=== PATIENT | female | born 1935 ===

== ENCOUNTER 2017-02-18 19:07 | Observation (INO) | payer MEDICAID ==
[2017-02-18 19:20] VITALS: BMI 25.0
--- NOTE | 2017-02-18 19:48 | ED PDOC ---
Arrival/HPI - General Chief Complaint: High Blood Pressure Time Seen by Provider: 02/18/17 19:17 Historian: Patient - History of Present Illness Narrative History of Present Illness (Text): 02/18/17 19:44 A 81 year old female with hypertension, diabetes, peptic ulcer disease, iron deficiency anemia and GI bleed, was sent into the emergency department by PMD for persistent elevated blood pressure. Patient notes associated headache discomfort, as well as, feeling weak and near-syncopal at times. Patient states she has been complaint with her medication. Patient denies any fever, nausea, vomiting, diarrhea, abdominal pain, urinary symptoms, chest pain, shortness of breath or any other complaints. PMD: Dr. Woods Time/Duration: Prior to Arrival Symptom Course: Unchanged Quality: Other Context: Other Past Medical History - Provider Review Nursing Documentation Reviewed: Yes - Infectious Disease Hx of Infectious Diseases: None - Cardiac Hx Cardiac Disorders: Yes Hx Hypertension: Yes - Pulmonary Hx Respiratory Disorders: No - Neurological Hx Neurological Disorder: No - HEENT Hx HEENT Disorder: No - Renal Hx Renal Disorder: No - Endocrine/Metabolic Hx Diabetes Mellitus Type 2: Yes (pre diabetic) - Hematological/Oncological Hx Blood Transfusions: Yes Hx Blood Transfusion Reaction: No - Integumentary Hx Dermatological Disorder: No - Musculoskeletal/Rheumatological Hx Musculoskeletal Disorders: No Hx Falls: Yes - Gastrointestinal Hx Gastrointestinal Disorders: Yes (HERNIA REAPIR,GASTRITIS,THYROIDECTOMY) Hx Gall Bladder Disease: Yes (CHOLECYSTECTOMY) Hx Gastroesophageal Reflux: Yes - Genitourinary/Gynecological Hx Genitourinary Disorders: Yes (2 ABORTIONS) - Psychiatric Hx Psychophysiologic Disorder: No Hx Substance Use: No - Surgical History Hx Cholecystectomy: Yes - Anesthesia Hx Anesthesia Reactions: No Hx Malignant Hyperthermia: No Family/Social History - Physician Review Nursing Documentation Reviewed: Yes Family/Social History: No Known Family HX Smoking Status: Never Smoked Hx Alcohol Use: No Hx Substance Use: No Allergies/Home Meds Allergies/Adverse Reactions: Allergies No Known Allergies Allergy (Verified 02/18/17 19:20) Home Medications: Home Meds Medication Instructions Recorded Confirmed Bp Medication 08/13/16 Review of Systems - Physician Review All systems were reviewed & negative as marked: Yes - Review of Systems Constitutional: Other (Elevated bp, Generalized weakness). absent: Fevers, Night Sweats Respiratory: absent: SOB Cardiovascular: Other (Near-syncope). absent: Chest Pain Gastrointestinal: absent: Abdominal Pain, Diarrhea, Nausea, Vomiting Genitourinary Female: absent: Dysuria, Frequency, Hematuria, Urine Output Changes Neurological: Headache Physical Exam Vital Signs Reviewed: Yes Vital Signs Temp Pulse Pulse Resp BP Pulse Ox 02/18/17 20:28 81 18 195/108 H 100 02/18/17 19:30 68 02/18/17 19:20 16 98 02/18/17 19:08 98.2 F 80 16 207/110 H 100 Temperature: Afebrile Blood Pressure: Hypertensive Pulse: Regular Respiratory Rate: Normal Appearance: Positive for: Well-Appearing, Non-Toxic, Comfortable Pain Distress: None Mental Status: Positive for: Alert and Oriented X 3 - Systems Exam Head: Present: Atraumatic, Normocephalic Pupils: Present: PERRL Extroacular Muscles: Present: EOMI Conjunctiva: Present: Normal Mouth: Present: Moist Mucous Membranes Pharnyx: Present: Normal. No: ERYTHEMA, EXUDATE Neck: Present: Normal Range of Motion. No: Meningeal Signs, MIDLINE TENDERNESS Respiratory/Chest: Present: Clear to Auscultation, Good Air Exchange. No: Respiratory Distress, Accessory Muscle Use Cardiovascular: Present: Regular Rate and Rhythm, Normal S1, S2. No: Murmurs Abdomen: Present: Normal Bowel Sounds. No: Tenderness, Distention, Peritoneal Signs Back: Present: Normal Inspection Upper Extremity: Present: Normal Inspection, NORMAL PULSES. No: Cyanosis, Edema Lower Extremity: Present: Normal Inspection, NORMAL PULSES. No: Edema, CALF TENDERNESS Neurological: Present: GCS=15, CN II-XII Intact, Speech Normal, Motor Func Grossly Intact, Normal Sensory Function, Normal Cerebellar Funct Skin: Present: Warm, Dry, Normal Color. No: Rashes Psychiatric: Present: Alert, Oriented x 3, Normal Insight, Normal Concentration Medical Decision Making ED Course and Treatment: 02/18/17 19:44 Impression: A 81 year old female sent in for elevated blood pressure. Patient notes headache , generalized weakness and feeling near-syncopal at times. Physical exam unremarkable. Plan: -- CT Head w/o contrast -- Chest xray -- EKG -- Labs -- Clonidine -- Reassess and disposition Prior Visits: Notes and results from previous visits were reviewed. Patient last seen in the ED on 12/28/16 and hospitalized for gastrointestinal hemorrhage and anemia. Progress Notes: EKG shows NSR at 77 BPM with normal intervals, normal EKG. Interpreted by me. 02/18/17 22:05 Reviewed radiology, Chest X-ray shows no acute process. CT Head shows: Atrophy and small vessel disease, no acute intracranial abnormality. 02/18/17 22:24 Case discussed with vp medical addiction social worker, who is aware and agrees with plan. Case discussed with Dr. Cook, who is aware and agrees with plan. Accepts pt in to hospitalist service. Pt will go to Telemetry obsevation for near-syncope and uncontrolled hypertension. - Lab Interpretations Lab Results: 02/18/17 20:17 02/18/17 20:17 Lab Results 02/18/17 20:17: PT 10.7, INR 0.99, APTT 26.4 02/18/17 20:17: WBC 7.5, RBC 4.35, Hgb 11.5 L, Hct 33.9 L, MCV 77.9 L, MCH 26.4 , MCHC 33.9, RDW 21.3 H, Plt Count 243, MPV 9.4 02/18/17 20:17: Sodium 127 L, Potassium 4.6, Chloride 91 L D, Carbon Dioxide 24 , Anion Gap 17, BUN 12, Creatinine 0.8, Est GFR ( Amer) > 60, Est GFR ( Non-Af Amer) > 60, Random Glucose 107, Calcium 9.3, Total Bilirubin 0.6, AST 30 , ALT 37, Alkaline Phosphatase 65, Lactate Dehydrogenase 403, Total Creatine Kinase 86, Troponin I < 0.01, Total Protein 8.3, Albumin 4.3, Globulin 4.0, Albumin/Globulin Ratio 1.1 I have reviewed the lab results: Yes - RAD Interpretation Narrative RAD Interpretations (Text): CT Head shows: Brain: There is dilatation of sulci gyri and ventricles. There is no midline shift. There is decreased attenuation in periventricular white matter. There are no focal masses.There are basal ganglia calcifications bilaterally. There are no focal hemorrhages. Phipps-white differentiation is visualized. Ventricles: See above. Bones: Cranial vault is intact. Soft tissues: unremarkable Sinuses: There is no acute sinusitis. Ears and mastoids: Middle ears and mastoids are unremarkable.There is streak artifact from an earring Orbits: Orbital contents are unremarkable. IMPRESSION: Atrophy and small vessel disease, no acute intracranial abnormality Radiology Orders: 02/18/17 19:36 CHEST PORTABLE [RAD] Stat 02/18/17 20:17 HEAD W/O CONTRAST [CT] Stat Rail Car Unloader: Radiologist - EKG Interpretation Interpreted by ED Physician: Yes Type: 12 lead EKG - Medication Orders Current Medication Orders: Discontinued Medications Clonidine HCl (Catapres) 0.2 mg PO STAT STA Stop: 02/18/17 19:34 Last Admin: 02/18/17 19:40 Dose: 0.2 mg Clonidine HCl (Catapres) 0.2 mg PO STAT STA Stop: 02/18/17 20:18 Last Admin: 02/18/17 20:28 Dose: 0.2 mg - Scribe Statement The provider has reviewed the documentation as recorded by the Juliannaiblarisa Bass Provider Scribe Attestation: All medical record entries made by the Scribe were at my direction and personally dictated by me. I have reviewed the chart and agree that the record accurately reflects my personal performance of the history, physical exam, medical decision making, and the department course for this patient. I have also personally directed, reviewed, and agree with the discharge instructions and disposition. Disposition/Present on Arrival - Present on Arrival Any Indicators Present on Arrival: No History of DVT/PE: No History of Uncontrolled Diabetes: No Urinary Catheter: No History of Decub. Ulcer: No History Surgical Site Infection Following: None - Disposition Have Diagnosis and Disposition been Completed?: Yes Diagnosis: Near syncope, Uncontrolled hypertension Disposition: HOSPITALIZED Disposition Time: 22:34 Patient Problems: Current Active Problems Problem Status Onset Near syncope Acute Uncontrolled hypertension Acute Condition: STABLE Referrals: Maritza Woods DO [Primary Care Provider] - Follow up with primary
[2017-02-18 20:23] LABS: HEMATOCRIT 33.9 % (36.0-48.0); MEAN CELL VOLUME 77.9 fL (80.0-105.0); MEAN CORPUSCULAR HEMOGLOBIN 26.4 pg (25.0-35.0); MEAN CORPUSCULAR HGB CONC 33.9 g/dl (31.0-37.0); MEAN PLATELET VOLUME 9.4 fl (7.0-11.0); RED CELL DISTRIBUTION WIDTH 21.3 % (11.5-14.5); WHITE BLOOD COUNT 7.5 10^3/ul (4.5-11.0)
[2017-02-18 20:34] LABS: ALB/GLOB RATIO 1.1 (1.1-1.8); ALKALINE PHOSPHATASE 65 U/L (38-133); ALT/SGPT 37 U/L (7-56); AST/SGOT 30 U/L (15-39); BILIRUBIN,TOTAL 0.6 mg/dL (0.2-1.3); BLOOD UREA NITROGEN 12 mg/dL (7-21); CALCIUM 9.3 mg/dL (8.4-10.5); CARBON DIOXIDE 24 mmol/L (21-33); CHLORIDE 91 mmol/L (98-107); GFR AFRICAN-AMERICAN > 60; GLUCOSE,RANDOM 107 mg/dL (70-110); POTASSIUM 4.6 mmol/L (3.6-5.0); SODIUM 127 mmol/L (132-148); TOTAL PROTEIN 8.3 g/dL (5.8-8.3)
[2017-02-18 20:35] LABS: INR 0.99 (0.93-1.08); PARTIAL THROMBOPLASTIN TIME 26.4 Seconds (23.7-30.8)
[2017-02-18 20:46] LABS: TROPONIN I < 0.01 ng/mL
--- NOTE | 2017-02-18 22:10 | CT ---
EXAM: CT Head Without Intravenous Contrast CLINICAL HISTORY: 81 years old, female; Pain; Headache; Headache not specified TECHNIQUE: Axial computed tomography images of the head/brain without intravenous contrast. This CT exam was performed using one or more of the following dose reduction techniques: automated exposure control, adjustment of the mA and/or kV according to patient size, and/or use of iterative reconstruction technique. COMPARISON: No relevant prior studies available. FINDINGS: Brain: No acute intracranial hemorrhage. Age-appropriate periventricular white matter disease. No edema. Ventricles: Age-appropriate ventriculomegaly. Bones: No acute displaced fracture. Sinuses: Unremarkable as visualized. No acute sinusitis. Mastoid air cells: Unremarkable as visualized. No mastoid effusion. IMPRESSION: No acute intracranial hemorrhage, or suspicious mass effect.
--- NOTE | 2017-02-18 23:47 | CP.PCM.HP ---
<CheikhTerry - Last Filed: 02/19/17 02:11> History of Present Illness - History of Present Illness History of Present Illness: Terry Salamanca D.O. PGY-1, Internal Medicine Resident, Night Float Admission Note CC: high blood pressure at the doctors office today 81 year old [place] female with a PMH of DM, HTN, diabetic neuropathy, insomnia, presbycusis, and GERD who presented to [facility] on 02/18/17 with complaints of a blood pressure of 230/110 at her doctors office earlier today. Patient states that right there and then they called the ambulance and sent her straight here. Patient admits that she has been having a bad headache for a few and that it was specially bad today. Patient describes the headache as band like , all around the top of her head, 7/10 at it's worst, non-radiating, not associated with other symptoms, and that is now improved at 3/10 since having been treated for her hypertension. Patient also admits to some decreased appetite and some numbness of her toes for many years. Otherwise patient has been doing well. Further questioning reveals that the patient did not take her metoprolol this morning because she forgot. Patient denies any lightheadedness, focal weakness, slurred speech, or other symptoms. PMD: Dr. Chuck Qiu PMH: as above PSH: vaginal surgery, thyroidectomy, hernia repair SH: denies smoking, alcohol, or drug use FH: denies Meds: reviewed Allergies: NKA Present on Admission - Present on Admission Any Indicators Present on Admission: No Review of Systems - Constitutional Constitutional: Anorexia (in the mornings). absent: Chills, Fever - EENT Eyes: absent: Itchy Eyes, Loss of Peripheral Vision, Pain Ears: absent: Decreased Hearing, Tinnitus, Dizziness Nose/Mouth/Throat: absent: Epistaxis, Nasal Discharge, Nose Pain - Cardiovascular Cardiovascular: absent: Chest Pain, Leg Edema, Palpitations - Respiratory Respiratory: absent: Cough, Dyspnea, Hemoptysis - Gastrointestinal Gastrointestinal: absent: Abdominal Pain, Constipation, Diarrhea, Nausea, Vomiting - Genitourinary Genitourinary: absent: Dysuria, Hematuria, Nocturia - Musculoskeletal Musculoskeletal: absent: Abnormal Gait, Arthralgias, Numbness - Integumentary Integumentary: absent: Acne, Pruritus, Rash - Neurological Neurological: Numbness, Paresthesias. absent: Abnormal Gait, Convulsions, Dizziness, Frequent Falls Past Patient History - Infectious Disease Hx of Infectious Diseases: None - Past Social History Smoking Status: Never Smoked - CARDIAC Hx Cardiac Disorders: Yes Hx Hypertension: Yes - PULMONARY Hx Respiratory Disorders: No - NEUROLOGICAL Hx Neurological Disorder: No - HEENT Hx HEENT Problems: No - RENAL Hx Chronic Kidney Disease: No - ENDOCRINE/METABOLIC Hx Diabetes Mellitus Type 2: Yes (pre diabetic) - HEMATOLOGICAL/ONCOLOGICAL Hx Blood Transfusions: Yes Hx Blood Transfusion Reaction: No - INTEGUMENTARY Hx Dermatological Problems: No - MUSCULOSKELETAL/RHEUMATOLOGICAL Hx Musculoskeletal Disorders: No Hx Falls: Yes - GASTROINTESTINAL Hx Gastrointestinal Disorders: Yes (HERNIA REAPIR,GASTRITIS,THYROIDECTOMY) Hx Gall Bladder Disease: Yes (CHOLECYSTECTOMY) Hx Gastroesophageal Reflux: Yes - GENITOURINARY/GYNECOLOGICAL Hx Genitourinary Disorders: Yes (2 ABORTIONS) - PSYCHIATRIC Hx Psychophysiologic Disorder: No Hx Substance Use: No - SURGICAL HISTORY Hx Cholecystectomy: Yes - ANESTHESIA Hx Anesthesia Reactions: No Hx Malignant Hyperthermia: No Meds Allergies/Adverse Reactions: Allergies Allergy/AdvReac Type Severity Reaction Status Date / Time No Known Allergies Allergy Verified 02/18/17 19:20 Physical Exam - Constitutional Additional comments: well developed, well nourished elderly [place] female resting in bed comfortably in NAD - Head Exam Head Exam: ATRAUMATIC, NORMOCEPHALIC - Eye Exam Eye Exam: EOMI, PERRL. absent: Conjunctival injection, Scleral icterus - ENT Exam ENT Exam: Mucous Membranes Moist, Normal Oropharynx - Neck Exam Additional comments: soft, supple - Respiratory Exam Respiratory Exam: Clear to Auscultation Bilateral, Rales (mild bibasilar and up to mid posterior lung coronado). absent: Rhonchi, Wheezes - Cardiovascular Exam Cardiovascular Exam: RRR, +S1, +S2. absent: Diastolic murmur, Gallop, Rubs, Systolic Murmur - GI/Abdominal Exam GI & Abdominal Exam: Normal Bowel Sounds, Soft. absent: Distended, Tenderness - Extremities Exam Extremities exam: Positive for: normal capillary refill, pedal pulses present. Negative for: calf tenderness, joint swelling, pedal edema, tenderness - Back Exam Back exam: absent: muscle spasm, paraspinal tenderness, tenderness - Neurological Exam Neurological exam: Alert, CN II-XII Intact, Oriented x3 - Skin Skin Exam: Dry, Intact, Warm Results - Vital Signs Recent Vital Signs: Last Vital Signs Temp 97.6 F 02/18/17 23:04 Pulse 68 02/18/17 23:04 Resp 20 02/18/17 23:04 BP 178/90 H 02/18/17 23:04 Pulse Ox 99 02/18/17 23:04 - Labs Result Diagrams: 02/18/17 20:17 02/18/17 20:17 Assessment & Plan - Assessment and Plan (Free Text) Assessment: 81 year old [place] female with a PMH of DM, HTN, diabetic neuropathy, insomnia, presbycusis, and GERD who presented with complaints of a blood pressure of 230/110 at her doctors office earlier today Plan: 1. Uncontrolled hypertension Placed for obs in telemetry Medications reviewed from home Re-enforced compliance with patient Increased losartan, kept metoprolol the same for due to some bradycardia, also kept amlodipine the same Given lasix 20mg IVP x1, will monitor BPs q4h Headache improving after given two doses of clonidine 0.2mg in the ER Head CT scan reviewed by myself and official read reviewed, no acute fractures or bleeds Labs reviewed by me 2. DM Continue home regimen with accuchecks achs Monitoring 3. Insomnia Continue home regimen Given ativan x1 to help with sleep today since did not receive her regular meds , when re-evaluated was asleep 4. Anemia - microcytic, chronic Takes ferrous sulfate at home, continued No Active bleeding noted Hemodynamically stable 5. Hyponatremia Etiology unknown but appeared to be towards hypervolemia with crackles on lung exam CXR reviewed shows some congestion Given lasix 20mg IVP x1, will re-evaluate Follow up CMP tomorrow AM 6. GERD Continue home protonix DVT ppx: SCDs Patient was seen and examined at bedside and case was discussed at length with attending physician. - Date & Time Date: 02/18/17 Time: 11:48 <Mariela Cook - Last Filed: 02/20/17 06:36> Results - Vital Signs Recent Vital Signs: Last Vital Signs Temp 97.8 F 02/19/17 12:00 Pulse 53 L 02/19/17 14:00 Resp 18 02/19/17 12:00 BP 134/70 02/19/17 12:48 Pulse Ox 98 02/19/17 06:00 - Labs Result Diagrams: 02/19/17 05:00 02/18/17 20:17 Labs: Laboratory Results - last 24 hr 02/19/17 02/19/17 02/19/17 05:00 07:21 11:31 WBC 4.9 D RBC 4.26 Hgb 11.1 L Hct 33.1 L MCV 77.7 L MCH 26.1 MCHC 33.5 RDW 21.5 H Plt Count 223 MPV 9.0 Gran % 56.2 Lymph % (Auto) 32.1 Gem % (Auto) 8.8 H Eos % (Auto) 2.1 Baso % (Auto) 0.8 Gran # 2.73 Lymph # 1.6 Gem # 0.4 Eos # 0.1 Baso # 0.04 POC Glucose (mg/dL) 138 H 139 H 02/19/17 15:55 WBC RBC Hgb Hct MCV MCH MCHC RDW Plt Count MPV Gran % Lymph % (Auto) Gem % (Auto) Eos % (Auto) Baso % (Auto) Gran # Lymph # Gem # Eos # Baso # POC Glucose (mg/dL) 105 Attending/Attestation - Attestation I have personally seen and examined this patient.: Yes I have fully participated in the care of the patient.: Yes I have reviewed all pertinent clinical information: Yes Notes (Text): 02/20/17 06:35 Agree with history, physical examination, assessment and plan.
[2017-02-18 23:55] VITALS: O2SAT 98
[2017-02-19 06:19] LABS: ADD MANUAL DIFF? NO
[2017-02-19 06:26] LABS: BASO # 0.04 K/mm3 (0.0-2.0); BASO % 0.8 % (0.0-3.0); EOS # 0.1 (0.0-0.7); EOS % 2.1 % (1.5-5.0); GRAN # 2.73 (1.4-6.5); GRAN % 56.2 % (50.0-68.0); HEMATOCRIT 33.1 % (36.0-48.0); LYMPH # 1.6 (1.2-3.4); LYMPH % 32.1 % (22.0-35.0); MEAN CELL VOLUME 77.7 fL (80.0-105.0); MEAN CORPUSCULAR HEMOGLOBIN 26.1 pg (25.0-35.0); MEAN CORPUSCULAR HGB CONC 33.5 g/dl (31.0-37.0); MONO # 0.4 (0.1-0.6); MONO % 8.8 % (1.0-6.0); PLATELET COUNT 223 10^3/uL (120.0-450.0); RED CELL DISTRIBUTION WIDTH 21.5 % (11.5-14.5)
[2017-02-19 06:38] LABS: WHITE BLOOD COUNT 4.9 10^3/ul (4.5-11.0)
--- NOTE | 2017-02-19 08:03 | RAD ---
HISTORY: weak COMPARISON: No prior. FINDINGS: LUNGS: No active pulmonary disease. PLEURA: No significant pleural effusion identified, no pneumothorax apparent. CARDIOVASCULAR: Mild cardiomegaly OSSEOUS STRUCTURES: No significant abnormalities. VISUALIZED UPPER ABDOMEN: Normal. OTHER FINDINGS: Hiatal hernia IMPRESSION: Hiatal hernia. Mild cardiomegaly No acute pulmonary pathology appreciated
[2017-02-19] MEDS ORDERED: Non Formulary Medication (Ferrous Sulfate [Feosol] 325 MG) PO SCH (10:00)
[2017-02-19] MEDS ORDERED: ALOGLIPTIN BENZOATE 12.5 MG PO SCH (10:00)
[2017-02-19] MEDS ORDERED: Metoprolol Succinate 25 mg XL Tab PO SCH (10:00)
[2017-02-19] MEDS ORDERED: Pantoprazole 40 mg EC Tab PO SCH (10:00)
[2017-02-19] MEDS ORDERED: FERROUS SULFATE 250 MG PO SCH (10:00)
--- NOTE | 2017-02-19 11:59 | CP.PCM.DIS ---
<YesiPriya trevino - Last Filed: 02/19/17 11:46> Provider - Provider Date of Admission: 02/18/17 22:32 Attending physician: Akua Xavier MD Primary care physician: Maritza Woods DO Time Spent in preparation of Discharge (in minutes): 35 Hospital Course - Lab Results Lab Results: Most Recent Lab Values WBC 4.9 10^3/ul (4.5-11.0) D 02/19/17 05:00 RBC 4.26 10^6/uL (3.5-6.1) 02/19/17 05:00 Hgb 11.1 gm/dL (12.0-16.0) L 02/19/17 05:00 Hct 33.1 % (36.0-48.0) L 02/19/17 05:00 MCV 77.7 fL (80.0-105.0) L 02/19/17 05:00 MCH 26.1 pg (25.0-35.0) 02/19/17 05:00 MCHC 33.5 g/dl (31.0-37.0) 02/19/17 05:00 RDW 21.5 % (11.5-14.5) H 02/19/17 05:00 Plt Count 223 10^3/uL (120.0-450.0) 02/19/17 05:00 MPV 9.0 fl (7.0-11.0) 02/19/17 05:00 Gran % 56.2 % (50.0-68.0) 02/19/17 05:00 Lymph % (Auto) 32.1 % (22.0-35.0) 02/19/17 05:00 Howell % (Auto) 8.8 % (1.0-6.0) H 02/19/17 05:00 Eos % (Auto) 2.1 % (1.5-5.0) 02/19/17 05:00 Baso % (Auto) 0.8 % (0.0-3.0) 02/19/17 05:00 Gran # 2.73 (1.4-6.5) 02/19/17 05:00 Lymph # 1.6 (1.2-3.4) 02/19/17 05:00 Howell # 0.4 (0.1-0.6) 02/19/17 05:00 Eos # 0.1 (0.0-0.7) 02/19/17 05:00 Baso # 0.04 K/mm3 (0.0-2.0) 02/19/17 05:00 PT 10.7 Seconds (9.9-11.8) 02/18/17 20:17 INR 0.99 (0.93-1.08) 02/18/17 20:17 APTT 26.4 Seconds (23.7-30.8) 02/18/17 20:17 Sodium 127 mmol/L (132-148) L 02/18/17 20:17 Potassium 4.6 mmol/L (3.6-5.0) 02/18/17 20:17 Chloride 91 mmol/L (98-107) L D 02/18/17 20:17 Carbon Dioxide 24 mmol/L (21-33) 02/18/17 20:17 Anion Gap 17 (10-20) 02/18/17 20:17 BUN 12 mg/dL (7-21) 02/18/17 20:17 Creatinine 0.8 mg/dL (0.5-1.4) 02/18/17 20:17 Est GFR ( Amer) > 60 02/18/17 20:17 Est GFR (Non-Af Amer) > 60 02/18/17 20:17 POC Glucose (mg/dL) 139 mg/dL (65-110) H 02/19/17 11:31 Random Glucose 107 mg/dL (70-110) 02/18/17 20:17 Calcium 9.3 mg/dL (8.4-10.5) 02/18/17 20:17 Total Bilirubin 0.6 mg/dL (0.2-1.3) 02/18/17 20:17 AST 30 U/L (15-39) 02/18/17 20:17 ALT 37 U/L (7-56) 02/18/17 20:17 Alkaline Phosphatase 65 U/L (38-133) 02/18/17 20:17 Lactate Dehydrogenase 403 U/L (333-699) 02/18/17 20:17 Total Creatine Kinase 86 U/L (35-230) 02/18/17 20:17 Troponin I < 0.01 ng/mL 02/18/17 20:17 Total Protein 8.3 g/dL (5.8-8.3) 02/18/17 20:17 Albumin 4.3 g/dL (3.0-4.8) 02/18/17 20:17 Globulin 4.0 gm/dL 02/18/17 20:17 Albumin/Globulin Ratio 1.1 (1.1-1.8) 02/18/17 20:17 - Hospital Course Hospital Course: This is an 81Y F with PMH of DM, HTN, GERD, gastric ulcer who was admitted for hypertensive urgency. She was at PMD Dr. Woods office yesterday with SBP in 230s. Since admission, patient's BP is controlled. Head CT was negative. She has mild headache relieved by Tylenol. When speaking to the patient, she reports that she forgets her medications sometimes. She lives with her son and his , but they work and she is home alone all day. She was complaining of leg pain and a duplex U/S was negative for DVT. Physical therapy saw the patient and said she is safe for d/c. I also spoke with Dr. Woods who is aware of the situation. The patient will follow up with him in 1 week. I also reconciled her medications through her primary pharmacy [facility]. I refilled the medications that require refills: Nesina 12.5mg qd, Metformin 500mg BID, Protonix 40mg qd and Ferrous Sulfate 325mg qd. Her current home medications are as follows: * Toprol XL 25mg qd * Norvasc 10mg qd * Ativan 1mg qd * Protonix 40mg qd * Metformin 500mg BID * Nesina 12.5mg qd * Ferrous Sulfate 325mg BID - Date & Time of H&P Date of H&P: 02/18/17 Time of H&P: 21:00 Discharge Exam - Head Exam Head Exam: ATRAUMATIC, NORMOCEPHALIC - Eye Exam Eye Exam: Normal appearance Pupil Exam: NORMAL ACCOMODATION - ENT Exam ENT Exam: Mucous Membranes Moist - Respiratory Exam Respiratory Exam: Clear to PA & Lateral, NORMAL BREATHING PATTERN, UNREMARKABLE. absent: Rales, Rhonchi, Wheezes - Cardiovascular Exam Cardiovascular Exam: REGULAR RHYTHM, +S1, +S2. absent: Gallop, Rubs, Systolic Murmur - GI/Abdominal Exam GI & Abdominal Exam: Normal Bowel Sounds, Soft, Unremarkable. absent: Mass, Rebound, Rigid, Tenderness - Extremities Exam Extremities exam: normal inspection, tenderness (mild tenderness to palpation bilaterally ) - Neurological Exam Neurological exam: Alert, CN II-XII Intact - Psychiatric Exam Psychiatric exam: Normal Affect, Normal Mood - Skin Skin Exam: Dry, Intact, Normal Color, Warm Discharge Plan - Discharge Medications Prescriptions: Ferrous Sulfate [Feosol] 325 mg PO DAILY #30 Acetaminophen/Butalbital/Caf [Fioricet] 1 tab PO Q6H #10 tab metFORMIN [glucOPHAGE] 500 mg PO BID #60 Alogliptin Benzoate [Nesina] 12.5 mg PO DAILY #30 Pantoprazole [Protonix EC Tab] 40 mg PO QAM #30 - Follow Up Plan Condition: STABLE Disposition: HOME/ ROUTINE Instructions: Chronic Hypertension (DC), Near Syncope (ED) Additional Instructions: 1. Please set up medications for patient so the patient will not miss medication dosage 2. Please follow up with Dr. Woods (PMD) in 1 week. 3. Please grain picker refills of prescriptions at [facility] [place]. Nursing If she begins to experience chest pain, shortness of breath, weakness, dizziness , shortness of breath, symptoms return or any changes return to the nearest emergency or call 911 Referrals: Maritza Woods DO [Primary Care Provider] - <Akua Xavier - Last Filed: 02/20/17 15:22> Provider - Provider Date of Admission: 02/18/17 22:32 Attending physician: Akua Xavier MD Primary care physician: Maritza Woods DO Hospital Course - Lab Results Lab Results: Most Recent Lab Values WBC 4.9 10^3/ul (4.5-11.0) D 02/19/17 05:00 RBC 4.26 10^6/uL (3.5-6.1) 02/19/17 05:00 Hgb 11.1 gm/dL (12.0-16.0) L 02/19/17 05:00 Hct 33.1 % (36.0-48.0) L 02/19/17 05:00 MCV 77.7 fL (80.0-105.0) L 02/19/17 05:00 MCH 26.1 pg (25.0-35.0) 05/03/17 05:00 MCHC 33.5 g/dl (31.0-37.0) 02/19/17 05:00 RDW 21.5 % (11.5-14.5) H 02/19/17 05:00 Plt Count 223 10^3/uL (120.0-450.0) 02/19/17 05:00 MPV 9.0 fl (7.0-11.0) 02/19/17 05:00 Gran % 56.2 % (50.0-68.0) 02/19/17 05:00 Lymph % (Auto) 32.1 % (22.0-35.0) 02/19/17 05:00 Howell % (Auto) 8.8 % (1.0-6.0) H 02/19/17 05:00 Eos % (Auto) 2.1 % (1.5-5.0) 02/19/17 05:00 Baso % (Auto) 0.8 % (0.0-3.0) 02/19/17 05:00 Gran # 2.73 (1.4-6.5) 02/19/17 05:00 Lymph # 1.6 (1.2-3.4) 02/19/17 05:00 Howell # 0.4 (0.1-0.6) 02/19/17 05:00 Eos # 0.1 (0.0-0.7) 02/19/17 05:00 Baso # 0.04 K/mm3 (0.0-2.0) 02/19/17 05:00 PT 10.7 Seconds (9.9-11.8) 02/18/17 20:17 INR 0.99 (0.93-1.08) 02/18/17 20:17 APTT 26.4 Seconds (23.7-30.8) 02/18/17 20:17 Sodium 127 mmol/L (132-148) L 02/18/17 20:17 Potassium 4.6 mmol/L (3.6-5.0) 02/18/17 20:17 Chloride 91 mmol/L (98-107) L D 02/18/17 20:17 Carbon Dioxide 24 mmol/L (21-33) 02/18/17 20:17 Anion Gap 17 (10-20) 02/18/17 20:17 BUN 12 mg/dL (7-21) 02/18/17 20:17 Creatinine 0.8 mg/dL (0.5-1.4) 02/18/17 20:17 Est GFR ( Amer) > 60 02/18/17 20:17 Est GFR (Non-Af Amer) > 60 02/18/17 20:17 POC Glucose (mg/dL) 105 mg/dL (65-110) 02/19/17 15:55 Random Glucose 107 mg/dL (70-110) 02/18/17 20:17 Calcium 9.3 mg/dL (8.4-10.5) 02/18/17 20:17 Total Bilirubin 0.6 mg/dL (0.2-1.3) 02/18/17 20:17 AST 30 U/L (15-39) 02/18/17 20:17 ALT 37 U/L (7-56) 02/18/17 20:17 Alkaline Phosphatase 65 U/L (38-133) 02/18/17 20:17 Lactate Dehydrogenase 403 U/L (333-699) 02/18/17 20:17 Total Creatine Kinase 86 U/L (35-230) 02/18/17 20:17 Troponin I < 0.01 ng/mL 02/18/17 20:17 Total Protein 8.3 g/dL (5.8-8.3) 02/18/17 20:17 Albumin 4.3 g/dL (3.0-4.8) 02/18/17 20:17 Globulin 4.0 gm/dL 02/18/17 20:17 Albumin/Globulin Ratio 1.1 (1.1-1.8) 02/18/17 20:17 Attending/Attestation - Attestation I have personally seen and examined this patient.: Yes I have fully participated in the care of the patient.: Yes I have reviewed all pertinent clinical information, including history, physical exam and plan: Yes Notes (Text): 02/20/17 15:16 attending note; Patient seen and examined with resident. Patient is a 81-year-old female admitted with uncontrolled hypertension and headache.patient is noncompliant in taking blood pressure medications. Blood pressure improved. head ache resolved. CT head is negative. physical therapy evaluation appreciated. Medication adjusted. PMD Dr. Woods informed. patient will be discharged home today. Family informed. Diagnosis; Uncontrolled hypertension Noncompliance with Medications diabetes 02/20/17 15:22
[2017-02-19 12:17] VITALS: BP 134/70; RESP 18; TEMP 97.8
[2017-02-19] MEDS: Ammonium Lactate 12% Cream (140 g) TOP SCH ×2 (12:51→17:30)
--- NOTE | 2017-02-19 13:36 | US ---
HISTORY: Leg pain and swelling. Evaluate for DVT PHYSICIAN(S): Loc Hopkins MD. TECHNIQUE: Duplex sonography and color-flow Doppler with graded compression were used to evaluate the deep venous systems of both lower extremities. FINDINGS: The visualized deep venous systems of both lower extremities are sonographically normal and compressible. Normal wave forms and augmentation are seen. There is no sonographic evidence for deep venous thrombosis in the visualized segments of both lower extremities. IMPRESSION: No sonographic evidence for deep venous thrombosis in the visualized segments of both lower extremities.
[2017-02-19 18:17] VITALS: PULSE 53
--- NOTE | 2017-02-19 21:51 | CARD ---
APPROVED REPORT EKG Measurement Heart [id number] <Conclusion> Normal sinus rhythm Normal ECG
== END 2017-02-19 18:29 | disposition home or self-care (01) ==
LOC: ED 19:07 → ERH 22:32 → 2RNO 02-19 00:37
PROVIDERS: ADMIT Internal Medicine; ATTEND Internal Medicine
DX: I16.0 Hypertensive urgency (principal); I10 Essential (primary) hypertension; R55 Syncope and collapse; Z91.14 Patient's other noncompliance with medication regimen; D50.9 Iron deficiency anemia, unspecified; K21.9 Gastro-esophageal reflux disease without esophagitis; E11.40 Type 2 diabetes mellitus with diabetic neuropathy, unspecified; G47.00 Insomnia, unspecified; H91.10 Presbycusis, unspecified ear; E87.1 Hypo-osmolality and hyponatremia; D64.9 Anemia, unspecified; R51 Headache; M79.606 Pain in leg, unspecified; Z87.11 Personal history of peptic ulcer disease; Z90.49 Acquired absence of other specified parts of digestive tract
CPT/HCPCS: 36415; 70450; 71010; 80053; 82550; 82948; 83615; 84484; 85025; 85027; 85610; 85730; 93005; 93970; 96374; 97116; 97162; 99285; G0378; G8978; G8979; G8980; J1940

== ENCOUNTER 2017-03-05 21:31 | Emergency (ER) | payer MEDICAID, MEDICARE ==
[2017-03-05 21:50] VITALS: BP 158/71; PULSE 78; RESP 20; TEMP 98.8; O2SAT 99
[2017-03-05 21:51] VITALS: BMI 26.8
--- NOTE | 2017-03-05 22:08 | ED PDOC ---
Arrival/HPI - General Time Seen by Provider: 03/05/17 22:01 Historian: Patient, Family (Son) - History of Present Illness Narrative History of Present Illness (Text): 03/05/17 22:08 Lauren Yang is an 81 year old female, whose past medical history includes hypertension, gastritis, and diabetes, who presents to the ED accompanied by son complaining of elevated blood pressure throughout today. Patient reports associated headache. Patient states she has been compliant with her hypertension medications.Patient also complaining of right buttock discomfort radiating down her leg. Patient denies any fever, chills, chest pain, shortness of breath, nausea, vomiting, diarrhea, urinary symptoms, back pain, neck pain, dizziness, or any other complaints. Time/Duration: Other (today) Symptom Onset: Gradual Symptom Course: Unchanged Activities at Onset: Rest, Light Context: Home Past Medical History - Provider Review Nursing Documentation Reviewed: Yes - Infectious Disease Hx of Infectious Diseases: None - Cardiac Hx Cardiac Disorders: Yes Hx Hypertension: Yes - Pulmonary Hx Respiratory Disorders: No - Neurological Hx Neurological Disorder: No - HEENT Hx HEENT Disorder: No - Renal Hx Renal Disorder: No - Endocrine/Metabolic Hx Diabetes Mellitus Type 2: Yes (pre diabetic) - Hematological/Oncological Hx Blood Transfusions: Yes Hx Blood Transfusion Reaction: No - Integumentary Hx Dermatological Disorder: No - Musculoskeletal/Rheumatological Hx Musculoskeletal Disorders: No Hx Falls: Yes - Gastrointestinal Hx Gastrointestinal Disorders: Yes (HERNIA REAPIR,GASTRITIS,THYROIDECTOMY) Hx Gall Bladder Disease: Yes (CHOLECYSTECTOMY) Hx Gastroesophageal Reflux: Yes - Genitourinary/Gynecological Hx Genitourinary Disorders: Yes (2 ABORTIONS) - Psychiatric Hx Psychophysiologic Disorder: No Hx Substance Use: No - Surgical History Hx Cholecystectomy: Yes - Anesthesia Hx Anesthesia Reactions: No Hx Malignant Hyperthermia: No Family/Social History - Physician Review Nursing Documentation Reviewed: Yes Family/Social History: No Known Family HX Smoking Status: Never Smoked Hx Alcohol Use: No Hx Substance Use: No Allergies/Home Meds Allergies/Adverse Reactions: Allergies No Known Allergies Allergy (Verified 03/05/17 22:00) Home Medications: Home Meds Medication Instructions Recorded Confirmed Atorvastatin [Lipitor] 20 mg PO DAILY 02/19/17 03/05/17 Lorazepam [Ativan] 1 mg PO DAILY 02/19/17 03/05/17 Metoprolol Succinate [Toprol XL] 25 mg PO DAILY 02/19/17 03/05/17 Review of Systems - Physician Review All systems were reviewed & negative as marked: Yes - Review of Systems Constitutional: Normal. absent: Fevers Eyes: Normal ENT: Normal Respiratory: Normal. absent: SOB, Cough Cardiovascular: Other (+high blood pressure). absent: Chest Pain Gastrointestinal: Normal. absent: Abdominal Pain, Diarrhea, Nausea, Vomiting Genitourinary Female: Normal. absent: Dysuria, Frequency, Hematuria, Urine Output Changes Musculoskeletal: Other (+right buttock pain radiating down leg). absent: Back Pain, Neck Pain Skin: Normal. absent: Rash Neurological: Headache. absent: Dizziness Endocrine: Normal Hemo/Lymphatic: Normal Psychiatric: Normal Physical Exam Vital Signs Reviewed: Yes Vital Signs Temp Pulse Resp BP Pulse Ox 03/05/17 21:49 98.8 F 78 20 158/71 H 99 Temperature: Afebrile Blood Pressure: Hypertensive Pulse: Regular Respiratory Rate: Normal Appearance: Positive for: Well-Appearing, Non-Toxic, Comfortable Pain Distress: None Mental Status: Positive for: Alert and Oriented X 3 - Systems Exam Head: Present: Atraumatic, Normocephalic Pupils: Present: PERRL Extroacular Muscles: Present: EOMI Conjunctiva: Present: Normal Mouth: Present: Moist Mucous Membranes Neck: Present: Normal Range of Motion Respiratory/Chest: Present: Clear to Auscultation, Good Air Exchange. No: Respiratory Distress, Accessory Muscle Use Cardiovascular: Present: Regular Rate and Rhythm, Normal S1, S2. No: Murmurs Abdomen: Present: Normal Bowel Sounds. No: Tenderness, Distention, Peritoneal Signs Back: Present: Normal Inspection Upper Extremity: Present: Normal Inspection. No: Cyanosis, Edema Lower Extremity: Present: Normal Inspection, NORMAL PULSES, Normal ROM, Tenderness (over sciatic notch), Neurovascularly Intact. No: Edema, CALF TENDERNESS, Bruna's Sign Neurological: Present: GCS=15, CN II-XII Intact, Speech Normal, Motor Func Grossly Intact, Normal Sensory Function Skin: Present: Warm, Dry, Normal Color. No: Rashes Psychiatric: Present: Alert, Oriented x 3, Normal Insight, Normal Concentration Medical Decision Making ED Course and Treatment: 03/05/17 22:08 Impression: 81 y/o female complaining of elevated blood pressure today, headache, and right buttock pain radiating down leg. Differential Diagnosis include but are not limited to: Plan: -- CT Head w/o contrast -- Tylenol -- Reassess and disposition Prior Visits: Notes and results from previous visits were reviewed. Progress Notes: 03/05/17 23:18 Reviewed radiology, CT Head shows: No apparent intracranial change since study of February 18, 2017. Stable prominent subdural spaces compared to study of 15 days prior, no other previous studies are available. Small amount of bubbly secretions in the right sphenoid sinus, this could questionably represent some infection which may contribute to symptoms noting that this is not favored. No abnormality suspicious for acute stroke by noncontrast head CT. If there is clinical suspicion for stroke, please note that other modalities are considered to be more sensitive than noncontrast head CT. - RAD Interpretation Narrative RAD Interpretations (Text): CT Head shows: Brain: The appearance of ventricles and sulci is similar to the study of approximately 15 days previous. Again noted some limitation in the middle cranial fossa. Again noted diffuse mild prominence of the subdural spaces, without apparent mass effect, and noting patent basal cisterns and fourth ventricle. No hemorrhage. No significant white matter disease. No edema. Ventricles: See above. Bones/joints: Unremarkable. No acute fracture. Soft tissues: Unremarkable. Sinuses: There are some bubbly secretions in the right sphenoid sinus, no air- fluid level is seen, please correlate whether some sinus pathology might contribute to the reported symptoms. Mastoid air cells: Unremarkable as visualized. No mastoid effusion. Orbits: Patient status post bilateral lens replacements. Other findings: There is comparison to previous dated February 18, 2017. IMPRESSION: No apparent intracranial change since study of February 18, 2017. Stable prominent subdural spaces compared to study of 15 days prior, no other previous studies are available. Small amount of bubbly secretions in the right sphenoid sinus, this could questionably represent some infection which may contribute to symptoms noting that this is not favored. No abnormality suspicious for acute stroke by noncontrast head CT. If there is clinical suspicion for stroke, please note that other modalities are considered to be more sensitive than noncontrast head CT. Radiology Orders: 03/05/17 22:13 HEAD W/O CONTRAST [CT] Stat Curing Room Supervisor: Radiologist - Medication Orders Current Medication Orders: Discontinued Medications Acetaminophen (Tylenol 325mg Tab) 650 mg PO STAT STA Stop: 03/05/17 22:15 Last Admin: 03/05/17 23:15 Dose: 650 mg Ketorolac Tromethamine (Toradol) Confirm Administered Dose 60 mg .ROUTE .STK- MED ONE Stop: 03/06/17 01:21 - Scribe Statement The provider has reviewed the documentation as recorded by the Scribe Felicia Edwrads All medical record entries made by the Scribe were at my direction and personally dictated by me. I have reviewed the chart and agree that the record accurately reflects my personal performance of the history, physical exam, medical decision making, and the department course for this patient. I have also personally directed, reviewed, and agree with the discharge instructions and disposition. Disposition/Present on Arrival - Present on Arrival Any Indicators Present on Arrival: No History of DVT/PE: No History of Uncontrolled Diabetes: No Urinary Catheter: No History Surgical Site Infection Following: None - Disposition Have Diagnosis and Disposition been Completed?: Yes Diagnosis: Headache, Sciatica Disposition Time: 04:00 Patient Plan: Discharge Patient Problems: Current Active Problems Problem Status Onset Headache Acute Sciatica Acute Condition: GOOD Referrals: Maritza Woods DO [Primary Care Provider] - Follow up with primary
--- NOTE | 2017-03-05 23:09 | CT ---
EXAM: CT Head Without Intravenous Contrast CLINICAL HISTORY: 81 years old, female; Pain; Headache; Headache not specified TECHNIQUE: Axial computed tomography images of the head/brain without intravenous contrast. This CT exam was performed using one or more of the following dose reduction techniques: automated exposure control, adjustment of the mA and/or kV according to patient size, and/or use of iterative reconstruction technique. EXAM DATE/TIME: Exam ordered 03/05/2017 10:13 PM COMPARISON: CT - HEAD W/O CONTRAST 02/18/2017 9:34:24 PM FINDINGS: Brain: The appearance of ventricles and sulci is similar to the study of approximately 15 days previous. Again noted some limitation in the middle cranial fossa. Again noted diffuse mild prominence of the subdural spaces, without apparent mass effect, and noting patent basal cisterns and fourth ventricle. No hemorrhage. No significant white matter disease. No edema. Ventricles: See above. Bones/joints: Unremarkable. No acute fracture. Soft tissues: Unremarkable. Sinuses: There are some bubbly secretions in the right sphenoid sinus, no air-fluid level is seen, please correlate whether some sinus pathology might contribute to the reported symptoms. Mastoid air cells: Unremarkable as visualized. No mastoid effusion. Orbits: Patient status post bilateral lens replacements. Other findings: There is comparison to previous dated February 18, 2017. IMPRESSION: No apparent intracranial change since study of February 18, 2017. Stable prominent subdural spaces compared to study of 15 days prior, no other previous studies are available. Small amount of bubbly secretions in the right sphenoid sinus, this could questionably represent some infection which may contribute to symptoms noting that this is not favored. No abnormality suspicious for acute stroke by noncontrast head CT. If there is clinical suspicion for stroke, please note that other modalities are considered to be more sensitive than noncontrast head CT.
== END 2017-03-06 22:53 | disposition home or self-care (01) ==
LOC: ED 21:31
DX: R51 Headache (principal); M54.30 Sciatica, unspecified side; R73.03 Prediabetes; I10 Essential (primary) hypertension

== ENCOUNTER 2017-04-04 14:12 | Observation (INO) | payer MEDICAID ==
[2017-04-04 14:18] VITALS: BMI 23.3
--- NOTE | 2017-04-04 14:48 | ED PDOC ---
Arrival/HPI - General Chief Complaint: Headache Time Seen by Provider: 04/04/17 14:23 Historian: Patient - History of Present Illness Narrative History of Present Illness (Text): 04/04/17 14:44 Patient is an 81 year old female who presents to the emergency department with history of severe frontal headache, gradual onset, associated with hypertension. Patient evaluated by her PMD Dr. Joselin Woods, who sent patient for evaluation, reportedly patient felt dizzy and had episdoe where she almost passed out. She reports some dizziness and unsteadiness at times, but reports pain to her right hip for the past several months that is worse with movement. Denies trauma. Denies mid back pain. Denies swelling or discoloration to the legs. Patient reportedly took her Metoprolol but states she does not take any other blood pressure medication. 04/04/17 20:06 Time/Duration: 4-6 hours Symptom Onset: Sudden Symptom Course: Unchanged Modifying Factors (Text): None Past Medical History - Provider Review Nursing Documentation Reviewed: Yes - Infectious Disease Hx of Infectious Diseases: None - Cardiac Hx Cardiac Disorders: Yes Hx Hypertension: Yes - Pulmonary Hx Respiratory Disorders: No - Neurological Hx Neurological Disorder: No - HEENT Hx HEENT Disorder: No - Renal Hx Renal Disorder: No - Endocrine/Metabolic Hx Diabetes Mellitus Type 2: Yes (pre diabetic) - Hematological/Oncological Hx Blood Transfusions: Yes Hx Blood Transfusion Reaction: No - Integumentary Hx Dermatological Disorder: No - Musculoskeletal/Rheumatological Hx Musculoskeletal Disorders: No Hx Falls: Yes - Gastrointestinal Hx Gastrointestinal Disorders: Yes (HERNIA REAPIR,GASTRITIS,THYROIDECTOMY) Hx Gall Bladder Disease: Yes (CHOLECYSTECTOMY) Hx Gastroesophageal Reflux: Yes - Genitourinary/Gynecological Hx Genitourinary Disorders: Yes (2 ABORTIONS) - Psychiatric Hx Psychophysiologic Disorder: No Hx Substance Use: No - Surgical History Hx Cholecystectomy: Yes - Anesthesia Hx Anesthesia Reactions: No Hx Malignant Hyperthermia: No Family/Social History - Physician Review Nursing Documentation Reviewed: Yes Family/Social History: Unknown Family HX Smoking Status: Never Smoked Hx Alcohol Use: No Hx Substance Use: No Allergies/Home Meds Allergies/Adverse Reactions: Allergies No Known Allergies Allergy (Verified 03/05/17 22:00) Home Medications: Home Meds Medication Instructions Recorded Confirmed Atorvastatin [Lipitor] 20 mg PO DAILY 02/19/17 04/04/17 Lorazepam [Ativan] 1 mg PO DAILY 02/19/17 04/04/17 Metoprolol Succinate [Toprol XL] 25 mg PO DAILY 02/19/17 04/04/17 Review of Systems - Review of Systems Constitutional: Fatigue. absent: Fevers Eyes: absent: Vision Changes, Photophobia, Eye Pain ENT: absent: Hearing Changes, Sore Throat Respiratory: absent: SOB Cardiovascular: absent: Chest Pain, CHAVES Gastrointestinal: absent: Abdominal Pain, Nausea, Vomiting Genitourinary Female: absent: Dysuria, Frequency Musculoskeletal: Other (right lower extremity pain). absent: Back Pain, Neck Pain Neurological: Headache. absent: Dizziness, Focal Weakness, Gait Changes, Seizure Endocrine: absent: Polyuria, Polydipsia Hemo/Lymphatic: absent: Easy Bleeding Psychiatric: Anxiety. absent: Depression, Suicidal Ideation Physical Exam - Physical Exam Narrative Physical Exam (Text): Head: Atraumatic. Normocephalic. Eyes: PERRL. EOMI. Conjunctivae are not pale. ENT: Mucous membranes are moist and intact. Oropharynx is clear and symmetric. Neck: Supple. Full ROM. No JVD. No lymphadenopathy. Cardiovascular: Regular rate. Regular rhythm. Systolic murmur. Pulmonary/Chest: No evidence of respiratory distress. Clear to auscultation bilaterally. No wheezing, rales or rhonchi. Abdominal: Soft and non-distended. There is no tenderness. No rebound, guarding, or rigidity. No organomegaly. Good bowel sounds. Back: No CVA tenderness. Paraspinal lumbar pain, no midline pain, no buttock pain. Extremities: No edema. No cyanosis. No clubbing. Full range of motion in all extremities. No calf tenderness. Pain with range of motion to right hip, no knee or ankle pain, no calf pain, no rash or streaking, strong distal pulses. Skin: Skin is warm and dry. No petechiae. No purpura. Neurological: Alert, awake, and oriented to person, place, time, and situation. Normal speech. Psychiatric: Good eye contact. Normal interaction, affect, and behavior. Vital Signs Reviewed: Yes Vital Signs Temp Pulse Resp BP Pulse Ox 04/04/17 19:31 63 16 165/89 H 99 04/04/17 18:32 60 17 189/65 H 98 04/04/17 18:08 62 17 178/81 H 98 04/04/17 15:57 184/89 H 04/04/17 15:54 184/89 H 04/04/17 15:18 77 16 217/112 H 97 04/04/17 15:03 71 226/105 H 04/04/17 14:13 98.6 F 82 18 221/100 H 98 Temperature: Afebrile Blood Pressure: Hypertensive Pulse: Regular Respiratory Rate: Normal Appearance: Positive for: Non-Toxic, Uncomfortable Pain Distress: Mild Mental Status: Positive for: Alert and Oriented X 3 Medical Decision Making ED Course and Treatment: Differential Diagnosis included but are not limited to: htn, headache, hypertensive urgency, near syncope Plan: ED Observation Prior Visits: Notes and results from previous visits were reviewed. Patient last seen in the ED on 03/05/17 for similar symptoms and discharged home. Progress Notes: Patient with persistent symptoms despite improvement in BP. Son and daughter present at bedside states she has been compliant with medication. No chest pain , no shortness of breath, neurologically intact at this point. Leg pain appears to be worse with movements, no associated masses or nv deficits noted. No fever. No reported trauma. No nuchal rigidity. Due to persistent symptoms patient will be admitted to telemetry observation. CT head ordered as headache persistent. Case d/w house doctor accepts observation admission to hospitalist. 04/04/17 20:07 - RAD Interpretation Radiology Orders: 04/04/17 14:26 CHEST PORTABLE [RAD] Stat - Medication Orders Current Medication Orders: Discontinued Medications Acetaminophen (Tylenol 325mg Tab) 650 mg PO ONCE STA Stop: 04/04/17 20:04 Amlodipine Besylate (Norvasc) 10 mg PO STAT STA Stop: 04/04/17 15:13 Last Admin: 04/04/17 15:57 Dose: 10 mg Clonidine HCl (Catapres) 0.2 mg PO ONCE STA Stop: 04/04/17 14:32 Last Admin: 04/04/17 15:03 Dose: 0.2 mg Morphine Sulfate (Morphine) 2 mg IVP STAT STA Stop: 04/04/17 17:55 Last Admin: 04/04/17 18:20 Dose: 2 mg ED OBSERVATION Date of observation admission: 04/04/17 Time of observation admission: 14:30 - Observation admission statement Patient is being placed in observation because:: symptomatic hypertension - Goals of Observation Goals of observation are:: blood pressure control, reassessment of symptoms - Progress Note Progress Note: 04/04/17 14:30 On initial examination, patient is hypertensive with complaints of headache and right leg pain. 04/04/17 16:30 On reevaluation, blood pressure persistently elevated despite clonidine and norvasc. Leg pain persistent. US Lower Extremities Clothes Designer : Loc Burks MD Report Date : 04/04/2017 17:25:19 IMPRESSION: No sonographic evidence for deep venous thrombosis in the visualized segments of both lower extremities. 04/04/17 17:55 Patient was reevaluated with plant operations engineer present. Patient is complaining of persistent headache and severe pain in the right leg. Ultrasound negative for DVT. Denies trauma. Due to persistent pain, IV Morphine ordered. Side effects of medication were discussed. 04/04/17 19:35 Blood pressure improved, states headache and leg pain improved. - Scribe Statement The provider has reviewed the documentation as recorded by the Hilario Allen Provider Scribe Attestation: All medical record entries made by the Hilario were at my direction and personally dictated by me. I have reviewed the chart and agree that the record accurately reflects my personal performance of the history, physical exam, medical decision making, and the department course for this patient. I have also personally directed, reviewed, and agree with the discharge instructions and disposition. Disposition/Present on Arrival - Present on Arrival Any Indicators Present on Arrival: No History of DVT/PE: No History of Uncontrolled Diabetes: No Urinary Catheter: No History of Decub. Ulcer: No History Surgical Site Infection Following: None - Disposition Have Diagnosis and Disposition been Completed?: Yes Diagnosis: Hypertensive urgency, Uncontrolled hypertension Disposition Time: 16:00 Patient Plan: Observation Patient Problems: Current Active Problems Problem Status Onset Hypertensive urgency Acute Uncontrolled hypertension Acute Condition: FAIR
[2017-04-04 15:01] LABS: ADD MANUAL DIFF? NO
[2017-04-04 15:07] LABS: BASO # 0.03 K/mm3 (0.0-2.0); BASO % 0.5 % (0.0-3.0); EOS # 0.1 (0.0-0.7); EOS % 1.3 % (1.5-5.0); GRAN # 3.92 (1.4-6.5); GRAN % 64.4 % (50.0-68.0); HEMATOCRIT 33.1 % (36.0-48.0); LYMPH # 1.7 (1.2-3.4); LYMPH % 27.5 % (22.0-35.0); MEAN CELL VOLUME 82.8 fL (80.0-105.0); MEAN CORPUSCULAR HEMOGLOBIN 28.3 pg (25.0-35.0); MEAN CORPUSCULAR HGB CONC 34.1 g/dl (31.0-37.0); MEAN PLATELET VOLUME 8.9 fl (7.0-11.0); MONO # 0.4 (0.1-0.6); MONO % 6.3 % (1.0-6.0); PLATELET COUNT 249 10^3/uL (120.0-450.0); WHITE BLOOD COUNT 6.1 10^3/ul (4.5-11.0)
--- NOTE | 2017-04-04 15:12 | RAD ---
HISTORY: headache, htn COMPARISON: 02/18/2017 FINDINGS: LUNGS: No active pulmonary disease. PLEURA: No significant pleural effusion identified, no pneumothorax apparent. CARDIOVASCULAR: Normal. OSSEOUS STRUCTURES: No significant abnormalities. VISUALIZED UPPER ABDOMEN: Normal. OTHER FINDINGS: None. IMPRESSION: No active disease.
[2017-04-04 15:14] LABS: ALB/GLOB RATIO 1.2 (1.1-1.8); ALKALINE PHOSPHATASE 71 U/L (38-133); ALT/SGPT 30 U/L (7-56); AST/SGOT 26 U/L (15-39); BILIRUBIN,TOTAL 0.4 mg/dL (0.2-1.3); BLOOD UREA NITROGEN 9 mg/dL (7-21); CALCIUM 9.1 mg/dL (8.4-10.5); CARBON DIOXIDE 24 mmol/L (21-33); CHLORIDE 100 mmol/L (98-107); GFR AFRICAN-AMERICAN > 60; GLUCOSE,RANDOM 113 mg/dL (70-110); POTASSIUM 3.9 mmol/L (3.6-5.0); SODIUM 133 mmol/L (132-148); TOTAL PROTEIN 7.4 g/dL (5.8-8.3)
[2017-04-04 15:29] LABS: TROPONIN I < 0.01 ng/mL
[2017-04-04 16:02] LABS: URINE BILIRUBIN NEGATIVE (NEGATIVE); URINE BLOOD TRACE-INTACT (NEGATIVE); URINE GLUCOSE (UA) NEGATIVE (NEGATIVE); URINE KETONE NEGATIVE (NEGATIVE); URINE LEUKOCYTE ESTERASE NEGATIVE Leu/uL (NEGATIVE); URINE PROTEIN 30 mg/dL (<30 mg/dL); URINE UROBILINOGEN 0.2 E.U./dL (<1 E.U./dL)
[2017-04-04 16:08] LABS: URINE APPEARANCE CLEAR (CLEAR); URINE COLOR YELLOW (YELLOW)
[2017-04-04 16:17] LABS: URINE BACTERIA FEW (NEG); URINE EPITHELIAL CELLS 0 - 2 /hpf (0-5); URINE RBC NEGATIVE /hpf (0-2)
[2017-04-04] MEDS ORDERED: Morphine 2 mg/ml ISec IVP STA (17:54)
[2017-04-04] MEDS ORDERED: Albuterol 0.083% Inhal Sol (2.5 mg/3 mL) UD IH PRN (20:04)
--- NOTE | 2017-04-04 21:16 | CP.PCM.HP ---
Addendum entered and electronically signed by Maximo Weldon DO 04/04/17 22:18: Head CT was negative for any acute changes; showed chronic microvascular changes Original Note: <Maximo Weldon - Last Filed: 04/04/17 21:25> History of Present Illness - History of Present Illness History of Present Illness: CC: MORENO This patient is an 81yo F w/ a PMHx of HTN, DM on metformin, and anxiety who is presenting to the ED w/ a 1d history of frontal headche that is normally associated with high blood pressure. When the patient went to check her BP at home she noticed that her BP was extremely elevated above 190/100. In the ED her BP was found to be extremely elevated too and she was given multiple doses of clonidine which lowered it appropriately. She is denying any SOB, CP, abdominal pain, N/V/D, dysuria,freq/urg or lower extremity swelling or pain, depression/anxiety. PMhx: HTN, DM last A1C 9.5 on 01/03 only metformin, anxiety, iron deficiency anemia Allergies: None Surgeries: thyroid surgery for mass, never on meds, choly, hernia Meds: Metoprolol, Metformin, Amlodipine FamHx: Denies Social: Denies smoking, drugs, alcohol, lives at home, walks unassisted albeit slow according to son, independent in all IADL Present on Admission - Present on Admission Any Indicators Present on Admission: No History of DVT/PE: No History of Uncontrolled Diabetes: Yes Urinary Catheter: No Decubitus Ulcer Present: No Past Patient History - Infectious Disease Hx of Infectious Diseases: None - Past Social History Smoking Status: Never Smoked - CARDIAC Hx Cardiac Disorders: Yes Hx Hypertension: Yes - PULMONARY Hx Respiratory Disorders: No - NEUROLOGICAL Hx Neurological Disorder: No - HEENT Hx HEENT Problems: No - RENAL Hx Chronic Kidney Disease: No - ENDOCRINE/METABOLIC Hx Diabetes Mellitus Type 2: Yes (pre diabetic) - HEMATOLOGICAL/ONCOLOGICAL Hx Blood Transfusions: Yes Hx Blood Transfusion Reaction: No - INTEGUMENTARY Hx Dermatological Problems: No - MUSCULOSKELETAL/RHEUMATOLOGICAL Hx Musculoskeletal Disorders: No Hx Falls: Yes - GASTROINTESTINAL Hx Gastrointestinal Disorders: Yes (HERNIA REAPIR,GASTRITIS,THYROIDECTOMY) Hx Gall Bladder Disease: Yes (CHOLECYSTECTOMY) Hx Gastroesophageal Reflux: Yes - GENITOURINARY/GYNECOLOGICAL Hx Genitourinary Disorders: Yes (2 ABORTIONS) - PSYCHIATRIC Hx Psychophysiologic Disorder: No Hx Substance Use: No - SURGICAL HISTORY Hx Cholecystectomy: Yes - ANESTHESIA Hx Anesthesia Reactions: No Hx Malignant Hyperthermia: No Meds Allergies/Adverse Reactions: Allergies Allergy/AdvReac Type Severity Reaction Status Date / Time No Known Allergies Allergy Verified 03/05/17 22:00 Physical Exam - Constitutional Appears: Well, Non-toxic Additional comments: uncomfortable female sitting in bed stating she has a headache - Head Exam Head Exam: ATRAUMATIC, NORMAL INSPECTION - Eye Exam Eye Exam: EOMI, Normal appearance - ENT Exam ENT Exam: Mucous Membranes Moist - Neck Exam Neck exam: Positive for: Full Rom. Negative for: Lymphadenopathy - Respiratory Exam Respiratory Exam: Clear to Auscultation Bilateral, NORMAL BREATHING PATTERN. absent: Rales, Rhonchi, Wheezes - Cardiovascular Exam Cardiovascular Exam: REGULAR RHYTHM, +S1, +S2 - GI/Abdominal Exam GI & Abdominal Exam: Normal Bowel Sounds, Soft. absent: Tenderness - Rectal Exam Rectal Exam: Deferred - Extremities Exam Extremities exam: Positive for: full ROM, normal capillary refill, normal inspection, pedal pulses present. Negative for: calf tenderness, joint swelling , pedal edema, tenderness - Back Exam Back exam: NORMAL INSPECTION. absent: CVA tenderness (L), CVA tenderness (R) - Neurological Exam Neurological exam: Alert, CN II-XII Intact, Oriented x3, Reflexes Normal - Psychiatric Exam Psychiatric exam: Normal Affect - Skin Skin Exam: Intact, Warm Results - Vital Signs Recent Vital Signs: Last Vital Signs Temp 98.6 F 04/04/17 14:13 Pulse 73 04/04/17 20:40 Resp 18 04/04/17 20:40 BP 190/91 H 04/04/17 20:40 Pulse Ox 99 04/04/17 20:40 - Labs Result Diagrams: 04/04/17 14:50 04/04/17 14:50 Labs: Laboratory Results - last 24 hr 04/04/17 04/04/17 04/04/17 14:50 14:50 15:45 WBC 6.1 D RBC 4.00 Hgb 11.3 L Hct 33.1 L MCV 82.8 MCH 28.3 MCHC 34.1 RDW 18.0 H Plt Count 249 MPV 8.9 Gran % 64.4 Lymph % (Auto) 27.5 Lucas % (Auto) 6.3 H Eos % (Auto) 1.3 L Baso % (Auto) 0.5 Gran # 3.92 Lymph # 1.7 Lucas # 0.4 Eos # 0.1 Baso # 0.03 Sodium 133 Potassium 3.9 Chloride 100 Carbon Dioxide 24 Anion Gap 13 BUN 9 Creatinine 0.8 Est GFR ( Amer) > 60 Est GFR (Non-Af Amer) > 60 Random Glucose 113 H Calcium 9.1 Total Bilirubin 0.4 AST 26 ALT 30 Alkaline Phosphatase 71 Lactate Dehydrogenase 392 Total Creatine Kinase 156 Troponin I < 0.01 Total Protein 7.4 Albumin 4.1 Globulin 3.3 Albumin/Globulin Ratio 1.2 Urine Color Yellow Urine Appearance Clear Urine pH 7.0 Ur Specific Curtis 1.010 Urine Protein 30 H Urine Glucose (UA) Negative Urine Ketones Negative Urine Blood Trace-intact H Urine Nitrate Negative Urine Bilirubin Negative Urine Urobilinogen 0.2 Ur Leukocyte Esterase Negative Urine RBC Negative Urine WBC 1 - 3 Ur Epithelial Cells 0 - 2 Urine Bacteria Few Assessment & Plan - Assessment and Plan (Free Text) Assessment: 81yo F admitted for Accelerated HTN Accelerated HTN -pending CT head; f/u results -initial troponin negative; will trend; ekg unchanged -echo ordered for the morning -in seting of previous thyroid surgery will order stat TSH; f/u -PRN hydralazine, will start lisinopril, in addition to previous HTN meds DM -RISS -f/u HBA1C -if above 10 will likely need insulin Iron deficiency anemia -trend CBC -c/w with iron pills -CBC 3 points higher than when initially seen here Proph -Heart Healthy Diet -will have SCD for now; hold off on lovenox until head CT is done -pepcid Case discussed and seen with Dr. Joey Weldon PGY1 Night Float Decision To Admit - Pt Status Changed To: Hospital Disposition Of: Observation - . Bed Request Type: Remote Telemetry Admitting Physician: Mariela Cook <Mariela Cook - Last Filed: 04/05/17 02:11> Results - Vital Signs Recent Vital Signs: Last Vital Signs Temp 97.8 F 04/05/17 00:01 Pulse 70 04/05/17 00:01 Resp 20 04/05/17 00:01 BP 128/66 04/05/17 00:01 Pulse Ox 98 04/05/17 00:01 - Labs Result Diagrams: 04/04/17 14:50 04/04/17 14:50 Labs: Laboratory Results - last 24 hr 04/04/17 04/04/17 04/04/17 14:50 14:50 15:45 WBC 6.1 D RBC 4.00 Hgb 11.3 L Hct 33.1 L MCV 82.8 MCH 28.3 MCHC 34.1 RDW 18.0 H Plt Count 249 MPV 8.9 Gran % 64.4 Lymph % (Auto) 27.5 Lucas % (Auto) 6.3 H Eos % (Auto) 1.3 L Baso % (Auto) 0.5 Gran # 3.92 Lymph # 1.7 Lucas # 0.4 Eos # 0.1 Baso # 0.03 Sodium 133 Potassium 3.9 Chloride 100 Carbon Dioxide 24 Anion Gap 13 BUN 9 Creatinine 0.8 Est GFR ( Amer) > 60 Est GFR (Non-Af Amer) > 60 Random Glucose 113 H Calcium 9.1 Total Bilirubin 0.4 AST 26 ALT 30 Alkaline Phosphatase 71 Lactate Dehydrogenase 392 Total Creatine Kinase 156 Troponin I < 0.01 Total Protein 7.4 Albumin 4.1 Globulin 3.3 Albumin/Globulin Ratio 1.2 TSH 3rd Generation Urine Color Yellow Urine Appearance Clear Urine pH 7.0 Ur Specific Curtis 1.010 Urine Protein 30 H Urine Glucose (UA) Negative Urine Ketones Negative Urine Blood Trace-intact H Urine Nitrate Negative Urine Bilirubin Negative Urine Urobilinogen 0.2 Ur Leukocyte Esterase Negative Urine RBC Negative Urine WBC 1 - 3 Ur Epithelial Cells 0 - 2 Urine Bacteria Few 04/04/17 04/04/17 22:30 22:30 WBC RBC Hgb Hct MCV MCH MCHC RDW Plt Count MPV Gran % Lymph % (Auto) Lucas % (Auto) Eos % (Auto) Baso % (Auto) Gran # Lymph # Lucas # Eos # Baso # Sodium Potassium Chloride Carbon Dioxide Anion Gap BUN Creatinine Est GFR ( Amer) Est GFR (Non-Af Amer) Random Glucose Calcium Total Bilirubin AST ALT Alkaline Phosphatase Lactate Dehydrogenase 332 L Total Creatine Kinase 141 Troponin I < 0.01 Total Protein Albumin Globulin Albumin/Globulin Ratio TSH 3rd Generation 2.45 Urine Color Urine Appearance Urine pH Ur Specific Curtis Urine Protein Urine Glucose (UA) Urine Ketones Urine Blood Urine Nitrate Urine Bilirubin Urine Urobilinogen Ur Leukocyte Esterase Urine RBC Urine WBC Ur Epithelial Cells Urine Bacteria Attending/Attestation - Attestation I have personally seen and examined this patient.: Yes I have fully participated in the care of the patient.: Yes I have reviewed all pertinent clinical information: Yes Notes (Text): 04/05/17 02:10 Patient was seen when she was in bed # 1 in the ER. Spoke to patient's son. Agree with history, physical examination , assessment and plan.
[2017-04-04] MEDS: Insulin Lispro 1 UNITS/0.01 ML SC SCH (22:22)
[2017-04-04 23:05] LABS: TROPONIN I < 0.01 ng/mL
[2017-04-05 06:05] VITALS: O2SAT 97
[2017-04-05 07:32] LABS: ADD MANUAL DIFF? NO
[2017-04-05] MEDS ORDERED: Metoprolol Succinate 50 mg XL Tab PO SCH (08:00)
[2017-04-05] MEDS: Insulin Lispro 1 UNITS/0.01 ML SC SCH ×2 (08:01→12:29)
[2017-04-05 08:10] LABS: ALB/GLOB RATIO 1.2 (1.1-1.8); ALKALINE PHOSPHATASE 55 U/L (38-133); ALT/SGPT 28 U/L (7-56); AST/SGOT 29 U/L (15-39); BILIRUBIN,TOTAL 0.7 mg/dL (0.2-1.3); BLOOD UREA NITROGEN 12 mg/dL (7-21); CARBON DIOXIDE 26 mmol/L (21-33); CHLORIDE 100 mmol/L (98-107); GFR AFRICAN-AMERICAN > 60; GLUCOSE,RANDOM 117 mg/dL (70-110); POTASSIUM 3.9 mmol/L (3.6-5.0); SODIUM 135 mmol/L (132-148); TOTAL PROTEIN 6.7 g/dL (5.8-8.3)
[2017-04-05 08:13] LABS: BASO # 0.06 K/mm3 (0.0-2.0); BASO % 1.1 % (0.0-3.0); EOS # 0.2 (0.0-0.7); EOS % 3.5 % (1.5-5.0); GRAN # 2.82 (1.4-6.5); GRAN % 51.9 % (50.0-68.0); HEMATOCRIT 32.4 % (36.0-48.0); LYMPH # 1.8 (1.2-3.4); LYMPH % 33.6 % (22.0-35.0); MEAN CELL VOLUME 83.3 fL (80.0-105.0); MEAN CORPUSCULAR HEMOGLOBIN 27.5 pg (25.0-35.0); MEAN PLATELET VOLUME 9.2 fl (7.0-11.0); MONO # 0.5 (0.1-0.6); MONO % 9.9 % (1.0-6.0); PLATELET COUNT 259 10^3/uL (120.0-450.0); RED CELL DISTRIBUTION WIDTH 18.3 % (11.5-14.5); WHITE BLOOD COUNT 5.4 10^3/ul (4.5-11.0)
--- NOTE | 2017-04-05 09:48 | CT ---
PROCEDURE: CT HEAD WITHOUT CONTRAST. HISTORY: headache, htn COMPARISON: CT head without contrast performed 03/05/17 TECHNIQUE: Axial computed tomography images were obtained through the head/brain without intravenous contrast. Radiation dose: Total exam DLP = 894.25 mGy-cm. This CT exam was performed using one or more of the following dose reduction techniques: Automated exposure control, adjustment of the mA and/or kV according to patient size, and/or use of iterative reconstruction technique. FINDINGS: Streak artifact from dental hardware. HEMORRHAGE: No intracranial hemorrhage. BRAIN: Diffuse atrophy with prominence of the ventricles and sulci noted. No mass effect or edema. Dense intracranial atherosclerotic calcifications. Scattered periventricular and subcortical white matter hypodensities, which are nonspecific, but often seen with chronic microvascular ischemic disease. Please note that MRI with diffusion imaging is more sensitive in the detection of acute ischemic event. VENTRICLES: No hydrocephalus. CALVARIUM: Unremarkable. PARANASAL SINUSES: Unremarkable as visualized. No significant inflammatory changes. MASTOID AIR CELLS: Unremarkable as visualized. No inflammatory changes. OTHER FINDINGS: Partially imaged extensive degenerative changes of the cervical spine. Suggest dedicated cross-sectional imaging if indicated. IMPRESSION: Nonspecific white matter changes. Generalized atrophy. Partially imaged extensive degenerative changes of the cervical spine. Suggest dedicated cross-sectional imaging if indicated. Preliminary impression was provided by virtual radiologic.
[2017-04-05] MEDS ORDERED: Pantoprazole 40 mg EC Tab PO SCH (10:00)
[2017-04-05 12:27] VITALS: BP 134/92; RESP 17; TEMP 98.5
--- NOTE | 2017-04-05 13:28 | CP.PCM.DIS ---
<Ruben Gregory - Last Filed: 04/05/17 13:20> Provider - Provider Date of Admission: 04/04/17 14:30 Attending physician: Melania Omalley MD Primary care physician: Kamaljit Woods APN Time Spent in preparation of Discharge (in minutes): 40 Hospital Course - Lab Results Lab Results: Most Recent Lab Values WBC 5.4 10^3/ul (4.5-11.0) 04/05/17 07:00 RBC 3.89 10^6/uL (3.5-6.1) 04/05/17 07:00 Hgb 10.7 gm/dL (12.0-16.0) L 04/05/17 07:00 Hct 32.4 % (36.0-48.0) L 04/05/17 07:00 MCV 83.3 fL (80.0-105.0) 04/05/17 07:00 MCH 27.5 pg (25.0-35.0) 04/05/17 07:00 MCHC 33.0 g/dl (31.0-37.0) 04/05/17 07:00 RDW 18.3 % (11.5-14.5) H 04/05/17 07:00 Plt Count 259 10^3/uL (120.0-450.0) 04/05/17 07:00 MPV 9.2 fl (7.0-11.0) 04/05/17 07:00 Gran % 51.9 % (50.0-68.0) 04/05/17 07:00 Lymph % (Auto) 33.6 % (22.0-35.0) 04/05/17 07:00 [place] % (Auto) 9.9 % (1.0-6.0) H 04/05/17 07:00 Eos % (Auto) 3.5 % (1.5-5.0) 04/05/17 07:00 Baso % (Auto) 1.1 % (0.0-3.0) 04/05/17 07:00 Gran # 2.82 (1.4-6.5) 04/05/17 07:00 Lymph # 1.8 (1.2-3.4) 04/05/17 07:00 [place] # 0.5 (0.1-0.6) 04/05/17 07:00 Eos # 0.2 (0.0-0.7) 04/05/17 07:00 Baso # 0.06 K/mm3 (0.0-2.0) 04/05/17 07:00 PT 10.8 Seconds (9.9-11.8) 04/04/17 22:30 INR 1.00 (0.93-1.08) 04/04/17 22:30 Sodium 135 mmol/L (132-148) 04/05/17 07:00 Potassium 3.9 mmol/L (3.6-5.0) 04/05/17 07:00 Chloride 100 mmol/L (98-107) 04/05/17 07:00 Carbon Dioxide 26 mmol/L (21-33) 04/05/17 07:00 Anion Gap 13 (10-20) 04/05/17 07:00 BUN 12 mg/dL (7-21) 04/05/17 07:00 Creatinine 0.8 mg/dL (0.5-1.4) 04/05/17 07:00 Est GFR ( Amer) > 60 04/05/17 07:00 Est GFR (Non-Af Amer) > 60 04/05/17 07:00 POC Glucose (mg/dL) 202 mg/dL (65-110) H 04/05/17 11:21 Random Glucose 117 mg/dL (70-110) H 04/05/17 07:00 Calcium 9.0 mg/dL (8.4-10.5) 04/05/17 07:00 Total Bilirubin 0.7 mg/dL (0.2-1.3) 04/05/17 07:00 AST 29 U/L (15-39) 04/05/17 07:00 ALT 28 U/L (7-56) 04/05/17 07:00 Alkaline Phosphatase 55 U/L (38-133) 04/05/17 07:00 Lactate Dehydrogenase 332 U/L (333-699) L 04/04/17 22:30 Total Creatine Kinase 141 U/L (35-230) 04/04/17 22:30 Troponin I < 0.01 ng/mL 04/04/17 22:30 Total Protein 6.7 g/dL (5.8-8.3) 04/05/17 07:00 Albumin 3.6 g/dL (3.0-4.8) 04/05/17 07:00 Globulin 3.1 gm/dL 04/05/17 07:00 Albumin/Globulin Ratio 1.2 (1.1-1.8) 04/05/17 07:00 TSH 3rd Generation 2.45 mIU/mL (0.46-4.68) 04/04/17 22:30 Urine Color Yellow (YELLOW) 04/04/17 15:45 Urine Appearance Clear (CLEAR) 04/04/17 15:45 Urine pH 7.0 (4.7-8.0) 04/04/17 15:45 Ur Specific [place] 1.010 (1.005-1.035) 04/04/17 15:45 Urine Protein 30 mg/dL (<30 mg/dL) H 04/04/17 15:45 Urine Glucose (UA) Negative mg/dL (NEGATIVE) 04/04/17 15:45 Urine Ketones Negative mg/dL (NEGATIVE) 04/04/17 15:45 Urine Blood Trace-intact (NEGATIVE) H 04/04/17 15:45 Urine Nitrate Negative (NEGATIVE) 04/04/17 15:45 Urine Bilirubin Negative (NEGATIVE) 04/04/17 15:45 Urine Urobilinogen 0.2 E.U./dL (<1 E.U./dL) 04/04/17 15:45 Ur Leukocyte Esterase Negative [place]/uL (NEGATIVE) 04/04/17 15:45 Urine RBC Negative /hpf (0-2) 04/04/17 15:45 Urine WBC 1 - 3 /hpf (0-6) 04/04/17 15:45 Ur Epithelial Cells 0 - 2 /hpf (0-5) 04/04/17 15:45 Urine Bacteria Few (NEG) 04/04/17 15:45 - Hospital Course Hospital Course: 81yo F w/ a PMHx of HTN, DM on metformin, and anxiety who is presenting to the ED w/ a 1d history of frontal headache associated with high blood pressure. In the ED BP was noted to be 221/100, and basic labwork was done. EKG showed NSR at 72bpm. Head CT showed generalized atrophy and no acute intracranial abnormality. CXR showed no active dx. US of the ext was negative for any DVTs. BP was lowered with Clonidine, Amlodipine, and Lisinopril. and pt was sent to the floor for further observation. Echo ordered. Her blood pressure was continued to normalize. Pt denies any further headaches. She states that she is doing well. She denies any dizziness, focal deficits, fever, chills, sob, cp, abd pain, n/v/d. DDx: Hypertensive urgency Discharge Exam - Head Exam Head Exam: ATRAUMATIC, NORMAL INSPECTION - Eye Exam Eye Exam: EOMI, Normal appearance, PERRL Pupil Exam: NORMAL ACCOMODATION, PERRL - Respiratory Exam Respiratory Exam: Clear to PA & Lateral, UNREMARKABLE. absent: Rales, Rhonchi, Wheezes - Cardiovascular Exam Cardiovascular Exam: REGULAR RHYTHM, RRR, +S1, +S2 - GI/Abdominal Exam GI & Abdominal Exam: Normal Bowel Sounds, Soft. absent: Distended, Tenderness - Extremities Exam Extremities exam: pedal edema - Neurological Exam Neurological exam: Alert, CN II-XII Intact, Oriented x3 - Psychiatric Exam Psychiatric exam: Normal Affect, Normal Mood - Skin Skin Exam: Dry, Intact, Normal Color, Warm Discharge Plan - Discharge Medications Prescriptions: amLODIPine [Norvasc] 10 mg PO DAILY #30 tab Lisinopril [Zestril] 2.5 mg PO DAILY #30 tablet - Follow Up Plan Condition: IMPROVED Disposition: HOME/ ROUTINE Patient education suggested?: Yes Instructions: Hypertension (DC), Hypertension (GEN) Additional Instructions: If your symptoms recur come back to the closest ED. Follow up with your PMD with in 2-3 days. Take your medications as prescribed. RN NOTE Dr. Omalley and resident authorize discharge to home with prescriptions to be picked up at [facility] in [place]. Please fill these prescriptions as soon as possible to help control your blood pressure. Take time to read through the Discharge Instructions as they contain information related to your condition. If you experience any difficult breathing, unusual bleeding, temperature over 100F, change in mental status, severe pain or any worsening of your condition contact your primary medical dosctor or the nearest emergency department immediately. Please check the room for all your belongings prior to leaving the hospital. Referrals: Kamaljit Woods APN [Primary Care Provider] - <Melania Omalley - Last Filed: 04/05/17 14:10> Provider - Provider Date of Admission: 04/04/17 14:30 Attending physician: Melania Omalley MD [facility] - Lab Results Lab Results: Most Recent Lab Values WBC 5.4 10^3/ul (4.5-11.0) 04/05/17 07:00 RBC 3.89 10^6/uL (3.5-6.1) 04/05/17 07:00 Hgb 10.7 gm/dL (12.0-16.0) L 04/05/17 07:00 Hct 32.4 % (36.0-48.0) L 04/05/17 07:00 MCV 83.3 fL (80.0-105.0) 04/05/17 07:00 MCH 27.5 pg (25.0-35.0) 04/05/17 07:00 MCHC 33.0 g/dl (31.0-37.0) 04/05/17 07:00 RDW 18.3 % (11.5-14.5) H 04/05/17 07:00 Plt Count 259 10^3/uL (120.0-450.0) 04/05/17 07:00 MPV 9.2 fl (7.0-11.0) 04/05/17 07:00 Gran % 51.9 % (50.0-68.0) 04/05/17 07:00 Lymph % (Auto) 33.6 % (22.0-35.0) 04/05/17 07:00 [place] % (Auto) 9.9 % (1.0-6.0) H 04/05/17 07:00 Eos % (Auto) 3.5 % (1.5-5.0) 04/05/17 07:00 Baso % (Auto) 1.1 % (0.0-3.0) 04/05/17 07:00 Gran # 2.82 (1.4-6.5) 04/05/17 07:00 Lymph # 1.8 (1.2-3.4) 04/05/17 07:00 [place] # 0.5 (0.1-0.6) 04/05/17 07:00 Eos # 0.2 (0.0-0.7) 04/05/17 07:00 Baso # 0.06 K/mm3 (0.0-2.0) 04/05/17 07:00 PT 10.8 Seconds (9.9-11.8) 04/04/17 22:30 INR 1.00 (0.93-1.08) 04/04/17 22:30 Sodium 135 mmol/L (132-148) 04/05/17 07:00 Potassium 3.9 mmol/L (3.6-5.0) 04/05/17 07:00 Chloride 100 mmol/L (98-107) 04/05/17 07:00 Carbon Dioxide 26 mmol/L (21-33) 04/05/17 07:00 Anion Gap 13 (10-20) 04/05/17 07:00 BUN 12 mg/dL (7-21) 04/05/17 07:00 Creatinine 0.8 mg/dL (0.5-1.4) 04/05/17 07:00 Est GFR ( Amer) > 60 04/05/17 07:00 Est GFR (Non-Af Amer) > 60 04/05/17 07:00 POC Glucose (mg/dL) 202 mg/dL (65-110) H 04/05/17 11:21 Random Glucose 117 mg/dL (70-110) H 04/05/17 07:00 Calcium 9.0 mg/dL (8.4-10.5) 04/05/17 07:00 Total Bilirubin 0.7 mg/dL (0.2-1.3) 04/05/17 07:00 AST 29 U/L (15-39) 04/05/17 07:00 ALT 28 U/L (7-56) 04/05/17 07:00 Alkaline Phosphatase 55 U/L (38-133) 04/05/17 07:00 Lactate Dehydrogenase 332 U/L (333-699) L 04/04/17 22:30 Total Creatine Kinase 141 U/L (35-230) 04/04/17 22:30 Troponin I < 0.01 ng/mL 04/04/17 22:30 Total Protein 6.7 g/dL (5.8-8.3) 04/05/17 07:00 Albumin 3.6 g/dL (3.0-4.8) 04/05/17 07:00 Globulin 3.1 gm/dL 04/05/17 07:00 Albumin/Globulin Ratio 1.2 (1.1-1.8) 04/05/17 07:00 TSH 3rd Generation 2.45 mIU/mL (0.46-4.68) 04/04/17 22:30 Urine Color Yellow (YELLOW) 04/04/17 15:45 Urine Appearance Clear (CLEAR) 04/04/17 15:45 Urine pH 7.0 (4.7-8.0) 04/04/17 15:45 Ur Specific [place] 1.010 (1.005-1.035) 04/04/17 15:45 Urine Protein 30 mg/dL (<30 mg/dL) H 04/04/17 15:45 Urine Glucose (UA) Negative mg/dL (NEGATIVE) 04/04/17 15:45 Urine Ketones Negative mg/dL (NEGATIVE) 04/04/17 15:45 Urine Blood Trace-intact (NEGATIVE) H 04/04/17 15:45 Urine Nitrate Negative (NEGATIVE) 04/04/17 15:45 Urine Bilirubin Negative (NEGATIVE) 04/04/17 15:45 Urine Urobilinogen 0.2 E.U./dL (<1 E.U./dL) 04/04/17 15:45 Ur Leukocyte Esterase Negative [place]/uL (NEGATIVE) 04/04/17 15:45 Urine RBC Negative /hpf (0-2) 04/04/17 15:45 Urine WBC 1 - 3 /hpf (0-6) 04/04/17 15:45 Ur Epithelial Cells 0 - 2 /hpf (0-5) 04/04/17 15:45 Urine Bacteria Few (NEG) 04/04/17 15:45 Attending/Attestation - Attestation I have personally seen and examined this patient.: Yes I have fully participated in the care of the patient.: Yes I have reviewed all pertinent clinical information, including history, physical exam and plan: Yes Notes (Text): 04/05/17 14:06 81 year old female with past medical history of diabetes and hypertension who presented with complaint of headache and elevated blood pressure. In ER her blood pressure was found to be >200/100. CT head showed generalized atrophy without any acute intracranial abnormality. She was on metoprolol and norvasc and was started on lisinopril as well. Her blood pressure and headache improved. She was counselled on medication compliance. Patient is discharged home today to follow up with her pmd. Counselled on medication compliance. Melania Omalley MD Hospitalist.
[2017-04-05 14:05] VITALS: PULSE 68
--- NOTE | 2017-04-05 15:58 | CARD ---
APPROVED REPORT EKG Measurement Heart [id number] <Conclusion> Normal sinus rhythm Normal ECG
--- NOTE | 2017-04-07 23:17 | CARD ---
APPROVED REPORT EXAM: Two-dimensional and M-mode echocardiogram with Doppler and color Doppler. INDICATION Near syncope 2D DIMENSIONS Left Atrium (2D)3.1 (1.6-4.0cm)IVSd1.4 (0.7-1.1cm) Aortic Root (2D)3.0 (2.0-3.7cm)LVDd3.7 (3.9-5.9cm) PWd1.3 (0.7-1.1cm)LVDs1.7 (2.5-4.0cm) FS (%) 53.6 %LVEF (%)85.2 (>50%) M-Mode DIMENSIONS Aortic Cusp Exc.1.50 (1.5-2.0cm) Aortic Valve AoV Peak Hxgsivmh234.0cm/[place] Peak GR.15mmHgAI P 1/2 [id number] Mitral Valve MV E Iexawzwq82.3cm/sMV A Aegffdjr818.0cm/sE/A ratio0.8 TDI Lateral E' Peak V6.04cm/sMedial E' Peak V4.00cm/sE/Lateral E'13.8 E/Medial E'20.8 Pulmonary Valve PV Peak Rhnkfwpv02.4cm/sPV Peak Grad.3mmHg Tricuspid Valve TR Peak [id number]/sRAP [id number] Peak Gr.22mmHg [id number] LEFT VENTRICLE The left ventricle is normal size. There is mild to moderate concentric left ventricular hypertrophy. The left ventricular function is normal. The left ventricular ejection fraction is within the normal range. There is normal LV segmental wall motion. Transmitral Doppler flow pattern is Grade I-abnormal relaxation pattern. RIGHT VENTRICLE The right ventricle is normal size. There is normal right ventricular wall thickness. The right ventricular systolic function is normal. ATRIA The left atrium size is normal. The right atrium size is normal. AORTIC VALVE The aortic valve is moderately sclerotic. There is mild aortic regurgitation. MITRAL VALVE The mitral valve is moderately thickened. Mitral regurgitation is trace. TRICUSPID VALVE The tricuspid valve is normal in structure. There is no pulmonary hypertension. PULMONIC VALVE There is mild pulmonic valvular regurgitation. GREAT VESSELS The aortic root is normal in size. The IVC is normal in size and collapses >50% with inspiration. <Conclusion> The left ventricle is normal size. There is mild to moderate concentric left ventricular hypertrophy. The left ventricular function is normal. The left ventricular ejection fraction is within the normal range. There is normal LV segmental wall motion. Transmitral Doppler flow pattern is Grade I-abnormal relaxation pattern. There is mild aortic regurgitation.
== END 2017-04-05 14:45 | disposition home or self-care (01) ==
LOC: ED 14:12 → EROBSV 14:30 → ERH 20:04 → 2RNO 21:46
PROVIDERS: ADMIT Internal Medicine; ATTEND Internal Medicine
DX: I16.0 Hypertensive urgency (principal); D50.9 Iron deficiency anemia, unspecified; E11.9 Type 2 diabetes mellitus without complications; I10 Essential (primary) hypertension; K21.9 Gastro-esophageal reflux disease without esophagitis; Z79.899 Other long term (current) drug therapy; Z90.49 Acquired absence of other specified parts of digestive tract; E89.0 Postprocedural hypothyroidism; F41.9 Anxiety disorder, unspecified; M79.604 Pain in right leg
CPT/HCPCS: 36415; 70450; 71010; 80053; 81001; 82550; 82948; 83036; 83615; 84443; 84484; 85025; 85610; 93005; 93306; 93970; 96374; 96375; 96376; 99285; G0378; J1885; J2270

== ENCOUNTER 2017-04-07 15:01 | Observation (INO) | payer MEDICAID ==
[2017-04-07 15:19] VITALS: BMI 22.6
--- NOTE | 2017-04-07 15:36 | ED PDOC ---
Arrival/HPI - General Time Seen by Provider: 04/07/17 15:05 - History of Present Illness Narrative History of Present Illness (Text): 04/07/17 15:33 81 yo female, hx of htn, presents with "high blood pressure". as per pt, was admitted to hospital and d/c, followed up with pmd, sent to er for eval. as per pt, states she feels "mildly dizzy". pt reports "mild cp" noted pt had recent head ct, and labs. she reports compliance with her meds. no fevers, abdominal pain, n/v/d, or other complaints 04/07/17 17:58 Past Medical History - Provider Review Nursing Documentation Reviewed: Yes - Infectious Disease Hx of Infectious Diseases: None - Cardiac Hx Cardiac Disorders: Yes Hx Hypertension: Yes - Pulmonary Hx Respiratory Disorders: No - Neurological Hx Neurological Disorder: No - HEENT Hx Cataracts: Yes Other/Comment: Hard of hearing in left ear - Renal Hx Kidney Stones: Yes - Endocrine/Metabolic Hx Diabetes Mellitus Type 2: Yes - Hematological/Oncological Hx Anemia: Yes - Integumentary Hx Dermatological Disorder: No - Musculoskeletal/Rheumatological Hx Falls: Yes Hx Osteoarthritis: Yes Hx Osteoporosis: Yes - Gastrointestinal Hx Gastrointestinal Disorders: Yes (HERNIA REAPIR,GASTRITIS,THYROIDECTOMY) Hx Gall Bladder Disease: Yes (CHOLECYSTECTOMY) Hx Gastroesophageal Reflux: Yes - Genitourinary/Gynecological Hx Genitourinary Disorders: Yes (2 ABORTIONS) - Psychiatric Hx Anxiety: Yes Hx Depression: Yes Hx Substance Use: No - Surgical History Hx Cholecystectomy: Yes Hx Hysterectomy: Yes - Anesthesia Hx Anesthesia Reactions: No Hx Malignant Hyperthermia: No Family/Social History - Physician Review Nursing Documentation Reviewed: Yes Family/Social History: Unknown Family HX Smoking Status: Never Smoked Hx Alcohol Use: No Hx Substance Use: No Allergies/Home Meds Allergies/Adverse Reactions: Allergies No Known Allergies Allergy (Verified 03/05/17 22:00) Home Medications: Home Meds Medication Instructions Recorded Confirmed Atorvastatin [Lipitor] 20 mg PO DAILY 02/19/17 04/04/17 Metoprolol Succinate [Toprol XL] 25 mg PO DAILY 02/19/17 04/04/17 Review of Systems - Review of Systems Constitutional: Normal Eyes: Normal ENT: Normal Respiratory: Normal Cardiovascular: Normal Gastrointestinal: Normal Genitourinary Female: Normal Musculoskeletal: Normal Skin: Normal Neurological: Normal Endocrine: Normal Hemo/Lymphatic: Normal Psychiatric: Normal Physical Exam Vital Signs Temp Pulse Resp BP Pulse Ox 04/08/17 00:08 85 16 179/97 H 98 04/07/17 21:12 93 H 16 138/88 97 04/07/17 20:28 92 H 15 175/85 H 98 04/07/17 20:19 97 H 15 194/67 H 98 04/07/17 18:06 91 H 18 176/78 H 99 04/07/17 17:01 83 17 197/94 H 99 04/07/17 16:44 82 219/103 H 04/07/17 15:16 98.6 F 75 17 209/92 H 100 Temperature: Afebrile Blood Pressure: Hypertensive Pulse: Regular Respiratory Rate: Normal Appearance: Positive for: Well-Appearing, Non-Toxic, Comfortable Pain Distress: None Mental Status: Positive for: Alert and Oriented X 3 Finger Stick Blood Glucose: 144 - Systems Exam Head: Present: Atraumatic, Normocephalic Pupils: Present: PERRL Extroacular Muscles: Present: EOMI Conjunctiva: Present: Normal Mouth: Present: Moist Mucous Membranes Neck: Present: Normal Range of Motion Respiratory/Chest: Present: Clear to Auscultation, Good Air Exchange. No: Respiratory Distress, Accessory Muscle Use Cardiovascular: Present: Regular Rate and Rhythm, Normal S1, S2. No: Murmurs Abdomen: Present: Normal Bowel Sounds. No: Tenderness, Distention, Peritoneal Signs Back: Present: Normal Inspection Upper Extremity: Present: Normal Inspection. No: Cyanosis, Edema Lower Extremity: Present: Normal Inspection. No: Edema Neurological: Present: GCS=15, CN II-XII Intact, Speech Normal, Motor Func Grossly Intact, Normal Sensory Function, Normal Cerebellar Funct, Other ((+) anxious appearing) Skin: Present: Warm, Dry, Normal Color. No: Rashes Psychiatric: Present: Alert, Oriented x 3, Normal Insight, Normal Concentration Medical Decision Making ED Course and Treatment: 04/07/17 15:35 r/o hypertensive urgency vs emergency 04/07/17 15:56 ekg nsr [address] changes. 04/07/17 18:[address] mccray. pt was c/o of cp in office. dr tijerina accepts as tele obs, upon reassessement, pt states persistent simons, ct added. pt developed rash on b/l hands s/p hydralazine, benadryl dosed. 04/07/17 18:21 04/07/17 18:48 - Lab Interpretations Lab Results: 04/07/17 16:55 04/07/17 16:55 Lab Results 04/07/17 16:55: NT-Pro-B Natriuret Pep 256 04/07/17 16:55: Serum Osmolality 273 04/07/17 16:55: PT 10.8, INR 1.00, APTT 24.3 04/07/17 16:55: Sodium 131 L, Potassium 4.1, Chloride 95 L, Carbon Dioxide 21, Anion Gap 19, BUN 11, Creatinine 0.7, Est GFR ( Amer) > 60, Est GFR (Non- Af Amer) > 60, Random Glucose 117 H, Calcium 9.4, Magnesium 1.2 L, Total Bilirubin 1.0, AST 46 H, ALT 27, Alkaline Phosphatase 79, Lactate Dehydrogenase 681, Total Creatine Kinase 114, Troponin I < 0.01, Total Protein 8.6 H, Albumin 4.7, Globulin 3.8, Albumin/Globulin Ratio 1.2 04/07/17 16:55: WBC 7.7 D, RBC 4.39, Hgb 12.7, Hct 36.0, MCV 82.0, MCH 28.9, MCHC 35.3, RDW 17.4 H, Plt Count 288, MPV 9.2, Gran % 61.5, Lymph % (Auto) 29.7 , [place] % (Auto) 7.6 H, Eos % (Auto) 0.7 L, Baso % (Auto) 0.5, Gran # 4.73, Lymph # 2.3, [place] # 0.6, Eos # 0.1, Baso # 0.04 04/07/17 16:12: Urine Color Straw, Urine Appearance Clear, Urine pH 7.0, Ur Specific [place] 1.010, Urine Protein 30 H, Urine Glucose (UA) Negative, Urine Ketones Negative, Urine Blood Negative, Urine Nitrate Negative, Urine Bilirubin Negative, Urine Urobilinogen 0.2, Ur Leukocyte Esterase Trace H, Urine RBC 0 - 2 , Urine WBC 1 - 3, Ur Epithelial Cells 3 - 4, Urine Bacteria Few, Urine Other Mucus - RAD Interpretation Radiology Orders: 04/07/17 15:30 CHEST PORTABLE [RAD] Stat 04/07/17 18:05 HEAD W/O CONTRAST [CT] Stat - Medication Orders Current Medication Orders: Discontinued Medications Acetaminophen (Tylenol 325mg Tab) 650 mg PO Q4 PRN PRN Reason: Headache Last Admin: 04/08/17 08:21 Dose: 650 mg Amlodipine Besylate (Norvasc) 10 mg PO DAILY [facility] Last Admin: 04/08/17 09:25 Dose: 10 mg Aspirin (Aspirin) 325 mg PO STAT STA Stop: 04/07/17 18:04 Last Admin: 04/07/17 21:34 Dose: 325 mg Atorvastatin Calcium (Lipitor) 20 mg PO DAILY [facility] Last Admin: 04/08/17 09:26 Dose: 20 mg Diphenhydramine HCl (Benadryl) 50 mg IVP STAT STA Stop: 04/07/17 17:44 Last Admin: 04/07/17 17:50 Dose: Not Given Non-Admin Reason: Patient Refused Ferrous Sulfate (Feosol) 324 mg PO DAILY [facility] Last Admin: 04/08/17 09:25 Dose: 324 mg Heparin Sodium (Porcine) (Heparin) 5,000 units SC Q12 MIGUELINA PRN Reason: Protocol Last Admin: 04/08/17 09:26 Dose: 5,000 units Hydralazine HCl (Apresoline) 10 mg IVP STAT STA Stop: 04/07/17 15:57 Last Admin: 04/07/17 16:44 Dose: 10 mg Magnesium Sulfate 2 gm/ Sodium (Chloride) 104 mls @ 102 mls/hr IVPB ONCE ONE Stop: 04/07/17 21:27 Last Admin: 04/07/17 21:40 Dose: 102 mls/hr Ibuprofen (Motrin Tab) 400 mg PO Q6H PRN PRN Reason: Pain, moderate (4-7) Insulin Human Regular (Humulin R Low) 0 units SC ACHS MIGUELINA PRN Reason: Protocol Last Admin: 04/07/17 23:15 Dose: 2 units Insulin Human Regular (Humulin R) Confirm Administered Dose 2 units .ROUTE .STK- MED ONE Stop: 04/07/17 23:47 Last Admin: 04/08/17 00:07 Dose: Labetalol HCl (Trandate) 20 mg IV STAT STA Stop: 04/07/17 17:35 Last Admin: 04/07/17 17:50 Dose: Lisinopril (Zestril) 2.5 mg PO DAILY [facility] Last Admin: 04/08/17 09:25 Dose: 2.5 mg Lorazepam (Ativan) 0.5 mg IVP ONCE ONE PRN Reason: Protocol Stop: 04/07/17 15:31 Last Admin: 04/07/17 16:46 Dose: 0.5 mg Metoprolol Succinate (Toprol Xl) 25 mg PO DAILY [facility] Last Admin: 04/08/17 09:26 Dose: 25 mg Pantoprazole Sodium (Protonix Ec Tab) [facility] Last Admin: 04/08/17 09:25 Dose: 40 mg Disposition/Present on Arrival - Present on Arrival Any Indicators Present on Arrival: No History of DVT/PE: No History of Uncontrolled Diabetes: No Urinary Catheter: No History Surgical Site Infection Following: None - Disposition Have Diagnosis and Disposition been Completed?: Yes Diagnosis: Chest pain, Hypertensive urgency Disposition: HOSPITALIZED Disposition Time: 18:03 Condition: FAIR
[2017-04-07 16:57] LABS: URINE BILIRUBIN NEGATIVE (NEGATIVE); URINE BLOOD NEGATIVE (NEGATIVE); URINE GLUCOSE (UA) NEGATIVE (NEGATIVE); URINE KETONE NEGATIVE (NEGATIVE); URINE LEUKOCYTE ESTERASE TRACE Leu/uL (NEGATIVE); URINE PROTEIN 30 mg/dL (<30 mg/dL); URINE UROBILINOGEN 0.2 E.U./dL (<1 E.U./dL)
[2017-04-07 17:05] LABS: ADD MANUAL DIFF? NO
[2017-04-07 17:05] LABS: URINE APPEARANCE CLEAR (CLEAR); URINE COLOR STRAW (YELLOW)
[2017-04-07 17:12] LABS: BASO # 0.04 K/mm3 (0.0-2.0); BASO % 0.5 % (0.0-3.0); EOS # 0.1 (0.0-0.7); EOS % 0.7 % (1.5-5.0); GRAN # 4.73 (1.4-6.5); GRAN % 61.5 % (50.0-68.0); LYMPH # 2.3 (1.2-3.4); LYMPH % 29.7 % (22.0-35.0); MEAN CORPUSCULAR HEMOGLOBIN 28.9 pg (25.0-35.0); MEAN CORPUSCULAR HGB CONC 35.3 g/dl (31.0-37.0); MEAN PLATELET VOLUME 9.2 fl (7.0-11.0); MONO # 0.6 (0.1-0.6); MONO % 7.6 % (1.0-6.0); PLATELET COUNT 288 10^3/uL (120.0-450.0); RED CELL DISTRIBUTION WIDTH 17.4 % (11.5-14.5); WHITE BLOOD COUNT 7.7 10^3/ul (4.5-11.0)
[2017-04-07 17:22] LABS: PARTIAL THROMBOPLASTIN TIME 24.3 Seconds (23.7-30.8)
[2017-04-07 17:24] LABS: ALB/GLOB RATIO 1.2 (1.1-1.8); ALKALINE PHOSPHATASE 79 U/L (38-133); ALT/SGPT 27 U/L (7-56); AST/SGOT 46 U/L (15-39); BLOOD UREA NITROGEN 11 mg/dL (7-21); CALCIUM 9.4 mg/dL (8.4-10.5); CARBON DIOXIDE 21 mmol/L (21-33); CHLORIDE 95 mmol/L (98-107); GFR AFRICAN-AMERICAN > 60; GLUCOSE,RANDOM 117 mg/dL (70-110); MAGNESIUM 1.2 mg/dL (1.7-2.2); POTASSIUM 4.1 mmol/L (3.6-5.0); SODIUM 131 mmol/L (132-148); TOTAL PROTEIN 8.6 g/dL (5.8-8.3)
[2017-04-07 17:32] LABS: URINE BACTERIA FEW (NEG); URINE RBC 0 - 2 /hpf (0-2)
[2017-04-07] MEDS ORDERED: Labetalol 5 mg/ml Inj 20ML IV STA (17:34)
[2017-04-07 17:39] LABS: TROPONIN I < 0.01 ng/mL
[2017-04-07] MEDS ORDERED: DiphenhydrAMINE 50 mg/ml Inj IVP STA (17:43)
[2017-04-07] MEDS ORDERED: Magnesium Sulfate 2 GM in Sodium Chloride 0.9% 100 ML IVPB ONE (20:26)
--- NOTE | 2017-04-07 21:16 | CT ---
EXAM: CT Head Without Intravenous Contrast CLINICAL HISTORY: 81 years old, female; Pain; Headache; Headache not specified; Additional info: MORENO TECHNIQUE: Axial computed tomography images of the head/brain without intravenous contrast. This CT exam was performed using one or more of the following dose reduction techniques: automated exposure control, adjustment of the mA and/or kV according to patient size, and/or use of iterative reconstruction technique. COMPARISON: CT - HEAD W/O CONTRAST 04/04/2017 9:35:28 PM FINDINGS: Limitations: Motion artifact - mild. Brain: Mild atrophy. Mildly prominent extra-axial spaces along the frontal, temporal, parietal convexities, stable. No definite intracranial hemorrhage. No mass. Few scattered foci of decreased attenuation within periventricular/subcortical white matter. No definite edema. Ventricles: No hydrocephalus. Bones/joints: No acute fracture. Soft tissues: Unremarkable. Vasculature: Mild atherosclerotic disease of intracranial arteries. Sinuses: Scattered minimal mucosal thickening. Mastoid air cells: No mastoid effusion. Orbits: Unremarkable as visualized. IMPRESSION: 1. Nonspecific white matter changes. Acute infarction may be CT occult within first 24 hours. If a focal deficit persists, consider followup CT or MRI for further evaluation. 2. Incidental/non-acute findings are described above.
[2017-04-07] MEDS ORDERED: Insulin Reg-LOW-Coverage SC SCH (22:00)
[2017-04-07] MEDS ORDERED: Insulin Regular 1 UNITS/0.01 ML ML ONE (23:46)
--- NOTE | 2017-04-08 00:20 | CP.PCM.HP ---
History of Present Illness - History of Present Illness History of Present Illness: HPI: Patient is an 81yo female with past medical history of essential hypertension, DMT2, and anxiety who presenting to the ED c/o frontal headache and elevated blood pressure. She reported that was seen by her PMD today, Dr. Woods and was told that her blood pressure was 221/91. Per patient, her PMD called an ambulance and had her brought to [facility] [place] for further evaluation. She stated that she was recently admitted for similar symptoms and discharged on Lisinopril 2.5mg PO qd, Metoprolol 25mg PO qd and Norvasc 10mg PO qd, however had no been taking the norvasc. On arrival to the ED, patient's blood pressure was 209/92. She was given hydralazine 10mg IVP, labetalol 20mg IVP and ativan 0.5mg IVP. She denied chest pain, palpitations, SOB, abdominal pain, nausea, vomiting, fever, chills, cough, focal weakness, numbness, tingling, vision changes, hearing changes. 12 point ROS as per HPI above, otherwise negative PMHx: HTN, DMT2, anxiety, iron deficiency anemia Allergies: NKDA Surgeries: thyroid surgery for mass never on meds, cholecystectomy, hernia repair Medications: Reviewed and as per chart Family Hx: Noncontributory Social Hx: Denies smoking, drugs and alcohol use; Lives at home, independent with ADL's Present on Admission - Present on Admission Any Indicators Present on Admission: No Past Patient History - Infectious Disease Hx of Infectious Diseases: None - Past Social History Smoking Status: Never Smoked - CARDIAC Hx Cardiac Disorders: Yes Hx Hypertension: Yes - PULMONARY Hx Respiratory Disorders: No - NEUROLOGICAL Hx Neurological Disorder: No - HEENT Hx Cataracts: Yes Other/Comment: Hard of hearing in left ear - RENAL Hx Kidney Stones: Yes - ENDOCRINE/METABOLIC Hx Diabetes Mellitus Type 2: Yes - HEMATOLOGICAL/ONCOLOGICAL Hx Anemia: Yes - INTEGUMENTARY Hx Dermatological Problems: No - MUSCULOSKELETAL/RHEUMATOLOGICAL Hx Falls: Yes Hx Osteoarthritis: Yes Hx Osteoporosis: Yes - GASTROINTESTINAL Hx Gastrointestinal Disorders: Yes (HERNIA REAPIR,GASTRITIS,THYROIDECTOMY) Hx Gall Bladder Disease: Yes (CHOLECYSTECTOMY) Hx Gastroesophageal Reflux: Yes - GENITOURINARY/GYNECOLOGICAL Hx Genitourinary Disorders: Yes (2 ABORTIONS) - PSYCHIATRIC Hx Anxiety: Yes Hx Depression: Yes Hx Substance Use: No - SURGICAL HISTORY Hx Cholecystectomy: Yes Hx Hysterectomy: Yes - ANESTHESIA Hx Anesthesia Reactions: No Hx Malignant Hyperthermia: No Meds Allergies/Adverse Reactions: Allergies Allergy/AdvReac Type Severity Reaction Status Date / Time No Known Allergies Allergy Verified 03/05/17 22:00 Physical Exam - Constitutional Appears: Non-toxic, No Acute Distress - Head Exam Head Exam: ATRAUMATIC, NORMAL INSPECTION, NORMOCEPHALIC - Eye Exam Eye Exam: EOMI, Normal appearance, PERRL. absent: Conjunctival injection - ENT Exam ENT Exam: Mucous Membranes Moist - Neck Exam Neck exam: Positive for: Normal Inspection. Negative for: Lymphadenopathy, Tenderness, Thyromegaly - Respiratory Exam Respiratory Exam: Clear to Auscultation Bilateral. absent: Rales, Rhonchi, Wheezes - Cardiovascular Exam Cardiovascular Exam: RRR, +S1, +S2. absent: Gallop, JVD, Rubs, Systolic Murmur - GI/Abdominal Exam GI & Abdominal Exam: Normal Bowel Sounds, Soft. absent: Distended, Firm, Guarding, Rebound, Rigid, Tenderness - Extremities Exam Extremities exam: Positive for: normal inspection, pedal pulses present. Negative for: calf tenderness, pedal edema - Back Exam Back exam: NORMAL INSPECTION - Neurological Exam Neurological exam: Alert, CN II-XII Intact, Oriented x3 - Psychiatric Exam Psychiatric exam: Normal Affect, Normal Mood - Skin Skin Exam: Dry, Intact, Normal Color, Warm Results - Vital Signs Recent Vital Signs: Last Vital Signs Temp 98.6 F 04/07/17 15:16 Pulse 85 04/08/17 00:08 Resp 16 04/08/17 00:08 BP 179/97 H 04/08/17 00:08 Pulse Ox 98 04/08/17 00:08 - Labs Result Diagrams: 04/07/17 16:55 04/07/17 16:55 Labs: Laboratory Results - last 24 hr 04/07/17 04/07/17 20:34 20:34 Urine Osmolality 168 Ur Random Creatinine 16 Ur Random Sodium 25 Assessment & Plan - Assessment and Plan (Free Text) Plan: 81yo female with history of hypertension, DMT2, anxiety admitted for hypertensive urgency 1. Hypertensive urgency -CT Head negative for acute intracranial abnormality -CXR revealed no active disease -EKG revealed normal sinus rhythm at 69bpm with no acute ST-T wave changes -Patient given labetalol 20mg IVP, hydralazine 10mg IVP and ativan 0.5mg IVP in the ED -Home antihypertensive medications resumed - Lisinopril, Norvasc, Metoprolol -Tylenol PRN for headaches 2. Diabetes type 2 -Humulin low dose ISS -Fingersticks ACHS -Consistent carb diet 3. Hypomagnesemia -Mag sulfate 2gm IV -Recheck Magnesium in AM -Monitor and replete electrolytes as needed 4. Hyponatremia -Workup pending: Serum Osm, Urine Osm, Urine Sodium 5. GI/DVT prophylaxis -Protonix/Heparin Patient seen and case discussed with attending, Dr. Zapien - Date & Time Date: 04/08/17 Time: 00:31
[2017-04-08 06:16] LABS: ADD MANUAL DIFF? NO
[2017-04-08 06:23] VITALS: RESP 20
[2017-04-08 06:41] LABS: BASO # 0.03 K/mm3 (0.0-2.0); BASO % 0.6 % (0.0-3.0); EOS # 0.1 (0.0-0.7); EOS % 2.4 % (1.5-5.0); GRAN # 3.14 (1.4-6.5); GRAN % 57.5 % (50.0-68.0); HEMATOCRIT 34.7 % (36.0-48.0); LYMPH # 1.5 (1.2-3.4); LYMPH % 28.3 % (22.0-35.0); MEAN CORPUSCULAR HEMOGLOBIN 27.8 pg (25.0-35.0); MEAN CORPUSCULAR HGB CONC 33.4 g/dl (31.0-37.0); MONO # 0.6 (0.1-0.6); MONO % 11.2 % (1.0-6.0); PLATELET COUNT 257 10^3/uL (120.0-450.0); RED CELL DISTRIBUTION WIDTH 17.7 % (11.5-14.5); WHITE BLOOD COUNT 5.5 10^3/ul (4.5-11.0)
[2017-04-08 06:56] LABS: ALB/GLOB RATIO 1.3 (1.1-1.8); ALKALINE PHOSPHATASE 71 U/L (38-133); ALT/SGPT 34 U/L (7-56); AST/SGOT 25 U/L (15-39); BILIRUBIN,TOTAL 0.8 mg/dL (0.2-1.3); BLOOD UREA NITROGEN 11 mg/dL (7-21); CALCIUM 8.9 mg/dL (8.4-10.5); CARBON DIOXIDE 22 mmol/L (21-33); CHLORIDE 101 mmol/L (98-107); GFR AFRICAN-AMERICAN > 60; GLUCOSE,RANDOM 133 mg/dL (70-110); MAGNESIUM 1.8 mg/dL (1.7-2.2); PHOSPHOROUS 4.7 mg/dL (2.5-4.5); POTASSIUM 3.9 mmol/L (3.6-5.0); SODIUM 134 mmol/L (132-148); TOTAL PROTEIN 7.2 g/dL (5.8-8.3)
[2017-04-08 07:26] LABS: TROPONIN I < 0.01 ng/mL
--- NOTE | 2017-04-08 08:06 | RAD ---
HISTORY: weakness COMPARISON: Comparison chest 04/04/2017 FINDINGS: LUNGS: Questionable minor left basilar atelectasis or scarring. Suspect minor biapical pleural thickening PLEURA: No significant pleural effusion identified, no pneumothorax apparent. CARDIOVASCULAR: Normal. OSSEOUS STRUCTURES: No significant abnormalities. VISUALIZED UPPER ABDOMEN: Normal. OTHER FINDINGS: None. IMPRESSION: Questionable minor left basilar atelectasis or scarring. Suspect mild biapical pleural thickening. Sleep
[2017-04-08] MEDS ORDERED: Non Formulary Medication (Ferrous Sulfate [Feosol] 325 MG) PO SCH (10:00)
[2017-04-08] MEDS ORDERED: Pantoprazole 40 mg EC Tab PO SCH (10:00)
[2017-04-08] MEDS ORDERED: Metoprolol Succinate 25 mg XL Tab PO SCH (10:00)
[2017-04-08 14:26] VITALS: BP 149/74; PULSE 85; TEMP 95.6; O2SAT 95
--- NOTE | 2017-04-08 17:44 | CARD ---
APPROVED REPORT EKG Measurement Heart [id number] <Conclusion> Normal sinus rhythm Normal ECG
--- NOTE | 2017-04-09 17:57 | CP.PCM.DIS ---
<Ruben Gregory - Last Filed: 04/09/17 17:49> Provider - Provider Date of Admission: 04/07/17 18:47 Attending physician: Melania Omalley MD Primary care physician: Kamaljit Woods APN Time Spent in preparation of Discharge (in minutes): 40 Hospital Course - Lab Results Lab Results: Micro Results 04/07/17 20:34 Urine,Clean Catch Urine Culture - Final No Growth (<1,000 CFU/ML) Most Recent Lab Values WBC 5.5 10^3/ul (4.5-11.0) D 04/08/17 05:30 RBC 4.18 10^6/uL (3.5-6.1) 04/08/17 05:30 Hgb 11.6 gm/dL (12.0-16.0) L 04/08/17 05:30 Hct 34.7 % (36.0-48.0) L 04/08/17 05:30 MCV 83.0 fL (80.0-105.0) 04/08/17 05:30 MCH 27.8 pg (25.0-35.0) 04/08/17 05:30 MCHC 33.4 g/dl (31.0-37.0) 04/08/17 05:30 RDW 17.7 % (11.5-14.5) H 04/08/17 05:30 Plt Count 257 10^3/uL (120.0-450.0) 04/08/17 05:30 MPV 9.0 fl (7.0-11.0) 04/08/17 05:30 Gran % 57.5 % (50.0-68.0) 04/08/17 05:30 Lymph % (Auto) 28.3 % (22.0-35.0) 04/08/17 05:30 Rankin % (Auto) 11.2 % (1.0-6.0) H 04/08/17 05:30 Eos % (Auto) 2.4 % (1.5-5.0) 04/08/17 05:30 Baso % (Auto) 0.6 % (0.0-3.0) 04/08/17 05:30 Gran # 3.14 (1.4-6.5) 04/08/17 05:30 Lymph # 1.5 (1.2-3.4) 04/08/17 05:30 Rankin # 0.6 (0.1-0.6) 04/08/17 05:30 Eos # 0.1 (0.0-0.7) 04/08/17 05:30 Baso # 0.03 K/mm3 (0.0-2.0) 04/08/17 05:30 PT 10.8 Seconds (9.9-11.8) 04/07/17 16:55 INR 1.00 (0.93-1.08) 04/07/17 16:55 APTT 24.3 Seconds (23.7-30.8) 04/07/17 16:55 Sodium 134 mmol/L (132-148) 04/08/17 05:30 Potassium 3.9 mmol/L (3.6-5.0) 04/08/17 05:30 Chloride 101 mmol/L (98-107) 04/08/17 05:30 Carbon Dioxide 22 mmol/L (21-33) 04/08/17 05:30 Anion Gap 15 (10-20) 04/08/17 05:30 BUN 11 mg/dL (7-21) 04/08/17 05:30 Creatinine 0.7 mg/dL (0.5-1.4) 04/08/17 05:30 Est GFR ( Amer) > 60 04/08/17 05:30 Est GFR (Non-Af Amer) > 60 04/08/17 05:30 POC Glucose (mg/dL) 154 mg/dL (65-110) H 04/08/17 16:15 Random Glucose 133 mg/dL (70-110) H 04/08/17 05:30 Serum Osmolality 273 mosm/kg (271-296) 04/07/17 16:55 Calcium 8.9 mg/dL (8.4-10.5) 04/08/17 05:30 Phosphorus 4.7 mg/dL (2.5-4.5) H 04/08/17 05:30 Magnesium 1.8 mg/dL (1.7-2.2) 04/08/17 05:30 Total Bilirubin 0.8 mg/dL (0.2-1.3) 04/08/17 05:30 AST 25 U/L (15-39) 04/08/17 05:30 ALT 34 U/L (7-56) 04/08/17 05:30 Alkaline Phosphatase 71 U/L (38-133) 04/08/17 05:30 Lactate Dehydrogenase 681 U/L (333-699) 04/07/17 16:55 Total Creatine Kinase 114 U/L (35-230) 04/07/17 16:55 Troponin I < 0.01 ng/mL 04/08/17 05:30 NT-Pro-B Natriuret Pep 256 pg/mL (0-450) 04/07/17 16:55 Total Protein 7.2 g/dL (5.8-8.3) 04/08/17 05:30 Albumin 4.0 g/dL (3.0-4.8) 04/08/17 05:30 Globulin 3.2 gm/dL 04/08/17 05:30 Albumin/Globulin Ratio 1.3 (1.1-1.8) 04/08/17 05:30 Urine Color Straw (YELLOW) 04/07/17 16:12 Urine Appearance Clear (CLEAR) 04/07/17 16:12 Urine pH 7.0 (4.7-8.0) 04/07/17 16:12 Ur Specific [place] 1.010 (1.005-1.035) 04/07/17 16:12 Urine Protein 30 mg/dL (<30 mg/dL) H 04/07/17 16:12 Urine Glucose (UA) Negative mg/dL (NEGATIVE) 04/07/17 16:12 Urine Ketones Negative mg/dL (NEGATIVE) 04/07/17 16:12 Urine Blood Negative (NEGATIVE) 04/07/17 16:12 Urine Nitrate Negative (NEGATIVE) 04/07/17 16:12 Urine Bilirubin Negative (NEGATIVE) 04/07/17 16:12 Urine Urobilinogen 0.2 E.U./dL (<1 E.U./dL) 04/07/17 16:12 Ur Leukocyte Esterase Trace Scott/uL (NEGATIVE) H 04/07/17 16:12 Urine RBC 0 - 2 /hpf (0-2) 04/07/17 16:12 Urine WBC 1 - 3 /hpf (0-6) 04/07/17 16:12 Ur Epithelial Cells 3 - 4 /hpf (0-5) 04/07/17 16:12 Urine Bacteria Few (NEG) 04/07/17 16:12 Urine Other Mucus 04/07/17 16:12 Urine Osmolality 168 mosm/kg (50-645) 04/07/17 20:34 Ur Random Creatinine 16 mg/dL 04/07/17 20:34 Ur Random Sodium 25 meq/L 04/07/17 20:34 - Hospital Course Hospital Course: 81yo F w/ a PMHx of HTN, DM on metformin, and anxiety who is presenting to the ED w/ frontal headaches and elevated blood pressure. Pt was just present to the hospital 2 days prior ( was given 2 new medications - Amlodipine and lisinopril ) but admits to no being complaint with her medication. In the ED vitals were done and pts blood pressure was found to be elevated to 209/92 and 219/103. Anti hypertensive drugs were used to lower her blood pressure. EKg was done and was NSR at 69bpm. CXR showed mild biapical pleural thickening. Head CT was done and showed nonspecific white matter changes. Pt blood pressure was controlled and pt was sent to the floor for closer observation. On the floor pt blood pressure continued to be under control. We explained to the patient, through a Telugu speaking almond blancher operator, in extent the importance of taking all of her blood pressure medications. She verbalized understanding. Her Lisinopril was increased in dosage for tighter BP control. She now denies any symptoms. States that she is doing well. Denies any simons, dizziness, sob, cp, abd pain, n/v/ d. Discharge Exam - Head Exam Head Exam: ATRAUMATIC, NORMAL INSPECTION, NORMOCEPHALIC - Eye Exam Eye Exam: EOMI, Normal appearance, PERRL Pupil Exam: NORMAL ACCOMODATION, PERRL - Respiratory Exam Respiratory Exam: Clear to PA & Lateral. absent: Rales, Rhonchi, Wheezes - Cardiovascular Exam Cardiovascular Exam: REGULAR RHYTHM, RRR, +S1, +S2 - GI/Abdominal Exam GI & Abdominal Exam: Normal Bowel Sounds, Soft. absent: Tenderness - Neurological Exam Neurological exam: Alert, CN II-XII Intact, Normal Gait, Oriented x3, Reflexes Normal - Psychiatric Exam Psychiatric exam: Normal Affect, Normal Mood - Skin Skin Exam: Dry, Intact, Normal Color, Warm Discharge Plan - Discharge Medications Prescriptions: Lisinopril [Prinivil] 5 mg PO DAILY #30 tablet - Follow Up Plan Condition: IMPROVED Disposition: HOME/ ROUTINE Patient education suggested?: Yes Instructions: Hypertension (DC), Hypertension (GEN) Additional Instructions: Follow up with your PMD with in 1-2 days. Take your medication / blood pressure medication including Metoprolol, Lisinopril, and Amlodipine as prescribed. If your symptoms worsen come back to the ED. Referrals: Kamaljit Woods APN [Primary Care Provider] - <Melania Omalley - Last Filed: 04/10/17 06:37> Provider - Provider Date of Admission: 04/07/17 18:47 Attending physician: Melaina Omalley MD Primary care physician: Kamaljit Woods APN [facility] Course - Lab Results Lab Results: Micro Results 04/07/17 20:34 Urine,Clean Catch Urine Culture - Final No Growth (<1,000 CFU/ML) Most Recent Lab Values WBC 5.5 10^3/ul (4.5-11.0) D 04/08/17 05:30 RBC 4.18 10^6/uL (3.5-6.1) 04/08/17 05:30 Hgb 11.6 gm/dL (12.0-16.0) L 04/08/17 05:30 Hct 34.7 % (36.0-48.0) L 04/08/17 05:30 MCV 83.0 fL (80.0-105.0) 04/08/17 05:30 MCH 27.8 pg (25.0-35.0) 04/08/17 05:30 MCHC 33.4 g/dl (31.0-37.0) 04/08/17 05:30 RDW 17.7 % (11.5-14.5) H 04/08/17 05:30 Plt Count 257 10^3/uL (120.0-450.0) 04/08/17 05:30 MPV 9.0 fl (7.0-11.0) 04/08/17 05:30 Gran % 57.5 % (50.0-68.0) 04/08/17 05:30 Lymph % (Auto) 28.3 % (22.0-35.0) 04/08/17 05:30 Rankin % (Auto) 11.2 % (1.0-6.0) H 04/08/17 05:30 Eos % (Auto) 2.4 % (1.5-5.0) 04/08/17 05:30 Baso % (Auto) 0.6 % (0.0-3.0) 04/08/17 05:30 Gran # 3.14 (1.4-6.5) 04/08/17 05:30 Lymph # 1.5 (1.2-3.4) 04/08/17 05:30 Rankin # 0.6 (0.1-0.6) 04/08/17 05:30 Eos # 0.1 (0.0-0.7) 04/08/17 05:30 Baso # 0.03 K/mm3 (0.0-2.0) 04/08/17 05:30 PT 10.8 Seconds (9.9-11.8) 04/07/17 16:55 INR 1.00 (0.93-1.08) 04/07/17 16:55 APTT 24.3 Seconds (23.7-30.8) 04/07/17 16:55 Sodium 134 mmol/L (132-148) 04/08/17 05:30 Potassium 3.9 mmol/L (3.6-5.0) 04/08/17 05:30 Chloride 101 mmol/L (98-107) 04/08/17 05:30 Carbon Dioxide 22 mmol/L (21-33) 04/08/17 05:30 Anion Gap 15 (10-20) 04/08/17 05:30 BUN 11 mg/dL (7-21) 04/08/17 05:30 Creatinine 0.7 mg/dL (0.5-1.4) 04/08/17 05:30 Est GFR ( Amer) > 60 04/08/17 05:30 Est GFR (Non-Af Amer) > 60 04/08/17 05:30 POC Glucose (mg/dL) 154 mg/dL (65-110) H 04/08/17 16:15 Random Glucose 133 mg/dL (70-110) H 04/08/17 05:30 Serum Osmolality 273 mosm/kg (271-296) 04/07/17 16:55 Calcium 8.9 mg/dL (8.4-10.5) 04/08/17 05:30 Phosphorus 4.7 mg/dL (2.5-4.5) H 04/08/17 05:30 Magnesium 1.8 mg/dL (1.7-2.2) 04/08/17 05:30 Total Bilirubin 0.8 mg/dL (0.2-1.3) 04/08/17 05:30 AST 25 U/L (15-39) 04/08/17 05:30 ALT 34 U/L (7-56) 04/08/17 05:30 Alkaline Phosphatase 71 U/L (38-133) 04/08/17 05:30 Lactate Dehydrogenase 681 U/L (333-699) 04/07/17 16:55 Total Creatine Kinase 114 U/L (35-230) 04/07/17 16:55 Troponin I < 0.01 ng/mL 04/08/17 05:30 NT-Pro-B Natriuret Pep 256 pg/mL (0-450) 04/07/17 16:55 Total Protein 7.2 g/dL (5.8-8.3) 04/08/17 05:30 Albumin 4.0 g/dL (3.0-4.8) 04/08/17 05:30 Globulin 3.2 gm/dL 04/08/17 05:30 Albumin/Globulin Ratio 1.3 (1.1-1.8) 04/08/17 05:30 Urine Color Straw (YELLOW) 04/07/17 16:12 Urine Appearance Clear (CLEAR) 04/07/17 16:12 Urine pH 7.0 (4.7-8.0) 04/07/17 16:12 Ur Specific [place] 1.010 (1.005-1.035) 04/07/17 16:12 Urine Protein 30 mg/dL (<30 mg/dL) H 04/07/17 16:12 Urine Glucose (UA) Negative mg/dL (NEGATIVE) 04/07/17 16:12 Urine Ketones Negative mg/dL (NEGATIVE) 04/07/17 16:12 Urine Blood Negative (NEGATIVE) 04/07/17 16:12 Urine Nitrate Negative (NEGATIVE) 04/07/17 16:12 Urine Bilirubin Negative (NEGATIVE) 04/07/17 16:12 Urine Urobilinogen 0.2 E.U./dL (<1 E.U./dL) 04/07/17 16:12 Ur Leukocyte Esterase Trace Scott/uL (NEGATIVE) H 04/07/17 16:12 Urine RBC 0 - 2 /hpf (0-2) 04/07/17 16:12 Urine WBC 1 - 3 /hpf (0-6) 04/07/17 16:12 Ur Epithelial Cells 3 - 4 /hpf (0-5) 04/07/17 16:12 Urine Bacteria Few (NEG) 04/07/17 16:12 Urine Other Mucus 04/07/17 16:12 Urine Osmolality 168 mosm/kg (50-645) 04/07/17 20:34 Ur Random Creatinine 16 mg/dL 04/07/17 20:34 Ur Random Sodium 25 meq/L 04/07/17 20:34 Attending/Attestation - Attestation I have personally seen and examined this patient.: Yes I have fully participated in the care of the patient.: Yes I have reviewed all pertinent clinical information, including history, physical exam and plan: Yes Notes (Text): DISCHARGE SUMMARY FOR 04/08/17 81 year old female with past medical history of hypertension and anxiety who presented with complaint of headache and elevated blood pressure reading. She was admitted for uncontrolled blood pressure >200/100. Of note this is her third admission for uncontrolled hypertension, most recently being discharged few days prior. She was discharged on metoprolol, norvasc and lisinopril last time and was taking only metoprolol although medication reconciliation was done on discharge with patient and her son. CT head was negative for acute findings. Her blood pressure and headache improved after resuming her home regimen. Lisinopril was increased to 5 mg. Medication compliance was again emphasized to patient and son, and then again reinforced with assistance of a deputy court clerk. Patient is discharged home to follow up with pmd. Counselled on medication compliance. Counselled on low salt diet. Readmission risk is high if she continues to be noncompliant at home. This was discussed with human services case manager and social science teacher. Melania Omalley MD Hospitalist.
== END 2017-04-08 16:58 | disposition home or self-care (01) ==
LOC: ED 15:01 → ERH 18:47 → 2RNO 04-08 00:39
PROVIDERS: ADMIT Internal Medicine; ATTEND Internal Medicine
DX: I16.0 Hypertensive urgency (principal); I10 Essential (primary) hypertension; R51 Headache; E87.1 Hypo-osmolality and hyponatremia; E83.42 Hypomagnesemia; F41.9 Anxiety disorder, unspecified; E11.9 Type 2 diabetes mellitus without complications; D50.9 Iron deficiency anemia, unspecified; K21.9 Gastro-esophageal reflux disease without esophagitis; M81.0 Age-related osteoporosis without current pathological fracture
CPT/HCPCS: 36415; 70450; 71010; 80053; 81001; 82550; 82570; 82948; 83615; 83735; 83880; 83930; 83935; 84100; 84300; 84484; 85025; 85610; 85730; 87086; 93005; 96372; 96374; 96375; 99285; G0378; J0360; J1644; J2060; J3475

== ENCOUNTER 2017-06-01 19:58 | Observation (INO) | payer MEDICAID ==
[2017-06-01 19:58] VITALS: BMI 22.6
--- NOTE | 2017-06-01 20:50 | ED PDOC ---
Arrival/HPI - History of Present Illness Time/Duration: < week Symptom Onset: Gradual Symptom Course: Worsening Severity Level: Mild <Latisha Fleming - Last Filed: 06/02/17 01:54> <Víctor Aguilar - Last Filed: 06/02/17 01:55> - General Time Seen by Provider: 06/01/17 20:02 - History of Present Illness Narrative History of Present Illness (Text): 06/01/17 20:47 81 y/o F with PMHx of HTN and DM presents for dysuria for a few days. Patient also complains of suprapubic abdominal pain. Patient denies having any F/C, N/V /D/C. Patient states that she had a UTI about 4 years ago and had similar symptoms then. Patient denies having any vaginal discharge or vaginal bleeding. (Latisha Fleming) Past Medical History - Provider Review Nursing Documentation Reviewed: Yes - Travel History Have you recently traveled outside [place] w/in the past 3 mons?: No - Infectious Disease Hx of Infectious Diseases: None - Cardiac Hx Cardiac Disorders: Yes Hx Hypertension: Yes - Pulmonary Hx Respiratory Disorders: No - Neurological Hx Neurological Disorder: No - HEENT Hx HEENT Disorder: Yes (wears glasses,hard of hearing in left ear) - Renal Hx Renal Disorder: Yes - Endocrine/Metabolic Hx Diabetes Mellitus Type 2: Yes - Hematological/Oncological Hx Blood Transfusions: Yes Hx Blood Transfusion Reaction: No - Integumentary Hx Dermatological Disorder: No - Musculoskeletal/Rheumatological Hx Musculoskeletal Disorders: Yes - Gastrointestinal Hx Gastrointestinal Disorders: Yes (HERNIA REAPIR,GASTRITIS,THYROIDECTOMY) Hx Gall Bladder Disease: Yes (CHOLECYSTECTOMY) Hx Gastroesophageal Reflux: Yes - Genitourinary/Gynecological Hx Genitourinary Disorders: Yes (2 ABORTIONS) - Psychiatric Hx Psychophysiologic Disorder: Yes Hx Substance Use: No - Surgical History Hx Cholecystectomy: Yes - Anesthesia Hx Anesthesia Reactions: No Hx Malignant Hyperthermia: No <Latisha Fleming - Last Filed: 06/02/17 01:54> Family/Social History - Physician Review Nursing Documentation Reviewed: Yes Family/Social History: Unknown Family HX Smoking Status: Never Smoked Hx Alcohol Use: No Hx Substance Use: No <Latisha Fleming - Last Filed: 06/02/17 01:54> Allergies/Home Meds <Latisha Fleming - Last Filed: 06/02/17 01:54> <Víctor Aguilar - Last Filed: 06/02/17 01:55> Allergies/Adverse Reactions: Allergies No Known Allergies Allergy (Verified 06/01/17 20:15) Home Medications: Home Meds Medication Instructions Recorded Confirmed Meloxicam 7.5 mg PO DAILY PRN 06/01/17 06/01/17 Metformin HCl [Glucophage Xr] 750 mg PO BID 06/01/17 06/01/17 Metoprolol Succinate 25 mg PO DAILY 06/01/17 06/01/17 Pantoprazole Sodium [Protonix] 40 mg PO DAILY 06/01/17 06/01/17 Pentosan Polysulfate Sodium 100 mg PO TID 06/01/17 06/01/17 [Elmiron] Review of Systems - Review of Systems Constitutional: Normal. absent: Fatigue, Weight Change, Fevers Eyes: Normal. absent: Vision Changes, Photophobia ENT: Normal. absent: Sore Throat, Rhinorrhea, Sinus Congestion Respiratory: Normal. absent: SOB, Cough, Sputum, Wheezing Cardiovascular: Normal. absent: Chest Pain, Edema, Calf Pain Gastrointestinal: Abdominal Pain. absent: Constipation, Diarrhea, Nausea, Vomiting Genitourinary Female: Dysuria. absent: Hematuria, Urine Output Changes, Vaginal Bleeding, Vaginal Discharge Musculoskeletal: Normal. absent: Arthralgias, Back Pain Skin: Normal. absent: Rash, Pruritis, Skin Lesions, Laceration Neurological: Normal. absent: Headache, Dizziness Endocrine: Normal. absent: Diaphoresis, Polyuria Hemo/Lymphatic: Normal. absent: Adenopathy, Easy Bleeding <Latisha Fleming - Last Filed: 06/02/17 01:54> Physical Exam Vital Signs Reviewed: Yes Temperature: Afebrile Blood Pressure: Hypertensive Pulse: Regular Respiratory Rate: Normal Appearance: Positive for: Well-Appearing, Non-Toxic, Comfortable Pain Distress: Mild Mental Status: Positive for: Alert and Oriented X 3 - Systems Exam Head: Present: Atraumatic, Normocephalic Mouth: Present: Moist Mucous Membranes Respiratory/Chest: Present: Clear to Auscultation, Good Air Exchange. No: Respiratory Distress, Accessory Muscle Use, Wheezes, Rales, Rhonchi Cardiovascular: Present: Regular Rate and Rhythm, Normal S1, S2. No: Murmurs, Rub, Gallop, Muffled Abdomen: Present: Tenderness (suprapubic ), Normal Bowel Sounds. No: Distention , Peritoneal Signs, Rebound, Guarding Upper Extremity: Present: Normal Inspection, Normal ROM, NORMAL PULSES. No: Cyanosis, Edema Lower Extremity: Present: Normal Inspection, NORMAL PULSES. No: Edema, CALF TENDERNESS Neurological: Present: GCS=15 Skin: Present: Warm, Dry, Normal Color. No: Rashes Psychiatric: Present: Alert, Oriented x 3, Normal Insight, Normal Concentration <Latisah Fleming - Last Filed: 06/02/17 01:54> Medical Decision Making - Lab Interpretations I have reviewed the lab results: Yes - RAD Interpretation Hand Finisher: Radiologist <Latisha Fleming - Last Filed: 06/02/17 01:54> <Víctor Aguilar - Last Filed: 06/02/17 01:55> ED Course and Treatment: 06/01/17 20:54 81 y/o F present sfor dysuria and suprapubic abd pain. Patient is also noted to hypertensive Will check CBC, CMP, urinalysis and urine culture Patient will be given hydralazine 10 mg IVP. 06/01/17 22:52 Repeat blood pressure after hydralazine is noted to 168/79 06/02/17 00:33 CT scan is noted to have probable ileus 06/02/17 00:[address] Yanez who accepts patient under hospitalists service for observation. Resident is notified. (Latisha Fleming) Impression: Pt seen and evaluated with medical lead. Pt, whose past medical history includes hypertension and diabetes, presented for dysuria and suprapubic pain for a few days. Aware and agree with HPI, clinical findings, plan, and management. Plan: -- Labs -- Urinalysis -- Apresoline -- Reassess and disposition 06/02/17 00:[address] Yanez, who is aware and agrees. Pt will be placed on [facility] observation for abdominal pain under the hospitalist service. ceo and president notified. (Víctor Aguilar) - Lab Interpretations Lab Results: 06/01/17 21:05 06/01/17 21:05 Lab Results 06/01/17 21:05: Sodium 129 L, Potassium 3.4 L, Chloride 92 L, Carbon Dioxide 27 , Anion Gap 13, BUN 16, Creatinine 0.7, Est GFR ( Amer) > 60, Est GFR ( Non-Af Amer) > 60, Random Glucose 113 H, Calcium 9.1, Total Bilirubin 0.5, AST 36, ALT 28, Alkaline Phosphatase 65, Total Protein 6.9, Albumin 4.1, Globulin 2.8, Albumin/Globulin Ratio 1.5 06/01/17 21:05: WBC 6.6, RBC 3.85, Hgb 11.5 L, Hct 33.4 L, MCV 86.8, MCH 29.9, MCHC 34.4, RDW 13.0, Plt Count 241, MPV 9.4 06/01/17 20:55: Urine Color Yellow, Urine Appearance Clear, Urine pH 6.0, Ur Specific [place] 1.010, Urine Protein 30 H, Urine Glucose (UA) Negative, Urine Ketones Negative, Urine Blood Negative, Urine Nitrate Negative, Urine Bilirubin Negative, Urine Urobilinogen 0.2, Ur Leukocyte Esterase Negative, Urine RBC Negative, Urine WBC Negative, Ur Epithelial Cells 0 - 2, Urine Bacteria Mod - RAD Interpretation Narrative RAD Interpretations (Text): 06/02/17 00:34 CT abd/pelvis shows probable ileus, constipation (Karim,Latisha) Radiology Orders: 06/01/17 21:49 ABD & PELVIS IV CONTRAST ONLY [CT] Stat - Medication Orders Current Medication Orders: Discontinued Medications Hydralazine HCl (Apresoline) 10 mg IVP ONCE ONE Stop: 06/01/17 20:58 Last Admin: 06/01/17 21:12 Dose: 10 mg Sodium Chloride (Sodium Chloride 0.9%) 1,000 mls @ 999 mls/hr IV .Q1H1M STA Stop: 06/01/17 22:39 Last Admin: 06/01/17 22:04 Dose: 999 mls/hr Iohexol (Omnipaque 350 100 Ml) Confirm Administered Dose 350 mg .ROUTE .STK-MED ONE Stop: 06/01/17 22:33 Morphine Sulfate (Morphine) 2 mg IVP STAT STA Stop: 06/01/17 21:52 Last Admin: 06/01/17 22:04 Dose: 2 mg Potassium Chloride (K-Dur 20 Meq Er Tab) 40 meq PO STAT STA Stop: 06/01/17 21:40 Last Admin: 06/01/17 22:05 Dose: 40 meq - PA / TUBE REPAIRER / Resident Statement / has reviewed & agrees with the documentation as recorded. / has examined the patient and agrees with the treatment plan. <Víctor Aguilar - Last Filed: 06/02/17 01:55> Disposition/Present on Arrival - Present on Arrival Any Indicators Present on Arrival: No History of DVT/PE: No History of Uncontrolled Diabetes: No Urinary Catheter: No History of Decub. Ulcer: No History Surgical Site Infection Following: None - Disposition Have Diagnosis and Disposition been Completed?: Yes Disposition Time: 00:35 Patient Plan: Observation <Latisha Fleming - Last Filed: 06/02/17 01:54> <Víctor Aguilar - Last Filed: 06/02/17 01:55> - Disposition Diagnosis: Abdominal pain, Ileus Disposition: HOSPITALIZED Patient Problems: Current Active Problems Problem Status Onset Abdominal pain Acute Ileus Acute Condition: STABLE
[2017-06-01 21:08] LABS: URINE BILIRUBIN NEGATIVE (NEGATIVE); URINE BLOOD NEGATIVE (NEGATIVE); URINE GLUCOSE (UA) NEGATIVE (NEGATIVE); URINE LEUKOCYTE ESTERASE NEGATIVE Leu/uL (NEGATIVE); URINE NITRATE NEGATIVE (NEGATIVE); URINE PROTEIN 30 mg/dL (<30 mg/dL); URINE UROBILINOGEN 0.2 E.U./dL (<1 E.U./dL)
[2017-06-01 21:11] LABS: URINE APPEARANCE CLEAR (CLEAR); URINE COLOR YELLOW (YELLOW)
[2017-06-01 21:32] LABS: ALB/GLOB RATIO 1.5 (1.1-1.8); ALBUMIN 4.1 g/dL (3.0-4.8); ALT/SGPT 28 U/L (7-56); AST/SGOT 36 U/L (15-39); BLOOD UREA NITROGEN 16 mg/dL (7-21); CALCIUM 9.1 mg/dL (8.4-10.5); GFR AFRICAN-AMERICAN > 60; GFR NON-AFRICAN AMERICAN > 60
[2017-06-01 21:39] LABS: HEMOGLOBIN 11.5 g/dL (12.0-16.0); MEAN CELL VOLUME 86.8 fl (80.0-105.0); MEAN CORPUSCULAR HEMOGLOBIN 29.9 pg (25.0-35.0); MEAN CORPUSCULAR HGB CONC 34.4 g/dl (31.0-37.0); MEAN PLATELET VOLUME 9.4 fl (7.0-11.0); RBC 3.85 10^6/uL (3.5-6.1); WHITE BLOOD COUNT 6.6 10^3/ul (4.5-11.0)
[2017-06-01] MEDS ORDERED: Potassium Chloride 20 mEq ER Tab PO STA (21:39)
[2017-06-01] MEDS ORDERED: Sodium Chloride 0.9% 1,000 ML IV STA (21:39)
[2017-06-01 21:47] LABS: URINE BACTERIA MOD (NEG); URINE EPITHELIAL CELLS 0 - 2 /hpf (0-5); URINE RBC NEGATIVE /hpf (0-2); URINE WBC NEGATIVE /hpf (0-6)
[2017-06-01] MEDS ORDERED: Morphine 2 mg/ml ISec IVP STA (21:51)
[2017-06-01] MEDS ORDERED: Iohexol 350 MG/100 ML VIAL ONE (22:32)
--- NOTE | 2017-06-02 00:17 | CT ---
EXAM: CT Abdomen and Pelvis With Intravenous Contrast CLINICAL HISTORY: 81 years old, female; Pain; Abdominal pain; Localized; Right lower quadrant (rlq); Prior surgery; Surgery date: 6+ months; Surgery type: Cholecystectomy; Additional info: Rlq abd pain TECHNIQUE: Axial computed tomography images of the abdomen and pelvis with intravenous contrast. All CT scans at this facility use one or more dose reduction techniques, viz.: automated exposure control; ma/kV adjustment per patient size (including targeted exams where dose is matched to indication; i.e. head); or iterative reconstruction technique. Coronal and sagittal reformatted images were created and reviewed. CONTRAST: 100 mL of OMNI 350 administered intravenously. EXAM DATE/TIME: 06/01/2017 9:49 PM COMPARISON: CT - ABD PELVIS PO CONTRAST ONLY 12/30/2016 6:28:45 PM FINDINGS: Lower thorax: Heart size is at the upper limits of normal. There are coronary calcifications. There is a moderately large hiatal hernia. There is compressive atelectasis at the left base adjacent to the hernia. There is dependent atelectasis in the right base. There is linear scarring at the lung bases. ABDOMEN: Liver: unremarkable Gallbladder and bile ducts: Gallbladder is surgically absent. There is intra-and extrahepatic biliary ductal prominence Pancreas: Pancreas is atrophic. Spleen: unremarkable Adrenals: unremarkable Kidneys and ureters: There are small low attenuation renal lesions too small to characterize most likely cysts. There is left renal scarring. There is no pelvocaliectasis or ureterectasis. Stomach and bowel: Large portion of the stomach is intrathoracic. The stomach is incompletely distended. Rotation is normal. The small bowel is mildly distended with fluid and air. Distention decreases distally. Appendix and terminal ileum are unremarkable. Streak and motion limited evaluation of the colon. There is moderately large amount of stool in the colon. There is scattered diverticulosis Appendix: See stomach and bowel PELVIS: Bladder: unremarkable Reproductive: Uterus is absent. There are no adnexal masses. ABDOMEN and PELVIS: Intraperitoneal space: There is no free air or free fluid. Bones/joints: There are degenerative changes in the osseus structures. There is a mild convex left lumbar curve. Soft tissues: There is a fat-containing ventral hernia. Vasculature: There are vascular calcifications. Lymph nodes: unremarkable IMPRESSION: Moderately large hiatal hernia, unchanged; intra-and extrahepatic biliary ductal prominence status post cholecystectomy; probable ileus, no obstruction; constipation Additional findings as described above.
[2017-06-02] MEDS ORDERED: Sodium Chloride 0.9% 1,000 ML IV SCH (02:15)
--- NOTE | 2017-06-02 02:18 | CP.PCM.HP ---
<Wagner Castillo - Last Filed: 06/02/17 02:36> History of Present Illness - History of Present Illness History of Present Illness: CC: Pain with urination HPI: Patient is a 81 year old female with PMH sig for HTN, DM2, anxiety, and insomnia who presents with a one month history of burning with urination which has progressively worsened in the past 2 weeks.Patient indicates foul smelling urine and the presence of suprapubic tenderness for the past week to two weeks. The patient denies hematuria, discharge, fever, chills or difficulty with urination. Patient reports her PMD prescribed her Macrobid about a week ago for which she has been taking without improvement in her symptoms. She denies taking any pain medication for her symptoms. She reports previous history of renal infections for which she has been hospitalized before. Chart review does not indicate such prior admissions. Patient denies chest pain, shortness of breath, headache and changes in her vision. PMH: HTN, DM2 on metformin, Anxiety, Iron Deficiency anemia, Insomnia PSH: Thyroid surgery for mass, Cholecystectomy, hernia repair, hysterectomy FMH: Non-contributory SocHx: Tob: ETOH: Drugs: , Lives alone and is able to ambulate unassisted All: NKDA Meds: 1. Metoprolol Succinate 25mg Daily 2. Meloxicam 7.5 mg Daily 3. Elmiron 100 mg TID 4. Protonix 40mg Daily 5. Metformin HCl 750mg BID PMD: Dr. Maritza Woods Present on Admission - Present on Admission Any Indicators Present on Admission: No History of DVT/PE: No History of Uncontrolled Diabetes: No Urinary Catheter: No Decubitus Ulcer Present: No Review of Systems - Constitutional Constitutional: As Per HPI - EENT Eyes: As Per HPI Additional comments: nasal drainage - Cardiovascular Cardiovascular: As Per HPI - Respiratory Respiratory: As Per HPI - Gastrointestinal Gastrointestinal: As Per HPI - Genitourinary Genitourinary: Dysuria, Urinary Frequency. absent: Difficulty Urinating, Flank Pain, Hematuria, Pyuria - Reproductive: Female Reproductive:Female: As Per HPI - Musculoskeletal Musculoskeletal: absent: Abnormal Gait, Arthralgias, Back Pain, Muscle Weakness - Integumentary Integumentary: absent: As Per HPI, Acne, Alopecia, Bleeding Lesions, Change in Hair, Change in Nails, Change in Pigmentation, Changing Lesions, Dry Skin, Erythema, Furuncle, Hirsutism, Lesions, New Lesions, Non-Healing Lesions, Photosensitivity, Pruritus, Rash, Skin Pain, Skin Ulcer, Sores, Striae, Swelling , Unusual Bruising, Wounds, Jaundice, Other - Neurological Neurological: absent: Confusion, Dizziness, Focal Weakness, Headaches, Paresthesias, Sensory Deficit, Weakness - Psychiatric Psychiatric: Abnormal Sleep Pattern. absent: Anxiety - Endocrine Endocrine: absent: Excessive Sweating, Fatigue, Polydipsia Past Patient History - Infectious Disease Hx of Infectious Diseases: None - Past Social History Smoking Status: Never Smoked Alcohol: None Drugs: Denies - CARDIAC Hx Cardiac Disorders: Yes Hx Hypertension: Yes - PULMONARY Hx Respiratory Disorders: No - NEUROLOGICAL Hx Neurological Disorder: No - HEENT Hx HEENT Problems: Yes (wears glasses,hard of hearing in left ear) - RENAL Hx Chronic Kidney Disease: Yes - ENDOCRINE/METABOLIC Hx Diabetes Mellitus Type 2: Yes - HEMATOLOGICAL/ONCOLOGICAL Hx Blood Transfusions: Yes Hx Blood Transfusion Reaction: No - INTEGUMENTARY Hx Dermatological Problems: No - MUSCULOSKELETAL/RHEUMATOLOGICAL Hx Musculoskeletal Disorders: Yes - GASTROINTESTINAL Hx Gastrointestinal Disorders: Yes (HERNIA REAPIR,GASTRITIS,THYROIDECTOMY) Hx Gall Bladder Disease: Yes (CHOLECYSTECTOMY) Hx Gastroesophageal Reflux: Yes - GENITOURINARY/GYNECOLOGICAL Hx Genitourinary Disorders: Yes (2 ABORTIONS) - PSYCHIATRIC Hx Psychophysiologic Disorder: Yes Hx Substance Use: No - SURGICAL HISTORY Hx Cholecystectomy: Yes - ANESTHESIA Hx Anesthesia Reactions: No Hx Malignant Hyperthermia: No Meds Allergies/Adverse Reactions: Allergies Allergy/AdvReac Type Severity Reaction Status Date / Time No Known Allergies Allergy Verified 06/01/17 20:15 Physical Exam - Constitutional Appears: Well - Head Exam Head Exam: ATRAUMATIC, NORMAL INSPECTION, NORMOCEPHALIC - Eye Exam Eye Exam: EOMI, PERRL - ENT Exam ENT Exam: Mucous Membranes Moist - Neck Exam Neck exam: Positive for: Full Rom, Normal Inspection - Respiratory Exam Respiratory Exam: Clear to Auscultation Bilateral, NORMAL BREATHING PATTERN - Cardiovascular Exam Cardiovascular Exam: REGULAR RHYTHM, +S1, +S2 - GI/Abdominal Exam GI & Abdominal Exam: Normal Bowel Sounds, Soft, Tenderness (suprapubic > RLQ). absent: Guarding, Organomegaly - Rectal Exam Rectal Exam: Deferred - Extremities Exam Extremities exam: Positive for: full ROM, normal inspection, pedal pulses present. Negative for: calf tenderness - Back Exam Back exam: FULL ROM, NORMAL INSPECTION. absent: CVA tenderness (L), CVA tenderness (R) - Neurological Exam Neurological exam: Alert, CN II-XII Intact, Normal Gait, Oriented x3, Reflexes Normal - Psychiatric Exam Psychiatric exam: Normal Affect, Normal Mood - Skin Skin Exam: Dry, Intact, Normal Color, Warm Results - Vital Signs Recent Vital Signs: Last Vital Signs Temp 97.6 F 06/01/17 23:55 Pulse 82 06/01/17 23:55 Resp 16 06/01/17 23:55 BP 161/89 H 06/01/17 23:55 Pulse Ox 100 06/01/17 23:55 - Labs Result Diagrams: 06/01/17 21:05 06/01/17 21:05 Assessment & Plan (1) UTI (urinary tract infection) Status: Acute (2) Abdominal pain Status: Acute (3) Hypertension Status: Chronic - Assessment and Plan (Free Text) Assessment: Patient is an 81 year old female with past medical history of HTN, DM, anxiety, Iron deficient anemia who presents with one month history of dysuira Plan: 1. UTI - uncomplicated - UA clean - CT abdomen and pelvis showing small low attenuation renal lesions too small to characterize most likely cysts, left renal scarring, no pelvocaliectasis or ureterectasis, bladder unremarkable - Urine culture - Zofran for nausea - Clear liquid diet with plan to advance as tolerated - Repeat CBC, CMP in AM 2. Hypertension - Hyrdalazine given in ED - Continue home medications - Monitor 3. Diabetes Mellitus - Humalin ISS low - ACHS - Monitor 4. DVT ppx - SCDs - Date & Time Date: 06/02/17 Time: 02:10 <Jamil Yanez Q - Last Filed: 06/02/17 04:05> Results - Vital Signs Recent Vital Signs: Last Vital Signs Temp 98.6 F 06/02/17 03:40 Pulse 82 06/02/17 03:40 Resp 16 06/02/17 03:40 BP 176/98 H 06/02/17 03:40 Pulse Ox 96 06/02/17 03:40 - Labs Result Diagrams: 06/01/17 21:05 06/01/17 21:05 Attending/Attestation - Attestation I have personally seen and examined this patient.: Yes I have fully participated in the care of the patient.: Yes I have reviewed all pertinent clinical information: Yes Notes (Text): 06/02/17 04:04 I agree with the above mentioned note and exam by the resident with the addition /exception of the followin81 y/o female being placed on observation for abdominal pain/discomfort secondary to an ileus. No obstruction or constipation; patient has good bowel sounds and U/A is negative for UTI (likely due to recent treatment with macrobid ). Will attempt clear liquid diet in the AM and if patient is able to tolerate her food without pain or nausea, she's likely to be discharged home.
[2017-06-02 08:16] VITALS: PULSE 75; RESP 20; TEMP 98.5; O2SAT 98
[2017-06-02] MEDS ORDERED: Meloxicam 7.5 MG TAB PO PRN (09:00)
[2017-06-02] MEDS ORDERED: Metoprolol Succinate 25 mg XL Tab PO SCH (09:00)
[2017-06-02 09:42] VITALS: BP 120/62
[2017-06-02 09:47] LABS: BASO # 0.04 K/mm3 (0.0-2.0); BASO % 0.7 % (0.0-3.0); EOS # 0.2 (0.0-0.7); EOS % 2.6 % (1.5-5.0); GRAN # 3.91 (1.4-6.5); GRAN % 67.6 % (50.0-68.0); HEMOGLOBIN 12.2 g/dL (12.0-16.0); LYMPH # 1.3 (1.2-3.4); MEAN CELL VOLUME 89.4 fl (80.0-105.0); MEAN CORPUSCULAR HEMOGLOBIN 30.2 pg (25.0-35.0); MEAN CORPUSCULAR HGB CONC 33.8 g/dl (31.0-37.0); MEAN PLATELET VOLUME 8.9 fl (7.0-11.0); MONO # 0.4 (0.1-0.6); MONO % 7.1 % (1.0-6.0); PLATELET COUNT 232 10^3/uL (120.0-450.0); RBC 4.04 10^6/uL (3.5-6.1); RED CELL DISTRIBUTION WIDTH 13.3 % (11.5-14.5); WHITE BLOOD COUNT 5.8 10^3/ul (4.5-11.0)
[2017-06-02 09:55] LABS: ALB/GLOB RATIO 1.4 (1.1-1.8); ALBUMIN 4.1 g/dL (3.0-4.8); ALT/SGPT 26 U/L (7-56); AST/SGOT 30 U/L (15-39); BLOOD UREA NITROGEN 15 mg/dL (7-21); CALCIUM 9.2 mg/dL (8.4-10.5); GFR AFRICAN-AMERICAN > 60; GFR NON-AFRICAN AMERICAN > 60
[2017-06-02] MEDS ORDERED: Magnesium Citrate Oral SOL (300 ml) PO ONE (11:31)
[2017-06-02] MEDS ORDERED: POLYETHYLENE GLYCOL 3350 17 GM/Dose PACKET PO SCH (11:45)
--- NOTE | 2017-06-02 15:14 | CP.PCM.DIS ---
<Maria Elena - Last Filed: 06/02/17 15:08> Provider - Provider Date of Admission: 06/02/17 01:40 Attending physician: Akua Xavier MD Primary care physician: Taina Sheth MD Time Spent in preparation of Discharge (in minutes): 20 Hospital Course - Lab Results Lab Results: Most Recent Lab Values WBC 5.8 10^3/ul (4.5-11.0) 06/02/17 09:41 RBC 4.04 10^6/uL (3.5-6.1) 06/02/17 09:41 Hgb 12.2 g/dL (12.0-16.0) 06/02/17 09:41 Hct 36.1 % (36.0-48.0) 06/02/17 09:41 MCV 89.4 fl (80.0-105.0) 06/02/17 09:41 MCH 30.2 pg (25.0-35.0) 06/02/17 09:41 MCHC 33.8 g/dl (31.0-37.0) 06/02/17 09:41 RDW 13.3 % (11.5-14.5) 06/02/17 09:41 Plt Count 232 10^3/uL (120.0-450.0) 06/02/17 09:41 MPV 8.9 fl (7.0-11.0) 06/02/17 09:41 Gran % 67.6 % (50.0-68.0) 06/02/17 09:41 Lymph % (Auto) 22.0 % (22.0-35.0) 06/02/17 09:41 [place] % (Auto) 7.1 % (1.0-6.0) H 06/02/17 09:41 Eos % (Auto) 2.6 % (1.5-5.0) 06/02/17 09:41 Baso % (Auto) 0.7 % (0.0-3.0) 06/02/17 09:41 Gran # 3.91 (1.4-6.5) 06/02/17 09:41 Lymph # 1.3 (1.2-3.4) 06/02/17 09:41 [place] # 0.4 (0.1-0.6) 06/02/17 09:41 Eos # 0.2 (0.0-0.7) 06/02/17 09:41 Baso # 0.04 K/mm3 (0.0-2.0) 06/02/17 09:41 Sodium 135 mmol/L (132-148) 06/02/17 09:41 Potassium 4.5 mmol/L (3.6-5.0) 06/02/17 09:41 Chloride 97 mmol/L (98-107) L 06/02/17 09:41 Carbon Dioxide 26 mmol/L (21-33) 06/02/17 09:41 Anion Gap 17 (10-20) 06/02/17 09:41 BUN 15 mg/dL (7-21) 06/02/17 09:41 Creatinine 0.9 mg/dL (0.5-1.4) 06/02/17 09:41 Est GFR ( Amer) > 60 06/02/17 09:41 Est GFR (Non-Af Amer) > 60 06/02/17 09:41 Random Glucose 203 mg/dL (70-110) H 06/02/17 09:41 Calcium 9.2 mg/dL (8.4-10.5) 06/02/17 09:41 Total Bilirubin 0.7 mg/dL (0.2-1.3) 06/02/17 09:41 AST 30 U/L (15-39) 06/02/17 09:41 ALT 26 U/L (7-56) 06/02/17 09:41 Alkaline Phosphatase 58 U/L (38-133) 06/02/17 09:41 Total Protein 7.1 g/dL (5.8-8.3) 06/02/17 09:41 Albumin 4.1 g/dL (3.0-4.8) 06/02/17 09:41 Globulin 3.0 gm/dL 06/02/17 09:41 Albumin/Globulin Ratio 1.4 (1.1-1.8) 06/02/17 09:41 Urine Color Yellow (YELLOW) 06/01/17 20:55 Urine Appearance Clear (CLEAR) 06/01/17 20:55 Urine pH 6.0 (4.7-8.0) 06/01/17 20:55 Ur Specific [place] 1.010 (1.005-1.035) 06/01/17 20:55 Urine Protein 30 mg/dL (<30 mg/dL) H 06/01/17 20:55 Urine Glucose (UA) Negative mg/dL (NEGATIVE) 06/01/17 20:55 Urine Ketones Negative mg/dL (NEGATIVE) 06/01/17 20:55 Urine Blood Negative (NEGATIVE) 06/01/17 20:55 Urine Nitrate Negative (NEGATIVE) 06/01/17 20:55 Urine Bilirubin Negative (NEGATIVE) 06/01/17 20:55 Urine Urobilinogen 0.2 E.U./dL (<1 E.U./dL) 06/01/17 20:55 Ur Leukocyte Esterase Negative Scott/uL (NEGATIVE) 06/01/17 20:55 Urine RBC Negative /hpf (0-2) 06/01/17 20:55 Urine WBC Negative /hpf (0-6) 06/01/17 20:55 Ur Epithelial Cells 0 - 2 /hpf (0-5) 06/01/17 20:55 Urine Bacteria Mod (NEG) 06/01/17 20:55 - Hospital Course Hospital Course: Discharge summary for Dr. Xavier. 81 F presented to ED for possible UTI. Patient admits to dysuria for the past four weeks, progressively worsening these past two weeks. Patient had a UA which was negative. Urine cultures were also obtained.. Patient also admitted to her last bowel movement friday. Patient states she has a history of constipation. Pain is located at the Left lower quadrant and right lower quadrant. Patient is given miralax and patient has had a soft bowel movement. Patient will be sent home with miralax and colace. - Date & Time of H&P Date of H&P: 06/02/17 Time of H&P: 15:14 Discharge Exam - Head Exam Head Exam: ATRAUMATIC, NORMAL INSPECTION, NORMOCEPHALIC - Eye Exam Eye Exam: EOMI, Normal appearance - ENT Exam ENT Exam: Mucous Membranes Moist - Respiratory Exam Respiratory Exam: NORMAL BREATHING PATTERN. absent: Accessory Muscle Use, Decreased Breath Sounds, Prolonged Expiratory Phase - Cardiovascular Exam Cardiovascular Exam: REGULAR RHYTHM - GI/Abdominal Exam GI & Abdominal Exam: Hypoactive Bowel Sounds, Tenderness. absent: Distended, Guarding Additional comments: LLQ and RLQ tenderness to palpation. no rebound. negative rovsing - Extremities Exam Extremities exam: full ROM Additional comments: no joint swelling - Skin Skin Exam: Dry, Intact, Normal Color, Warm Discharge Plan - Discharge Medications Prescriptions: Docusate [Colace] 100 mg PO DAILY PRN 14 Days PRN Reason: Constipation Polyethylene Glycol 3350 [Miralax] 17 gm PO DAILY PRN #14 ml PRN Reason: Diarrhea - Follow Up Plan Condition: STABLE Disposition: HOME/ ROUTINE Instructions: Constipation (DC), Constipation (GEN), Acute Abdominal Pain (DC) , Acute Abdominal Pain (GEN) Additional Instructions: Serbian translation/instructions requested 1. follow up with Dr. Woods. re-evaluate for Blood pressure control. 2. Continue home medications for diabetes and blood pressure. 3. Continue Colace and Miralax if necessary for bowel movements 4. Hydrate, drink fluids 5. return to ED for worsening symptoms of constipation. Referrals: Taina Sheth MD [Primary Care Provider] - Follow up with primary <Akua aXvier - Last Filed: 06/02/17 16:52> Provider - Provider Date of Admission: 06/02/17 01:40 Attending physician: Akua Xavier MD Primary care physician: Taina Sheth MD Hospital Course - Lab Results Lab Results: Most Recent Lab Values WBC 5.8 10^3/ul (4.5-11.0) 06/02/17 09:41 RBC 4.04 10^6/uL (3.5-6.1) 06/02/17 09:41 Hgb 12.2 g/dL (12.0-16.0) 06/02/17 09:41 Hct 36.1 % (36.0-48.0) 06/02/17 09:41 MCV 89.4 fl (80.0-105.0) 06/02/17 09:41 MCH 30.2 pg (25.0-35.0) 06/02/17 09:41 MCHC 33.8 g/dl (31.0-37.0) 06/02/17 09:41 RDW 13.3 % (11.5-14.5) 06/02/17 09:41 Plt Count 232 10^3/uL (120.0-450.0) 06/02/17 09:41 MPV 8.9 fl (7.0-11.0) 06/02/17 09:41 Gran % 67.6 % (50.0-68.0) 06/02/17 09:41 Lymph % (Auto) 22.0 % (22.0-35.0) 06/02/17 09:41 [place] % (Auto) 7.1 % (1.0-6.0) H 06/02/17 09:41 Eos % (Auto) 2.6 % (1.5-5.0) 06/02/17 09:41 Baso % (Auto) 0.7 % (0.0-3.0) 06/02/17 09:41 Gran # 3.91 (1.4-6.5) 06/02/17 09:41 Lymph # 1.3 (1.2-3.4) 06/02/17 09:41 [place] # 0.4 (0.1-0.6) 06/02/17 09:41 Eos # 0.2 (0.0-0.7) 06/02/17 09:41 Baso # 0.04 K/mm3 (0.0-2.0) 06/02/17 09:41 Sodium 135 mmol/L (132-148) 06/02/17 09:41 Potassium 4.5 mmol/L (3.6-5.0) 06/02/17 09:41 Chloride 97 mmol/L (98-107) L 06/02/17 09:41 Carbon Dioxide 26 mmol/L (21-33) 06/02/17 09:41 Anion Gap 17 (10-20) 06/02/17 09:41 BUN 15 mg/dL (7-21) 06/02/17 09:41 Creatinine 0.9 mg/dL (0.5-1.4) 06/02/17 09:41 Est GFR ( Amer) > 60 06/02/17 09:41 Est GFR (Non-Af Amer) > 60 06/02/17 09:41 Random Glucose 203 mg/dL (70-110) H 06/02/17 09:41 Calcium 9.2 mg/dL (8.4-10.5) 06/02/17 09:41 Total Bilirubin 0.7 mg/dL (0.2-1.3) 06/02/17 09:41 AST 30 U/L (15-39) 06/02/17 09:41 ALT 26 U/L (7-56) 06/02/17 09:41 Alkaline Phosphatase 58 U/L (38-133) 06/02/17 09:41 Total Protein 7.1 g/dL (5.8-8.3) 06/02/17 09:41 Albumin 4.1 g/dL (3.0-4.8) 06/02/17 09:41 Globulin 3.0 gm/dL 06/02/17 09:41 Albumin/Globulin Ratio 1.4 (1.1-1.8) 06/02/17 09:41 Urine Color Yellow (YELLOW) 06/01/17 20:55 Urine Appearance Clear (CLEAR) 06/01/17 20:55 Urine pH 6.0 (4.7-8.0) 06/01/17 20:55 Ur Specific [place] 1.010 (1.005-1.035) 06/01/17 20:55 Urine Protein 30 mg/dL (<30 mg/dL) H 06/01/17 20:55 Urine Glucose (UA) Negative mg/dL (NEGATIVE) 06/01/17 20:55 Urine Ketones Negative mg/dL (NEGATIVE) 06/01/17 20:55 Urine Blood Negative (NEGATIVE) 06/01/17 20:55 Urine Nitrate Negative (NEGATIVE) 06/01/17 20:55 Urine Bilirubin Negative (NEGATIVE) 06/01/17 20:55 Urine Urobilinogen 0.2 E.U./dL (<1 E.U./dL) 06/01/17 20:55 Ur Leukocyte Esterase Negative Scott/uL (NEGATIVE) 06/01/17 20:55 Urine RBC Negative /hpf (0-2) 06/01/17 20:55 Urine WBC Negative /hpf (0-6) 06/01/17 20:55 Ur Epithelial Cells 0 - 2 /hpf (0-5) 06/01/17 20:55 Urine Bacteria Mod (NEG) 06/01/17 20:55 Attending/Attestation - Attestation I have personally seen and examined this patient.: Yes I have fully participated in the care of the patient.: Yes I have reviewed all pertinent clinical information, including history, physical exam and plan: Yes Notes (Text): 06/02/17 16:50 attending note; Patient seen and examined with resident. Patient is complaining of nonspecific abdominal pain. CT abdomen showed constipation. Treated with by mouth max citrate. Patient had BM today. Tolerating diet well. Will be discharged home with MiraLAX and Colace. Avoid constipation. Hypertension; follow up with PMD Dr. sheth for medication adjustment. Patient will be discharged home today. Diagnosis; Constipation Abdominal discomfort Hypertension 06/02/17 16:51
== END 2017-06-02 16:59 | disposition home or self-care (01) ==
LOC: ED 19:58 → ERH 06-02 01:40 → 3RNO 06-02 03:10
PROVIDERS: ADMIT Internal Medicine; ATTEND Internal Medicine
DX: N39.0 Urinary tract infection, site not specified (principal); K59.00 Constipation, unspecified; I12.9 Hypertensive chronic kidney disease with stage 1 through stage 4 chronic kidney disease, or unspecified chronic kidney disease; E11.22 Type 2 diabetes mellitus with diabetic chronic kidney disease; N18.9 Chronic kidney disease, unspecified; G47.00 Insomnia, unspecified; F41.9 Anxiety disorder, unspecified; D50.9 Iron deficiency anemia, unspecified; Z79.84 Long term (current) use of oral hypoglycemic drugs
CPT/HCPCS: 36415; 74177; 80053; 81001; 85025; 85027; 87086; 96374; 96375; 99284; G0378; J0360; J2270; J7040; Q9967

== ENCOUNTER 2017-07-11 13:08 | Emergency (ER) | payer MEDICAID ==
[2017-07-11 13:17] VITALS: BMI 24.5
[2017-07-11 13:19] VITALS: TEMP 98
[2017-07-11] MEDS ORDERED: Labetalol 5 mg/ml Inj 20ML IV STA ×2 (14:03→15:15)
[2017-07-11] MEDS ORDERED: Fluorescein 1 mg Ophthalmic Strip OS ONE (14:03)
--- NOTE | 2017-07-11 14:17 | ED PDOC ---
Arrival/HPI - General Chief Complaint: Eye Problem Time Seen by Provider: 07/11/17 13:36 Historian: Patient - History of Present Illness Narrative History of Present Illness (Text): 07/11/17 14:00 Lauren Yang is an 81 year old female, whose past medical history includes hypertension and diabetes, presents to the emergency department complaining of high blood pressure and a burning sensation in her left eye due to an operation that was done four years ago. Patient reports it has recently become worse and has clear discharge. Patient denies fever, shortness of breath, headache, chest pain, or other complaints. PMD: Dr. Posada Time/Duration: Other (4 years ago) Symptom Onset: Gradual Symptom Course: Worsening Associated Symptoms (Text): clear watery discharge Past Medical History - Provider Review Nursing Documentation Reviewed: Yes - Infectious Disease Hx of Infectious Diseases: None - Cardiac Hx Cardiac Disorders: Yes Hx Hypertension: Yes - Pulmonary Hx Respiratory Disorders: No - Neurological Hx Neurological Disorder: No - HEENT Hx HEENT Disorder: Yes (wears glasses,[facility] [facility] [facility] in Left Ear) - Renal Hx Renal Disorder: Yes - Endocrine/Metabolic Hx Diabetes Mellitus Type 2: Yes - Hematological/Oncological Hx Anemia: Yes - Integumentary Hx Dermatological Disorder: No - Musculoskeletal/Rheumatological Hx Musculoskeletal Disorders: Yes Hx Falls: No - Gastrointestinal Hx Gastrointestinal Disorders: Yes (HERNIA REAPIR,GASTRITIS,THYROIDECTOMY) Hx Gall Bladder Disease: Yes (CHOLECYSTECTOMY) Hx Gastroesophageal Reflux: Yes - Genitourinary/Gynecological Hx Genitourinary Disorders: Yes (2 ABORTIONS) - Psychiatric Hx Psychophysiologic Disorder: Yes Hx Anxiety: Yes Hx Substance Use: No - Surgical History Hx Cholecystectomy: Yes Hx Thyroidectomy: Yes Other/Comment: R eye sx - Anesthesia Hx Anesthesia Reactions: No Hx Malignant Hyperthermia: No Family/Social History - Physician Review Nursing Documentation Reviewed: Yes Family/Social History: Unknown Family HX Smoking Status: Never Smoked Hx Alcohol Use: No Hx Substance Use: No Allergies/Home Meds Allergies/Adverse Reactions: Allergies No Known Allergies Allergy (Verified 06/01/17 20:15) Home Medications: Home Meds Medication Instructions Recorded Confirmed Metformin HCl [Glucophage Xr] 750 mg PO BID 06/01/17 07/11/17 Metoprolol Succinate 25 mg PO DAILY 06/01/17 07/11/17 Pantoprazole Sodium [Protonix] 40 mg PO DAILY 06/01/17 07/11/17 Ferrous Sulfate [Feosol] 1 tab PO DAILY 07/11/17 07/11/17 LORazepam [Ativan] 1 tab PO DAILY 07/11/17 07/11/17 Lisinopril/Hydrochlorothiazide 1 tab PO DAILY 07/11/17 07/11/17 [Lisinopril-Hctz 10-12.5 mg Tab] Melatonin [Melatonin] 1 tab PO HS PRN 07/11/17 07/11/17 Review of Systems - Review of Systems Constitutional: absent: Fevers Eyes: Other (left eye discomfort ) Respiratory: absent: SOB Cardiovascular: absent: Chest Pain Neurological: absent: Headache Physical Exam Vital Signs Reviewed: Yes Vital Signs Temp Pulse Resp BP Pulse Ox 07/11/17 17:41 71 17 162/75 H 100 07/11/17 17:25 69 18 175/107 H 99 07/11/17 16:20 70 17 172/96 H 99 07/11/17 16:01 67 184/94 H 07/11/17 14:38 81 201/95 H 07/11/17 14:20 74 18 178/93 H 98 07/11/17 13:17 98.0 F 70 18 189/91 H 97 Temperature: Afebrile Pulse: Regular Respiratory Rate: Normal Appearance: Positive for: Well-Appearing, Non-Toxic, Comfortable Pain Distress: None Mental Status: Positive for: Alert and Oriented X 3 - Systems Exam Head: Present: Atraumatic, Normocephalic Pupils: Present: PERRL Extroacular Muscles: Present: EOMI Conjunctiva: Present: Normal Mouth: Present: Moist Mucous Membranes Neck: Present: Normal Range of Motion Respiratory/Chest: Present: Clear to Auscultation, Good Air Exchange. No: Respiratory Distress, Accessory Muscle Use Cardiovascular: Present: Regular Rate and Rhythm, Normal S1, S2. No: Murmurs Abdomen: Present: Normal Bowel Sounds. No: Tenderness, Distention, Peritoneal Signs Upper Extremity: Present: Normal Inspection. No: Cyanosis, Edema Lower Extremity: Present: Normal Inspection. No: Edema Neurological: Present: GCS=15, CN II-XII Intact, Speech Normal, Gait Normal Skin: Present: Warm, Dry, Normal Color. No: Rashes Psychiatric: Present: Alert, Oriented x 3, Normal Insight, Normal Concentration Medical Decision Making ED Course and Treatment: 07/11/17 Impression: 81 year old female with left eye discomfort described as a burning sensation ever since she got an operation (4 years ago). Plan: -- Labs -- Fluorescein -- Labetolol 20mg IV -- Reassess and disposition Progress Notes: 07/11/17 Patient's left eye pressure was 15 with tonometer. Used tetracaine for exam. No fluorescein uptake. Negative for corneal abrasions or foreign bodies. Blood pressure improved to 172/96 with Labertolol second dose at 40mg IV. Patient continues to deny headache, dizziness, chest pain and shortness of breathe. 07/11/17 17:19 Patient states she has anxiety and she used to take Xanax but hasn't needed it a while. Now she can't sleep at all which is making her very stressed out. Denies SI/HI. I advised her to continue taking her eye drips the lubricate her eyes that she' s been taking now for 4 years. She will also continue taking her BP medications that Dr. Woods has given her. She has to make sure to follow up with Dr. Woods in 1-2days. She was advised to return to the ED if symptoms worsen or any other concern. 07/11/17 18:09 Patient feels so much better after the Xanax. He doesn't feel anxious anymore. She will make sure to follow up with her Psychologist scheduled for Jul 22. - Lab Interpretations Lab Results: 07/11/17 14:20 07/11/17 14:20 Lab Results 07/11/17 14:20: Sodium 132, Potassium 3.8, Chloride 93 L, Carbon Dioxide 27, Anion Gap 16, BUN 17, Creatinine 0.8, Est GFR ( Amer) > 60, Est GFR (Non- Af Amer) > 60, Random Glucose 116 H, Calcium 9.1, Magnesium 1.3 L 07/11/17 14:20: WBC 6.5, RBC 4.01, Hgb 12.3, Hct 35.9 L, MCV 89.5, MCH 30.7, MCHC 34.3, RDW 12.8, Plt Count 242, MPV 9.2, Gran % 66.5, Lymph % (Auto) 25.0, [place] % (Auto) 7.0 H, Eos % (Auto) 0.9 L, Baso % (Auto) 0.6, Gran # 4.29, Lymph # 1.6, [place] # 0.5, Eos # 0.1, Baso # 0.04 - Medication Orders Current Medication Orders: Discontinued Medications Alprazolam (Xanax) 0.5 mg PO STAT STA PRN Reason: Protocol Stop: 07/11/17 17:18 Last Admin: 07/11/17 17:41 Dose: 0.5 mg Fluorescein Sodium (Feksa-A-Dkfqu A.T.) 1 mg OS ONCE ONE Stop: 07/11/17 14:04 Last Admin: 07/11/17 17:41 Dose: 1 mg Comments: used Labetalol HCl (Trandate) 20 mg IV STAT STA Stop: 07/11/17 14:04 Last Admin: 07/11/17 14:38 Dose: 20 mg eMAR Start Stop Document 07/11/17 14:38 SF (Rec: 07/11/17 14:39 [place] [facility] [id number] Intravenous Solution Start Date 07/11/17 Start Time 14:39 MAR Pulse and Blood Pressure Document 07/11/17 14:38 SF (Rec: 07/11/17 14:39 [place] [facility] [id number] Pulse Pulse Rate (60-90) 81 Blood Pressure Blood Pressure (100/60-150/90) 201/95 Labetalol HCl (Trandate) 40 mg IV STAT STA Stop: 07/11/17 15:16 Last Admin: 07/11/17 16:01 Dose: 40 mg eMAR Start Stop Document 07/11/17 16:01 TRINH (Rec: 07/11/17 16:02 [id number] Intravenous Solution Start Date 07/11/17 Start Time 15:57 End Date 07/11/17 End time 16:01 Total Infusion Time 4 MAR Pulse and Blood Pressure Document 07/11/17 16:01 TRINH (Rec: 07/11/17 16:02 [facility]IN[id number] Pulse Pulse Rate (60-90) 67 Blood Pressure Blood Pressure (100/60-150/90) 184/94 Magnesium Oxide (Mag-Ox) 400 mg PO STAT STA Stop: 07/11/17 15:11 Last Admin: 07/11/17 17:40 Dose: 400 mg - Scribe Statement The provider has reviewed the documentation as recorded by the Hilario Ontiveros Provider Scribe Attestation: All medical record entries made by the Hilario were at my direction and personally dictated by me. I have reviewed the chart and agree that the record accurately reflects my personal performance of the history, physical exam, medical decision making, and the department course for this patient. I have also personally directed, reviewed, and agree with the discharge instructions and disposition. Disposition/Present on Arrival - Present on Arrival Any Indicators Present on Arrival: No History of DVT/PE: No History of Uncontrolled Diabetes: No Urinary Catheter: No History of Decub. Ulcer: No History Surgical Site Infection Following: Abdominal Surgery - Disposition Have Diagnosis and Disposition been Completed?: Yes Diagnosis: Hypertension Disposition: HOME/ ROUTINE Disposition Time: 17:21 Patient Plan: Discharge Patient Problems: Current Active Problems Problem Status Onset Hypertension Chronic Condition: IMPROVED Discharge Instructions (ExitCare): Hypertension (ED), Anxiety (ED) Additional Instructions: Arnold, thank you for letting us take care of you today. Your provider was Dr. Macias. You were treated for Hypertension, Anxiety The emergency medical care you received today was directed at your acute symptoms. If you were prescribed any medication, please fill it and take as directed. It may take several days for your symptoms to resolve. Return to the Emergency Department if your symptoms worsen, do not improve, or if you have any other problems. Please contact your doctor or call one of the physicians/clinics you have been referred to that are listed on the Patient Visit Information form that is included in your discharge packet. Bring any paperwork you were given at discharge with you along with any medications you are taking to your follow up visit. Our treatment cannot replace ongoing medical care by a primary care provider (PCP) outside of the emergency department. Thank you for allowing the [facility] team to be part of your care today. If you had an X-Ray or CT scan: A Radiologist will review the ED reading if any change in treatment is needed we will contact you. If you had a blood, urine, or wound culture: It will take several days for the results, if any change in treatment is needed we will contact you. If you had an STI test: It will take 48 hours for the results. Please call after 1 week if you have not heard back. Prescriptions: ALPRAZolam HALF TABLET [Xanax HALF TABLET] 0.125 mg PO TID PRN #10 tab PRN Reason: Anxiety Referrals: Maritza Woods DO [Primary Care Provider] - Follow up with primary Forms: [facility] (Thai)
[2017-07-11 14:39] LABS: BASO # 0.04 K/mm3 (0.0-2.0); BASO % 0.6 % (0.0-3.0); EOS # 0.1 (0.0-0.7); EOS % 0.9 % (1.5-5.0); GRAN # 4.29 (1.4-6.5); GRAN % 66.5 % (50.0-68.0); HEMATOCRIT 35.9 % (36.0-48.0); LYMPH # 1.6 (1.2-3.4); MEAN CELL VOLUME 89.5 fl (80.0-105.0); MEAN CORPUSCULAR HEMOGLOBIN 30.7 pg (25.0-35.0); MEAN CORPUSCULAR HGB CONC 34.3 g/dl (31.0-37.0); MEAN PLATELET VOLUME 9.2 fl (7.0-11.0); MONO # 0.5 (0.1-0.6); RED CELL DISTRIBUTION WIDTH 12.8 % (11.5-14.5); WHITE BLOOD COUNT 6.5 10^3/ul (4.5-11.0)
[2017-07-11 14:54] LABS: BLOOD UREA NITROGEN 17 mg/dL (7-21); CALCIUM 9.1 mg/dL (8.4-10.5); CARBON DIOXIDE 27 mmol/L (21-33); CHLORIDE 93 mmol/L (98-107); GFR AFRICAN-AMERICAN > 60; GLUCOSE,RANDOM 116 mg/dL (70-110); MAGNESIUM 1.3 mg/dL (1.7-2.2); POTASSIUM 3.8 mmol/L (3.6-5.0); SODIUM 132 mmol/L (132-148)
[2017-07-11] MEDS ORDERED: Magnesium Oxide 400 mg Tab UD PO STA (15:10)
[2017-07-11 18:39] VITALS: BP 149/74; PULSE 70; RESP 18; O2SAT 96
== END 2017-07-11 18:39 | disposition home or self-care (01) ==
LOC: ED 13:08
DX: I10 Essential (primary) hypertension (principal); E11.9 Type 2 diabetes mellitus without complications; D64.9 Anemia, unspecified

== ENCOUNTER 2018-01-27 09:17 | Emergency (ER) | payer MEDICAID ==
[2018-01-27 09:17] VITALS: BMI 24.5
[2018-01-27 09:37] VITALS: RESP 18; O2SAT 100
[2018-01-27 10:38] LABS: BASO # 0.06 K/mm3 (0.0-2.0); EOS # 0.1 (0.0-0.7); EOS % 2.1 % (1.5-5.0); GRAN # 3.64 (1.4-6.5); GRAN % 62.8 % (50.0-68.0); HEMOGLOBIN 12.5 g/dL (12.0-16.0); LYMPH # 1.6 (1.2-3.4); LYMPH % 27.2 % (22.0-35.0); MEAN CELL VOLUME 85.8 fl (80.0-105.0); MONO # 0.4 (0.1-0.6); MONO % 6.9 % (1.0-6.0); RBC 4.16 10^6/uL (3.5-6.1); RED CELL DISTRIBUTION WIDTH 12.8 % (11.5-14.5); WHITE BLOOD COUNT 5.8 10^3/ul (4.5-11.0)
[2018-01-27 10:41] LABS: INR 0.96 (0.93-1.08)
[2018-01-27 10:45] LABS: ALB/GLOB RATIO 1.3 (1.1-1.8); ALBUMIN 4.4 g/dL (3.0-4.8); ALT/SGPT 27 U/L (7-56); AST/SGOT 28 U/L (14-36); BLOOD UREA NITROGEN 16 mg/dL (7-21); CALCIUM 9.9 mg/dL (8.4-10.5); GFR AFRICAN-AMERICAN > 60; GFR NON-AFRICAN AMERICAN 60
--- NOTE | 2018-01-27 10:55 | ED PDOC ---
Arrival/HPI - General Historian: Patient - History of Present Illness Time/Duration: > month Symptom Onset: Gradual Symptom Course: Unchanged <Cassie Cooley - Last Filed: 01/27/18 14:58> <Malka Gonsalez - Last Filed: 01/29/18 21:22> - General Chief Complaint: Lower Extremity Problem/Injury Time Seen by Provider: 01/27/18 09:43 - History of Present Illness Narrative History of Present Illness (Text): 01/27/18 10:54 82 yo F with PMH of DM, HTN presents to the ED brought by her son, complaining of swelling in both feet and pain in right leg. Swelling started three weeks ago and has been unchanged since it began. She also admits to numbness in both feet. Right leg pain is in posterior thigh, occasionally radiates down to her foot, and has been ongoing for 6 months. She also reports right sided low back pain. She denies shortness of breath, palpitations, chest pain, cough, fever, chills, nausea, vomiting, diarrhea. She does occasionally have constipation. She denies headaches, or orthopnea. Today, patient was also scheduled for DEXA scan here in the hospital. Patient reports that she can walk indefinitely without shortness of breath. (Cassie Cooley) Past Medical History - Provider Review Nursing Documentation Reviewed: Yes - Travel History Have you recently traveled outside [place] w/in the past 3 mons?: No - Infectious Disease Hx of Infectious Diseases: None - Tetanus Immunization Tetanus Immunization: Unknown - Cardiac Hx Cardiac Disorders: Yes Hx Hypertension: Yes - Pulmonary Hx Respiratory Disorders: No - Neurological Hx Neurological Disorder: No - HEENT Hx HEENT Disorder: Yes Hx Cataracts: Yes - Renal Hx Renal Disorder: Yes - Endocrine/Metabolic Hx Endocrine Disorders: Yes Hx Diabetes Mellitus Type 2: Yes - Hematological/Oncological Hx Blood Disorders: Yes Hx Anemia: Yes - Integumentary Hx Dermatological Disorder: No - Musculoskeletal/Rheumatological Hx Musculoskeletal Disorders: Yes Hx Falls: No - Gastrointestinal Hx Gastrointestinal Disorders: Yes Hx Gall Bladder Disease: Yes (CHOLECYSTECTOMY) Hx Gastroesophageal Reflux: Yes Other/Comment: HERNIA REPAIR - Genitourinary/Gynecological Hx Genitourinary Disorders: Yes - Psychiatric Hx Psychophysiologic Disorder: Yes Hx Anxiety: Yes Hx Substance Use: No - Surgical History Hx Cholecystectomy: Yes Hx Thyroidectomy: Yes Other/Comment: R eye sx - Anesthesia Hx Anesthesia Reactions: No Hx Malignant Hyperthermia: No <Cassie Cooley - Last Filed: 01/27/18 14:58> <Malka Gonsalez - Last Filed: 01/29/18 21:22> - Patient History Narrative Patient History: HTN, DM (Amine,[place]ram) Family/Social History - Physician Review Nursing Documentation Reviewed: Yes Family/Social History: Unknown Family HX Smoking Status: Never Smoked Hx Alcohol Use: No Hx Substance Use: No <Cassie Cooley - Last Filed: 01/27/18 14:58> Allergies/Home Meds <Cassie Cooley - Last Filed: 01/27/18 14:58> <SunshineMalka gipson - Last Filed: 01/29/18 21:22> Allergies/Adverse Reactions: Allergies No Known Allergies Allergy (Verified 01/27/18 09:26) Home Medications: Home Meds Medication Instructions Recorded Confirmed Metformin HCl [Glucophage Xr] 750 mg PO BID 06/01/17 01/27/18 Metoprolol Succinate 25 mg PO DAILY 06/01/17 01/27/18 Pantoprazole Sodium [Protonix] 40 mg PO DAILY 06/01/17 01/27/18 Ferrous Sulfate [Feosol] 1 tab PO DAILY 07/11/17 01/27/18 Review of Systems - Review of Systems Constitutional: Normal Eyes: Normal ENT: Normal Respiratory: Normal Cardiovascular: Edema. absent: Chest Pain, Palpitations, Calf Pain, CHAVES, Orthopnea, Syncope Gastrointestinal: Normal Genitourinary Female: Normal Musculoskeletal: Normal Skin: Pruritis Neurological: Normal Endocrine: Normal Hemo/Lymphatic: Normal Psychiatric: Normal <Cassie Cooley - Last Filed: 01/27/18 14:58> Physical Exam Vital Signs Reviewed: Yes Temperature: Afebrile Blood Pressure: Normal Pulse: Regular Respiratory Rate: Normal Appearance: Positive for: Well-Appearing, Non-Toxic, Comfortable Pain Distress: None Mental Status: Positive for: Alert and Oriented X 3 - Systems Exam Head: Present: Atraumatic, Normocephalic Pupils: Present: PERRL Extroacular Muscles: Present: EOMI Conjunctiva: Present: Normal Mouth: Present: Moist Mucous Membranes Neck: Present: Normal Range of Motion. No: JVD Respiratory/Chest: Present: Clear to Auscultation, Good Air Exchange. No: Respiratory Distress, Accessory Muscle Use, Decreased Breath Sounds, Rales Cardiovascular: Present: Regular Rate and Rhythm, Normal S1, S2 Abdomen: Present: Normal Bowel Sounds. No: Tenderness, Distention Upper Extremity: Present: Normal Inspection Lower Extremity: Present: Edema (trace pitting edema to ankles b/l LE), Other ( RLE pedal pulses intact. LLE pedal pulses faint, with good popliteal pulses). No: CALF TENDERNESS, Bruna's Sign Neurological: Present: GCS=15, CN II-XII Intact Skin: Present: Warm, Dry Psychiatric: Present: Alert, Oriented x 3, Normal Insight, Normal Concentration <Cassie Cooley - Last Filed: 01/27/18 14:58> Vital Signs Temp Pulse Resp BP Pulse Ox 01/27/18 15:48 97.8 F 78 18 134/79 100 01/27/18 09:29 98.2 F 98 H 18 128/71 100 Medical Decision Making - Lab Interpretations I have reviewed the lab results: Yes Interpretation: No sign. chg./baseline <Cassie Cooley - Last Filed: 01/27/18 14:58> <SunshineMalka - Last Filed: 01/29/18 21:22> ED Course and Treatment: 01/27/18 10:36 Ordered CBC, CMP, Cardiac ISO, BNP, and UA. Ordered CXR to assess for vascular congestion. 01/27/18 11:37 CBC, CMP, Cardiac ISO, BNP, and CXR unremarkable. Pending UA. Patient reports history of total thyroidectomy, and does not take any thyroid supplementation. Ordered TSH and FT4 01/27/18 14:59 Patient reassessed, complaining of burning epigastric pain, similar to the symptoms of reflux she always has. Ordered one dose of maalox stat. UA significant for minimal proteinuria. TSH and T4 wnl. Discussed with patient importance of outpatient follow up. Edema likely 2/2 dependant edema. Encouraged patinet to elevate legs while seated. Will discharge with Lasix 20mg PO every other day for 8 days. Patient verbalized understanding and agreement with plan. Patient to follow up with PMD Dr. Galdamez (Cassie Cooley) - Lab Interpretations Lab Results: 01/27/18 10:15 01/27/18 10:15 Lab Results 01/27/18 12:30: Free T4 1.46, TSH 3rd Generation 2.43 01/27/18 12:27: Urine Color Light yellow, Urine Appearance Clear, Urine pH 6.5, Ur Specific Calvin 1.010, Urine Protein 30 H, Urine Glucose (UA) Negative, Urine Ketones Negative, Urine Blood Negative, Urine Nitrate Negative, Urine Bilirubin Negative, Urine Urobilinogen 0.2, Ur Leukocyte Esterase Negative, Urine RBC 0 - 2, Urine WBC 1 - 3, Ur Epithelial Cells 4 - 5, Amorphous Sediment Few, Urine Bacteria Many, Urine Other Fiber 01/27/18 10:15: Sodium 136, Potassium 4.0, Chloride 98, Carbon Dioxide 25, Anion Gap 17, BUN 16, Creatinine 0.9, Est GFR ( Amer) > 60, Est GFR (Non- Af Amer) 60, Random Glucose 165 H, Calcium 9.9, Total Bilirubin 0.5, AST 28, ALT 27, Alkaline Phosphatase 65, Lactate Dehydrogenase 426, Total Creatine Kinase 58, Troponin I 0.01, NT-Pro-B Natriuret Pep 155, Total Protein 7.8, Albumin 4.4, Globulin 3.4, Albumin/Globulin Ratio 1.3 01/27/18 10:15: PT 11.0, INR 0.96 01/27/18 10:15: WBC 5.8, RBC 4.16, Hgb 12.5, Hct 35.7 L, MCV 85.8 D, MCH 30.0, MCHC 35.0, RDW 12.8, Plt Count 274, MPV 9.0, Gran % 62.8, Lymph % (Auto) 27.2, [place] % (Auto) 6.9 H, Eos % (Auto) 2.1, Baso % (Auto) 1.0, Gran # 3.64, Lymph # ( Auto) 1.6, [place] # (Auto) 0.4, Eos # (Auto) 0.1, Baso # (Auto) 0.06 - RAD Interpretation Radiology Orders: 01/27/18 10:08 CHEST PORTABLE [RAD] Stat - Medication Orders Current Medication Orders: Discontinued Medications Al Hydrox/Mg Hydrox/Simethicone (Maalox Plus 30 Ml) 30 ml PO STAT STA Stop: 01/27/18 14:54 Last Admin: 01/27/18 15:54 Dose: 30 ml - PA / HOST/HOSTESS / Resident Statement / has reviewed & agrees with the documentation as recorded. <Malka Gonsalez - Last Filed: 01/29/18 21:22> Disposition/Present on Arrival - Present on Arrival Any Indicators Present on Arrival: Yes History of DVT/PE: No History of Uncontrolled Diabetes: Yes Urinary Catheter: No History of Decub. Ulcer: No History Surgical Site Infection Following: None - Disposition Have Diagnosis and Disposition been Completed?: Yes Disposition Time: 15:04 Patient Plan: Discharge <Cassie Cooley - Last Filed: 01/27/18 14:58> <Malka Gonsalez - Last Filed: 01/29/18 21:22> - Disposition Diagnosis: Dependent edema, Musculoskeletal pain of right lower extremity, GERD ( gastroesophageal reflux disease) Disposition: HOME/ ROUTINE Condition: FAIR Discharge Instructions (ExitCare): Acid Reflux (Gastroesophageal Reflux Disease ), Adult (DC), Dependent Edema (DC), Muscle and Bone Pain (DC) Print Language: [place] Additional Instructions: Take the Lasix 20mg orally every other day Elevate your legs while seated Follow up with your primary doctor within one week Return to the ER for new or worsening concerns Prescriptions: Furosemide [Lasix] 20 mg PO QOTHERDAY #4 tab Referrals: Maritza Woods DO [Primary Care Provider] - Follow up with primary Forms: [employer] ([place])
[2018-01-27 10:57] LABS: B-TYPE NATRIURETIC PEPTIDE 155 pg/mL (0-450); TROPONIN I 0.01 ng/mL
--- NOTE | 2018-01-27 11:04 | RAD ---
HISTORY: routine mede xam COMPARISON: 04/07/2017. FINDINGS: LUNGS: The lungs are well inflated and clear. PLEURA: No significant pleural effusion identified, no pneumothorax apparent. CARDIOVASCULAR: Normal. OSSEOUS STRUCTURES: No significant abnormalities. VISUALIZED UPPER ABDOMEN: Normal. OTHER FINDINGS: None. IMPRESSION: No active pulmonary disease.
--- NOTE | 2018-01-27 12:28 | CARD ---
APPROVED REPORT EKG Measurement Heart [id number] CT [id number] <Conclusion> Normal sinus rhythm Nonspecific T wave abnormality Abnormal ECG
[2018-01-27 12:34] LABS: PH,URINE 6.5 (4.7-8.0); URINE BILIRUBIN NEGATIVE (NEGATIVE); URINE BLOOD NEGATIVE (NEGATIVE); URINE GLUCOSE (UA) NEGATIVE (NEGATIVE); URINE LEUKOCYTE ESTERASE NEGATIVE Leu/uL (NEGATIVE); URINE PROTEIN 30 mg/dL (<30 mg/dL); URINE UROBILINOGEN 0.2 E.U./dL (<1 E.U./dL)
[2018-01-27 12:43] LABS: URINE APPEARANCE CLEAR (CLEAR); URINE COLOR LIGHT YELLOW (YELLOW)
[2018-01-27 13:05] LABS: URINE RBC 0 - 2 /hpf (0-2)
[2018-01-27 13:06] LABS: URINE AMORPHOUS SEDIMENT FEW; URINE BACTERIA MANY (NEG)
[2018-01-27 13:28] LABS: FREE T4 1.46 ng/dL (0.78-2.19)
[2018-01-27] MEDS ORDERED: Alum-Mag Hydrox-Simethicone Susp (30 mL) PO STA (14:53)
[2018-01-27 15:50] VITALS: BP 134/79; PULSE 78; TEMP 97.8
== END 2018-01-27 15:59 | disposition home or self-care (01) ==
LOC: ED 09:17
DX: R60.0 Localized edema (principal); K21.9 Gastro-esophageal reflux disease without esophagitis; M79.604 Pain in right leg; I10 Essential (primary) hypertension; E11.9 Type 2 diabetes mellitus without complications; D64.9 Anemia, unspecified

== ENCOUNTER 2018-02-24 13:59 | Emergency (ER) | payer MEDICAID ==
[2018-02-24 13:59] VITALS: BMI 24.5
[2018-02-24 14:10] VITALS: TEMP 98.4
[2018-02-24] MEDS ORDERED: Oxycodone/Acetaminophen 5/325 mg Tab PO STA (14:38)
--- NOTE | 2018-02-24 15:29 | ED PDOC ---
Arrival/HPI - General Chief Complaint: Trauma Time Seen by Provider: 02/24/18 14:38 Historian: Patient - History of Present Illness Narrative History of Present Illness (Text): 02/24/18 15:25 82yo female with PMhx of hypertension bib the son with complaint of right wrist pain and right temporal headache s/p trauma. Patient states she fell off a chair and hit her right sided head and arm on the floor this afternoon. Denies LOC, nausea, focal weakness, nausea, dizziness, any other complaint. Past Medical History - Provider Review Nursing Documentation Reviewed: Yes - Infectious Disease Hx of Infectious Diseases: None - Tetanus Immunization Tetanus Immunization: Unknown - Cardiac Hx Cardiac Disorders: Yes Hx Hypertension: Yes - Pulmonary Hx Respiratory Disorders: No - Neurological Hx Neurological Disorder: No - HEENT Hx HEENT Disorder: Yes Hx Cataracts: Yes - Renal Hx Renal Disorder: Yes - Endocrine/Metabolic Hx Endocrine Disorders: Yes Hx Diabetes Mellitus Type 2: Yes - Hematological/Oncological Hx Blood Disorders: Yes Hx Anemia: Yes - Integumentary Hx Dermatological Disorder: No - Musculoskeletal/Rheumatological Hx Musculoskeletal Disorders: Yes Hx Falls: No - Gastrointestinal Hx Gastrointestinal Disorders: Yes Hx Gall Bladder Disease: Yes (CHOLECYSTECTOMY) Hx Gastroesophageal Reflux: Yes Other/Comment: HERNIA REPAIR - Genitourinary/Gynecological Hx Genitourinary Disorders: Yes - Psychiatric Hx Psychophysiologic Disorder: Yes Hx Anxiety: Yes Hx Substance Use: No - Surgical History Hx Cholecystectomy: Yes Hx Thyroidectomy: Yes Other/Comment: R eye sx - Anesthesia Hx Anesthesia Reactions: No Hx Malignant Hyperthermia: No Family/Social History - Physician Review Nursing Documentation Reviewed: Yes Family/Social History: Unknown Family HX Smoking Status: Never Smoked Hx Alcohol Use: No Hx Substance Use: No Allergies/Home Meds Allergies/Adverse Reactions: Allergies No Known Allergies Allergy (Verified 02/24/18 14:05) Home Medications: Home Meds Medication Instructions Recorded Confirmed Metformin HCl [Glucophage Xr] 750 mg PO BID 06/01/17 02/24/18 Metoprolol Succinate 25 mg PO DAILY 06/01/17 02/24/18 Pantoprazole Sodium [Protonix] 40 mg PO DAILY 06/01/17 02/24/18 Review of Systems - Physician Review All systems were reviewed & negative as marked: Yes - Review of Systems Constitutional: Normal Eyes: Normal ENT: Normal Respiratory: Normal Cardiovascular: Normal Gastrointestinal: Normal Genitourinary Female: Normal Musculoskeletal: Arthralgias (Right wrist pain) Skin: Normal Neurological: Headache Endocrine: Normal Hemo/Lymphatic: Normal Psychiatric: Normal Physical Exam Vital Signs Reviewed: Yes Vital Signs Temp Pulse Resp BP Pulse Ox 02/24/18 17:40 98.4 F 97 H 20 159/87 H 96 02/24/18 16:17 91 H 18 164/73 H 96 02/24/18 14:06 98.4 F 97 H 129/68 99 Temperature: Afebrile Blood Pressure: Normal Pulse: Regular Respiratory Rate: Normal Appearance: Positive for: Well-Appearing, Non-Toxic, Comfortable Pain Distress: None Mental Status: Positive for: Alert and Oriented X 3 - Systems Exam Head: Present: Normocephalic, Tenderness (Right temporal head). No: Atraumatic Pupils: Present: PERRL Extroacular Muscles: Present: EOMI Conjunctiva: Present: Normal Mouth: Present: Moist Mucous Membranes Neck: Present: Normal Range of Motion Respiratory/Chest: Present: Clear to Auscultation, Good Air Exchange. No: Respiratory Distress, Accessory Muscle Use Cardiovascular: Present: Regular Rate and Rhythm, Normal S1, S2. No: Murmurs Abdomen: No: Tenderness, Distention, Peritoneal Signs Back: Present: Normal Inspection Upper Extremity: Present: Tenderness (Right wrist), Swelling (Right wrist), Neurovascularly Intact, Deformity. No: Cyanosis, Edema Lower Extremity: Present: Normal Inspection. No: Edema Neurological: Present: GCS=15, CN II-XII Intact, Speech Normal Skin: Present: Warm, Dry, Normal Color. No: Rashes Psychiatric: Present: Alert, Oriented x 3, Normal Insight, Normal Concentration Medical Decision Making ED Course and Treatment: 02/24/18 20:28 Right wrist xray - Sever comminuted fracture of the distal radial head with angulation. Head CT - Negative Case was DW Dr. Correa, he saw the xray image and requested that pt be splinted and referred to his PMD. Posterior splint was placed. and arm placed on a sling. PT remain NVI. Result was DW both pt and the daughter. Advised to f/u with Dr. Correa. - RAD Interpretation Radiology Orders: 02/24/18 14:38 HEAD W/O CONTRAST [CT] Stat WRIST, RIGHT 3 VIEWS [RAD] Stat - Medication Orders Current Medication Orders: Discontinued Medications Oxycodone/Acetaminophen (Percocet 5/325 Mg Tab) 1 tab PO STAT STA Stop: 02/24/18 14:39 Last Admin: 02/24/18 14:50 Dose: 1 tab MAR Pain Assessment Document 02/24/18 14:50 OCS (Rec: 02/24/18 14:52 OCS [id number]) Pain Reassessment Is this a pain reassessment? Yes Sleep Is patient sleeping during reassessment? No Presence of Pain Presence of Pain Yes Pain Scale Used Pain Scale Used Numeric Location Left, Right or Bilateral Left Pain Location Body Distribution Lineman Description Description Constant Intensity of Pain at present 10 Aggravating Factors ADL's Disposition/Present on Arrival - Present on Arrival Any Indicators Present on Arrival: No History of DVT/PE: No History of Uncontrolled Diabetes: Yes Urinary Catheter: No History of Decub. Ulcer: No History Surgical Site Infection Following: None - Disposition Have Diagnosis and Disposition been Completed?: Yes Diagnosis: Wrist fracture, Head injury Disposition: HOME/ ROUTINE Disposition Time: 16:45 Patient Plan: Discharge Condition: STABLE Discharge Instructions (ExitCare): Wrist Fracture (DC), Minor Head Injury Additional Instructions: Follow up with Orthopedist, Dr. Correa Return to ED for any new or worsening symptoms Prescriptions: oxyCODONE/Acetaminophen [Percocet 5/325 mg Tab] 1 ea PO Q6 #5 tab traMADol [Ultram] 50 mg PO Q8 #12 tab Referrals: Maritza Woods DO [Primary Care Provider] - Follow up with primary Wan Correa III, MD [Medical Doctor] - Follow up with primary Forms: [employer] (Danish)
--- NOTE | 2018-02-24 15:34 | CT ---
PROCEDURE: CT HEAD WITHOUT CONTRAST. HISTORY: headache s/p injury COMPARISON: 04/07/2017 TECHNIQUE: Axial computed tomography images were obtained through the head/brain without intravenous contrast. Radiation dose: Total exam DLP = 911 mGy-cm. This CT exam was performed using one or more of the following dose reduction techniques: Automated exposure control, adjustment of the mA and/or kV according to patient size, and/or use of iterative reconstruction technique. FINDINGS: HEMORRHAGE: No intracranial hemorrhage. BRAIN: No mass effect or edema. There is moderate to severe atrophy. Chronic microvascular changes are seen. VENTRICLES: Unremarkable. No hydrocephalus. CALVARIUM: Unremarkable. PARANASAL SINUSES: Unremarkable as visualized. No significant inflammatory changes. MASTOID AIR CELLS: Unremarkable as visualized. No inflammatory changes. OTHER FINDINGS: None. IMPRESSION: No acute intracranial findings
--- NOTE | 2018-02-24 15:41 | RAD ---
PROCEDURE: Right Wrist Radiographs. HISTORY: wrist pain s/p trauma COMPARISON: None. FINDINGS: BONES: Severe comminuted fracture of the distal radius. There is dorsal angulation JOINTS: Normal. No dislocation. SOFT TISSUES: Normal. OTHER FINDINGS: None. IMPRESSION: Severe comminuted fracture of the distal radius with dorsal angulation
[2018-02-24 16:17] VITALS: O2SAT 96
[2018-02-24 17:43] VITALS: BP 159/87; PULSE 97; RESP 20
== END 2018-02-24 17:40 | disposition home or self-care (01) ==
LOC: ED 13:59
DX: S09.90XA Unspecified injury of head, initial encounter (principal); S52.121A Displaced fracture of head of right radius, initial encounter for closed fracture; W07.XXXA Fall from chair, initial encounter; Y92.89 Other specified places as the place of occurrence of the external cause

== ENCOUNTER 2018-04-17 21:18 | Emergency (ER) | payer MEDICAID ==
[2018-04-17 21:18] VITALS: BMI 21.7
[2018-04-17 21:52] VITALS: TEMP 99.2
--- NOTE | 2018-04-17 22:47 | ED PDOC ---
Arrival/HPI - General Chief Complaint: High Blood Pressure Time Seen by Provider: 04/17/18 22:37 Historian: Patient, Family, Animal Ecologist (Meryl Rich) - History of Present Illness Narrative History of Present Illness (Text): 04/17/18 22:37 an 82 year old female, whose past medical history includes diabetes and hypertension, presents to the emergency department for a complaint of elevated blood pressure level this evening, burning sensation of her mouth, tounge, and several day duration vaginal burning. As per powerhouse oiler, barbi Wong, the patient notes that she checked her blood pressure this evening and noticed it was high which prompted her to come into the emergency department for further evaluation. In the emergency department, the patient also complains of vaginal burning sensation which has not resolved. the patient denies fevers, chills, headache, dizziness, chest pain, shortness of breath, dyspnea on exertion, cough, abdominal pain, nausea, vomiting, diarrhea, back pain, neck pain, urinary/bowel changes, or any other complaint. PMD: Dr. Joanna Woods Time/Duration: Prior to Arrival Symptom Onset: Sudden Symptom Course: Unchanged Activities at Onset: Rest, Light Context: Home Past Medical History - Provider Review Nursing Documentation Reviewed: Yes - Infectious Disease Hx of Infectious Diseases: None - Tetanus Immunization Tetanus Immunization: Unknown - Cardiac Hx Cardiac Disorders: Yes Hx Hypertension: Yes - Pulmonary Hx Respiratory Disorders: No - Neurological Hx Neurological Disorder: No - HEENT Hx HEENT Disorder: Yes Hx Cataracts: Yes Other/Comment: Hard of hearing in left ear - Renal Hx Renal Disorder: Yes Hx Kidney Stones: Yes - Endocrine/Metabolic Hx Endocrine Disorders: Yes Hx Diabetes Mellitus Type 2: Yes - Hematological/Oncological Hx Blood Disorders: Yes Hx Anemia: Yes Hx Blood Transfusions: Yes Hx Blood Transfusion Reaction: No - Integumentary Hx Dermatological Disorder: No Other/Comment: xerosis - Musculoskeletal/Rheumatological Hx Musculoskeletal Disorders: Yes Hx Falls: No Hx Osteoarthritis: Yes Hx Osteoporosis: Yes - Gastrointestinal Hx Gastrointestinal Disorders: Yes Hx Gall Bladder Disease: Yes (CHOLECYSTECTOMY) Hx Gastroesophageal Reflux: Yes Other/Comment: HERNIA REPAIR - Genitourinary/Gynecological Hx Genitourinary Disorders: Yes Hx Urinary Tract Infection: Yes (As Per Pt) - Psychiatric Hx Psychophysiologic Disorder: Yes Hx Anxiety: Yes Hx Depression: Yes Hx Substance Use: No - Surgical History Hx Cholecystectomy: Yes Hx Hysterectomy: Yes Hx Thyroidectomy: Yes Other/Comment: R eye sx,vascular surgery,laparoscopy - Anesthesia Hx Anesthesia: Yes Hx Anesthesia Reactions: No Hx Malignant Hyperthermia: No Family/Social History - Physician Review Nursing Documentation Reviewed: Yes Family/Social History: No Known Family HX Smoking Status: Never Smoked Hx Alcohol Use: No Hx Substance Use: No Allergies/Home Meds Allergies/Adverse Reactions: Allergies No Known Allergies Allergy (Verified 03/09/18 08:37) Home Medications: Home Meds Medication Instructions Recorded Confirmed Acetaminophen with Codeine 1 tab PO Q4 PRN 03/05/18 03/05/18 [Tylenol with Codeine #3 Tablet] Atorvastatin [Lipitor] 20 mg PO DAILY 03/05/18 03/05/18 Calcium Carbonate [Oscal] 500 mg PO DAILY 03/05/18 03/09/18 Cyproheptadine [Periactin] 4 mg PO BID 03/05/18 03/09/18 Lisinopril [Prinivil] 20 mg PO DAILY 03/05/18 03/05/18 Memantine [Namenda] 10 mg PO BID 03/05/18 03/09/18 MetFORMIN ER [Glucophage XR] 750 mg PO BID 03/05/18 03/05/18 Naproxen [Naprosyn Tab] 375 mg PO BID 03/05/18 03/05/18 Sertraline [Zoloft] 50 mg PO DAILY 03/05/18 03/09/18 Tetrahydrozoline HCl [Eye Drops] 1 drop OU DAILY 03/05/18 03/05/18 amLODIPine [Norvasc] 10 mg PO DAILY 03/05/18 03/09/18 Review of Systems - Physician Review All systems were reviewed & negative as marked: Yes - Review of Systems Constitutional: absent: Fevers, Night Sweats ENT: Other (Burning sensation of mouth and tounge.) Respiratory: absent: SOB, Cough Cardiovascular: absent: Chest Pain, CHAVES Gastrointestinal: absent: Abdominal Pain, Stool Changes, Diarrhea, Nausea, Vomiting Genitourinary Female: Other (Vaginal Burning) Musculoskeletal: absent: Back Pain, Neck Pain Neurological: absent: Headache, Dizziness Physical Exam Vital Signs Reviewed: Yes Vital Signs Temp Pulse Resp BP Pulse Ox 04/17/18 22:24 180/99 H 04/17/18 22:15 87 204/110 H 04/17/18 21:45 70 17 211/107 H 99 04/17/18 21:36 99.2 F 70 19 212/107 H 100 Temperature: Afebrile Blood Pressure: Hypertensive Pulse: Regular Respiratory Rate: Normal Appearance: Positive for: Well-Appearing, Non-Toxic, Comfortable Pain Distress: None Mental Status: Positive for: Alert and Oriented X 3, other (Anxious) - Systems Exam Head: Present: Atraumatic, Normocephalic Pupils: Present: PERRL Extroacular Muscles: Present: EOMI Conjunctiva: Present: Normal Mouth: Present: Moist Mucous Membranes Neck: Present: Normal Range of Motion Respiratory/Chest: Present: Clear to Auscultation, Good Air Exchange. No: Respiratory Distress, Accessory Muscle Use Cardiovascular: Present: Regular Rate and Rhythm, Normal S1, S2. No: Murmurs Abdomen: No: Tenderness, Distention, Peritoneal Signs Back: Present: Normal Inspection Upper Extremity: Present: Normal Inspection, Other (External fixator right wrist. ). No: Cyanosis, Edema Lower Extremity: Present: Normal Inspection. No: Edema Neurological: Present: GCS=15, CN II-XII Intact, Speech Normal Skin: Present: Warm, Dry, Normal Color. No: Rashes Psychiatric: Present: Alert, Oriented x 3, Normal Insight, Normal Concentration , Anxious, Other (Poor historian. Vague. ) Medical Decision Making ED Course and Treatment: 04/17/18 22:51 Impression: An 82 year old female is brought into the emergency department for a complaint of high blood pressure and vaginal burning sensation. Plan: -- EKG -- Labs -- Urinalysis -- Apresoline -- Reassess and disposition Progress Notes: 04/17/18 23:11 EKG: Ordered, reviewed, and independently interpreted the EKG. Rate : 81 BPM Rhythm : NSR Interpretation : LVH by voltage. No acute ST-T wave changes. No ectopy. Normal EKG. 04/17/18 23:37: On re-evaluation, patient feels better and is in no acute distress. All labs are within normal limits. I have discussed the results and plan with the patient , who expresses understanding. Patient in agreement with plan to be discharged home with prescription of Orajel and Lotrimin cream. Patient is stable for discharge. Patient was instructed to follow up with physician or return if symptoms worsen or new concerning symptoms arise. - Lab Interpretations Lab Results: 04/17/18 22:47 04/17/18 22:47 Lab Results 04/17/18 23:18: Urine Color Light yellow, Urine Appearance Clear, Urine pH 7.0, Ur Specific [place] 1.010, Urine Protein Trace H, Urine Glucose (UA) Negative, Urine Ketones Negative, Urine Blood Negative, Urine Nitrate Negative, Urine Bilirubin Negative, Urine Urobilinogen 0.2, Ur Leukocyte Esterase Trace H, Urine RBC Pending, Urine WBC Pending 04/17/18 22:47: Sodium 126 L, Potassium 4.7, Chloride 86 L, Carbon Dioxide 28, Anion Gap 16, BUN 13, Creatinine 0.7, Est GFR ( Amer) > 60, Est GFR (Non- Af Amer) > 60, Random Glucose 138 H, Calcium 9.0, Total Bilirubin 0.6, AST 25, ALT 22, Alkaline Phosphatase 75, Lactate Dehydrogenase 335, Total Creatine Kinase 93, Troponin I 0.01, Total Protein 7.4, Albumin 4.1, Globulin 3.3, Albumin/Globulin Ratio 1.2, Lipase 280 04/17/18 22:47: WBC 10.2 D, RBC 3.94, Hgb 11.4 L, Hct 32.5 L, MCV 82.5 D, MCH 28.9, MCHC 35.1, RDW 13.1, Plt Count 288, MPV 9.8, Gran % 65.7, Lymph % (Auto) 23.9, Elliott % (Auto) 9.7 H, Eos % (Auto) 0.3 L, Baso % (Auto) 0.4, Gran # 6.67 H , Lymph # (Auto) 2.4, Elliott # (Auto) 1.0 H, Eos # (Auto) 0.0, Baso # (Auto) 0.04 I have reviewed the lab results: Yes - EKG Interpretation Interpreted by ED Physician: Yes Type: 12 lead EKG - Medication Orders Current Medication Orders: Discontinued Medications Hydralazine HCl (Apresoline) 10 mg IVP ONCE ONE Stop: 04/17/18 22:07 Last Admin: 04/17/18 22:15 Dose: 10 mg IVP Administration Document 04/17/18 22:15 RD (Rec: 04/17/18 22:15 RD [facility] [id number]) Charges for Administration # of IVP Administrations 1 DEC Pulse and Blood Pressure Document 04/17/18 22:15 RD (Rec: 04/17/18 22:15 RD [facility] [id number]) Pulse Pulse Rate (60-90) 87 Blood Pressure Blood Pressure (100/60-150/90) 204/110 - Scribe Statement The provider has reviewed the documentation as recorded by the Scribe Meryl Wong Provider Scribe Attestation: All medical record entries made by the Scribe were at my direction and personally dictated by me. I have reviewed the chart and agree that the record accurately reflects my personal performance of the history, physical exam, medical decision making, and the department course for this patient. I have also personally directed, reviewed, and agree with the discharge instructions and disposition. Disposition/Present on Arrival - Present on Arrival Any Indicators Present on Arrival: No History of DVT/PE: No History of Uncontrolled Diabetes: Yes Urinary Catheter: No History of Decub. Ulcer: No History Surgical Site Infection Following: None - Disposition Have Diagnosis and Disposition been Completed?: Yes Diagnosis: Hypertension, Vaginitis, Stomatitis Disposition: HOME/ ROUTINE Disposition Time: 00:06 Patient Plan: Discharge Patient Problems: Current Active Problems Problem Status Onset Hypertension Acute Vaginitis Acute Stomatitis Acute Condition: GOOD Discharge Instructions (ExitCare): High Blood Pressure in Adults Print Language: PANAMANIAN Prescriptions: Benzocaine 7.5% [Orajel 7.5%] 9.4 gm MM DAILY PRN 7 Days gel..gram. PRN Reason: Pain, Mild (1-3) Clotrimazole 1% Vaginal [Clotrimazole] 45 g VG ONCE 1 Days #1 tube Forms: [employer] ([place]ian)
[2018-04-17 22:54] LABS: BASO # 0.04 K/mm3 (0.0-2.0); BASO % 0.4 % (0.0-3.0); EOS % 0.3 % (1.5-5.0); GRAN # 6.67 (1.4-6.5); GRAN % 65.7 % (50.0-68.0); HEMOGLOBIN 11.4 g/dL (12.0-16.0); LYMPH # 2.4 (1.2-3.4); LYMPH % 23.9 % (22.0-35.0); MEAN CELL VOLUME 82.5 fl (80.0-105.0); MEAN CORPUSCULAR HEMOGLOBIN 28.9 pg (25.0-35.0); MEAN CORPUSCULAR HGB CONC 35.1 g/dl (31.0-37.0); MEAN PLATELET VOLUME 9.8 fl (7.0-11.0); MONO % 9.7 % (1.0-6.0); RBC 3.94 10^6/uL (3.5-6.1); RED CELL DISTRIBUTION WIDTH 13.1 % (11.5-14.5); WHITE BLOOD COUNT 10.2 10^3/ul (4.5-11.0)
[2018-04-17 23:06] LABS: ALB/GLOB RATIO 1.2 (1.1-1.8); ALBUMIN 4.1 g/dL (3.0-4.8); ALT/SGPT 22 U/L (7-56); AST/SGOT 25 U/L (14-36); BLOOD UREA NITROGEN 13 mg/dL (7-21); GFR AFRICAN-AMERICAN > 60; GFR NON-AFRICAN AMERICAN > 60; LIPASE 280 U/L (23-300)
[2018-04-17 23:18] LABS: TROPONIN I 0.01 ng/mL
[2018-04-17 23:35] LABS: URINE BILIRUBIN NEGATIVE (NEGATIVE); URINE BLOOD NEGATIVE (NEGATIVE); URINE GLUCOSE (UA) NEGATIVE (NEGATIVE); URINE LEUKOCYTE ESTERASE TRACE Leu/uL (NEGATIVE); URINE PROTEIN TRACE mg/dL (<30 mg/dL); URINE UROBILINOGEN 0.2 E.U./dL (<1 E.U./dL)
[2018-04-17 23:38] LABS: URINE APPEARANCE CLEAR (CLEAR); URINE COLOR LIGHT YELLOW (YELLOW)
[2018-04-18 00:10] VITALS: BP 139/66; PULSE 72; RESP 18; O2SAT 98
[2018-04-18 01:33] LABS: URINE BACTERIA OCC (NEG); URINE EPITHELIAL CELLS 0 - 2 /hpf (0-5); URINE RBC 0 - 2 /hpf (0-2); URINE WBC 0 - 2 /hpf (0-6)
--- NOTE | 2018-04-18 22:47 | CARD ---
APPROVED REPORT EKG Measurement Heart [id number] <Conclusion> Normal sinus rhythm Left ventricular hypertrophy with repolarization abnormality Prolonged QT Abnormal ECG
== END 2018-04-18 00:10 | disposition home or self-care (01) ==
LOC: ED 21:18
DX: I10 Essential (primary) hypertension (principal); N76.0 Acute vaginitis; K12.1 Other forms of stomatitis; E11.9 Type 2 diabetes mellitus without complications; D64.9 Anemia, unspecified
CPT/HCPCS: 80053; 81001; 82550; 83615; 83690; 84484; 85025; 87086; 93005; 96374; 99283; J0360

== ENCOUNTER 2018-08-25 16:05 | Observation (INO) | payer MEDICAID ==
[2018-08-25 17:03] VITALS: BMI 22.0
[2018-08-25] MEDS ORDERED: Iohexol 240 (50 ml) ONE (17:12)
[2018-08-25] MEDS ORDERED: Iohexol 350 MG/100 ML VIAL ONE (17:12)
--- NOTE | 2018-08-25 17:14 | ED PDOC ---
Arrival/HPI - General Chief Complaint: GI Problem Time Seen by Provider: 08/25/18 16:44 Historian: Patient - History of Present Illness Narrative History of Present Illness (Text): 08/25/18 17:03 83 year old female, whose past medical history includes umbilical hernia, gastritis, diabetes, and hypertension presents to the emergency department complaining of abdominal pain for the past 2 weeks. Patient states that when she eats she feels a burning sensation in the epigastric region. She states that for the past two weeks she has been eating then vomiting which subsequently makes her feel better. Of note patient says she went to her PMD to rule out any obstructions. She also complains of constipation and occasional dysuria. Patient denies vaginal bleeding, fevers, chills, headache, dizziness, chest pain, shortness of breath, dyspnea on exertion, cough, back pain, neck pain, or any other complaint. 08/25/18 20:45 Time/Duration: > week Symptom Course: Unchanged Activities at Onset: Light Context: Home Past Medical History - Provider Review Nursing Documentation Reviewed: Yes - Infectious Disease Hx of Infectious Diseases: None - Tetanus Immunization Tetanus Immunization: Unknown - Cardiac Hx Cardiac Disorders: Yes Hx Hypertension: Yes - Pulmonary Hx Respiratory Disorders: No - Neurological Hx Neurological Disorder: No - HEENT Hx HEENT Disorder: Yes Hx Cataracts: Yes Other/Comment: Hard of hearing in left ear - Renal Hx Renal Disorder: Yes Hx Kidney Stones: Yes - Endocrine/Metabolic Hx Endocrine Disorders: Yes Hx Diabetes Mellitus Type 2: Yes - Hematological/Oncological Hx Blood Disorders: Yes Hx Anemia: Yes Hx Blood Transfusions: Yes - Integumentary Hx Dermatological Disorder: No Other/Comment: xerosis - Musculoskeletal/Rheumatological Hx Musculoskeletal Disorders: Yes Hx Falls: No Hx Osteoarthritis: Yes Hx Osteoporosis: Yes - Gastrointestinal Hx Gastrointestinal Disorders: Yes Hx Gall Bladder Disease: Yes (CHOLECYSTECTOMY) Hx Gastroesophageal Reflux: Yes Other/Comment: Inguinal HERNIA REPAIR; current umbilical hernia - Genitourinary/Gynecological Hx Genitourinary Disorders: Yes Hx Urinary Tract Infection: Yes (As Per Pt) - Psychiatric Hx Psychophysiologic Disorder: Yes Hx Anxiety: Yes Hx Depression: Yes Hx Substance Use: No - Surgical History Hx Cholecystectomy: Yes Hx Hysterectomy: Yes Hx Thyroidectomy: Yes Other/Comment: R eye sx,vascular surgery,laparoscopy - Anesthesia Hx Anesthesia: Yes Hx Anesthesia Reactions: No Hx Malignant Hyperthermia: No Family/Social History - Physician Review Nursing Documentation Reviewed: Yes Family/Social History: Unknown Family HX Smoking Status: Never Smoked Hx Alcohol Use: No Hx Substance Use: No Allergies/Home Meds Allergies/Adverse Reactions: Allergies No Known Allergies Allergy (Verified 06/08/18 08:53) Home Medications: Home Meds Medication Instructions Recorded Confirmed Atorvastatin [Lipitor] 20 mg PO DAILY 03/05/18 06/08/18 Calcium Carbonate [Oscal] 500 mg PO DAILY 03/05/18 06/08/18 Cyproheptadine [Periactin] 4 mg PO BID 03/05/18 06/08/18 Lisinopril [Prinivil] 20 mg PO DAILY 03/05/18 06/08/18 Memantine [Namenda] 10 mg PO BID 03/05/18 06/08/18 MetFORMIN ER [Glucophage XR] 750 mg PO BID 03/05/18 06/08/18 Sertraline [Zoloft] 50 mg PO DAILY 03/05/18 06/08/18 Tetrahydrozoline HCl [Eye Drops] 1 drop OU DAILY 03/05/18 06/08/18 amLODIPine [Norvasc] 10 mg PO DAILY 03/05/18 06/08/18 Omeprazole 20 mg PO DAILY 06/08/18 06/08/18 Review of Systems - Review of Systems Constitutional: absent: Fevers Eyes: absent: Vision Changes Respiratory: absent: SOB, Cough Cardiovascular: absent: Chest Pain Gastrointestinal: Abdominal Pain, Constipation, Vomiting. absent: Diarrhea Genitourinary Female: Dysuria. absent: Vaginal Bleeding Musculoskeletal: absent: Back Pain, Neck Pain Skin: absent: Rash Neurological: absent: Headache, Dizziness Endocrine: absent: Diaphoresis Psychiatric: absent: Anxiety Physical Exam Vital Signs Reviewed: Yes Temperature: Afebrile Blood Pressure: Hypertensive Pulse: Regular Respiratory Rate: Normal Appearance: Positive for: Well-Appearing, Non-Toxic, Comfortable Pain Distress: None Mental Status: Positive for: Alert and Oriented X 3 - Systems Exam Head: Present: Atraumatic, Normocephalic Pupils: Present: PERRL Extroacular Muscles: Present: EOMI Conjunctiva: Present: Normal Mouth: Present: Moist Mucous Membranes Neck: Present: Normal Range of Motion Respiratory/Chest: Present: Clear to Auscultation, Good Air Exchange. No: Respiratory Distress, Accessory Muscle Use Cardiovascular: Present: Regular Rate and Rhythm, Normal S1, S2. No: Murmurs Abdomen: No: Tenderness (firm non-tender umbilical hernia ), Distention, Peritoneal Signs Back: Present: Normal Inspection. No: CVA Tenderness Upper Extremity: Present: Normal Inspection. No: Cyanosis, Edema Lower Extremity: Present: Normal Inspection. No: Edema Neurological: Present: GCS=15, CN II-XII Intact, Speech Normal Skin: Present: Warm, Dry, Normal Color. No: Rashes Psychiatric: Present: Alert, Oriented x 3, Normal Insight, Normal Concentration Medical Decision Making ED Course and Treatment: 08/25/18 17:03 Impression: 83 year old female who presents to the emergency department complaining of abdominal pain. Presentation appears more consistent with PUD vs gerd but will get ct to r/o obstructions Plan: -- CT of Abdomen and Pelvis PO & IV Contrast -- Labs -- Pepcid -- Toradol -- Urinalysis -- Reassess and disposition Prior Visits: Notes and results from previous visits were reviewed. Progress Notes: 08/25/18 18:32 EKG shows NSR at [address] changes. Unchanged from previous EKG done on 01/27/2018. 08/25/18 20:48 Labs reviewed. Will sign out to Dr. Campbell to follow-up CT results and reevaluate - Lab Interpretations I have reviewed the lab results: Yes - RAD Interpretation Radiology Orders: 08/25/18 17:03 ABDOMEN & PELVIS [ABD PELVIS PO & IV CONTRAST] [CT] Stat - EKG Interpretation Interpreted by ED Physician: Yes Type: 12 lead EKG - Medication Orders Current Medication Orders: Discontinued Medications Famotidine (Pepcid) 20 mg IVP STAT STA Stop: 08/25/18 17:05 Ketorolac Tromethamine (Toradol) 30 mg IVP STAT STA Stop: 08/25/18 17:05 - Scribe Statement The provider has reviewed the documentation as recorded by the Hilario Russell Provider Scribe Attestation: All medical record entries made by the Scribe were at my direction and personally dictated by me. I have reviewed the chart and agree that the record accurately reflects my personal performance of the history, physical exam, medical decision making, and the department course for this patient. I have also personally directed, reviewed, and agree with the discharge instructions and disposition. Disposition/Present on Arrival - Present on Arrival Any Indicators Present on Arrival: No History of DVT/PE: No History of Uncontrolled Diabetes: Yes Urinary Catheter: No History of Decub. Ulcer: No History Surgical Site Infection Following: None - Disposition Have Diagnosis and Disposition been Completed?: Yes Diagnosis: Abdominal pain Disposition Time: 20:49 Condition: UNKNOWN Forms: [employer] ([place] Islander)
[2018-08-25 17:46] LABS: PH,URINE 6.5 (4.7-8.0); URINE BILIRUBIN NEGATIVE (NEGATIVE); URINE BLOOD NEGATIVE (NEGATIVE); URINE GLUCOSE (UA) NEGATIVE (NEGATIVE); URINE LEUKOCYTE ESTERASE NEGATIVE Leu/uL (NEGATIVE); URINE PROTEIN 100 mg/dL (<30 mg/dL); URINE UROBILINOGEN 0.2 E.U./dL (<1 E.U./dL)
[2018-08-25 17:52] LABS: URINE APPEARANCE CLEAR (CLEAR); URINE COLOR YELLOW (YELLOW)
[2018-08-25 18:08] LABS: URINE BACTERIA FEW (NEG); URINE EPITHELIAL CELLS 0 - 2 /hpf (0-5); URINE RBC 0 - 2 /hpf (0-2)
[2018-08-25 18:17] LABS: BASO # 0.04 K/mm3 (0.0-2.0); BASO % 0.5 % (0.0-3.0); EOS # 0.1 (0.0-0.7); EOS % 0.9 % (1.5-5.0); GRAN # 4.94 (1.4-6.5); GRAN % 66.6 % (50.0-68.0); HEMOGLOBIN 12.1 g/dL (12.0-16.0); LYMPH # 1.9 (1.2-3.4); LYMPH % 25.1 % (22.0-35.0); MEAN CELL VOLUME 87.8 fl (80.0-105.0); MEAN CORPUSCULAR HEMOGLOBIN 28.9 pg (25.0-35.0); MEAN PLATELET VOLUME 9.3 fl (7.0-11.0); MONO # 0.5 (0.1-0.6); MONO % 6.9 % (1.0-6.0); RBC 4.18 10^6/uL (3.5-6.1); RED CELL DISTRIBUTION WIDTH 13.9 % (11.5-14.5); WHITE BLOOD COUNT 7.4 10^3/uL (4.5-11.0)
[2018-08-25 18:34] LABS: ALB/GLOB RATIO 1.1 (1.1-1.8); ALBUMIN 4.2 g/dL (3.0-4.8); ALT/SGPT 20 U/L (7-56); AST/SGOT 28 U/L (14-36); BLOOD UREA NITROGEN 24 mg/dL (7-21); CALCIUM 9.2 mg/dL (8.4-10.5); GFR NON-AFRICAN AMERICAN 60; LIPASE 319 U/L (23-300)
--- NOTE | 2018-08-25 19:45 | CARD ---
APPROVED REPORT Date of service: 08/25/2018 EKG Measurement Heart [id number] ID [id number] <Conclusion> Normal sinus rhythm Nonspecific T wave abnormality Abnormal ECG
--- NOTE | 2018-08-25 21:46 | ED PDOC ---
Physical Exam Vital Signs Temp Pulse Resp BP Pulse Ox 08/25/18 17:43 98.2 F 78 16 154/89 H 97 08/25/18 16:40 98.2 F 80 18 149/85 99 Medical Decision Making ED Course and Treatment: 08/25/18 21:02 Case endorsed to me by Dr. Hollingsworth pending Abdomen and Pelvis PO/IV contrast, reassess, and disposition. EXAM: CT Abdomen and Pelvis with IV contrast Electronically signed on Aug 25, 2018 10:39:22 PM EST by: Jovan Brito M.D IMPRESSION: 1. Large hiatal hernia is noted. 2. 10 mm left hepatic lobe cyst. 3. S/p cholecystectomy. Surgical clips are noted in the gallbladder fossa. 4. Small fat-containing umbilical hernia is noted demonstrating intra-hernia fat infiltration compatible with strangulation/fat necrosis. 5. Status post complete hysterectomy. 08/25/18 23:00 Case discussed with medical administrative specialist and Dr. Chowdhury who is aware and agrees with the plan. Accepts patient into hospitalist service. 08/25/18 23:38 Case discussed with surgical coder who is aware and agrees with the plan. - Lab Interpretations Lab Results: 08/25/18 18:13 08/25/18 18:13 Lab Results 08/25/18 18:13: Sodium 135, Potassium 4.1, Chloride 97 L, Carbon Dioxide 28, Anion Gap 14, BUN 24 H, Creatinine 0.9, Est GFR ( Amer) > 60, Est GFR (Non-Af Amer) 60, Random Glucose 136 H, Calcium 9.2, Phosphorus 3.1, Magnesium 1.7, Total Bilirubin 0.3, AST 28, ALT 20, Alkaline Phosphatase 91, Total Protein 7.9, Albumin 4.2, Globulin 3.7, Albumin/Globulin Ratio 1.1, Lipase 319 H 08/25/18 18:13: WBC 7.4, RBC 4.18, Hgb 12.1, Hct 36.7, MCV 87.8 D, MCH 28.9, MCHC 33.0, RDW 13.9, Plt Count 241, MPV 9.3, Gran % 66.6, Lymph % (Auto) 25.1, Mckean % (Auto) 6.9 H, Eos % (Auto) 0.9 L, Baso % (Auto) 0.5, Gran # 4.94, Lymph # (Auto) 1.9, Mckean # (Auto) 0.5, Eos # (Auto) 0.1, Baso # (Auto) 0.04 08/25/18 17:18: Urine Color Yellow, Urine Appearance Clear, Urine pH 6.5, Ur Specific [place] 1.020, Urine Protein 100 H, Urine Glucose (UA) Negative, Urine Ketones Negative, Urine Blood Negative, Urine Nitrate Negative, Urine Bilirubin Negative, Urine Urobilinogen 0.2, Ur Leukocyte Esterase Negative, Urine RBC 0 - 2, Urine WBC 1 - 3, Ur Epithelial Cells 0 - 2, Urine Bacteria Few - RAD Interpretation Radiology Orders: 08/25/18 17:03 ABDOMEN & PELVIS [ABD PELVIS PO & IV CONTRAST] [CT] Stat - Medication Orders Current Medication Orders: Discontinued Medications Famotidine (Pepcid) 20 mg IVP STAT STA Stop: 08/25/18 17:05 Last Admin: 08/25/18 18:25 Dose: 20 mg IVP Administration Document 08/25/18 18:25 BB (Rec: 08/25/18 18:25 [place] [id number]) Charges for Administration # of IVP Administrations 1 Ketorolac Tromethamine (Toradol) 30 mg IVP STAT STA Stop: 08/25/18 17:05 Last Admin: 08/25/18 18:25 Dose: 30 mg MAR Pain Assessment Document 08/25/18 18:25 BB (Rec: 08/25/18 18:26 [id number]) Pain Reassessment Is this a pain reassessment? No Sleep Is patient sleeping during reassessment? No Presence of Pain Presence of Pain Yes Pain Scale Used Protocol: PSCALES Pain Scale Used Numeric Location Upper or Lower Upper Pain Location Body Site Abdomen Description Description Intermittent Intensity of Pain at present 3 IVP Administration Document 08/25/18 18:25 BB (Rec: 08/25/18 18:26 BB [id number]) Charges for Administration # of IVP Administrations 1 - Scribe Statement The provider has reviewed the documentation as recorded by the Scribe Justine Woodard Provider Scribe Attestation: All medical record entries made by the Scribe were at my direction and personally dictated by me. I have reviewed the chart and agree that the record accurately reflects my personal performance of the history, physical exam, medical decision making, and the department course for this patient. I have also personally directed, reviewed, and agree with the discharge instructions and disposition. Disposition/Present on Arrival - Present on Arrival Any Indicators Present on Arrival: No History of DVT/PE: No History of Uncontrolled Diabetes: Yes Urinary Catheter: No History of Decub. Ulcer: No History Surgical Site Infection Following: None - Disposition Have Diagnosis and Disposition been Completed?: Yes Diagnosis: Abdominal pain Disposition: HOSPITALIZED Disposition Time: 23:00 Patient Problems: Current Active Problems Problem Status Onset Abdominal pain Acute Condition: FAIR
[2018-08-26] MEDS ORDERED: Dextrose 50% SYRINGE Inj (50 ml) IV PRN (00:02)
--- NOTE | 2018-08-26 01:00 | CP.PCM.HP ---
<Melvin Kumar - Last Filed: 08/26/18 02:47> History of Present Illness - History of Present Illness History of Present Illness: Melvin Kumar DO, PGY-1 Hospitalist Admission History and Physical for Dr. Chowdhury CC: abdominal pain HPI: Ms. Arnold Yang is an 83 year old female with PMH of OA, DM2, HLD, and umbilical hernia presented to ED with abdominal pain that has been worsening over the past 2 weeks with associated nausea/vomiting. She saw her PMD for this worsening pain who told her that she had a hernia. Her PMD advised her to go to ED for further evaluation. She had a similar episode of abdominal pain from the same hernia last year. She states that she has two areas of abdominal pain, one in the epigastric region and the second in the umbilical region. The pain is worse in the epigastric region. She states that she has also had intermittent nausea and vomiting associated with this abdominal pain but denies diarrhea. She denies fever/chills, CP, SOB, changes in urination, and dysuria. PMD: Chuck Past Medical Hx: OA, DM2, HLD, umbilical and hiatal hernias Past Surgical Hx: cholecystectomy, hysterectomy, unknown type of thyroid surgery but does not take synthroid Allergies: NKA Home medications: Metformin 750 BID, amlodipine 10 daily, sertraline 50 daily, mamentine 10 BID, omeprazole 20 daily, lipitor 20 daily, lisinopril 20 daily Family Hx: reviewed, non-contributory Social Hx: denies tobacco, alcohol, or illicit drug use. Present on Admission - Present on Admission Any Indicators Present on Admission: No History of DVT/PE: No History of Uncontrolled Diabetes: No Urinary Catheter: No Decubitus Ulcer Present: No Review of Systems - Constitutional Constitutional: absent: Chills, Fever - EENT Eyes: absent: Blurred Vision - Cardiovascular Cardiovascular: absent: Chest Pain, Chest Pain at Rest, Diaphoresis, Dyspnea - Respiratory Respiratory: absent: Cough, Dyspnea - Gastrointestinal Gastrointestinal: Abdominal Pain, Nausea, Vomiting. absent: Constipation, Diarrhea - Genitourinary Genitourinary: absent: Change in Urinary Stream, Difficulty Urinating, Dysuria Past Patient History - Infectious Disease Hx of Infectious Diseases: None - Tetanus Immunizations Tetanus Immunization: Unknown - Past Social History Smoking Status: Never Smoked - CARDIAC Hx Cardiac Disorders: Yes Hx Hypertension: Yes - PULMONARY Hx Respiratory Disorders: No - NEUROLOGICAL Hx Neurological Disorder: No - HEENT Hx HEENT Problems: Yes Hx Cataracts: Yes Other/Comment: Hard of hearing in left ear - RENAL Hx Chronic Kidney Disease: Yes Hx Kidney Stones: Yes - ENDOCRINE/METABOLIC Hx Endocrine Disorders: Yes Hx Diabetes Mellitus Type 2: Yes - HEMATOLOGICAL/ONCOLOGICAL Hx Blood Disorders: Yes Hx Anemia: Yes Hx Blood Transfusions: Yes - INTEGUMENTARY Hx Dermatological Problems: No Other/Comment: xerosis - MUSCULOSKELETAL/RHEUMATOLOGICAL Hx Musculoskeletal Disorders: Yes Hx Falls: No Hx Osteoarthritis: Yes Hx Osteoporosis: Yes - GASTROINTESTINAL Hx Gastrointestinal Disorders: Yes Hx Gall Bladder Disease: Yes (CHOLECYSTECTOMY) Hx Gastroesophageal Reflux: Yes Other/Comment: Inguinal HERNIA REPAIR; current umbilical hernia - GENITOURINARY/GYNECOLOGICAL Hx Genitourinary Disorders: Yes Hx Urinary Tract Infection: Yes (As Per Pt) - PSYCHIATRIC Hx Psychophysiologic Disorder: Yes Hx Anxiety: Yes Hx Depression: Yes Hx Substance Use: No - SURGICAL HISTORY Hx Cholecystectomy: Yes Hx Hysterectomy: Yes Hx Thyroidectomy: Yes Other/Comment: R eye sx,vascular surgery,laparoscopy - ANESTHESIA Hx Anesthesia: Yes Hx Anesthesia Reactions: No Hx Malignant Hyperthermia: No Meds Allergies/Adverse Reactions: Allergies Allergy/AdvReac Type Severity Reaction Status Date / Time No Known Allergies Allergy Verified 06/08/18 08:53 Physical Exam - Constitutional Appears: Non-toxic, No Acute Distress - Head Exam Head Exam: ATRAUMATIC, NORMOCEPHALIC - Eye Exam Eye Exam: EOMI, Normal appearance, PERRL - ENT Exam ENT Exam: Mucous Membranes Moist - Neck Exam Neck exam: Positive for: Full Rom, Normal Inspection - Respiratory Exam Respiratory Exam: Clear to Auscultation Bilateral, NORMAL BREATHING PATTERN. absent: Rales, Rhonchi, Wheezes - Cardiovascular Exam Cardiovascular Exam: REGULAR RHYTHM, RRR, +S1, +S2. absent: Diastolic murmur, Gallop, Rubs, Systolic Murmur - GI/Abdominal Exam GI & Abdominal Exam: Hernia (umbilical hernia appreciated ), Normal Bowel Sounds, Tenderness (tenderness to palpation epigastric region. Tenderness to deep palpation in paraumbilical region. ). absent: Guarding, Rebound - Extremities Exam Extremities exam: Positive for: normal inspection. Negative for: pedal edema - Back Exam Back exam: NORMAL INSPECTION - Neurological Exam Neurological exam: Alert, Oriented x3 - Psychiatric Exam Psychiatric exam: Normal Affect, Normal Mood - Skin Skin Exam: Dry, Intact, Warm Results - Vital Signs Recent Vital Signs: Last Vital Signs Temp 98.2 F 08/25/18 17:43 Pulse 78 08/25/18 17:43 Resp 16 08/25/18 17:43 BP 154/89 H 08/25/18 17:43 Pulse Ox 97 08/25/18 17:43 - Labs Result Diagrams: 08/25/18 18:13 08/25/18 18:13 Labs: Laboratory Results - last 24 hr 08/25/18 08/25/18 08/25/18 17:18 18:13 18:13 WBC 7.4 RBC 4.18 Hgb 12.1 Hct 36.7 MCV 87.8 D MCH 28.9 MCHC 33.0 RDW 13.9 Plt Count 241 MPV 9.3 Gran % 66.6 Lymph % (Auto) 25.1 Person % (Auto) 6.9 H Eos % (Auto) 0.9 L Baso % (Auto) 0.5 Gran # 4.94 Lymph # (Auto) 1.9 Person # (Auto) 0.5 Eos # (Auto) 0.1 Baso # (Auto) 0.04 Sodium 135 Potassium 4.1 Chloride 97 L Carbon Dioxide 28 Anion Gap 14 BUN 24 H Creatinine 0.9 Est GFR ( Amer) > 60 Est GFR (Non-Af Amer) 60 Random Glucose 136 H Calcium 9.2 Phosphorus 3.1 Magnesium 1.7 Total Bilirubin 0.3 AST 28 ALT 20 Alkaline Phosphatase 91 Total Protein 7.9 Albumin 4.2 Globulin 3.7 Albumin/Globulin Ratio 1.1 Lipase 319 H Urine Color Yellow Urine Appearance Clear Urine pH 6.5 Ur Specific [place] 1.020 Urine Protein 100 H Urine Glucose (UA) Negative Urine Ketones Negative Urine Blood Negative Urine Nitrate Negative Urine Bilirubin Negative Urine Urobilinogen 0.2 Ur Leukocyte Esterase Negative Urine RBC 0 - 2 Urine WBC 1 - 3 Ur Epithelial Cells 0 - 2 Urine Bacteria Few Assessment & Plan - Assessment and Plan (Free Text) Assessment: 83 yo F with PMH of OA, DM2, HLD, umbilical and hiatal hernias is admitted for management of abdominal pain from hernia. CT abdomen/pelvis in ED showed hiatal and umbilical hernia, including an area concerning for fat necrosis/strangulation surrounding the umbilical hernia. Plan: 1. Abdominal pain Likely 2/2 hiatal and/or umbilical hernias Lipase mildly elevated at 319 Will trend troponin and repeat EKG in AM as ACS is in differential for epigastric pain Per surgery, no plan for surgical intervention at this time, may follow up for elective hernia repair as an outpatient Pain control with daily protonix, and maalox PRN for indigestion/heartburn Continue NS at 100 cc/hr Hemoglobin A1c, lipid panel, TSH ordered Surgery following, recs appreciated 2. Hx DM2 Last A1c in March 2017 was 7.7 ISS with POC fingerstick glucose ACHS while admitted, hold home metformin while admitted F/u A1c result in AM 3. Hx HLD Continue home lipitor F/u lipid panel result in AM DVT/GI PPX: SCD/SC heparin, protonix Full Code HHD Monitor on med/surg Case and plan reviewed and discussed with my attending Dr. Luciana Kumar, DO IM Resident PGY-1 <Daksha Chowdhury - Last Filed: 08/26/18 02:53> Results - Vital Signs Recent Vital Signs: Last Vital Signs Temp 98.2 F 08/25/18 17:43 Pulse 82 08/26/18 01:20 Resp 18 08/26/18 01:20 BP 131/72 08/26/18 01:20 Pulse Ox 100 08/26/18 01:20 - Labs Result Diagrams: 08/25/18 18:13 08/25/18 18:13 Labs: Laboratory Results - last 24 hr 08/25/18 08/25/18 08/25/18 17:18 18:13 18:13 WBC 7.4 RBC 4.18 Hgb 12.1 Hct 36.7 MCV 87.8 D MCH 28.9 MCHC 33.0 RDW 13.9 Plt Count 241 MPV 9.3 Gran % 66.6 Lymph % (Auto) 25.1 Person % (Auto) 6.9 H Eos % (Auto) 0.9 L Baso % (Auto) 0.5 Gran # 4.94 Lymph # (Auto) 1.9 Person # (Auto) 0.5 Eos # (Auto) 0.1 Baso # (Auto) 0.04 Sodium 135 Potassium 4.1 Chloride 97 L Carbon Dioxide 28 Anion Gap 14 BUN 24 H Creatinine 0.9 Est GFR ( Amer) > 60 Est GFR (Non-Af Amer) 60 Random Glucose 136 H Calcium 9.2 Phosphorus 3.1 Magnesium 1.7 Total Bilirubin 0.3 AST 28 ALT 20 Alkaline Phosphatase 91 Troponin I Total Protein 7.9 Albumin 4.2 Globulin 3.7 Albumin/Globulin Ratio 1.1 Lipase 319 H Urine Color Yellow Urine Appearance Clear Urine pH 6.5 Ur Specific [place] 1.020 Urine Protein 100 H Urine Glucose (UA) Negative Urine Ketones Negative Urine Blood Negative Urine Nitrate Negative Urine Bilirubin Negative Urine Urobilinogen 0.2 Ur Leukocyte Esterase Negative Urine RBC 0 - 2 Urine WBC 1 - 3 Ur Epithelial Cells 0 - 2 Urine Bacteria Few 08/26/18 01:45 WBC RBC Hgb Hct MCV MCH MCHC RDW Plt Count MPV Gran % Lymph % (Auto) Person % (Auto) Eos % (Auto) Baso % (Auto) Gran # Lymph # (Auto) Person # (Auto) Eos # (Auto) Baso # (Auto) Sodium Potassium Chloride Carbon Dioxide Anion Gap BUN Creatinine Est GFR ( Amer) Est GFR (Non-Af Amer) Random Glucose Calcium Phosphorus Magnesium Total Bilirubin AST ALT Alkaline Phosphatase Troponin I < 0.01 Total Protein Albumin Globulin Albumin/Globulin Ratio Lipase Urine Color Urine Appearance Urine pH Ur Specific [place] Urine Protein Urine Glucose (UA) Urine Ketones Urine Blood Urine Nitrate Urine Bilirubin Urine Urobilinogen Ur Leukocyte Esterase Urine RBC Urine WBC Ur Epithelial Cells Urine Bacteria Attending/Attestation - Attestation I have personally seen and examined this patient.: Yes I have fully participated in the care of the patient.: Yes I have reviewed all pertinent clinical information: Yes Notes (Text): 08/26/18 02:49 Pt seen with the resident by the bedside. Case discussed in detail Agree with documentation,assessment and plan of treatment.
[2018-08-26] MEDS ORDERED: Alum-Mag Hydrox-Simethicone Susp (30 mL) PO PRN (01:24)
[2018-08-26] MEDS ORDERED: Sodium Chloride 0.9% 1,000 ML IV SCH (01:30)
[2018-08-26] MEDS: Pantoprazole 40 mg EC Tab PO SCH (05:40)
--- NOTE | 2018-08-26 06:16 | CP.PCM.CON ---
History of Present Illness - History of Present Illness History of Present Illness: Surgery: Dr. Garcia Reason for consult: umbilical hernia CC: Epigastric abdominal pain for 2 weeks HPI: Patient is an 83 y/o female w/ pmhx of ventral hernia who presents complaining of epigastric abdominal pain that has been present for 2 weeks with worsening. She reports the pain as "burning" type pain and has not tried to take medication to relieve the pain. She reports 2 episodes of nonbloody nonbilious vomiting 2 nights ago. She denies pain improving or worsening with food intake. She was seen by her primary doctor who told her she had a hernia which was cause of her pain. She denies f/c/chest pain/SOB. Normal bowel function. Patient states she was given pain medication in the ER which resolved her pain. Recent EGD in December of 2016 showed esophogeal ulcers and chronic gastritis. Patient was instructed to take PPIs at that time and repeat scope in 2 months however record of repeat EGD not seen in chart. Past Medical Hx: OA, DM2, HLD, umbilical and hiatal hernias Past Surgical Hx: darnell, hysterectomy, thyroid surgery Social Hx: denies tobacco, alcohol, or illicit drug use. Review of Systems - Review of Systems Review of Systems: unless stated in HPI Past Patient History - Infectious Disease Hx of Infectious Diseases: None - Tetanus Immunizations Tetanus Immunization: Unknown - Past Social History Smoking Status: Never Smoked - CARDIAC Hx Cardiac Disorders: Yes Hx Hypertension: Yes - PULMONARY Hx Respiratory Disorders: No - NEUROLOGICAL Hx Neurological Disorder: No - HEENT Hx HEENT Problems: Yes Hx Cataracts: Yes Other/Comment: Hard of hearing in left ear - RENAL Hx Chronic Kidney Disease: Yes Hx Kidney Stones: Yes - ENDOCRINE/METABOLIC Hx Endocrine Disorders: Yes Hx Diabetes Mellitus Type 2: Yes - HEMATOLOGICAL/ONCOLOGICAL Hx Blood Disorders: Yes Hx Anemia: Yes Hx Blood Transfusions: Yes - INTEGUMENTARY Hx Dermatological Problems: No Other/Comment: xerosis - MUSCULOSKELETAL/RHEUMATOLOGICAL Hx Musculoskeletal Disorders: Yes Hx Falls: No Hx Osteoarthritis: Yes Hx Osteoporosis: Yes - GASTROINTESTINAL Hx Gastrointestinal Disorders: Yes Hx Gall Bladder Disease: Yes (CHOLECYSTECTOMY) Hx Gastroesophageal Reflux: Yes Other/Comment: Inguinal HERNIA REPAIR; current umbilical hernia - GENITOURINARY/GYNECOLOGICAL Hx Genitourinary Disorders: Yes Hx Urinary Tract Infection: Yes (As Per Pt) - PSYCHIATRIC Hx Psychophysiologic Disorder: Yes Hx Anxiety: Yes Hx Depression: Yes Hx Substance Use: No - SURGICAL HISTORY Hx Cholecystectomy: Yes Hx Hysterectomy: Yes Hx Thyroidectomy: Yes Other/Comment: R eye sx,vascular surgery,laparoscopy - ANESTHESIA Hx Anesthesia: Yes Hx Anesthesia Reactions: No Hx Malignant Hyperthermia: No Meds Allergies/Adverse Reactions: Allergies Allergy/AdvReac Type Severity Reaction Status Date / Time No Known Allergies Allergy Verified 06/08/18 08:53 - Medications Medications: Current Medications Acetaminophen (Tylenol 325mg Tab) 650 mg PO Q6H PRN PRN Reason: Pain, moderate (4-7) Al Hydrox/Mg Hydrox/Simethicone (Maalox Plus 30 Ml) 30 ml PO BID PRN PRN Reason: Indigestion / Heartburn Amlodipine Besylate (Norvasc) 10 mg PO DAILY [facility] Atorvastatin Calcium (Lipitor) 20 mg PO DAILY [facility] Calcium Carbonate (Oscal) 500 mg PO DAILY [facility] Dextrose (Dextrose 50% Inj) 0 ml IV STAT PRN; Protocol PRN Reason: Hypoglycemia Protocol Heparin Sodium (Porcine) (Heparin) 5,000 units SC Q8 [facility]; Protocol Last Admin: 08/26/18 05:40 Dose: 5,000 units Dextrose (Dextrose 5% In Water 1000 Ml) 1,000 mls @ 0 mls/hr IV .Q0M PRN; Protocol PRN Reason: Hypoglycemia Protocol Insulin Human Regular (Humulin R Med) 0 units SC ACHS [facility]; Protocol Lisinopril (Zestril) 20 mg PO DAILY [facility] Memantine (Namenda) 10 mg PO BID [facility] Ondansetron HCl (Zofran Inj) 4 mg IVP Q6H PRN PRN Reason: Nausea/Vomiting Pantoprazole Sodium (Protonix Ec Tab) 40 mg PO 0600 [facility] Last Admin: 08/26/18 05:40 Dose: 40 mg Sertraline HCl (Zoloft) 50 mg PO DAILY [facility] Physical Exam - Constitutional Appears: Non-toxic, No Acute Distress - Head Exam Head Exam: ATRAUMATIC, NORMOCEPHALIC - Eye Exam Eye Exam: EOMI, Normal appearance - ENT Exam ENT Exam: Mucous Membranes Moist - Respiratory Exam Respiratory Exam: NORMAL BREATHING PATTERN. absent: Respiratory Distress - Cardiovascular Exam Cardiovascular Exam: REGULAR RHYTHM. absent: Tachycardia - GI/Abdominal Exam GI & Abdominal Exam: Hernia (hayden-umbilical easily reducible ventral hernia, nontender, no overlying skin changes ), Soft. absent: Distended, Guarding, Tenderness - Extremities Exam Extremities exam: Negative for: calf tenderness - Neurological Exam Neurological exam: Alert, Oriented x3 - Psychiatric Exam Psychiatric exam: Normal Affect, Normal Mood - Skin Skin Exam: Normal Color, Warm Results - Vital Signs Recent Vital Signs: Last Vital Signs Temp 98.2 F 08/25/18 17:43 Pulse 82 08/26/18 01:20 Resp 18 08/26/18 02:13 BP 131/72 08/26/18 01:20 Pulse Ox 100 08/26/18 01:20 - Labs Result Diagrams: 08/25/18 18:13 08/25/18 18:13 Labs: Laboratory Results - last 24 hr 08/25/18 08/25/18 08/25/18 17:18 18:13 18:13 WBC 7.4 RBC 4.18 Hgb 12.1 Hct 36.7 MCV 87.8 D MCH 28.9 MCHC 33.0 RDW 13.9 Plt Count 241 MPV 9.3 Gran % 66.6 Lymph % (Auto) 25.1 Gem % (Auto) 6.9 H Eos % (Auto) 0.9 L Baso % (Auto) 0.5 Gran # 4.94 Lymph # (Auto) 1.9 Gem # (Auto) 0.5 Eos # (Auto) 0.1 Baso # (Auto) 0.04 Sodium 135 Potassium 4.1 Chloride 97 L Carbon Dioxide 28 Anion Gap 14 BUN 24 H Creatinine 0.9 Est GFR ( Amer) > 60 Est GFR (Non-Af Amer) 60 Random Glucose 136 H Calcium 9.2 Phosphorus 3.1 Magnesium 1.7 Total Bilirubin 0.3 AST 28 ALT 20 Alkaline Phosphatase 91 Troponin I Total Protein 7.9 Albumin 4.2 Globulin 3.7 Albumin/Globulin Ratio 1.1 Lipase 319 H Urine Color Yellow Urine Appearance Clear Urine pH 6.5 Ur Specific [place] 1.020 Urine Protein 100 H Urine Glucose (UA) Negative Urine Ketones Negative Urine Blood Negative Urine Nitrate Negative Urine Bilirubin Negative Urine Urobilinogen 0.2 Ur Leukocyte Esterase Negative Urine RBC 0 - 2 Urine WBC 1 - 3 Ur Epithelial Cells 0 - 2 Urine Bacteria Few 08/26/18 01:45 WBC RBC Hgb Hct MCV MCH MCHC RDW Plt Count MPV Gran % Lymph % (Auto) Gem % (Auto) Eos % (Auto) Baso % (Auto) Gran # Lymph # (Auto) Gem # (Auto) Eos # (Auto) Baso # (Auto) Sodium Potassium Chloride Carbon Dioxide Anion Gap BUN Creatinine Est GFR ( Amer) Est GFR (Non-Af Amer) Random Glucose Calcium Phosphorus Magnesium Total Bilirubin AST ALT Alkaline Phosphatase Troponin I < 0.01 Total Protein Albumin Globulin Albumin/Globulin Ratio Lipase Urine Color Urine Appearance Urine pH Ur Specific [place] Urine Protein Urine Glucose (UA) Urine Ketones Urine Blood Urine Nitrate Urine Bilirubin Urine Urobilinogen Ur Leukocyte Esterase Urine RBC Urine WBC Ur Epithelial Cells Urine Bacteria - Impressions Impression: CT scan: ventral periumbilical hernia containing fat, moderate size hiatal hernia. Both stable since 2017. Assessment & Plan - Assessment and Plan (Free Text) Assessment: 83 y/o female w/ epigastric abdominal pain most likely related to esophagitis/g astritis and not 2/2 ventral hernia Plan: -recommend conservative treatment with PPIs for gastritis -can follow up as outpatient for reducible ventral hernia -no acute surgical intervention at this time -cont reg diet -rec GI eval for possible repeat EGD if f/u was not performed. -further recs per Dr. Jose Coker PGY4 - Date & Time Date: 08/26/18 Time: 01:00
[2018-08-26 07:13] LABS: BASO # 0.05 K/mm3 (0.0-2.0); BASO % 0.8 % (0.0-3.0); EOS # 0.2 (0.0-0.7); EOS % 2.6 % (1.5-5.0); GRAN # 2.82 (1.4-6.5); GRAN % 46.6 % (50.0-68.0); HEMOGLOBIN 10.9 g/dL (12.0-16.0); LYMPH # 2.6 (1.2-3.4); LYMPH % 42.1 % (22.0-35.0); MEAN CELL VOLUME 87.1 fl (80.0-105.0); MEAN CORPUSCULAR HEMOGLOBIN 27.6 pg (25.0-35.0); MEAN CORPUSCULAR HGB CONC 31.7 g/dl (31.0-37.0); MEAN PLATELET VOLUME 9.7 fl (7.0-11.0); MONO # 0.5 (0.1-0.6); MONO % 7.9 % (1.0-6.0); RBC 3.95 10^6/uL (3.5-6.1); RED CELL DISTRIBUTION WIDTH 13.8 % (11.5-14.5); WHITE BLOOD COUNT 6.1 10^3/uL (4.5-11.0)
[2018-08-26 07:22] LABS: TROPONIN I < 0.01 ng/mL
[2018-08-26 07:32] LABS: LDL CHOLESTEROL 77 mg/dL (0-129)
[2018-08-26 07:34] LABS: BLOOD UREA NITROGEN 19 mg/dL (7-21); CALCIUM 9.1 mg/dL (8.4-10.5); GFR NON-AFRICAN AMERICAN 60
[2018-08-26 07:35] LABS: ALB/GLOB RATIO 1.1 (1.1-1.8); ALBUMIN 3.8 g/dL (3.0-4.8); ALT/SGPT 22 U/L (7-56); AST/SGOT 30 U/L (14-36); HDL CHOLESTEROL 62 mg/dL (29-60)
[2018-08-26] MEDS: Insulin Reg-MEDIUM-Coverage SC SCH ×4 (08:02→22:00)
[2018-08-26] MEDS ORDERED: Enoxaparin 40 mg Syringe SC SCH (10:00)
--- NOTE | 2018-08-26 11:13 | CP.PCM.CON ---
<Richie Prieto - Last Filed: 08/26/18 17:08> History of Present Illness - History of Present Illness History of Present Illness: PGY-2 GI consult note for Dr Pollard Ms. Arnold Yang is an 83 year old female with PMH of OA, DM2, HLD, and umbilical hernia presented to ED with abdominal pain that has been worsening over the past 2 weeks with associated nausea/vomiting. She saw her PMD for this worsening pain who told her that she had a hernia. Her PMD advised her to go to ED for further evaluation. She had a similar episode of abdominal pain from the same hernia last year. She states that she has two areas of abdominal pain, one in the epigastric region and the second in the umbilical region. The pain is worse in the epigastric region. She states that she has also had intermittent nausea and vomiting associated with this abdominal pain but denies diarrhea. She states her pain has not interfered in her ability to tolerate food - however she stated food does exacerbate her abdominal pain specifically in the epigastric area. PMD: Chuck Past Medical Hx: OA, DM2, HLD, umbilical and hiatal hernias Past Surgical Hx: cholecystectomy, hysterectomy, unknown type of thyroid surgery but does not take synthroid Allergies: NKA Home medications: Metformin 750 BID, amlodipine 10 daily, sertraline 50 daily, mamentine 10 BID, omeprazole 20 daily, lipitor 20 daily, lisinopril 20 daily Family Hx: reviewed, non-contributory Social Hx: denies tobacco, alcohol, or illicit drug use. Review of Systems - Hematologic/Lymphatic Additional comments: - Constitutional Constitutional: absent: Chills, Fever - EENT Eyes: absent: Blurred Vision - Cardiovascular Cardiovascular: absent: Chest Pain, Chest Pain at Rest, Diaphoresis, Dyspnea - Respiratory Respiratory: absent: Cough, Dyspnea - Gastrointestinal Gastrointestinal: Abdominal Pain, Nausea, Vomiting. absent: Constipation, Diarrhea - Genitourinary Genitourinary: absent: Change in Urinary Stream, Difficulty Urinating, Dysuria Past Patient History - Infectious Disease Hx of Infectious Diseases: None - Tetanus Immunizations Tetanus Immunization: Unknown - Past Social History Smoking Status: Never Smoked - CARDIAC Hx Cardiac Disorders: Yes Hx Hypertension: Yes - PULMONARY Hx Respiratory Disorders: No - NEUROLOGICAL Hx Neurological Disorder: No - HEENT Hx HEENT Problems: Yes Hx Cataracts: Yes Other/Comment: Hard of hearing in left ear - RENAL Hx Chronic Kidney Disease: Yes Hx Kidney Stones: Yes - ENDOCRINE/METABOLIC Hx Endocrine Disorders: Yes Hx Diabetes Mellitus Type 2: Yes - HEMATOLOGICAL/ONCOLOGICAL Hx Blood Disorders: Yes Hx Anemia: Yes Hx Blood Transfusions: Yes - INTEGUMENTARY Hx Dermatological Problems: No Other/Comment: xerosis - MUSCULOSKELETAL/RHEUMATOLOGICAL Hx Musculoskeletal Disorders: Yes Hx Falls: No Hx Osteoarthritis: Yes Hx Osteoporosis: Yes - GASTROINTESTINAL Hx Gastrointestinal Disorders: Yes Hx Gall Bladder Disease: Yes (CHOLECYSTECTOMY) Hx Gastroesophageal Reflux: Yes Other/Comment: Inguinal HERNIA REPAIR; current umbilical hernia - GENITOURINARY/GYNECOLOGICAL Hx Genitourinary Disorders: Yes Hx Urinary Tract Infection: Yes (As Per Pt) - PSYCHIATRIC Hx Psychophysiologic Disorder: Yes Hx Anxiety: Yes Hx Depression: Yes Hx Substance Use: No - SURGICAL HISTORY Hx Cholecystectomy: Yes Hx Hysterectomy: Yes Hx Thyroidectomy: Yes Other/Comment: R eye sx,vascular surgery,laparoscopy - ANESTHESIA Hx Anesthesia: Yes Hx Anesthesia Reactions: No Hx Malignant Hyperthermia: No Meds Allergies/Adverse Reactions: Allergies Allergy/AdvReac Type Severity Reaction Status Date / Time No Known Allergies Allergy Verified 06/08/18 08:53 - Medications Medications: Current Medications Acetaminophen (Tylenol 325mg Tab) 650 mg PO Q6H PRN PRN Reason: Pain, moderate (4-7) Al Hydrox/Mg Hydrox/Simethicone (Maalox Plus 30 Ml) 30 ml PO BID PRN PRN Reason: Indigestion / Heartburn Amlodipine Besylate (Norvasc) 10 mg PO DAILY [facility] Atorvastatin Calcium (Lipitor) 20 mg PO DAILY [facility] Calcium Carbonate (Oscal) 500 mg PO DAILY [facility] Dextrose (Dextrose 50% Inj) 0 ml IV STAT PRN; Protocol PRN Reason: Hypoglycemia Protocol Heparin Sodium (Porcine) (Heparin) 5,000 units SC Q8 [facility]; Protocol Last Admin: 08/26/18 05:40 Dose: 5,000 units Dextrose (Dextrose 5% In Water 1000 Ml) 1,000 mls @ 0 mls/hr IV .Q0M PRN; Protocol PRN Reason: Hypoglycemia Protocol Insulin Human Regular (Humulin R Med) 0 units SC ACHS [facility]; Protocol Last Admin: 08/26/18 08:02 Dose: Not Given Lisinopril (Zestril) 20 mg PO DAILY [facility] Memantine (Namenda) 10 mg PO BID [facility] Ondansetron HCl (Zofran Inj) 4 mg IVP Q6H PRN PRN Reason: Nausea/Vomiting Pantoprazole Sodium (Protonix Ec Tab) 40 mg PO 0600 [facility] Last Admin: 08/26/18 05:40 Dose: 40 mg Sertraline HCl (Zoloft) 50 mg PO DAILY [facility] Physical Exam - Additional Findings Additional findings: - Constitutional Appears: Non-toxic, No Acute Distress - Head Exam Head Exam: ATRAUMATIC, NORMOCEPHALIC - Eye Exam Eye Exam: EOMI, Normal appearance, PERRL - ENT Exam ENT Exam: Mucous Membranes Moist - Neck Exam Neck exam: Positive for: Full Rom, Normal Inspection - Respiratory Exam Respiratory Exam: Clear to Auscultation Bilateral, NORMAL BREATHING PATTERN. absent: Rales, Rhonchi, Wheezes - Cardiovascular Exam Cardiovascular Exam: REGULAR RHYTHM, RRR, +S1, +S2. absent: Diastolic murmur, Gallop, Rubs, Systolic Murmur - GI/Abdominal Exam GI & Abdominal Exam: Hernia (umbilical hernia appreciated ), Normal Bowel Sounds, Tenderness (tenderness to palpation epigastric region. Tenderness to deep palpation in paraumbilical region. ). absent: Guarding, Rebound - Extremities Exam Extremities exam: Positive for: normal inspection. Negative for: pedal edema - Back Exam Back exam: NORMAL INSPECTION - Neurological Exam Neurological exam: Alert, Oriented x3 - Psychiatric Exam Psychiatric exam: Normal Affect, Normal Mood - Skin Skin Exam: Dry, Intact, Warm Results - Vital Signs Recent Vital Signs: Last Vital Signs Temp 98.1 F 08/26/18 06:00 Pulse 71 08/26/18 06:00 Resp 20 08/26/18 06:00 BP 138/84 08/26/18 06:00 Pulse Ox 97 08/26/18 06:00 - Labs Result Diagrams: 08/26/18 06:30 08/26/18 06:30 Labs: Laboratory Results - last 24 hr 08/25/18 08/25/18 08/25/18 17:18 18:13 18:13 WBC 7.4 RBC 4.18 Hgb 12.1 Hct 36.7 MCV 87.8 D MCH 28.9 MCHC 33.0 RDW 13.9 Plt Count 241 MPV 9.3 Gran % 66.6 Lymph % (Auto) 25.1 [place] % (Auto) 6.9 H Eos % (Auto) 0.9 L Baso % (Auto) 0.5 Gran # 4.94 Lymph # (Auto) 1.9 [place] # (Auto) 0.5 Eos # (Auto) 0.1 Baso # (Auto) 0.04 Sodium 135 Potassium 4.1 Chloride 97 L Carbon Dioxide 28 Anion Gap 14 BUN 24 H Creatinine 0.9 Est GFR ( Amer) > 60 Est GFR (Non-Af Amer) 60 POC Glucose (mg/dL) Random Glucose 136 H Calcium 9.2 Phosphorus 3.1 Magnesium 1.7 Total Bilirubin 0.3 AST 28 ALT 20 Alkaline Phosphatase 91 Troponin I Total Protein 7.9 Albumin 4.2 Globulin 3.7 Albumin/Globulin Ratio 1.1 Triglycerides Cholesterol LDL Cholesterol Direct HDL Cholesterol Lipase 319 H TSH 3rd Generation Urine Color Yellow Urine Appearance Clear Urine pH 6.5 Ur Specific [place] 1.020 Urine Protein 100 H Urine Glucose (UA) Negative Urine Ketones Negative Urine Blood Negative Urine Nitrate Negative Urine Bilirubin Negative Urine Urobilinogen 0.2 Ur Leukocyte Esterase Negative Urine RBC 0 - 2 Urine WBC 1 - 3 Ur Epithelial Cells 0 - 2 Urine Bacteria Few 08/26/18 08/26/18 08/26/18 01:06 01:45 06:30 WBC 6.1 RBC 3.95 Hgb 10.9 L Hct 34.4 L MCV 87.1 MCH 27.6 MCHC 31.7 RDW 13.8 Plt Count 256 MPV 9.7 Gran % 46.6 L Lymph % (Auto) 42.1 H [place] % (Auto) 7.9 H Eos % (Auto) 2.6 Baso % (Auto) 0.8 Gran # 2.82 Lymph # (Auto) 2.6 [place] # (Auto) 0.5 Eos # (Auto) 0.2 Baso # (Auto) 0.05 Sodium Potassium Chloride Carbon Dioxide Anion Gap BUN Creatinine Est GFR ( Amer) Est GFR (Non-Af Amer) POC Glucose (mg/dL) 127 H Random Glucose Calcium Phosphorus Magnesium Total Bilirubin AST ALT Alkaline Phosphatase Troponin I < 0.01 Total Protein Albumin Globulin Albumin/Globulin Ratio Triglycerides Cholesterol LDL Cholesterol Direct HDL Cholesterol Lipase TSH 3rd Generation Urine Color Urine Appearance Urine pH Ur Specific [place] Urine Protein Urine Glucose (UA) Urine Ketones Urine Blood Urine Nitrate Urine Bilirubin Urine Urobilinogen Ur Leukocyte Esterase Urine RBC Urine WBC Ur Epithelial Cells Urine Bacteria 08/26/18 08/26/18 08/26/18 06:30 06:30 07:37 WBC RBC Hgb Hct MCV MCH MCHC RDW Plt Count MPV Gran % Lymph % (Auto) [place] % (Auto) Eos % (Auto) Baso % (Auto) Gran # Lymph # (Auto) [place] # (Auto) Eos # (Auto) Baso # (Auto) Sodium 138 Potassium 4.4 Chloride 99 Carbon Dioxide 31 Anion Gap 12 BUN 19 Creatinine 0.9 Est GFR ( Amer) > 60 Est GFR (Non-Af Amer) 60 POC Glucose (mg/dL) 107 Random Glucose 130 H Calcium 9.1 Phosphorus 3.8 Magnesium 1.8 Total Bilirubin 0.5 AST 30 ALT 22 Alkaline Phosphatase 87 Troponin I < 0.01 Total Protein 7.2 Albumin 3.8 Globulin 3.4 Albumin/Globulin Ratio 1.1 Triglycerides 83 Cholesterol 152 LDL Cholesterol Direct 77 HDL Cholesterol 62 H Lipase TSH 3rd Generation 2.99 Urine Color Urine Appearance Urine pH Ur Specific [place] Urine Protein Urine Glucose (UA) Urine Ketones Urine Blood Urine Nitrate Urine Bilirubin Urine Urobilinogen Ur Leukocyte Esterase Urine RBC Urine WBC Ur Epithelial Cells Urine Bacteria Assessment & Plan - Assessment and Plan (Free Text) Plan: Mrs Barrett is a 83 year old female with a PMHx of OA, DM2, HLD, umbilical and hiatal hernias is admitted for management of abdominal pain from hernia: Hiatal Hernia Umbilical Hernia Hx of Esophageal Ulcer Hx of Gastrtis -prior EGD from 12/2016 showed esophageal ulcer and gastritis - patient was to follow-up for repeat EGD after 2 months but did not follow-up -CT abd/pelvis w/ iv contrast: large hiatal hernia, small fat-containing umbilical hernia demonstrating intra-hernia fat infiltration compatible with strangulation/fat necrosis -pain control with daily protonix, and maalox PRN for indigestion/heartburn -per surgery, no plan for acute surgical intervention at this time, can follow up as outpatient for reducible ventral hernia -continue regular diet -avoids NSAIDs -possible EGD tomorrow 08/27 - will keep npo after midnight Previous GI procedures: -EGD 12/2016: * non-bleeding esophageal ulcers, 9cm hiatal hernia, esophageal polyps (removed), chronic gastritis, normal examined duodenum Seen and discussed with Dr Pollard <Viky Pollard V - Last Filed: 08/28/18 00:11> Results - Vital Signs Recent Vital Signs: Last Vital Signs Temp 98.3 F 08/27/18 11:00 Pulse 63 08/27/18 11:00 Resp 18 08/27/18 11:00 BP 134/73 08/27/18 11:00 Pulse Ox 97 08/27/18 11:00 - Labs Result Diagrams: 08/27/18 07:00 08/27/18 07:00 Labs: Laboratory Results - last 24 hr 08/27/18 08/27/18 08/27/18 06:26 07:00 07:00 WBC 5.2 RBC 3.93 Hgb 11.2 L Hct 33.9 L MCV 86.3 MCH 28.5 MCHC 33.0 RDW 13.5 Plt Count 231 MPV 9.7 Gran % 40.2 L Lymph % (Auto) 44.8 H [place] % (Auto) 9.8 H Eos % (Auto) 4.0 Baso % (Auto) 1.2 Gran # 2.09 Lymph # (Auto) 2.3 [place] # (Auto) 0.5 Eos # (Auto) 0.2 Baso # (Auto) 0.06 PT INR Sodium 135 Potassium 4.4 Chloride 100 Carbon Dioxide 28 Anion Gap 12 BUN 22 H Creatinine 1.0 Est GFR ( Amer) > 60 Est GFR (Non-Af Amer) 53 POC Glucose (mg/dL) 113 H Random Glucose 123 H Calcium 8.8 Total Bilirubin 0.6 AST 24 ALT 24 Alkaline Phosphatase 75 Total Protein 6.9 Albumin 3.7 Globulin 3.2 Albumin/Globulin Ratio 1.1 08/27/18 08/27/18 11:41 12:20 WBC RBC Hgb Hct MCV MCH MCHC RDW Plt Count MPV Gran % Lymph % (Auto) [place] % (Auto) Eos % (Auto) Baso % (Auto) Gran # Lymph # (Auto) [place] # (Auto) Eos # (Auto) Baso # (Auto) PT 11.6 INR 1.01 Sodium Potassium Chloride Carbon Dioxide Anion Gap BUN Creatinine Est GFR ( Amer) Est GFR (Non-Af Amer) POC Glucose (mg/dL) 134 H Random Glucose Calcium Total Bilirubin AST ALT Alkaline Phosphatase Total Protein Albumin Globulin Albumin/Globulin Ratio Attending/Attestation - Attestation I have personally seen and examined this patient.: Yes I have fully participated in the care of the patient.: Yes I have reviewed all pertinent clinical information: Yes Notes (Text): This is an addendum to GI consult report dictated by the [employer].The patient was seen and evaluated earlier. Medical records, lab studies, imagings were reviewed. Last 24 hours events reviewed. Agreed with the above treatment plan as outlined in [employer] 's notes with the addition of the following 00:11
--- NOTE | 2018-08-26 13:12 | CT ---
Date of service: 08/25/2018 PROCEDURE: CT Abdomen and Pelvis with contrast HISTORY: umbilical hernia, with pain and vomiting COMPARISON: 06/01/2017 TECHNIQUE: Contrast dose: Radiation dose: Total exam DLP = 219.45 mGy-cm. This CT exam was performed using one or more of the following dose reduction techniques: Automated exposure control, adjustment of the mA and/or kV according to patient size, and/or use of iterative reconstruction technique. FINDINGS: LOWER THORAX: Large hiatal hernia. LIVER: Unremarkable. No gross lesion or ductal dilatation. GALLBLADDER AND BILE DUCTS: Cholecystectomy. PANCREAS: Unremarkable. No gross lesion or ductal dilatation. SPLEEN: Unremarkable. ADRENALS: Unremarkable. No mass. KIDNEYS AND URETERS: Unremarkable. No hydronephrosis. No solid mass. VASCULATURE: Unremarkable. No aortic aneurysm. No aortic atherosclerotic calcification or mural plaque present. BOWEL: Unremarkable. No obstruction. No gross mural thickening. APPENDIX: Normal appendix. PERITONEUM: Unremarkable. No free fluid. No free air. LYMPH NODES: Unremarkable. No enlarged lymph nodes. BLADDER: Unremarkable. REPRODUCTIVE: Hysterectomy. BONES: No acute fracture. OTHER FINDINGS: Left periumbilical hernia containing omental fat.. IMPRESSION: No acute pathology. No significant interval change.
[2018-08-27] MEDS: Pantoprazole 40 mg EC Tab PO SCH (06:33)
[2018-08-27 07:39] LABS: BASO # 0.06 K/mm3 (0.0-2.0); BASO % 1.2 % (0.0-3.0); EOS # 0.2 (0.0-0.7); GRAN # 2.09 (1.4-6.5); GRAN % 40.2 % (50.0-68.0); HEMOGLOBIN 11.2 g/dL (12.0-16.0); LYMPH # 2.3 (1.2-3.4); LYMPH % 44.8 % (22.0-35.0); MEAN CELL VOLUME 86.3 fl (80.0-105.0); MEAN CORPUSCULAR HEMOGLOBIN 28.5 pg (25.0-35.0); MEAN PLATELET VOLUME 9.7 fl (7.0-11.0); MONO # 0.5 (0.1-0.6); MONO % 9.8 % (1.0-6.0); RBC 3.93 10^6/uL (3.5-6.1); RED CELL DISTRIBUTION WIDTH 13.5 % (11.5-14.5); WHITE BLOOD COUNT 5.2 10^3/uL (4.5-11.0)
[2018-08-27 07:59] LABS: ALB/GLOB RATIO 1.1 (1.1-1.8); ALBUMIN 3.7 g/dL (3.0-4.8); ALT/SGPT 24 U/L (7-56); AST/SGOT 24 U/L (14-36); BLOOD UREA NITROGEN 22 mg/dL (7-21); CALCIUM 8.8 mg/dL (8.4-10.5); GFR NON-AFRICAN AMERICAN 53
--- NOTE | 2018-08-27 09:07 | CP.PCM.PN ---
Subjective - Date & Time of Evaluation Date of Evaluation: 08/27/18 Time of Evaluation: 09:03 - Subjective Subjective: PGY-1 Medicine Progress Note for Dr. Omalley Patient seen and examined at bedside this AM. No acute overnight events reported. Objective - Vital Signs/Intake and Output Vital Signs (last 24 hours): Temp Pulse Resp BP Pulse Ox 99.3 F 80 18 140/80 96 08/26/18 22:00 08/26/18 22:00 08/26/18 22:00 08/26/18 22:00 08/26/18 22:00 Intake and Output: 08/27/18 08/27/18 06:59 18:59 Intake Total 540 Balance 540 - Medications Medications: Current Medications Acetaminophen (Tylenol 325mg Tab) 650 mg PO Q6H PRN PRN Reason: Pain, moderate (4-7) Al Hydrox/Mg Hydrox/Simethicone (Maalox Plus 30 Ml) 30 ml PO BID PRN PRN Reason: Indigestion / Heartburn Amlodipine Besylate (Norvasc) 10 mg PO DAILY [facility] Last Admin: 08/26/18 10:58 Dose: 10 mg Atorvastatin Calcium (Lipitor) 20 mg PO DAILY [facility] Last Admin: 08/26/18 11:00 Dose: 20 mg Calcium Carbonate (Oscal) 500 mg PO DAILY [facility] Last Admin: 08/26/18 11:01 Dose: 500 mg Dextrose (Dextrose 50% Inj) 0 ml IV STAT PRN; Protocol PRN Reason: Hypoglycemia Protocol Heparin Sodium (Porcine) (Heparin) 5,000 units SC Q8 [facility]; Protocol Last Admin: 08/27/18 06:20 Dose: Not Given Dextrose (Dextrose 5% In Water 1000 Ml) 1,000 mls @ 0 mls/hr IV .Q0M PRN; Protocol PRN Reason: Hypoglycemia Protocol Insulin Human Regular (Humulin R Med) 0 units SC ACHS [facility]; Protocol Last Admin: 08/26/18 22:00 Dose: Not Given Lisinopril (Zestril) 20 mg PO DAILY [facility] Last Admin: 08/26/18 10:59 Dose: 20 mg Memantine (Namenda) 10 mg PO BID [facility] Last Admin: 08/26/18 17:34 Dose: 10 mg Ondansetron HCl (Zofran Inj) 4 mg IVP Q6H PRN PRN Reason: Nausea/Vomiting Pantoprazole Sodium (Protonix Ec Tab) 40 mg PO 0600 [facility] Last Admin: 08/27/18 06:33 Dose: 40 mg Sertraline HCl (Zoloft) 50 mg PO DAILY [facility] Last Admin: 08/26/18 11:01 Dose: 50 mg - Labs Labs: 08/27/18 07:00 08/27/18 07:00
[2018-08-27] MEDS ORDERED: Propofol 10 mg/ml Inj (20 ML) ONE (10:23)
[2018-08-27 10:54] VITALS: TEMP 98.3; O2SAT 97
[2018-08-27 11:06] VITALS: BP 134/73; PULSE 63; RESP 18
[2018-08-27] MEDS ORDERED: Sodium Chloride 0.9% 1,000 ML IV SCH (11:30)
[2018-08-27 12:34] LABS: INR 1.01; PROTHROMBIN TIME 11.6 SECONDS (9.4-12.5)
[2018-08-27] MEDS: Insulin Reg-MEDIUM-Coverage SC SCH ×2 (13:31→13:32)
--- NOTE | 2018-08-27 15:36 | CP.PCM.DIS ---
<Spike Bond - Last Filed: 08/28/18 18:48> Provider - Provider Date of Admission: 08/25/18 23:39 Attending physician: Melania Omalley MD Time Spent in preparation of Discharge (in minutes): 40 Hospital Course - Lab Results Lab Results: Most Recent Lab Values WBC 5.2 10^3/uL (4.5-11.0) 08/27/18 07:00 RBC 3.93 10^6/uL (3.5-6.1) 08/27/18 07:00 Hgb 11.2 g/dL (12.0-16.0) L 08/27/18 07:00 Hct 33.9 % (36.0-48.0) L 08/27/18 07:00 MCV 86.3 fl (80.0-105.0) 08/27/18 07:00 MCH 28.5 pg (25.0-35.0) 08/27/18 07:00 MCHC 33.0 g/dl (31.0-37.0) 08/27/18 07:00 RDW 13.5 % (11.5-14.5) 08/27/18 07:00 Plt Count 231 10^3/uL (120.0-450.0) 08/27/18 07:00 MPV 9.7 fl (7.0-11.0) 08/27/18 07:00 Gran % 40.2 % (50.0-68.0) L 08/27/18 07:00 Lymph % (Auto) 44.8 % (22.0-35.0) H 08/27/18 07:00 [place] % (Auto) 9.8 % (1.0-6.0) H 08/27/18 07:00 Eos % (Auto) 4.0 % (1.5-5.0) 08/27/18 07:00 Baso % (Auto) 1.2 % (0.0-3.0) 08/27/18 07:00 Gran # 2.09 (1.4-6.5) 08/27/18 07:00 Lymph # (Auto) 2.3 (1.2-3.4) 08/27/18 07:00 [place] # (Auto) 0.5 (0.1-0.6) 08/27/18 07:00 Eos # (Auto) 0.2 (0.0-0.7) 08/27/18 07:00 Baso # (Auto) 0.06 K/mm3 (0.0-2.0) 08/27/18 07:00 PT 11.6 SECONDS (9.4-12.5) 08/27/18 12:20 INR 1.01 08/27/18 12:20 Sodium 135 mmol/L (132-148) 08/27/18 07:00 Potassium 4.4 mmol/L (3.6-5.0) 08/27/18 07:00 Chloride 100 mmol/L (98-107) 08/27/18 07:00 Carbon Dioxide 28 mmol/L (21-33) 08/27/18 07:00 Anion Gap 12 (10-20) 08/27/18 07:00 BUN 22 mg/dL (7-21) H 08/27/18 07:00 Creatinine 1.0 mg/dl (0.7-1.2) 08/27/18 07:00 Est GFR ( Amer) > 60 08/27/18 07:00 Est GFR (Non-Af Amer) 53 08/27/18 07:00 POC Glucose (mg/dL) 134 mg/dL (65-110) H 08/27/18 11:41 Random Glucose 123 mg/dL (70-110) H 08/27/18 07:00 Hemoglobin A1c 7.1 % (4.2-6.5) H 08/26/18 06:30 Calcium 8.8 mg/dL (8.4-10.5) 08/27/18 07:00 Phosphorus 3.8 mg/dL (2.5-4.5) 08/26/18 06:30 Magnesium 1.8 mg/dL (1.7-2.2) 08/26/18 06:30 Total Bilirubin 0.6 mg/dL (0.2-1.3) 08/27/18 07:00 AST 24 U/L (14-36) 08/27/18 07:00 ALT 24 U/L (7-56) 08/27/18 07:00 Alkaline Phosphatase 75 U/L (38-126) 08/27/18 07:00 Troponin I < 0.01 ng/mL 08/26/18 06:30 Total Protein 6.9 g/dL (5.8-8.3) 08/27/18 07:00 Albumin 3.7 g/dL (3.0-4.8) 08/27/18 07:00 Globulin 3.2 gm/dL 08/27/18 07:00 Albumin/Globulin Ratio 1.1 (1.1-1.8) 08/27/18 07:00 Triglycerides 83 mg/dL (35-160) 08/26/18 06:30 Cholesterol 152 mg/dL (130-200) 08/26/18 06:30 LDL Cholesterol Direct 77 mg/dL (0-129) 08/26/18 06:30 HDL Cholesterol 62 mg/dL (29-60) H 08/26/18 06:30 Lipase 319 U/L (23-300) H 08/25/18 18:13 TSH 3rd Generation 2.99 mIU/mL (0.46-4.68) 08/26/18 06:30 Urine Color Yellow (YELLOW) 08/25/18 17:18 Urine Appearance Clear (CLEAR) 08/25/18 17:18 Urine pH 6.5 (4.7-8.0) 08/25/18 17:18 Ur Specific [place] 1.020 (1.005-1.035) 08/25/18 17:18 Urine Protein 100 mg/dL (<30 mg/dL) H 08/25/18 17:18 Urine Glucose (UA) Negative mg/dL (NEGATIVE) 08/25/18 17:18 Urine Ketones Negative mg/dL (NEGATIVE) 08/25/18 17:18 Urine Blood Negative (NEGATIVE) 08/25/18 17:18 Urine Nitrate Negative (NEGATIVE) 08/25/18 17:18 Urine Bilirubin Negative (NEGATIVE) 08/25/18 17:18 Urine Urobilinogen 0.2 E.U./dL (<1 E.U./dL) 08/25/18 17:18 Ur Leukocyte Esterase Negative [place]/uL (NEGATIVE) 08/25/18 17:18 Urine RBC 0 - 2 /hpf (0-2) 08/25/18 17:18 Urine WBC 1 - 3 /hpf (0-6) 08/25/18 17:18 Ur Epithelial Cells 0 - 2 /hpf (0-5) 08/25/18 17:18 Urine Bacteria Few (NEG) 08/25/18 17:18 - Hospital Course Hospital Course: Ms. Arnold Yang is an 83 year old female with past medical history of osteoarthritis, diabetes mellitus, hyperlipidemia, and umbilical hernia presented to ED with abdominal pain that has been worsening over the past 2 weeks with associated nausea/vomiting. She saw her PMD for this worsening pain who told her that she had a hernia. Her PMD advised her to go to ED for further evaluation. She had a similar episode of abdominal pain from the same hernia last year. She states that she has two areas of abdominal pain, one in the epigastric region and the second in the umbilical region. The pain is worse in the epigastric region. She states that she has also had intermittent nausea and vomiting associated with this abdominal pain but denies diarrhea. She denies fever/chills, chest pain, shortness of breath, changes in urination, and dysuria. During the course of admission: Surgery was consulted with no plans for acute surgical intervention. Recommendations for outpatient surgical followup for elective hernia repair were given. Daily protonix was started for pain control and maalox as needed for indigestion/heartburn. IV fluids were started at 100cc/hr. GI was consulted, CT of the abdomen/pelvis showed large hiatal hernia, small fat containing umbilical hernia demonstrating intra-hernia fat infiltration compatible with strangulation/fat necrosis. EGD procedure was carried out, demonstrated large hiatal hernia type 3, esophageal ulcers, gastritis. Patient is medically stable for discharge to home, as per Dr. Omalley. Patient is instructed to take all home medications as prescribed. Script for Protonix 40 mg PO daily has been sent to patient's preferred pharmacy: [facility] pharmacy. Please follow up with your primary care provider within 1 week of discharge for continued care and management. Please also follow up with your Surgical and [place] rointestinal doctors for further monitoring and care. Referrals have been provided. If symptoms worsen, please return to the ED. - Date & Time of H&P Date of H&P: 08/27/18 Time of H&P: 15:04 Discharge Exam - Head Exam Head Exam: ATRAUMATIC, NORMOCEPHALIC - Eye Exam Eye Exam: EOMI, Normal appearance Pupil Exam: NORMAL ACCOMODATION - ENT Exam ENT Exam: Mucous Membranes Moist, Normal Exam - Neck Exam Neck exam: Full Rom, Normal Inspection - Respiratory Exam Respiratory Exam: Clear to PA & Lateral, NORMAL BREATHING PATTERN, UNREMARKABLE. absent: Accessory Muscle Use, Rales, Rhonchi, Wheezes, Respiratory Distress, Stridor - Cardiovascular Exam Cardiovascular Exam: REGULAR RHYTHM, +S1, +S2 - GI/Abdominal Exam GI & Abdominal Exam: Hernia (umbilical hernia appreciated), Normal Bowel Sounds, Soft, Tenderness (mild TTP epigastric), Unremarkable. absent: Distended, Firm, Guarding, Rebound, Rigid - Extremities Exam Extremities exam: full ROM, normal capillary refill, pedal pulses present - Back Exam Back exam: NORMAL INSPECTION - Neurological Exam Neurological exam: Alert, Oriented x3 - Psychiatric Exam Psychiatric exam: Normal Affect, Normal Mood - Skin Skin Exam: Dry, Intact, Normal Color, Warm Discharge Plan - Discharge Medications Prescriptions: Pantoprazole Sodium [Protonix] 40 mg PO DAILY #30 ect - Follow Up Plan Condition: FAIR Disposition: HOME/ ROUTINE Instructions: Hiatal Hernia, Hernia Repair (DC), Abdominal Hernia (DC), Flu Vaccine, Acute Abdominal Pain (DC) Additional Instructions: Patient is medically stable for discharge to home, as per Dr. Omalley. Patient is instructed to take all home medications as prescribed. Script for Protonix 40 mg PO daily has been sent to patient's preferred pharmacy: [facility] pharmacy. Please follow up with your primary care provider within 1 week of discharge for continued care and management. Please also follow up with your Surgical and Gastrointestinal doctors for further monitoring and care. Referrals have been provided. If symptoms worsen, please return to the ED. El paciente est mdicamente estable para el eloina hospitalaria, segn el Dr. Omalley. Se instruye al paciente para que tome todos los medicamentos caseros segn lo prescrito. El script para Protonix 40 mg PO diario se simons enviado a la farmacia preferida del paciente: [facility] pharmacy. Por favor payal un seguimiento con cleary proveedor de atencin primaria dentro de 1 semana despus del eloina para continuar con el cuidado y la administracin. Por favor, tambin payal un seguimiento con iman mdicos quirrgicos y gastrointestinales para genaro mayor supervisin y atencin. Se marks proporcionado referencias. Si los sntomas empeoran, por favor regrese al servicio de urgencias. Referrals: Maritza Woods DO [Doctor Osteopathy] - Viky Pollard MD [Medical Doctor] - Domenic Garcia MD [Staff Provider] - <Melania Omalley - Last Filed: 08/29/18 08:24> Provider - Provider Date of Admission: 08/25/18 23:39 Attending physician: Melania Omalley MD Hospital Course - Lab Results Lab Results: Most Recent Lab Values WBC 5.2 10^3/uL (4.5-11.0) 08/27/18 07:00 RBC 3.93 10^6/uL (3.5-6.1) 08/27/18 07:00 Hgb 11.2 g/dL (12.0-16.0) L 08/27/18 07:00 Hct 33.9 % (36.0-48.0) L 08/27/18 07:00 MCV 86.3 fl (80.0-105.0) 08/27/18 07:00 MCH 28.5 pg (25.0-35.0) 08/27/18 07:00 MCHC 33.0 g/dl (31.0-37.0) 08/27/18 07:00 RDW 13.5 % (11.5-14.5) 08/27/18 07:00 Plt Count 231 10^3/uL (120.0-450.0) 08/27/18 07:00 MPV 9.7 fl (7.0-11.0) 08/27/18 07:00 Gran % 40.2 % (50.0-68.0) L 08/27/18 07:00 Lymph % (Auto) 44.8 % (22.0-35.0) H 08/27/18 07:00 [place] % (Auto) 9.8 % (1.0-6.0) H 08/27/18 07:00 Eos % (Auto) 4.0 % (1.5-5.0) 08/27/18 07:00 Baso % (Auto) 1.2 % (0.0-3.0) 08/27/18 07:00 Gran # 2.09 (1.4-6.5) 08/27/18 07:00 Lymph # (Auto) 2.3 (1.2-3.4) 08/27/18 07:00 [place] # (Auto) 0.5 (0.1-0.6) 08/27/18 07:00 Eos # (Auto) 0.2 (0.0-0.7) 08/27/18 07:00 Baso # (Auto) 0.06 K/mm3 (0.0-2.0) 08/27/18 07:00 PT 11.6 SECONDS (9.4-12.5) 08/27/18 12:20 INR 1.01 08/27/18 12:20 Sodium 135 mmol/L (132-148) 08/27/18 07:00 Potassium 4.4 mmol/L (3.6-5.0) 08/27/18 07:00 Chloride 100 mmol/L (98-107) 08/27/18 07:00 Carbon Dioxide 28 mmol/L (21-33) 08/27/18 07:00 Anion Gap 12 (10-20) 08/27/18 07:00 BUN 22 mg/dL (7-21) H 08/27/18 07:00 Creatinine 1.0 mg/dl (0.7-1.2) 08/27/18 07:00 Est GFR ( Amer) > 60 08/27/18 07:00 Est GFR (Non-Af Amer) 53 08/27/18 07:00 POC Glucose (mg/dL) 134 mg/dL (65-110) H 08/27/18 11:41 Random Glucose 123 mg/dL (70-110) H 08/27/18 07:00 Hemoglobin A1c 7.1 % (4.2-6.5) H 08/26/18 06:30 Calcium 8.8 mg/dL (8.4-10.5) 08/27/18 07:00 Phosphorus 3.8 mg/dL (2.5-4.5) 08/26/18 06:30 Magnesium 1.8 mg/dL (1.7-2.2) 08/26/18 06:30 Total Bilirubin 0.6 mg/dL (0.2-1.3) 08/27/18 07:00 AST 24 U/L (14-36) 08/27/18 07:00 ALT 24 U/L (7-56) 08/27/18 07:00 Alkaline Phosphatase 75 U/L (38-126) 08/27/18 07:00 Troponin I < 0.01 ng/mL 08/26/18 06:30 Total Protein 6.9 g/dL (5.8-8.3) 08/27/18 07:00 Albumin 3.7 g/dL (3.0-4.8) 08/27/18 07:00 Globulin 3.2 gm/dL 08/27/18 07:00 Albumin/Globulin Ratio 1.1 (1.1-1.8) 08/27/18 07:00 Triglycerides 83 mg/dL (35-160) 08/26/18 06:30 Cholesterol 152 mg/dL (130-200) 08/26/18 06:30 LDL Cholesterol Direct 77 mg/dL (0-129) 08/26/18 06:30 HDL Cholesterol 62 mg/dL (29-60) H 08/26/18 06:30 Lipase 319 U/L (23-300) H 08/25/18 18:13 TSH 3rd Generation 2.99 mIU/mL (0.46-4.68) 08/26/18 06:30 Urine Color Yellow (YELLOW) 08/25/18 17:18 Urine Appearance Clear (CLEAR) 08/25/18 17:18 Urine pH 6.5 (4.7-8.0) 08/25/18 17:18 Ur Specific [place] 1.020 (1.005-1.035) 08/25/18 17:18 Urine Protein 100 mg/dL (<30 mg/dL) H 08/25/18 17:18 Urine Glucose (UA) Negative mg/dL (NEGATIVE) 08/25/18 17:18 Urine Ketones Negative mg/dL (NEGATIVE) 08/25/18 17:18 Urine Blood Negative (NEGATIVE) 08/25/18 17:18 Urine Nitrate Negative (NEGATIVE) 08/25/18 17:18 Urine Bilirubin Negative (NEGATIVE) 08/25/18 17:18 Urine Urobilinogen 0.2 E.U./dL (<1 E.U./dL) 08/25/18 17:18 Ur Leukocyte Esterase Negative [place]/uL (NEGATIVE) 08/25/18 17:18 Urine RBC 0 - 2 /hpf (0-2) 08/25/18 17:18 Urine WBC 1 - 3 /hpf (0-6) 08/25/18 17:18 Ur Epithelial Cells 0 - 2 /hpf (0-5) 08/25/18 17:18 Urine Bacteria Few (NEG) 08/25/18 17:18 Attending/Attestation - Attestation I have personally seen and examined this patient.: Yes I have fully participated in the care of the patient.: Yes I have reviewed all pertinent clinical information, including history, physical exam and plan: Yes Notes (Text): 08/28/18 83 year old female with past medical history of ostearthritis, diabetes and umbulical hernia who presented with complaint of abdominal pain (epigastric and periumbulical). CT abd/pelvis showed large hiatal hernia and umbulical hernia. She was seen by surgery and who recommended elective hernia repair. She was seen by GI who did EGD which showed esophageal ulcers and gastritis. Symptoms improved with protonix. Patient is discharged home on PPI. Follow up with pmd. Follow up with GI. Follow up with surgery. Melania Omalley MD Hospitalist.
== END 2018-08-27 14:49 | disposition home or self-care (01) ==
LOC: ED 16:05 → ERH 23:39 → 5RSO 08-26 02:09
PROVIDERS: ADMIT Hospitalist; ATTEND Internal Medicine
DX: K42.9 Umbilical hernia without obstruction or gangrene (principal); K44.9 Diaphragmatic hernia without obstruction or gangrene; K22.10 Ulcer of esophagus without bleeding; D13.0 Benign neoplasm of esophagus; K29.30 Chronic superficial gastritis without bleeding; K21.9 Gastro-esophageal reflux disease without esophagitis; R10.13 Epigastric pain; E78.5 Hyperlipidemia, unspecified; E11.9 Type 2 diabetes mellitus without complications; I10 Essential (primary) hypertension; M81.0 Age-related osteoporosis without current pathological fracture; Z79.84 Long term (current) use of oral hypoglycemic drugs; Z87.442 Personal history of urinary calculi
CPT/HCPCS: 36415; 43239; 74177; 80053; 80061; 81001; 82948; 83036; 83690; 83735; 84100; 84443; 84484; 85025; 85610; 88305; 88312; 88342; 93005; 96372; 96374; 96375; 99285; G0378; J1644; J1885; J2704; J7040; Q9966; Q9967

== ENCOUNTER 2018-10-06 13:47 | Emergency (ER) | payer MEDICAID ==
[2018-10-06 13:53] VITALS: RESP 18; O2SAT 98; BMI 19.6
[2018-10-06] MEDS ORDERED: Sodium Chloride 0.9% 1,000 ML IV STA (14:24)
--- NOTE | 2018-10-06 14:38 | ED PDOC ---
Arrival/HPI - General Time Seen by Provider: 10/06/18 14:07 Historian: Patient - History of Present Illness Narrative History of Present Illness (Text): 10/06/18 14:30 83 year old female, with past medical history of PUD, OA, DM2, HLD, umbilical and hiatal hernias, presents to the ED complaining of vomiting and diffused abdominal pain since yesterday. Patient reports multiple episodes of vomiting throughout the night, prompting her to present to the ED for medical evaluation. Patient denies any other associated somatic complaints. Patient denies any fevers, chills, headache, dizziness, chest pain, shortness of breath, dyspnea on exertion, cough, diarrhea, back pain, neck pain, or any other complaints. PMD: Dr. Woods Time/Duration: 24 hours Symptom Onset: Gradual Symptom Course: Unchanged Quality: Aching Activities at Onset: Light Context: Home Past Medical History - Provider Review Nursing Documentation Reviewed: Yes - Infectious Disease Hx of Infectious Diseases: None - Tetanus Immunization Tetanus Immunization: Unknown - Cardiac Hx Pacemaker: No - Pulmonary Hx Respiratory Disorders: No - Neurological Hx Neurological Disorder: No - HEENT Hx HEENT Disorder: Yes Hx Cataracts: Yes Other/Comment: Hard of hearing in left ear - Renal Hx Renal Disorder: Yes Hx Kidney Stones: Yes - Endocrine/Metabolic Hx Endocrine Disorders: Yes Hx Diabetes Mellitus Type 2: Yes - Hematological/Oncological Hx Blood Transfusions: Yes Hx Blood Transfusion Reaction: No - Integumentary Hx Dermatological Disorder: No Other/Comment: xerosis - Musculoskeletal/Rheumatological Hx Musculoskeletal Disorders: Yes - Gastrointestinal Hx Gastrointestinal Disorders: Yes Hx Gall Bladder Disease: Yes (CHOLECYSTECTOMY) Hx Gastroesophageal Reflux: Yes Other/Comment: Inguinal HERNIA REPAIR; current umbilical hernia - Genitourinary/Gynecological Hx Genitourinary Disorders: Yes Hx Urinary Tract Infection: Yes (As Per Pt) - Psychiatric Hx Substance Use: No - Surgical History Hx Cholecystectomy: Yes Hx Hysterectomy: Yes Hx Thyroidectomy: Yes Other/Comment: R eye sx,vascular surgery,laparoscopy - Anesthesia Hx Anesthesia Reactions: No Hx Malignant Hyperthermia: No Family/Social History - Physician Review Nursing Documentation Reviewed: Yes Family/Social History: Unknown Family HX Smoking Status: Never Smoked Hx Alcohol Use: No Hx Substance Use: No Allergies/Home Meds Allergies/Adverse Reactions: Allergies No Known Allergies Allergy (Verified 06/08/18 08:53) Home Medications: Home Meds Medication Instructions Recorded Confirmed RX: Atorvastatin [Lipitor] 20 mg PO DAILY 03/05/18 08/25/18 RX: Lisinopril [Prinivil] 40 mg PO DAILY 03/05/18 10/06/18 RX: Memantine [Namenda] 10 mg PO BID 03/05/18 10/06/18 RX: MetFORMIN ER [Glucophage XR] 750 mg PO BID 03/05/18 10/06/18 RX: Sertraline [Zoloft] 50 mg PO DAILY 03/05/18 10/06/18 RX: amLODIPine [Norvasc] 10 mg PO DAILY 03/05/18 10/06/18 Isosorbide Mononitrate [Isosorbide 30 mg PO DAILY 10/06/18 10/06/18 Mononitrate ER] Verapamil HCl 180 mg PO HS 10/06/18 10/06/18 Review of Systems - Physician Review All systems were reviewed & negative as marked: Yes - Review of Systems Constitutional: absent: Fevers Respiratory: absent: SOB, Cough Cardiovascular: absent: Chest Pain, CHAVES Gastrointestinal: Abdominal Pain, Nausea, Vomiting. absent: Diarrhea Genitourinary Female: absent: Dysuria, Urine Output Changes Musculoskeletal: absent: Back Pain, Neck Pain Skin: absent: Rash Neurological: absent: Headache, Dizziness Physical Exam Vital Signs Reviewed: Yes Vital Signs Temp Pulse Resp BP Pulse Ox 10/06/18 13:49 98.0 F 97 H 18 139/75 98 Temperature: Afebrile Blood Pressure: Normal Pulse: Regular Respiratory Rate: Normal Appearance: Positive for: Well-Appearing, Non-Toxic, Comfortable Pain Distress: None Mental Status: Positive for: Alert and Oriented X 3 - Systems Exam Head: Present: Atraumatic, Normocephalic Pupils: Present: PERRL Extroacular Muscles: Present: EOMI Conjunctiva: Present: Normal Neck: Present: Normal Range of Motion Respiratory/Chest: Present: Clear to Auscultation, Good Air Exchange. No: Respiratory Distress, Accessory Muscle Use Cardiovascular: Present: Regular Rate and Rhythm, Normal S1, S2. No: Murmurs Abdomen: Present: Tenderness (Epigastric tenderness. ), Hernias (reducible left sided hernia. ). No: Distention, Peritoneal Signs Back: Present: Normal Inspection Upper Extremity: Present: Normal Inspection. No: Cyanosis, Edema Lower Extremity: Present: Normal Inspection. No: Edema Neurological: Present: GCS=15, CN II-XII Intact, Speech Normal Skin: Present: Warm, Dry, Normal Color. No: Rashes Psychiatric: Present: Alert, Oriented x 3, Normal Insight, Normal Concentration Medical Decision Making ED Course and Treatment: 10/06/18 14:24 Impression: 83 year old female presents to the Emergency department complaining of vomiting and abdominal pain. suyspect pud, less likely obstruction. Plan: -- EKG -- Labs -- Chest X-ray -- Protonix -- IV Fluids -- Zofran -- Urinalysis -- Reassess and disposition Prior Visits: Notes and results from previous visits were reviewed. Progress Notes: 10/06/18 14:24 EKG: Ordered, reviewed, and independently interpreted the EKG. Rate : 97 BPM Rhythm : NSR Interpretation : Non-specific ST/T wave changes. 10/06/18 15:30 Chest X-ray reviewed by radiologist, shows: No interval acute cardiopulmonary disease appreciated. Hiatal hernia again noted posterior to the heart. 10/06/18 20:03 ct shows no interval changes. pt states all pain resolved eatiing an apple in nad. smiling asking for dc. MPRESSION: 1. Overall no significant interval change. 2. Left hepatic lobe cyst. 3. Status post cholecystectomy. 4. Small fat containing umbilical hernia. Mild infiltration of intra-hernia fat is again noted consistent with fat necrosis. 5. Status post complete hysterectomy. 6. Large hiatal hernia is seen. 10/06/18 20:04 pt later reorpted leg cramps. dvt study neg. no cp no sob. - RAD Interpretation Radiology Orders: 10/06/18 14:24 CHEST PORTABLE [RAD] Stat Laundry Folder: Radiologist - Medication Orders Current Medication Orders: Sodium Chloride (Sodium Chloride 0.9%) 1,000 mls @ 1,000 mls/hr IV .Q1H STA Stop: 10/06/18 15:23 Discontinued Medications Ondansetron HCl (Zofran Inj) 4 mg IVP STAT STA Stop: 10/06/18 14:25 Pantoprazole Sodium (Protonix Inj) 40 mg IVP STAT STA Stop: 10/06/18 14:25 - Scribe Statement The provider has reviewed the documentation as recorded by the Scribe Tasfia Daniela. All medical record entries made by the Scribe were at my direction and personally dictated by me. I have reviewed the chart and agree that the record accurately reflects my personal performance of the history, physical exam, medical decision making, and the department course for this patient. I have also personally directed, reviewed, and agree with the discharge instructions and disposition. Disposition/Present on Arrival - Present on Arrival Any Indicators Present on Arrival: No History of DVT/PE: No History of Uncontrolled Diabetes: Yes Urinary Catheter: No History Surgical Site Infection Following: None - Disposition Have Diagnosis and Disposition been Completed?: Yes Diagnosis: Abdominal pain Disposition: HOME/ ROUTINE Disposition Time: 13:50 Patient Problems: Current Active Problems Problem Status Onset Abdominal pain Acute Condition: STABLE Discharge Instructions (ExitCare): Acute Abdomen (Belly Pain) Print Language: DIVEHI Additional Instructions: please see your doctor/specialists. return to er with worsening symptoms or concerns. Prescriptions: Famotidine [Pepcid] 20 mg PO DAILY #20 tab Referrals: [facility] [Outside] - Follow up with primary [facility] [Outside] - Follow up with primary John Blanco MD [Staff Provider] - Follow up with primary Vikram Hernández MD [Staff Provider] - Follow up with primary Maritza Woods DO [Primary Care Provider] - Follow up with primary Domenic Garcia MD [Staff Provider] - Follow up with primary
--- NOTE | 2018-10-06 15:39 | RAD ---
Date of service: 10/06/2018 HISTORY: abd pain COMPARISON: No prior. FINDINGS: LUNGS: No active pulmonary disease. PLEURA: No significant pleural effusion identified, no pneumothorax apparent. CARDIOVASCULAR: Calcific atherosclerotic changes are seen related to the thoracic aorta. Hiatal hernia reiterated posterior to the heart. Normal cardiac size. No pulmonary vascular congestion. OSSEOUS STRUCTURES: No significant abnormalities. VISUALIZED UPPER ABDOMEN: Normal. OTHER FINDINGS: None. IMPRESSION: No interval acute cardiopulmonary disease appreciated. Hiatal hernia again noted posterior to the heart.
[2018-10-06 16:26] LABS: BASO # 0.03 K/mm3 (0.0-2.0); BASO % 0.4 % (0.0-3.0); EOS % 0.5 % (1.5-5.0); GRAN # 5.17 (1.4-6.5); GRAN % 68.6 % (50.0-68.0); LYMPH % 25.9 % (22.0-35.0); MEAN CELL VOLUME 85.1 fl (80.0-105.0); MEAN CORPUSCULAR HEMOGLOBIN 28.7 pg (25.0-35.0); MEAN CORPUSCULAR HGB CONC 33.8 g/dl (31.0-37.0); MONO # 0.4 (0.1-0.6); MONO % 4.6 % (1.0-6.0); RBC 3.48 10^6/uL (3.5-6.1); RED CELL DISTRIBUTION WIDTH 14.2 % (11.5-14.5); WHITE BLOOD COUNT 7.5 10^3/uL (4.5-11.0)
[2018-10-06 16:33] LABS: ALB/GLOB RATIO 1.2 (1.1-1.8); ALBUMIN 4.1 g/dL (3.0-4.8); ALT/SGPT 27 U/L (7-56); AST/SGOT 30 U/L (14-36); BLOOD UREA NITROGEN 26 mg/dL (7-21); GFR NON-AFRICAN AMERICAN 47; LIPASE 127 U/L (23-300)
[2018-10-06 16:36] LABS: INR 0.92; PARTIAL THROMBOPLASTIN TIME 24.4 Seconds (25.1-36.5); PROTHROMBIN TIME 10.5 SECONDS (9.4-12.5)
[2018-10-06 16:45] LABS: TROPONIN I < 0.01 ng/mL
[2018-10-06] MEDS ORDERED: Iohexol 350 MG/100 ML VIAL ONE (16:47)
[2018-10-06 18:08] LABS: PH,URINE 7.5 (4.7-8.0); URINE BILIRUBIN NEGATIVE (NEGATIVE); URINE BLOOD NEGATIVE (NEGATIVE); URINE GLUCOSE (UA) NEGATIVE (NEGATIVE); URINE LEUKOCYTE ESTERASE NEGATIVE Leu/uL (NEGATIVE); URINE PROTEIN NEGATIVE mg/dL (<30 mg/dL); URINE UROBILINOGEN 0.2 E.U./dL (<1 E.U./dL)
[2018-10-06 18:10] LABS: URINE APPEARANCE CLEAR (CLEAR); URINE COLOR LIGHT YELLOW (YELLOW)
[2018-10-06 23:23] VITALS: BP 118/60; PULSE 89; TEMP 97.8
--- NOTE | 2018-10-07 08:05 | CARD ---
APPROVED REPORT Date of service: 10/06/2018 EKG Measurement Heart [id number] <Conclusion> Normal sinus rhythm NSSTW changes
--- NOTE | 2018-10-07 08:22 | CT ---
Date of service: 10/06/2018 PROCEDURE: CT Abdomen and Pelvis with and without intravenous contrast HISTORY: abd pain, vomiting COMPARISON: 08/25/2018 TECHNIQUE: Axial images of the abdomen were obtained in the pre contrast, portal venous and delayed phases of enhancement. Coronal and sagittal reformats were generated. Contrast dose: Radiation dose: Total exam DLP = 275.67 mGy-cm. This CT exam was performed using one or more of the following dose reduction techniques: Automated exposure control, adjustment of the mA and/or kV according to patient size, and/or use of iterative reconstruction technique. FINDINGS: LOWER THORAX: Large hiatal hernia. LIVER: Unremarkable. No gross lesion or ductal dilatation. GALLBLADDER AND BILE DUCTS: Cholecystectomy PANCREAS: Unremarkable. No gross lesion or ductal dilatation. SPLEEN: Unremarkable. ADRENALS: Unremarkable. No mass. KIDNEYS AND URETERS: Unremarkable. No hydronephrosis. No solid mass. VASCULATURE: Unremarkable. No aortic aneurysm. No aortic atherosclerotic calcification or mural plaque present. BOWEL: Unremarkable. No obstruction. No gross mural thickening. APPENDIX: Normal appendix. PERITONEUM: Unremarkable. No free fluid. No free air. LYMPH NODES: Unremarkable. No enlarged lymph nodes. BLADDER: Unremarkable. REPRODUCTIVE: Hysterectomy. BONES: No acute fracture. OTHER FINDINGS: 3.9 centimeter left periumbilical hernia containing omental fat. IMPRESSION: No significant change. No acute pathology. Hiatal hernia and periumbilical hernia. Cholecystectomy and hysterectomy.
== END 2018-10-06 20:00 | disposition home or self-care (01) ==
LOC: ED 13:47
DX: R10.84 Generalized abdominal pain (principal)
CPT/HCPCS: 71045; 74177; 80053; 81003; 82550; 83615; 83690; 83735; 84484; 85025; 85610; 85730; 93005; 93970; 96361; 96374; 96375; 99283; C9113; J2405; J7030; Q9967

== ENCOUNTER 2018-10-22 12:48 | Observation (INO) | payer MEDICAID ==
[2018-10-22 12:48] VITALS: BMI 19.6
[2018-10-22 14:02] LABS: BASO # 0.03 K/mm3 (0.0-2.0); BASO % 0.4 % (0.0-3.0); EOS % 0.1 % (1.5-5.0); GRAN # 6.7 (1.4-6.5); GRAN % 81.5 % (50.0-68.0); LYMPH # 1.1 (1.2-3.4); LYMPH % 13.9 % (22.0-35.0); MEAN CELL VOLUME 84.4 fl (80.0-105.0); MEAN CORPUSCULAR HEMOGLOBIN 27.4 pg (25.0-35.0); MEAN CORPUSCULAR HGB CONC 32.5 g/dl (31.0-37.0); MEAN PLATELET VOLUME 8.8 fl (7.0-11.0); MONO # 0.3 (0.1-0.6); MONO % 4.1 % (1.0-6.0); RBC 3.65 10^6/uL (3.5-6.1); RED CELL DISTRIBUTION WIDTH 13.9 % (11.5-14.5); WHITE BLOOD COUNT 8.2 10^3/uL (4.5-11.0)
[2018-10-22] MEDS ORDERED: Iohexol 300 100 ML IJ ONE (14:04)
--- NOTE | 2018-10-22 14:19 | RAD ---
Date of service: 10/22/2018 HISTORY: cough/nausea/vomiting COMPARISON: No prior. FINDINGS: LUNGS: The lungs are well inflated and clear. PLEURA: No pleural effusions or pneumothorax. CARDIOVASCULAR: The heart is normal in size. There are aortic atherosclerotic calcification present. OSSEOUS STRUCTURES: Within normal limits for the patient's age. VISUALIZED UPPER ABDOMEN: Normal. OTHER FINDINGS: Large retrocardiac opacity likely represents a hiatal hernia. IMPRESSION: No active pulmonary disease. Suspect large hiatal hernia.
[2018-10-22 14:20] LABS: ALB/GLOB RATIO 1.3 (1.1-1.8); ALBUMIN 4.5 g/dL (3.0-4.8); ALT/SGPT 24 U/L (7-56); AST/SGOT 27 U/L (14-36); BLOOD UREA NITROGEN 18 mg/dL (7-21); CALCIUM 9.6 mg/dL (8.4-10.5); GFR NON-AFRICAN AMERICAN 60; LIPASE 130 U/L (23-300)
[2018-10-22 14:25] LABS: B-TYPE NATRIURETIC PEPTIDE 377 pg/mL (0-450); TROPONIN I < 0.01 ng/mL
[2018-10-22 14:41] LABS: PH,URINE 7.5 (4.7-8.0); URINE BILIRUBIN NEGATIVE (NEGATIVE); URINE BLOOD NEGATIVE (NEGATIVE); URINE GLUCOSE (UA) NEGATIVE (NEGATIVE); URINE LEUKOCYTE ESTERASE TRACE Leu/uL (NEGATIVE); URINE PROTEIN TRACE mg/dL (<30 mg/dL); URINE UROBILINOGEN 0.2 E.U./dL (<1 E.U./dL)
[2018-10-22 14:42] LABS: URINE APPEARANCE CLEAR (CLEAR); URINE COLOR YELLOW (YELLOW)
[2018-10-22 14:46] LABS: URINE BACTERIA MOD /hpf; URINE RBC 0 - 2 /hpf (0-2)
[2018-10-22 14:47] LABS: URINE AMORPHOUS SEDIMENT FEW /hpf
--- NOTE | 2018-10-22 15:12 | ED PDOC ---
Arrival/HPI - General Chief Complaint: GI Problem Time Seen by Provider: 10/22/18 13:08 Historian: Patient, Family - History of Present Illness Narrative History of Present Illness (Text): 10/22/18 14:52 83-year-old female presents today with nausea, vomiting, upper abdominal pain cough and chest pain 1 week. pt complaining of upper and lower back pain and dysuria. no fever/ chills. no dizziness or weakness. pt complaining of urinary frequency. family states patient has been vomiting multiple times every time she eats. no trauma or injury. pt also complaining of anterior chest pain. Time/Duration: 1 week Symptom Onset: Gradual Severity Level: Mild Past Medical History - Provider Review Nursing Documentation Reviewed: Yes - Travel History Have you recently traveled outside [place] w/in the past 3 mons?: No - Infectious Disease Hx of Infectious Diseases: None - Tetanus Immunization Tetanus Immunization: Unknown - Cardiac Hx Pacemaker: No - Pulmonary Hx Respiratory Disorders: No - Neurological Hx Neurological Disorder: No - HEENT Hx HEENT Disorder: Yes Hx Cataracts: Yes Other/Comment: Hard of hearing in left ear - Renal Hx Renal Disorder: Yes Hx Kidney Stones: Yes - Endocrine/Metabolic Hx Endocrine Disorders: Yes Hx Diabetes Mellitus Type 2: Yes - Hematological/Oncological Hx Blood Transfusions: Yes Hx Blood Transfusion Reaction: No - Integumentary Hx Dermatological Disorder: No Other/Comment: xerosis - Musculoskeletal/Rheumatological Hx Musculoskeletal Disorders: Yes - Gastrointestinal Hx Gastrointestinal Disorders: Yes Hx Gall Bladder Disease: Yes (CHOLECYSTECTOMY) Hx Gastroesophageal Reflux: Yes Other/Comment: Inguinal HERNIA REPAIR; current umbilical hernia - Genitourinary/Gynecological Hx Genitourinary Disorders: Yes Hx Urinary Tract Infection: Yes (As Per Pt) - Psychiatric Hx Psychophysiologic Disorder: Yes Hx Anxiety: Yes Hx Depression: Yes Hx Substance Use: No - Surgical History Hx Cholecystectomy: Yes Hx Hysterectomy: Yes Hx Thyroidectomy: Yes Other/Comment: R eye sx,vascular surgery,laparoscopy - Anesthesia Hx Anesthesia: Yes Hx Anesthesia Reactions: No Hx Malignant Hyperthermia: No Family/Social History - Physician Review Nursing Documentation Reviewed: Yes Family/Social History: Unknown Family HX Smoking Status: Never Smoked Hx Alcohol Use: No Hx Substance Use: No Allergies/Home Meds Allergies/Adverse Reactions: Allergies No Known Allergies Allergy (Verified 06/08/18 08:53) Home Medications: Home Meds Medication Instructions Recorded Confirmed Atorvastatin [Lipitor] 20 mg PO DAILY 03/05/18 08/25/18 Lisinopril [Prinivil] 40 mg PO DAILY 03/05/18 10/06/18 Memantine [Namenda] 10 mg PO BID 03/05/18 10/06/18 MetFORMIN ER [Glucophage XR] 750 mg PO BID 03/05/18 10/06/18 Sertraline [Zoloft] 50 mg PO DAILY 03/05/18 10/06/18 amLODIPine [Norvasc] 10 mg PO DAILY 03/05/18 10/06/18 Isosorbide Mononitrate [Isosorbide 30 mg PO DAILY 10/06/18 10/06/18 Mononitrate ER] Verapamil HCl 180 mg PO HS 10/06/18 10/06/18 Review of Systems - Review of Systems Constitutional: absent: Fatigue, Fevers Respiratory: Cough, Sputum Cardiovascular: Chest Pain. absent: Palpitations Gastrointestinal: Abdominal Pain, Nausea, Vomiting. absent: Constipation, Diarrhea Genitourinary Female: Dysuria, Frequency. absent: Hematuria Musculoskeletal: Arthralgias Skin: absent: Rash, Pruritis Neurological: absent: Dizziness Psychiatric: absent: Anxiety, Depression Physical Exam Vital Signs Reviewed: Yes Vital Signs Temp Pulse Resp BP Pulse Ox 10/22/18 13:58 97.5 F L 83 18 129/69 96 10/22/18 12:48 98.8 F 90 18 152/67 H 100 Temperature: Afebrile Blood Pressure: Normal Pulse: Regular Respiratory Rate: Normal Appearance: Positive for: Well-Appearing, Non-Toxic, Comfortable Pain Distress: None Mental Status: Positive for: Alert and Oriented X 3 - Systems Exam Head: Present: Atraumatic Mouth: Present: Moist Mucous Membranes Neck: Present: Normal Range of Motion Respiratory/Chest: Present: Clear to Auscultation, Good Air Exchange. No: Re spiratory Distress, Accessory Muscle Use Cardiovascular: Present: Regular Rate and Rhythm, Normal S1, S2. No: Murmurs Abdomen: Present: Tenderness (+ minimal epigastric tenderness). No: Distention, Peritoneal Signs, Rebound, Guarding Back: Present: Normal Inspection. No: CVA Tenderness, Midline Tenderness, Paraspinal Tenderness Upper Extremity: Present: Normal ROM Lower Extremity: Present: Normal ROM Neurological: Present: GCS=15, Speech Normal Skin: Present: Warm, Dry, Normal Color. No: Rashes Psychiatric: Present: Alert, Oriented x 3 Medical Decision Making ED Course and Treatment: 10/22/18 15:14 Patient is nontoxic well appearing with stable vital signs presenting with n/v/cough, and abdominal pain, urinary symptoms. per family patient is unable to eat/drink without vomiting x 1 week. CBC wnl CMPwnl Lipase wnl trop; wnl Urinalysis: + leukocytes, + bacteria CAT scan: FINDINGS: LOWER THORAX: Large hiatal hernia LIVER: Unremarkable. No gross lesion or ductal dilatation. GALLBLADDER AND BILE DUCTS: Cholecystectomy PANCREAS: Unremarkable. No gross lesion or ductal dilatation. SPLEEN: Unremarkable. ADRENALS: Unremarkable. No mass. KIDNEYS AND URETERS: Unremarkable. No hydronephrosis. No solid mass. VASCULATURE: Unremarkable. No aortic aneurysm. Aortic calcification BOWEL: Unremarkable. No obstruction. No gross mural thickening. There is a fat containing umbilical hernia unchanged APPENDIX: Normal appendix. PERITONEUM: Unremarkable. No free fluid. No free air. LYMPH NODES: Unremarkable. No enlarged lymph nodes. BLADDER: Unremarkable. REPRODUCTIVE: Unremarkable. BONES: No acute fracture. OTHER FINDINGS: None. IMPRESSION: No acute intra-abdominal findings Patient reassessment:resting comfortable. c/o slight nausea. minimal epigastric tenderness. pt given rocephin for UTI. Discussed all results with patient/family in depth. family is concerned because patient has not been able to tolerate fluids/solids at home without vomiting. pt is with continued repeat visits for abdominal pain and continued vomiting. will admit observational status for GI consultation. case discussed with dr. maradiaga; accepts observational status admission Impression: Abdominal pain, vomiting, cough, UTI admit observational status to med/surg - Lab Interpretations Lab Results: 10/22/18 13:30 10/22/18 13:30 Lab Results 10/22/18 13:30: WBC 8.2, RBC 3.65, Hgb 10.0 L, Hct 30.8 L, MCV 84.4, MCH 27.4, MCHC 32.5, RDW 13.9, Plt Count 320, MPV 8.8, Gran % 81.5 H, Lymph % (Auto) 13.9 L, [place] % (Auto) 4.1, Eos % (Auto) 0.1 L, Baso % (Auto) 0.4, Gran # 6.70 H, Lymph # (Auto) 1.1 L, [place] # (Auto) 0.3, Eos # (Auto) 0.0, Baso # (Auto) 0.03 10/22/18 13:30: Sodium 134, Potassium 4.7, Chloride 98, Carbon Dioxide 27, Anion Gap 14, BUN 18, Creatinine 0.9, Est GFR ( Amer) > 60, Est GFR (Non-Af Amer) 60, Random Glucose 140 H, Calcium 9.6, Total Bilirubin 0.4, AST 27, ALT 24, Alkaline Phosphatase 69, Lactate Dehydrogenase 460, Total Creatine Kinase 82, Troponin I < 0.01, NT-Pro-B Natriuret Pep 377, Total Protein 8.0, Albumin 4.5, Globulin 3.5, Albumin/Globulin Ratio 1.3, Lipase 130 10/22/18 13:30: Urine Color Yellow, Urine Appearance Clear, Urine pH 7.5, Ur Specific [place] 1.010, Urine Protein Trace H, Urine Glucose (UA) Negative, Urine Ketones Negative, Urine Blood Negative, Urine Nitrate Negative, Urine Bi lirubin Negative, Urine Urobilinogen 0.2, Ur Leukocyte Esterase Trace H, Urine RBC 0 - 2, Urine WBC 2 - 5, Ur Epithelial Cells 1 - 3, Amorphous Sediment Few, Urine Bacteria Mod - RAD Interpretation Radiology Orders: 10/22/18 13:17 CHEST PORTABLE [RAD] Stat 10/22/18 13:42 ABD & PELVIS IV CONTRAST ONLY [CT] Stat - Medication Orders Current Medication Orders: Discontinued Medications Ondansetron HCl (Zofran Inj) 4 mg IVP STAT STA Stop: 10/22/18 14:05 Last Admin: 10/22/18 14:36 Dose: 4 mg IVP Administration Document 10/22/18 14:36 BB (Rec: 10/22/18 14:38 BB [id number]) Charges for Administration # of IVP Administrations 1 Disposition/Present on Arrival - Present on Arrival Any Indicators Present on Arrival: No History of DVT/PE: No History of Uncontrolled Diabetes: Yes Urinary Catheter: No History of Decub. Ulcer: No History Surgical Site Infection Following: None - Disposition Have Diagnosis and Disposition been Completed?: Yes Diagnosis: UTI (urinary tract infection), Hiatal hernia, Abdominal pain Disposition: HOSPITALIZED Disposition Time: 16:40 Patient Plan: Observation Condition: FAIR Forms: [employer] (Citizen Of [place])
--- NOTE | 2018-10-22 16:14 | CT ---
Date of service: 10/22/2018 PROCEDURE: CT Abdomen and Pelvis with contrast HISTORY: abd pain COMPARISON: CT 10/06/2018 TECHNIQUE: Contrast dose: 100 cc of Omni 300 Radiation dose: Total exam DLP = 225.27 mGy-cm. This CT exam was performed using one or more of the following dose reduction techniques: Automated exposure control, adjustment of the mA and/or kV according to patient size, and/or use of iterative reconstruction technique. FINDINGS: LOWER THORAX: Large hiatal hernia LIVER: Unremarkable. No gross lesion or ductal dilatation. GALLBLADDER AND BILE DUCTS: Cholecystectomy PANCREAS: Unremarkable. No gross lesion or ductal dilatation. SPLEEN: Unremarkable. ADRENALS: Unremarkable. No mass. KIDNEYS AND URETERS: Unremarkable. No hydronephrosis. No solid mass. VASCULATURE: Unremarkable. No aortic aneurysm. Aortic calcification BOWEL: Unremarkable. No obstruction. No gross mural thickening. There is a fat containing umbilical hernia unchanged APPENDIX: Normal appendix. PERITONEUM: Unremarkable. No free fluid. No free air. LYMPH NODES: Unremarkable. No enlarged lymph nodes. BLADDER: Unremarkable. REPRODUCTIVE: Unremarkable. BONES: No acute fracture. OTHER FINDINGS: None. IMPRESSION: No acute intra-abdominal findings
[2018-10-22] MEDS ORDERED: cefTRIAXone 1 gm 1 GM/100 ML BAG IVPB STA (17:03)
--- NOTE | 2018-10-22 17:23 | CARD ---
APPROVED REPORT Date of service: 10/22/2018 EKG Measurement Heart [id number] <Conclusion> Normal sinus rhythm Normal ECG
--- NOTE | 2018-10-22 18:33 | CP.PCM.HP ---
<Pro Castillo - Last Filed: 10/22/18 20:27> History of Present Illness - History of Present Illness History of Present Illness: Resident History & Physical for Hospitalist Service Patient is a 83 year old female with past medical history T2DM, HLD, umbilical and hiatal hernias, osteoarthritis presenting with chief complaint of nausea, vomiting, and abdominal pain for the past month. She also admits to dysuria that has been going on for more than a week. Patient has presented to the hospital multiple times for similar symptoms. Of note, her most recent endoscopy was in August 2018 which showed hiatal hernia with multiple ulcers. Patient states she did not follow up with a agricultural equipment design engineer upon discharge. Patient denies fevers, chills, hematemesis, chest pain, shortness of breath, diarrhea, constipation, hematochezia. Patient is a poor historian and information was obtained from ED and prior records. PMH: T2DM, HLD, umbilical and hiatal hernias, osteoarthritis PSH: cholecystectomy, hysterectomy, unknown type of thyroid surgery but does not take synthroid Allergies: NKDA FHx: reviewed, non-contributory SHx: denies tobacco, alcohol, or illicit drug use. PMD: Dr. Woods Present on Admission - Present on Admission Any Indicators Present on Admission: No Review of Systems - Review of Systems All systems: reviewed and no additional remarkable complaints except (as stated in HPI) Past Patient History - Infectious Disease Hx of Infectious Diseases: None - Tetanus Immunizations Tetanus Immunization: Unknown - Past Social History Smoking Status: Never Smoked - CARDIAC Hx Pacemaker: No - PULMONARY Hx Respiratory Disorders: No - NEUROLOGICAL Hx Neurological Disorder: No - HEENT Hx HEENT Problems: Yes Hx Cataracts: Yes Other/Comment: Hard of hearing in left ear - RENAL Hx Chronic Kidney Disease: Yes Hx Kidney Stones: Yes - ENDOCRINE/METABOLIC Hx Endocrine Disorders: Yes Hx Diabetes Mellitus Type 2: Yes - HEMATOLOGICAL/ONCOLOGICAL Hx Blood Transfusions: Yes Hx Blood Transfusion Reaction: No - INTEGUMENTARY Hx Dermatological Problems: No Other/Comment: xerosis - MUSCULOSKELETAL/RHEUMATOLOGICAL Hx Musculoskeletal Disorders: Yes - GASTROINTESTINAL Hx Gastrointestinal Disorders: Yes Hx Gall Bladder Disease: Yes (CHOLECYSTECTOMY) Hx Gastroesophageal Reflux: Yes Other/Comment: Inguinal HERNIA REPAIR; current umbilical hernia - GENITOURINARY/GYNECOLOGICAL Hx Genitourinary Disorders: Yes Hx Urinary Tract Infection: Yes (As Per Pt) - PSYCHIATRIC Hx Psychophysiologic Disorder: Yes Hx Anxiety: Yes Hx Depression: Yes Hx Substance Use: No - SURGICAL HISTORY Hx Cholecystectomy: Yes Hx Hysterectomy: Yes Hx Thyroidectomy: Yes Other/Comment: R eye sx,vascular surgery,laparoscopy - ANESTHESIA Hx Anesthesia: Yes Hx Anesthesia Reactions: No Hx Malignant Hyperthermia: No Meds Allergies/Adverse Reactions: Allergies Allergy/AdvReac Type Severity Reaction Status Date / Time No Known Allergies Allergy Verified 06/08/18 08:53 Physical Exam - Constitutional Appears: Non-toxic, No Acute Distress - Head Exam Head Exam: ATRAUMATIC, NORMOCEPHALIC - Eye Exam Eye Exam: EOMI, Normal appearance, PERRL - ENT Exam ENT Exam: Mucous Membranes Moist - Neck Exam Neck exam: Positive for: Normal Inspection - Respiratory Exam Respiratory Exam: Clear to Auscultation Bilateral, NORMAL BREATHING PATTERN. absent: Accessory Muscle Use, Rales, Rhonchi, Respiratory Distress - Cardiovascular Exam Cardiovascular Exam: REGULAR RHYTHM, +S1, +S2. absent: Systolic Murmur - GI/Abdominal Exam GI & Abdominal Exam: Firm, Guarding, Hyperactive Bowel Sounds, Soft, Tenderness. absent: Rebound, Rigid Additional comments: diffuse - Extremities Exam Extremities exam: Positive for: normal capillary refill, pedal pulses present. Negative for: calf tenderness, pedal edema, tenderness - Neurological Exam Neurological exam: Alert, CN II-XII Intact, Oriented x3 - Psychiatric Exam Psychiatric exam: Anxious - Skin Skin Exam: Dry, Intact, Normal Color, Warm Results - Vital Signs Recent Vital Signs: Last Vital Signs Temp 97.5 F L 10/22/18 13:58 Pulse 78 10/22/18 17:17 Resp 18 10/22/18 17:17 BP 142/72 10/22/18 17:17 Pulse Ox 98 10/22/18 17:17 - Labs Result Diagrams: 10/22/18 13:30 10/22/18 13:30 Labs: Laboratory Results - last 24 hr 10/22/18 10/22/18 10/22/18 13:30 13:30 13:30 WBC 8.2 RBC 3.65 Hgb 10.0 L Hct 30.8 L MCV 84.4 MCH 27.4 MCHC 32.5 RDW 13.9 Plt Count 320 MPV 8.8 Gran % 81.5 H Lymph % (Auto) 13.9 L [place] % (Auto) 4.1 Eos % (Auto) 0.1 L Baso % (Auto) 0.4 Gran # 6.70 H Lymph # (Auto) 1.1 L [place] # (Auto) 0.3 Eos # (Auto) 0.0 Baso # (Auto) 0.03 Sodium 134 Potassium 4.7 Chloride 98 Carbon Dioxide 27 Anion Gap 14 BUN 18 Creatinine 0.9 Est GFR ( Amer) > 60 Est GFR (Non-Af Amer) 60 Random Glucose 140 H Calcium 9.6 Total Bilirubin 0.4 AST 27 ALT 24 Alkaline Phosphatase 69 Lactate Dehydrogenase 460 Total Creatine Kinase 82 Troponin I < 0.01 NT-Pro-B Natriuret Pep 377 Total Protein 8.0 Albumin 4.5 Globulin 3.5 Albumin/Globulin Ratio 1.3 Lipase 130 Urine Color Yellow Urine Appearance Clear Urine pH 7.5 Ur Specific [place] 1.010 Urine Protein Trace H Urine Glucose (UA) Negative Urine Ketones Negative Urine Blood Negative Urine Nitrate Negative Urine Bilirubin Negative Urine Urobilinogen 0.2 Ur Leukocyte Esterase Trace H Urine RBC 0 - 2 Urine WBC 2 - 5 Ur Epithelial Cells 1 - 3 Amorphous Sediment Few Urine Bacteria Mod Assessment & Plan - Assessment and Plan (Free Text) Assessment: Patient is a 83 year old female with past medical history T2DM, HLD, umbilical and hiatal hernias, osteoarthritis presenting with chief complaint of nausea, vomiting, and abdominal pain for the past month. Plan: Abdominal pain - likely due to patient's history of chronic gastritis and hiatal hernia - CT abd/pelvis shows large hiatal hernia, negative for acute findings - GI consulted. Appreciate recs. - NPO Vomiting - Zofran - NS 100 ccs/hr UTI - afebrile, no leukocytosis - UA shows trace leukocyte esterase, 2-5 WBCs, moderate bacteria - Rocephin 1 gm IV daily - followup urine culture T2DM - ISS - Accuchecks PPX - SCDs - Protonix 40 mg IV daily Case discussed with Dr. Gregorio Castillo PGY-1 - Date & Time Date: 10/22/18 Time: 18:00 <Zane Perkins - Last Filed: 10/23/18 08:52> Results - Vital Signs Recent Vital Signs: Last Vital Signs Temp 98 F 10/23/18 06:00 Pulse 86 10/23/18 06:00 Resp 18 10/23/18 06:00 BP 151/90 H 10/23/18 06:00 Pulse Ox 98 10/23/18 06:00 - Labs Result Diagrams: 10/23/18 06:20 10/23/18 06:20 Labs: Laboratory Results - last 24 hr 10/22/18 10/22/18 10/22/18 13:30 13:30 13:30 WBC 8.2 RBC 3.65 Hgb 10.0 L Hct 30.8 L MCV 84.4 MCH 27.4 MCHC 32.5 RDW 13.9 Plt Count 320 MPV 8.8 Gran % 81.5 H Lymph % (Auto) 13.9 L [place] % (Auto) 4.1 Eos % (Auto) 0.1 L Baso % (Auto) 0.4 Gran # 6.70 H Lymph # (Auto) 1.1 L [place] # (Auto) 0.3 Eos # (Auto) 0.0 Baso # (Auto) 0.03 Sodium 134 Potassium 4.7 Chloride 98 Carbon Dioxide 27 Anion Gap 14 BUN 18 Creatinine 0.9 Est GFR ( Amer) > 60 Est GFR (Non-Af Amer) 60 POC Glucose (mg/dL) Random Glucose 140 H Calcium 9.6 Phosphorus Magnesium Total Bilirubin 0.4 AST 27 ALT 24 Alkaline Phosphatase 69 Lactate Dehydrogenase 460 Total Creatine Kinase 82 Troponin I < 0.01 NT-Pro-B Natriuret Pep 377 Total Protein 8.0 Albumin 4.5 Globulin 3.5 Albumin/Globulin Ratio 1.3 Triglycerides Cholesterol LDL Cholesterol Direct HDL Cholesterol Lipase 130 Urine Color Yellow Urine Appearance Clear Urine pH 7.5 Ur Specific [place] 1.010 Urine Protein Trace H Urine Glucose (UA) Negative Urine Ketones Negative Urine Blood Negative Urine Nitrate Negative Urine Bilirubin Negative Urine Urobilinogen 0.2 Ur Leukocyte Esterase Trace H Urine RBC 0 - 2 Urine WBC 2 - 5 Ur Epithelial Cells 1 - 3 Amorphous Sediment Few Urine Bacteria Mod 10/23/18 10/23/18 10/23/18 06:20 06:20 07:07 WBC 5.7 D RBC 3.40 L Hgb 9.2 L Hct 29.0 L MCV 85.3 MCH 27.1 MCHC 31.7 RDW 14.3 Plt Count 320 MPV 8.9 Gran % 50.3 Lymph % (Auto) 37.9 H [place] % (Auto) 9.2 H Eos % (Auto) 1.9 Baso % (Auto) 0.7 Gran # 2.86 Lymph # (Auto) 2.2 [place] # (Auto) 0.5 Eos # (Auto) 0.1 Baso # (Auto) 0.04 Sodium 137 Potassium 4.3 Chloride 104 Carbon Dioxide 29 Anion Gap 10 BUN 15 Creatinine 1.0 Est GFR ( Amer) > 60 Est GFR (Non-Af Amer) 53 POC Glucose (mg/dL) 120 H Random Glucose 128 H Calcium 9.2 Phosphorus 4.3 Magnesium 1.6 L Total Bilirubin 0.5 AST 32 ALT 27 Alkaline Phosphatase 62 Lactate Dehydrogenase Total Creatine Kinase Troponin I NT-Pro-B Natriuret Pep Total Protein 6.9 Albumin 3.8 Globulin 3.1 Albumin/Globulin Ratio 1.2 Triglycerides 54 Cholesterol 141 LDL Cholesterol Direct 62 HDL Cholesterol 63 H Lipase Urine Color Urine Appearance Urine pH Ur Specific [place] Urine Protein Urine Glucose (UA) Urine Ketones Urine Blood Urine Nitrate Urine Bilirubin Urine Urobilinogen Ur Leukocyte Esterase Urine RBC Urine WBC Ur Epithelial Cells Amorphous Sediment Urine Bacteria Attending/Attestation - Attestation I have personally seen and examined this patient.: Yes I have fully participated in the care of the patient.: Yes I have reviewed all pertinent clinical information: Yes
[2018-10-22] MEDS: Sodium Chloride 0.9% 1,000 ML IV SCH (19:04)
[2018-10-22] MEDS: Insulin Reg-LOW-Coverage SC SCH (22:23)
[2018-10-23] MEDS: Sodium Chloride 0.9% 1,000 ML IV SCH (05:51)
[2018-10-23 06:48] LABS: BASO # 0.04 K/mm3 (0.0-2.0); BASO % 0.7 % (0.0-3.0); EOS # 0.1 (0.0-0.7); EOS % 1.9 % (1.5-5.0); GRAN # 2.86 (1.4-6.5); GRAN % 50.3 % (50.0-68.0); HEMOGLOBIN 9.2 g/dL (12.0-16.0); LYMPH # 2.2 (1.2-3.4); LYMPH % 37.9 % (22.0-35.0); MEAN CELL VOLUME 85.3 fl (80.0-105.0); MEAN CORPUSCULAR HEMOGLOBIN 27.1 pg (25.0-35.0); MEAN CORPUSCULAR HGB CONC 31.7 g/dl (31.0-37.0); MEAN PLATELET VOLUME 8.9 fl (7.0-11.0); MONO # 0.5 (0.1-0.6); MONO % 9.2 % (1.0-6.0); RBC 3.4 10^6/uL (3.5-6.1); RED CELL DISTRIBUTION WIDTH 14.3 % (11.5-14.5); WHITE BLOOD COUNT 5.7 10^3/uL (4.5-11.0)
[2018-10-23 07:12] LABS: ALB/GLOB RATIO 1.2 (1.1-1.8); ALBUMIN 3.8 g/dL (3.0-4.8); ALT/SGPT 27 U/L (7-56); AST/SGOT 32 U/L (14-36); BLOOD UREA NITROGEN 15 mg/dL (7-21); CALCIUM 9.2 mg/dL (8.4-10.5); GFR NON-AFRICAN AMERICAN 53; HDL CHOLESTEROL 63 mg/dL (29-60)
[2018-10-23 07:24] LABS: LDL CHOLESTEROL 62 mg/dL (0-129)
--- NOTE | 2018-10-23 07:40 | CP.PCM.PN ---
<Pro Castillo - Last Filed: 10/23/18 18:49> Subjective - Date & Time of Evaluation Date of Evaluation: 10/23/18 Time of Evaluation: 07:39 - Subjective Subjective: Resident Progress Note for Hospitalist Service Patient examined at bedside. No acute events overnight. Patient states her nausea and vomiting has resolved and her abdominal pain is improved. Denies fevers, chills, chest pain, shortness of breath, diarrhea. Objective - Vital Signs/Intake and Output Vital Signs (last 24 hours): Temp Pulse Resp BP Pulse Ox 98 F 86 18 151/90 H 98 10/23/18 06:00 10/23/18 06:00 10/23/18 06:00 10/23/18 06:00 10/23/18 06:00 - Medications Medications: Current Medications Acetaminophen (Tylenol 325mg Tab) 650 mg PO Q6H PRN PRN Reason: Fever >100.4 F Ceftriaxone Sodium (Rocephin 1 Gram Ivpb) 1 gm in 100 mls @ 100 mls/hr IVPB DAILY MIGUELINA; Protocol Sodium Chloride (Sodium Chloride 0.9%) 1,000 mls @ 100 mls/hr IV .Q10H MIGUELINA Last Admin: 10/23/18 05:51 Dose: 100 mls/hr Insulin Human Regular (Humulin R Low) 0 units SC ACHS MIGUELINA; Protocol Last Admin: 10/22/18 22:23 Dose: Not Given Ondansetron HCl (Zofran Inj) 4 mg IVP Q6H PRN PRN Reason: Nausea/Vomiting Pantoprazole Sodium (Protonix Inj) 40 mg IVP DAILY MIGUELINA - Labs Labs: 10/23/18 06:20 10/23/18 06:20 - Additional Findings Additional findings: - Constitutional Appears: Non-toxic, No Acute Distress - Head Exam Head Exam: ATRAUMATIC, NORMOCEPHALIC - Eye Exam Eye Exam: EOMI, Normal appearance - ENT Exam ENT Exam: Mucous Membranes Moist - Neck Exam Neck exam: Positive for: Normal Inspection - Respiratory Exam Respiratory Exam: Clear to Auscultation Bilateral, NORMAL BREATHING PATTERN. absent: Accessory Muscle Use, Rales, Rhonchi, Respiratory Distress - Cardiovascular Exam Cardiovascular Exam: REGULAR RHYTHM, +S1, +S2. absent: Systolic Murmur - GI/Abdominal Exam GI & Abdominal Exam: Guarding, Bowel Sounds Present, Soft. absent: Rebound, Rigid, Tenderness - Extremities Exam Extremities exam: Positive for: normal capillary refill, pedal pulses present. Negative for: calf tenderness, pedal edema, tenderness - Neurological Exam Neurological exam: Alert, CN II-XII Intact, Oriented x3 - Psychiatric Exam Psychiatric exam: Normal Affect - Skin Skin Exam: Dry, Intact, Normal Color, Warm Assessment and Plan - Assessment and Plan (Free Text) Assessment: Patient is a 83 year old female with past medical history T2DM, HLD, umbilical and hiatal hernias, osteoarthritis presenting with chief complaint of nausea, vomiting, and abdominal pain for the past month. Plan: Abdominal pain - likely due to patient's history of chronic gastritis and hiatal hernia - CT abd/pelvis shows large hiatal hernia, negative for acute findings - GI consulted. Appreciate recs. - Diet advanced Vomiting - Zofran PRN - NS 100 ccs/hr UTI - afebrile, no leukocytosis - UA shows trace leukocyte esterase, 2-5 WBCs, moderate bacteria - Rocephin 1 gm IV daily - followup urine culture T2DM - ISS - Accuchecks PPX - SCDs - Protonix 40 mg IV daily Case discussed with Dr. Gregorio Castillo PGY-1 <Zane Perkins - Last Filed: 10/24/18 13:54> Objective - Vital Signs/Intake and Output Vital Signs (last 24 hours): Temp Pulse Resp BP Pulse Ox 98.6 F 78 20 140/74 99 10/24/18 06:00 10/24/18 06:00 10/24/18 06:00 10/24/18 06:00 10/24/18 06:00 Intake and Output: 10/24/18 10/24/18 06:59 18:59 Intake Total 1680 Balance 1680 - Medications Medications: Current Medications Acetaminophen (Tylenol 325mg Tab) 650 mg PO Q6H PRN PRN Reason: Fever >100.4 F Sodium Chloride (Sodium Chloride 0.9%) 1,000 mls @ 100 mls/hr IV .Q10H MIGUELINA Last Admin: 10/24/18 12:51 Dose: 100 mls/hr Ceftriaxone Sodium (Rocephin 1 Gram Ivpb) 1 gm in 100 mls @ 100 mls/hr IVPB DAILY MIGUELINA; Protocol Last Admin: 10/24/18 12:49 Dose: 100 mls/hr Insulin Human Regular (Humulin R Low) 0 units SC ACHS [facility]; Protocol Last Admin: 10/24/18 12:51 Dose: Not Given Ondansetron HCl (Zofran Inj) 4 mg IVP Q6H PRN PRN Reason: Nausea/Vomiting Pantoprazole Sodium (Protonix Inj) 40 mg IVP DAILY MIGUELINA Last Admin: 10/24/18 12:49 Dose: 40 mg - Labs Labs: 10/24/18 06:00 10/24/18 06:00 Attending/Attestation - Attestation I have personally seen and examined this patient.: Yes I have fully participated in the care of the patient.: Yes I have reviewed all pertinent clinical information, including history, physical exam and plan: Yes
[2018-10-23] MEDS: Insulin Reg-LOW-Coverage SC SCH ×2 (07:44→19:49)
[2018-10-23] MEDS ORDERED: cefTRIAXone 1 gm 1 GM/100 ML BAG IVPB SCH (10:00)
--- NOTE | 2018-10-23 20:06 | CON ---
DATE OF CONSULTATION: 10/23/2017 REQUESTING PHYSICIAN: Dr. Epperson REASON FOR CONSULTATION: I have been asked to see this 83-year-old female with a history of type 2 diabetes mellitus, large hiatal hernia, peptic ulcer disease on endoscopy in 08/2018, who comes to the hospital with abdominal pain, nausea and vomiting intermittently for the last month. She has had multiple hospitalizations for similar problems. She currently denies any abdominal pain, nausea, or vomiting. She denies any fevers or chills. PAST MEDICAL HISTORY: As above. Again, she has a history of hiatal hernia, peptic ulcer disease, diabetes mellitus, hyperlipidemia, osteoarthritis. PAST SURGICAL HISTORY: Notable for hysterectomy and cholecystectomy. FAMILY HISTORY: Noncontributory. SOCIAL HISTORY: She denies cigarette smoking or alcohol use. MEDICATIONS AT HOME: Omeprazole, Desyrel, Zantac, lisinopril, Isordil, famotidine, Lipitor, Norvasc, verapamil, metformin, and Namenda. REVIEW OF SYSTEMS: A 14-point review of systems is notable for abdominal pain, nausea, vomiting. PHYSICAL EXAMINATION: GENERAL: Elderly female lying in bed, appearing comfortable, in no acute distress. VITAL SIGNS: Temperature of 98, blood pressure 151/90, heart rate of 86. HEENT: Reveal sclerae to be white. Conjunctivae pink. NECK: Supple. CHEST: Reveal lungs to be clear. HEART: Regular rate and rhythm. ABDOMEN: Soft, nontender. EXTREMITIES: No edema. LABORATORY DATA: White blood cell count 5.7, hemoglobin 9.2. Chemistries reveal blood sugar of 128. AST, ALT, alk phos were all normal. CT scan of the abdomen and pelvis performed in the emergency room reveals a large hiatal hernia, otherwise no acute intraabdominal findings. IMPRESSION: An 83-year-old female with chronic recurrent abdominal pain, nausea and vomiting with a recent upper endoscopy showing ulcers and a large hiatal hernia. Her abdominal pain and vomiting have resolved. RECOMMENDATIONS: 1. We will advance to a 2000-calorie ADA diet. 2. Continue PPI. 3. The patient can be discharged home with outpatient followup. NOTE: The patient has anemia and this can also be worked up electively if she has not had a colonoscopy in the last 5 years. Vikram Hernández MD [facility] # [id number]
[2018-10-24] MEDS: Sodium Chloride 0.9% 1,000 ML IV SCH ×2 (02:30→12:51)
[2018-10-24 07:05] LABS: ALB/GLOB RATIO 1.2 (1.1-1.8); ALBUMIN 3.7 g/dL (3.0-4.8); ALT/SGPT 26 U/L (7-56); AST/SGOT 27 U/L (14-36); BLOOD UREA NITROGEN 16 mg/dL (7-21); GFR NON-AFRICAN AMERICAN 60
[2018-10-24 07:10] LABS: BASO # 0.04 K/mm3 (0.0-2.0); BASO % 0.7 % (0.0-3.0); EOS # 0.1 (0.0-0.7); EOS % 2.6 % (1.5-5.0); GRAN # 2.59 (1.4-6.5); GRAN % 48.1 % (50.0-68.0); HEMOGLOBIN 9.4 g/dL (12.0-16.0); LYMPH # 2.2 (1.2-3.4); MEAN CORPUSCULAR HEMOGLOBIN 27.4 pg (25.0-35.0); MEAN CORPUSCULAR HGB CONC 31.9 g/dl (31.0-37.0); MEAN PLATELET VOLUME 9.1 fl (7.0-11.0); MONO # 0.5 (0.1-0.6); MONO % 8.6 % (1.0-6.0); RBC 3.43 10^6/uL (3.5-6.1); RED CELL DISTRIBUTION WIDTH 14.1 % (11.5-14.5); WHITE BLOOD COUNT 5.4 10^3/uL (4.5-11.0)
--- NOTE | 2018-10-24 07:54 | CP.PCM.PN ---
Objective - Vital Signs/Intake and Output Vital Signs (last 24 hours): Temp Pulse Resp BP Pulse Ox 99.2 F 73 18 130/80 97 10/23/18 22:47 10/23/18 22:47 10/23/18 22:47 10/23/18 22:47 10/23/18 22:47 Intake and Output: 10/24/18 10/24/18 06:59 18:59 Intake Total 1680 Balance 1680 - Medications Medications: Current Medications Acetaminophen (Tylenol 325mg Tab) 650 mg PO Q6H PRN PRN Reason: Fever >100.4 F Sodium Chloride (Sodium Chloride 0.9%) 1,000 mls @ 100 mls/hr IV .Q10H MIGUELINA Last Admin: 10/24/18 02:30 Dose: 100 mls/hr Ceftriaxone Sodium (Rocephin 1 Gram Ivpb) 1 gm in 100 mls @ 100 mls/hr IVPB DAILY MIGUELINA; Protocol Insulin Human Regular (Humulin R Low) 0 units SC ACHS MIGUELINA; Protocol Last Admin: 10/23/18 19:49 Dose: Not Given Ondansetron HCl (Zofran Inj) 4 mg IVP Q6H PRN PRN Reason: Nausea/Vomiting Pantoprazole Sodium (Protonix Inj) 40 mg IVP DAILY MIGUELINA Last Admin: 10/23/18 09:16 Dose: 40 mg - Labs Labs: 10/24/18 06:00 10/24/18 06:00
[2018-10-24 08:32] VITALS: RESP 20; TEMP 98.6
[2018-10-24] MEDS ORDERED: cefTRIAXone 1 gm 1 GM/100 ML BAG IVPB SCH (10:00)
[2018-10-24] MEDS: Insulin Reg-LOW-Coverage SC SCH ×3 (12:50→15:41)
--- NOTE | 2018-10-24 12:50 | CP.PCM.DIS ---
<Pro Castillo L - Last Filed: 10/24/18 14:23> Provider - Provider Date of Admission: 10/22/18 17:03 Attending physician: Zane Perkins Primary care physician: Dr. Woods Consults: 10/22/18 18:34 Physician Consult Routine Comment: Consulting Provider: Viky Pollard V Consulting Physician: Viky Pollard V Reason for Consult: intractable vomiting, hx hiatal hernia 10/22/18 23:54 Transition In Care/Readmission Reduction Routine Comment: Physician Instructions: Reason For Exam: ADL dysfunction Time Spent in preparation of Discharge (in minutes): 35 Diagnosis - Discharge Diagnosis (1) Abdominal pain Status: Resolved (2) Hiatal hernia Status: Chronic Hospital Course - Lab Results Lab Results: Micro Results 10/22/18 13:30 Urine Urine Culture - Final No Growth (<1,000 CFU/ML) Most Recent Lab Values WBC 5.4 10^3/uL (4.5-11.0) 10/24/18 06:00 RBC 3.43 10^6/uL (3.5-6.1) L 10/24/18 06:00 Hgb 9.4 g/dL (12.0-16.0) L 10/24/18 06:00 Hct 29.5 % (36.0-48.0) L 10/24/18 06:00 MCV 86.0 fl (80.0-105.0) 10/24/18 06:00 MCH 27.4 pg (25.0-35.0) 10/24/18 06:00 MCHC 31.9 g/dl (31.0-37.0) 10/24/18 06:00 RDW 14.1 % (11.5-14.5) 10/24/18 06:00 Plt Count 330 10^3/uL (120.0-450.0) 10/24/18 06:00 MPV 9.1 fl (7.0-11.0) 10/24/18 06:00 Gran % 48.1 % (50.0-68.0) L 10/24/18 06:00 Lymph % (Auto) 40.0 % (22.0-35.0) H 10/24/18 06:00 [place] % (Auto) 8.6 % (1.0-6.0) H 10/24/18 06:00 Eos % (Auto) 2.6 % (1.5-5.0) 10/24/18 06:00 Baso % (Auto) 0.7 % (0.0-3.0) 10/24/18 06:00 Gran # 2.59 (1.4-6.5) 10/24/18 06:00 Lymph # (Auto) 2.2 (1.2-3.4) 10/24/18 06:00 [place] # (Auto) 0.5 (0.1-0.6) 10/24/18 06:00 Eos # (Auto) 0.1 (0.0-0.7) 10/24/18 06:00 Baso # (Auto) 0.04 K/mm3 (0.0-2.0) 10/24/18 06:00 Sodium 138 mmol/L (132-148) 10/24/18 06:00 Potassium 4.0 mmol/L (3.6-5.0) 10/24/18 06:00 Chloride 104 mmol/L (98-107) 10/24/18 06:00 Carbon Dioxide 26 mmol/L (21-33) 10/24/18 06:00 Anion Gap 12 (10-20) 10/24/18 06:00 BUN 16 mg/dL (7-21) 10/24/18 06:00 Creatinine 0.9 mg/dl (0.7-1.2) 10/24/18 06:00 Est GFR ( Amer) > 60 10/24/18 06:00 Est GFR (Non-Af Amer) 60 10/24/18 06:00 POC Glucose (mg/dL) 120 mg/dL (65-110) H 10/24/18 06:35 Random Glucose 139 mg/dL (70-110) H 10/24/18 06:00 Calcium 9.0 mg/dL (8.4-10.5) 10/24/18 06:00 Phosphorus 4.3 mg/dL (2.5-4.5) 10/24/18 06:00 Magnesium 1.5 mg/dL (1.7-2.2) L 10/24/18 06:00 Total Bilirubin 0.3 mg/dL (0.2-1.3) 10/24/18 06:00 AST 27 U/L (14-36) 10/24/18 06:00 ALT 26 U/L (7-56) 10/24/18 06:00 Alkaline Phosphatase 59 U/L (38-126) 10/24/18 06:00 Lactate Dehydrogenase 460 U/L (333-699) 10/22/18 13:30 Total Creatine Kinase 82 U/L (35-230) 10/22/18 13:30 Troponin I < 0.01 ng/mL 10/22/18 13:30 NT-Pro-B Natriuret Pep 377 pg/mL (0-450) 10/22/18 13:30 Total Protein 6.9 g/dL (5.8-8.3) 10/24/18 06:00 Albumin 3.7 g/dL (3.0-4.8) 10/24/18 06:00 Globulin 3.1 gm/dL 10/24/18 06:00 Albumin/Globulin Ratio 1.2 (1.1-1.8) 10/24/18 06:00 Triglycerides 54 mg/dL (35-160) 10/23/18 06:20 Cholesterol 141 mg/dL (130-200) 10/23/18 06:20 LDL Cholesterol Direct 62 mg/dL (0-129) 10/23/18 06:20 HDL Cholesterol 63 mg/dL (29-60) H 10/23/18 06:20 Lipase 130 U/L (23-300) 10/22/18 13:30 Urine Color Yellow (YELLOW) 10/22/18 13:30 Urine Appearance Clear (CLEAR) 10/22/18 13:30 Urine pH 7.5 (4.7-8.0) 10/22/18 13:30 Ur Specific [place] 1.010 (1.005-1.035) 10/22/18 13:30 Urine Protein Trace mg/dL (<30 mg/dL) H 10/22/18 13:30 Urine Glucose (UA) Negative mg/dL (NEGATIVE) 10/22/18 13:30 Urine Ketones Negative mg/dL (NEGATIVE) 10/22/18 13:30 Urine Blood Negative (NEGATIVE) 10/22/18 13:30 Urine Nitrate Negative (NEGATIVE) 10/22/18 13:30 Urine Bilirubin Negative (NEGATIVE) 10/22/18 13:30 Urine Urobilinogen 0.2 E.U./dL (<1 E.U./dL) 10/22/18 13:30 Ur Leukocyte Esterase Trace [place]/uL (NEGATIVE) H 10/22/18 13:30 Urine RBC 0 - 2 /hpf (0-2) 10/22/18 13:30 Urine WBC 2 - 5 /hpf (0-6) 10/22/18 13:30 Ur Epithelial Cells 1 - 3 /hpf (0-5) 10/22/18 13:30 Amorphous Sediment Few /hpf (NONE) 10/22/18 13:30 Urine Bacteria Mod /hpf (NONE) 10/22/18 13:30 - Hospital Course Hospital Course: On admission: Patient is a 83 year old female with past medical history T2DM, HLD, umbilical and hiatal hernias, osteoarthritis presenting with chief complaint of nausea, vomiting, and abdominal pain for the past month. She also admits to dysuria that has been going on for more than a week. Patient has presented to the hospital multiple times for similar symptoms. Of note, her most recent endoscopy was in August 2018 which showed hiatal hernia with multiple ulcers. Patient states she did not follow up with a roadability machine operator upon discharge. Patient denies fevers, chills, hematemesis, chest pain, shortness of breath, diarrhea, constipation, hematochezia. Patient is a poor historian and information was obtained from ED and prior records. During hospital stay: Patient had CT abd/pelvis done which showed large hiatal hernia, negative for acute findings. Patient was given Zofran, NS. GI was consulted. Recommended outpatient followup for colonoscopy as patient also had anemia on CBC however patient had no symptoms of active bleeding and she has chronic anemia. Patient was also treated with Rocephin for UTI. UA showed trace leukocyte esterase, 2-5 WBCs, moderate bacteria. Urine culture showed no growth. Patient was optimized for discharge and instructed to follow up with PMD and Dr. Pollard. Patient was discharged with prescription for Protonix. Please see EMR for full summary. - Date & Time of H&P Date of H&P: 10/22/18 Time of H&P: 18:33 Discharge Exam - Additional Findings Additional findings: - Constitutional Appears: Non-toxic, No Acute Distress - Head Exam Head Exam: ATRAUMATIC, NORMOCEPHALIC - Eye Exam Eye Exam: EOMI, Normal appearance - ENT Exam ENT Exam: Mucous Membranes Moist - Neck Exam Neck exam: Positive for: Normal Inspection - Respiratory Exam Respiratory Exam: Clear to Auscultation Bilateral, NORMAL BREATHING PATTERN. absent: Accessory Muscle Use, Rales, Rhonchi, Respiratory Distress - Cardiovascular Exam Cardiovascular Exam: REGULAR RHYTHM, +S1, +S2. absent: Systolic Murmur - GI/Abdominal Exam GI & Abdominal Exam: Guarding, Bowel Sounds Present, Soft. absent: Rebound, Rigid, Tenderness - Extremities Exam Extremities exam: Positive for: normal capillary refill, pedal pulses present. Negative for: calf tenderness, pedal edema, tenderness - Neurological Exam Neurological exam: Alert, CN II-XII Intact, Oriented x3 - Psychiatric Exam Psychiatric exam: Normal Affect - Skin Skin Exam: Dry, Intact, Normal Color, Warm Discharge Plan - Discharge Medications Prescriptions: Pantoprazole Sodium [Protonix] 40 mg PO DAILY #30 ect - Follow Up Plan Condition: FAIR Disposition: HOME/ ROUTINE Additional Instructions: Please continue medications as prescribed. Please take protonix 40mg daily. Please follow up with PMD as soon as possible. Please follow up with GI Dr. Pollard in two weeks. Please return to the ED if symptoms reoccur. <Zane Perkins - Last Filed: 10/24/18 14:36> Provider - Provider Date of Admission: 10/22/18 17:03 Attending physician: Zane Perkins Consults: 10/22/18 18:34 Physician Consult Routine Comment: Consulting Provider: Viky Pollard V Consulting Physician: Viky Pollard V Reason for Consult: intractable vomiting, hx hiatal hernia 10/22/18 23:54 Transition In Care/Readmission Reduction Routine Comment: Physician Instructions: Reason For Exam: ADL dysfunction Hospital Course - Lab Results Lab Results: Micro Results 10/22/18 13:30 Urine Urine Culture - Final No Growth (<1,000 CFU/ML) Most Recent Lab Values WBC 5.4 10^3/uL (4.5-11.0) 10/24/18 06:00 RBC 3.43 10^6/uL (3.5-6.1) L 10/24/18 06:00 Hgb 9.4 g/dL (12.0-16.0) L 10/24/18 06:00 Hct 29.5 % (36.0-48.0) L 10/24/18 06:00 MCV 86.0 fl (80.0-105.0) 10/24/18 06:00 MCH 27.4 pg (25.0-35.0) 10/24/18 06:00 MCHC 31.9 g/dl (31.0-37.0) 10/24/18 06:00 RDW 14.1 % (11.5-14.5) 10/24/18 06:00 Plt Count 330 10^3/uL (120.0-450.0) 10/24/18 06:00 MPV 9.1 fl (7.0-11.0) 10/24/18 06:00 Gran % 48.1 % (50.0-68.0) L 10/24/18 06:00 Lymph % (Auto) 40.0 % (22.0-35.0) H 10/24/18 06:00 [place] % (Auto) 8.6 % (1.0-6.0) H 10/24/18 06:00 Eos % (Auto) 2.6 % (1.5-5.0) 10/24/18 06:00 Baso % (Auto) 0.7 % (0.0-3.0) 10/24/18 06:00 Gran # 2.59 (1.4-6.5) 10/24/18 06:00 Lymph # (Auto) 2.2 (1.2-3.4) 10/24/18 06:00 [place] # (Auto) 0.5 (0.1-0.6) 10/24/18 06:00 Eos # (Auto) 0.1 (0.0-0.7) 10/24/18 06:00 Baso # (Auto) 0.04 K/mm3 (0.0-2.0) 10/24/18 06:00 Sodium 138 mmol/L (132-148) 10/24/18 06:00 Potassium 4.0 mmol/L (3.6-5.0) 10/24/18 06:00 Chloride 104 mmol/L (98-107) 10/24/18 06:00 Carbon Dioxide 26 mmol/L (21-33) 10/24/18 06:00 Anion Gap 12 (10-20) 10/24/18 06:00 BUN 16 mg/dL (7-21) 10/24/18 06:00 Creatinine 0.9 mg/dl (0.7-1.2) 10/24/18 06:00 Est GFR ( Amer) > 60 10/24/18 06:00 Est GFR (Non-Af Amer) 60 10/24/18 06:00 POC Glucose (mg/dL) 120 mg/dL (65-110) H 10/24/18 06:35 Random Glucose 139 mg/dL (70-110) H 10/24/18 06:00 Calcium 9.0 mg/dL (8.4-10.5) 10/24/18 06:00 Phosphorus 4.3 mg/dL (2.5-4.5) 10/24/18 06:00 Magnesium 1.5 mg/dL (1.7-2.2) L 10/24/18 06:00 Total Bilirubin 0.3 mg/dL (0.2-1.3) 10/24/18 06:00 AST 27 U/L (14-36) 10/24/18 06:00 ALT 26 U/L (7-56) 10/24/18 06:00 Alkaline Phosphatase 59 U/L (38-126) 10/24/18 06:00 Lactate Dehydrogenase 460 U/L (333-699) 10/22/18 13:30 Total Creatine Kinase 82 U/L (35-230) 10/22/18 13:30 Troponin I < 0.01 ng/mL 10/22/18 13:30 NT-Pro-B Natriuret Pep 377 pg/mL (0-450) 10/22/18 13:30 Total Protein 6.9 g/dL (5.8-8.3) 10/24/18 06:00 Albumin 3.7 g/dL (3.0-4.8) 10/24/18 06:00 Globulin 3.1 gm/dL 10/24/18 06:00 Albumin/Globulin Ratio 1.2 (1.1-1.8) 10/24/18 06:00 Triglycerides 54 mg/dL (35-160) 10/23/18 06:20 Cholesterol 141 mg/dL (130-200) 10/23/18 06:20 LDL Cholesterol Direct 62 mg/dL (0-129) 10/23/18 06:20 HDL Cholesterol 63 mg/dL (29-60) H 10/23/18 06:20 Lipase 130 U/L (23-300) 10/22/18 13:30 Urine Color Yellow (YELLOW) 10/22/18 13:30 Urine Appearance Clear (CLEAR) 10/22/18 13:30 Urine pH 7.5 (4.7-8.0) 10/22/18 13:30 Ur Specific [place] 1.010 (1.005-1.035) 10/22/18 13:30 Urine Protein Trace mg/dL (<30 mg/dL) H 10/22/18 13:30 Urine Glucose (UA) Negative mg/dL (NEGATIVE) 10/22/18 13:30 Urine Ketones Negative mg/dL (NEGATIVE) 10/22/18 13:30 Urine Blood Negative (NEGATIVE) 10/22/18 13:30 Urine Nitrate Negative (NEGATIVE) 10/22/18 13:30 Urine Bilirubin Negative (NEGATIVE) 10/22/18 13:30 Urine Urobilinogen 0.2 E.U./dL (<1 E.U./dL) 10/22/18 13:30 Ur Leukocyte Esterase Trace [place]/uL (NEGATIVE) H 10/22/18 13:30 Urine RBC 0 - 2 /hpf (0-2) 10/22/18 13:30 Urine WBC 2 - 5 /hpf (0-6) 10/22/18 13:30 Ur Epithelial Cells 1 - 3 /hpf (0-5) 10/22/18 13:30 Amorphous Sediment Few /hpf (NONE) 10/22/18 13:30 Urine Bacteria Mod /hpf (NONE) 10/22/18 13:30 Attending/Attestation - Attestation I have personally seen and examined this patient.: Yes I have fully participated in the care of the patient.: Yes I have reviewed all pertinent clinical information, including history, physical exam and plan: Yes
[2018-10-24 14:39] VITALS: BP 153/66; PULSE 76; O2SAT 97
== END 2018-10-24 19:51 | disposition home or self-care (01) ==
LOC: ED 12:48 → ERH 17:03 → 5RNO 23:30
PROVIDERS: ADMIT Hospitalist; ATTEND Hospitalist
DX: N39.0 Urinary tract infection, site not specified (principal); E11.9 Type 2 diabetes mellitus without complications; G89.29 Other chronic pain; K44.9 Diaphragmatic hernia without obstruction or gangrene; E78.5 Hyperlipidemia, unspecified; K21.9 Gastro-esophageal reflux disease without esophagitis; H91.92 Unspecified hearing loss, left ear
CPT/HCPCS: 36415; 71045; 74177; 80053; 80061; 81001; 82550; 82948; 83615; 83690; 83735; 83880; 84100; 84484; 85025; 87086; 93005; 96361; 96365; 96375; 96376; 97116; 97161; 97165; 97530; 99285; C9113; G0378; G8978; G8979; G8987; G8988; J0696; J2405; J7030; Q9967

== ENCOUNTER 2019-01-11 05:03 | Inpatient (IN) | payer MEDICAID ==
[2019-01-11 05:04] VITALS: BMI 19.6
--- NOTE | 2019-01-11 05:33 | ED PDOC ---
Arrival/HPI - General Chief Complaint: Altered Mental Status Time Seen by Provider: 01/11/19 05:11 Historian: Family (Son) - History of Present Illness Narrative History of Present Illness (Text): 01/11/19 05:26 83 year old f with pmh of Dementia, diabetes, hypertension, depression presents complaining of generalized weakness and cough w/ brownish red sputum since yesterday, per son. Per son, the patient has not being feeling well since yesterday but never had a fever. Patient also complains of chest pain. Patient son denies his mother has history of heart problems. Per son, patient denies any chills, shortness of breath, nausea, vomiting, diarrhea or any other complaint. Time/Duration: 24 hours Symptom Onset: Sudden Symptom Course: Unchanged Activities at Onset: Light Context: Home Past Medical History - Provider Review Nursing Documentation Reviewed: Yes - Infectious Disease Hx of Infectious Diseases: None - Tetanus Immunization Tetanus Immunization: Unknown - Cardiac Hx Hypertension: Yes - Pulmonary Hx Pneumonia: Yes - Neurological Hx Neurological Disorder: No Hx Dementia: Yes - HEENT Hx HEENT Disorder: Yes Hx Cataracts: Yes Other/Comment: Hard of hearing in left ear - Renal Hx Kidney Stones: Yes - Endocrine/Metabolic Hx Diabetes Mellitus Type 2: Yes - Hematological/Oncological Hx Blood Transfusions: Yes Hx Blood Transfusion Reaction: No - Integumentary Hx Dermatological Disorder: No Other/Comment: xerosis - Musculoskeletal/Rheumatological Hx Arthritis: Yes - Gastrointestinal Hx Gastrointestinal Disorders: Yes Hx Gall Bladder Disease: Yes (CHOLECYSTECTOMY) Hx Gastroesophageal Reflux: Yes Other/Comment: Inguinal HERNIA REPAIR; current umbilical hernia - Genitourinary/Gynecological Hx Genitourinary Disorders: Yes Hx Urinary Tract Infection: Yes (As Per Pt) - Psychiatric Hx Anxiety: Yes Hx Depression: Yes Hx Substance Use: No - Surgical History Hx Cholecystectomy: Yes - Anesthesia Hx Anesthesia: Yes Hx Anesthesia Reactions: No Hx Malignant Hyperthermia: No Family/Social History - Physician Review Nursing Documentation Reviewed: Yes Family/Social History: Unknown Family HX Smoking Status: Never Smoked Hx Alcohol Use: No Hx Substance Use: No Allergies/Home Meds Allergies/Adverse Reactions: Allergies No Known Allergies Allergy (Verified 01/11/19 05:55) Home Medications: Home Meds Medication Instructions Recorded Confirmed Lisinopril [Prinivil] 40 mg PO DAILY 03/05/18 01/11/19 Memantine [Namenda] 10 mg PO BID 03/05/18 01/11/19 amLODIPine [Norvasc] 5 mg PO DAILY 03/05/18 01/11/19 Verapamil HCl [Verapamil ER] 180 mg PO HS 10/06/18 01/11/19 traZODone [Desyrel] 100 mg PO HS 10/22/18 01/11/19 Gabapentin [Neurontin] 100 mg PO DAILY 01/11/19 01/11/19 Mirtazapine [Remeron] 15 mg PO DAILY 01/11/19 01/11/19 Montelukast Sodium [Singulair] 10 mg PO DAILY 01/11/19 01/11/19 Sertraline [Zoloft] 50 mg PO DAILY 01/11/19 01/11/19 clonazePAM [clonAZEPAM] 0.5 mg PO HS 01/11/19 01/11/19 Review of Systems - Physician Review All systems were reviewed & negative as marked: Yes - Review of Systems Constitutional: Normal. absent: Fevers Eyes: Normal ENT: Normal Respiratory: Cough (cough w/ brownish red sputum) Cardiovascular: Chest Pain Gastrointestinal: absent: Diarrhea, Nausea, Vomiting Genitourinary Female: Normal Musculoskeletal: Other (generalized weakness) Skin: Normal Neurological: Normal Endocrine: Normal Hemo/Lymphatic: Normal Psychiatric: Normal Physical Exam Vital Signs Reviewed: Yes Temperature: Febrile Blood Pressure: Normal Pulse: Tachycardic Respiratory Rate: Normal Appearance: Positive for: Other (drowsy) Pain Distress: Mild Mental Status: No: Alert and Oriented X 3 (A&0x2) - Systems Exam Head: Present: Atraumatic, Normocephalic Pupils: Present: PERRL Extroacular Muscles: Present: EOMI Conjunctiva: Present: Normal Ears: Present: NORMAL TM Mouth: Present: Moist Mucous Membranes Pharnyx: Present: Normal Respiratory/Chest: Present: Rhonchi (left lung ) Cardiovascular: Present: Tachycardic Abdomen: No: Tenderness, Distention, Peritoneal Signs Upper Extremity: Present: Normal Inspection. No: Cyanosis, Edema Lower Extremity: Present: Normal Inspection. No: Edema Neurological: Present: CN II-XII Intact, Speech Normal, Motor Func Grossly Intact, Normal Sensory Function Psychiatric: Present: Alert. No: Oriented x 3 (0x2) Medical Decision Making ED Course and Treatment: 03/25/19 05:37 Impression: 83 year old f presents complaining of generalized weakness and cough w/ brownish red sputum since yesterday, per son. Differential Diagnosis included but are not limited to: -- AMS -- Sepsis -- Pneumonia -- CAD Plan: -- Labs -- EKG -- Chest X-ray -- Urinalysis -- Reassess and disposition Prior Visits: Notes and results from previous visits were reviewed. Progress Notes: 01/11/19 05:39 Code sepsis called. 01/11/19 06:00 Case discussed with and back office medical assistant. - RAD Interpretation Narrative RAD Interpretations (Text): 01/11/19 06:00 CXR- Left lung infiltrate Radiology Orders: 01/11/19 05:23 CHEST PORTABLE [RAD] Stat Tinsel Machine Operator: ED Physician - EKG Interpretation EKG Interpretation (Text): 01/11/19 06:00 EKG-Sinus tachycardia@123,NSSTT changes Interpreted by ED Physician: Yes Type: 12 lead EKG - Scribe Statement The provider has reviewed the documentation as recorded by the Hilario Bonilla All medical record entries made by the Juliannaibe were at my direction and personally dictated by me. I have reviewed the chart and agree that the record accurately reflects my personal performance of the history, physical exam, medical decision making, and the department course for this patient. I have also personally directed, reviewed, and agree with the discharge instructions and disposition. Disposition/Present on Arrival - Present on Arrival Any Indicators Present on Arrival: No History of DVT/PE: No History of Uncontrolled Diabetes: No Urinary Catheter: No History of Decub. Ulcer: No History Surgical Site Infection Following: None - Disposition Have Diagnosis and Disposition been Completed?: Yes Diagnosis: Pneumonia, Sepsis Disposition: HOSPITALIZED Disposition Time: 05:57 Patient Plan: Admission Patient Problems: Current Active Problems Problem Status Onset Pneumonia Acute Sepsis Acute Condition: STABLE Discharge Instructions (ExitCare): Sepsis (ED) Referrals: Maritza Woods DO [Primary Care Provider] - Follow up with primary Forms: Bjond (Indonesian)
[2019-01-11 05:39] LABS: VENOUS BLOOD GAS BASE EXCESS -1.2 mmol/L (0.0-2.0); VENOUS BLOOD GAS PO2 34 mm/Hg (30-55); VENOUS BLOOD PH 7.39 (7.32-7.43)
[2019-01-11 05:42] LABS: HEMOGLOBIN 11.1 g/dL (12.0-16.0); MEAN CORPUSCULAR HEMOGLOBIN 25.7 pg (25.0-35.0); MEAN CORPUSCULAR HGB CONC 31.5 g/dl (31.0-37.0); MEAN PLATELET VOLUME 8.8 fl (7.0-11.0); RBC 4.32 10^6/uL (3.5-6.1); WHITE BLOOD COUNT 7.5 10^3/uL (4.5-11.0)
[2019-01-11 05:49] LABS: MEAN CELL VOLUME 81.5 fl (80.0-105.0)
[2019-01-11] MEDS ORDERED: Piperacill/Tazo 4.5gm in NS 4.5 GM/100 ML BAG IVPB STA (05:50)
[2019-01-11] MEDS ORDERED: Vancomycin 1gm in NS 250ml 1 GM/250 ML BAG IVPB STA (05:50)
[2019-01-11 05:52] LABS: ALB/GLOB RATIO 1.1 (1.1-1.8); ALBUMIN 4.1 g/dL (3.0-4.8); ALT/SGPT 14 U/L (7-56); AST/SGOT 31 U/L (14-36); BLOOD UREA NITROGEN 22 mg/dL (7-21); GFR NON-AFRICAN AMERICAN 53
[2019-01-11 06:02] LABS: URINE BILIRUBIN NEGATIVE (NEGATIVE); URINE BLOOD NEGATIVE (NEGATIVE); URINE GLUCOSE (UA) NEGATIVE (NEGATIVE); URINE LEUKOCYTE ESTERASE NEGATIVE Leu/uL (NEGATIVE); URINE PROTEIN NEGATIVE mg/dL (<30 mg/dL); URINE UROBILINOGEN 0.2 E.U./dL (<1 E.U./dL)
[2019-01-11 06:03] LABS: TROPONIN I < 0.01 ng/mL
[2019-01-11 06:04] LABS: INR 1.01; PARTIAL THROMBOPLASTIN TIME 24.7 Seconds (26.9-38.3); PROTHROMBIN TIME 11.4 SECONDS (9.4-12.5)
[2019-01-11] MEDS ORDERED: Sodium Chloride 0.9% 1,000 ML IV STA ×2 (06:06→06:17)
[2019-01-11 06:09] LABS: URINE APPEARANCE CLEAR (CLEAR); URINE COLOR YELLOW (YELLOW)
[2019-01-11] MEDS ORDERED: Magnesium Sulfate 2 gm/50 ml 2 GM/50 ML BAG IVPB ONE (06:13)
[2019-01-11] MEDS ORDERED: Dextrose 50% SYRINGE Inj (50 ml) IV PRN (07:52)
[2019-01-11] MEDS ORDERED: Menthol/Methyl Salicylate Ointment(1 oz) TOP PRN (07:54)
[2019-01-11] MEDS ORDERED: guaiFENesin 100 mg/5 ml Syrup UD PO PRN (07:55)
--- NOTE | 2019-01-11 08:16 | CP.PCM.HP ---
<Richie Prieto - Last Filed: 01/11/19 11:10> History of Present Illness - History of Present Illness History of Present Illness: PGY-2 H&P for Dr Omalley Mrs Barrett is a 83 year old female with a PMHx of DM2 (last known a1c 7.1), HTN, depression/anxiety, dementia, OA, umbilical and hiatal hernias, who presented to our ED for 1 day of body aches, malaise, frequent cough with green sputum produ ction, 5 episodes of emesis (non-bloody/non-biliary). The history was collected from her son, whom the patient lives with, as the patient appeared too fatigued to answer my questions - although she was intermittently able to answer some of my questions. For the past 5 days she was not at her baseline in terms of energy level. Per son, the patient did not have fever, diarrhea, chills at home. Sick contacts include the patient's [id number] "had a cold" recently whom the patient lives with. The patient did not travel recently. She was hospitalized in 10/2018 for abdominal pain which was deemed to be due to her hiatal hernia. Per son, she is compliant with her home medications. PMHx: DM2 (last known a1c 7.1), HTN, depression/anxiety, dementia, OA, umbilical and hiatal hernias PSHx: cholecystectomy, hysterectomy, unknown type of thyroid surgery but does not take synthroid Allergies: NKA Home Meds: SocialHx: denies tobacco, alcohol, or illicit drug use FamHx: son with HTN PMD: Dr Maritza Woods POA: Del Holden (son) [phone] Code Status: Full Code Present on Admission - Present on Admission Any Indicators Present on Admission: No Review of Systems - Review of Systems Systems not reviewed;Unavailable: Altered Mental Status Past Patient History - Infectious Disease Hx of Infectious Diseases: None - Tetanus Immunizations Tetanus Immunization: Unknown - Past Social History Smoking Status: Never Smoked - CARDIAC Hx Hypertension: Yes - PULMONARY Hx Pneumonia: Yes - NEUROLOGICAL Hx Neurological Disorder: No Hx Dementia: Yes - HEENT Hx HEENT Problems: Yes Hx Cataracts: Yes Other/Comment: Hard of hearing in left ear - RENAL Hx Kidney Stones: Yes - ENDOCRINE/METABOLIC Hx Diabetes Mellitus Type 2: Yes - HEMATOLOGICAL/ONCOLOGICAL Hx Blood Transfusions: Yes Hx Blood Transfusion Reaction: No - INTEGUMENTARY Hx Dermatological Problems: No Other/Comment: xerosis - MUSCULOSKELETAL/RHEUMATOLOGICAL Hx Arthritis: Yes - GASTROINTESTINAL Hx Gastrointestinal Disorders: Yes Hx Gall Bladder Disease: Yes (CHOLECYSTECTOMY) Hx Gastroesophageal Reflux: Yes Other/Comment: Inguinal HERNIA REPAIR; current umbilical hernia - GENITOURINARY/GYNECOLOGICAL Hx Genitourinary Disorders: Yes Hx Urinary Tract Infection: Yes (As Per Pt) - PSYCHIATRIC Hx Anxiety: Yes Hx Depression: Yes Hx Substance Use: No - SURGICAL HISTORY Hx Cholecystectomy: Yes - ANESTHESIA Hx Anesthesia: Yes Hx Anesthesia Reactions: No Hx Malignant Hyperthermia: No Meds Allergies/Adverse Reactions: Allergies Allergy/AdvReac Type Severity Reaction Status Date / Time No Known Allergies Allergy Verified 01/11/19 05:55 Physical Exam - Constitutional Appears: Toxic, Confused - Head Exam Head Exam: ATRAUMATIC, NORMAL INSPECTION - Eye Exam Eye Exam: EOMI, Normal appearance, PERRL. absent: Scleral icterus - ENT Exam ENT Exam: Mucous Membranes Dry, Normal Oropharynx - Neck Exam Neck exam: Positive for: Full Rom, Normal Inspection - Respiratory Exam Respiratory Exam: Decreased Breath Sounds, Rhonchi. absent: Clear to Auscultation Bilateral, Wheezes Additional comments: decreased breath sounds on left side rhonchi on left side entire lobe - Cardiovascular Exam Cardiovascular Exam: Tachycardia, REGULAR RHYTHM, +S1, +S2 - GI/Abdominal Exam GI & Abdominal Exam: Normal Bowel Sounds, Soft. absent: Distended, Firm, Tenderness - Extremities Exam Extremities exam: Positive for: normal capillary refill, normal inspection, pedal pulses present. Negative for: calf tenderness, pedal edema, tenderness - Back Exam Back exam: tenderness. absent: CVA tenderness (L), CVA tenderness (R), rash noted - Neurological Exam Neurological exam: Altered - Skin Skin Exam: Diaphoretic, Dry, Intact, Normal Color, Warm Results - Vital Signs Recent Vital Signs: Last Vital Signs Temp 103.1 F H 01/11/19 05:57 Pulse 96 H 01/11/19 07:15 Resp 18 01/11/19 07:15 BP 126/57 L 01/11/19 07:15 Pulse Ox 93 L 01/11/19 07:15 - Labs Result Diagrams: 01/11/19 05:25 03/25/19 05:25 Labs: Laboratory Results - last 24 hr 01/11/19 01/11/19 01/11/19 05:25 05:25 05:25 WBC 7.5 D RBC 4.32 Hgb 11.1 L Hct 35.2 L MCV 81.5 D MCH 25.7 MCHC 31.5 RDW 16.0 H Plt Count 242 MPV 8.8 PT 11.4 INR 1.01 APTT 24.7 L pO2 VBG pH VBG pCO2 VBG HCO3 VBG Total CO2 VBG O2 Sat (Calc) VBG Base Excess VBG Potassium Glucose Lactate FiO2 Crit Value Called To Crit Value Called By Blood Gas Notified Time Sodium 131 L Potassium 4.7 Chloride 97 L Carbon Dioxide 22 Anion Gap 17 BUN 22 H Creatinine 1.0 Est GFR ( Amer) > 60 Est GFR (Non-Af Amer) 53 Random Glucose 206 H Calcium 9.0 Phosphorus Magnesium Total Bilirubin 0.8 AST 31 ALT 14 Alkaline Phosphatase 71 Lactate Dehydrogenase 421 Total Creatine Kinase 118 Troponin I < 0.01 Total Protein 7.7 Albumin 4.1 Globulin 3.6 Albumin/Globulin Ratio 1.1 Venous Blood Potassium Urine Color Urine Appearance Urine pH Ur Specific [place] Urine Protein Urine Glucose (UA) Urine Ketones Urine Blood Urine Nitrate Urine Bilirubin Urine Urobilinogen Ur Leukocyte Esterase Influenza Typ A,B (EIA) 01/11/19 01/11/19 01/11/19 05:25 05:30 05:32 WBC RBC Hgb Hct MCV MCH MCHC RDW Plt Count MPV PT INR APTT pO2 34 VBG pH 7.39 VBG pCO2 39.0 L VBG HCO3 23.6 VBG Total CO2 24.8 VBG O2 Sat (Calc) 75.5 H VBG Base Excess -1.2 L VBG Potassium 7.8 H* Glucose 229 H Lactate 3.2 H FiO2 21.0 Crit Value Called [place] [id number] Blood Gas Notified Time 540 Sodium 128.0 L Potassium Chloride 98.0 Carbon Dioxide Anion Gap BUN Creatinine Est GFR ( Amer) Est GFR (Non-Af Amer) Random Glucose Calcium Phosphorus 3.6 Magnesium 1.5 L Total Bilirubin AST ALT Alkaline Phosphatase Lactate Dehydrogenase Total Creatine Kinase Troponin I Total Protein Albumin Globulin Albumin/Globulin Ratio Venous Blood Potassium 7.8 H* Urine Color Urine Appearance Urine pH Ur Specific [place] Urine Protein Urine Glucose (UA) Urine Ketones Urine Blood Urine Nitrate Urine Bilirubin Urine Urobilinogen Ur Leukocyte Esterase Influenza Typ A,B (EIA) Negative for flu a/b 01/11/19 05:34 WBC RBC Hgb Hct MCV MCH MCHC RDW Plt Count MPV PT INR APTT pO2 VBG pH VBG pCO2 VBG HCO3 VBG Total CO2 VBG O2 Sat (Calc) VBG Base Excess VBG Potassium Glucose Lactate FiO2 Crit Value Called To Crit Value Called By Blood Gas Notified Time Sodium Potassium Chloride Carbon Dioxide Anion Gap BUN Creatinine Est GFR ( Amer) Est GFR (Non-Af Amer) Random Glucose Calcium Phosphorus Magnesium Total Bilirubin AST ALT Alkaline Phosphatase Lactate Dehydrogenase Total Creatine Kinase Troponin I Total Protein Albumin Globulin Albumin/Globulin Ratio Venous Blood Potassium Urine Color Yellow Urine Appearance Clear Urine pH 6.0 Ur Specific [place] 1.015 Urine Protein Negative Urine Glucose (UA) Negative Urine Ketones Negative Urine Blood Negative Urine Nitrate Negative Urine Bilirubin Negative Urine Urobilinogen 0.2 Ur Leukocyte Esterase Negative Influenza Typ A,B (EIA) Assessment & Plan - Assessment and Plan (Free Text) Plan: Mrs Barrett is a 83 year old female with a PMHx of DM2 (last known a1c 7.1), HTN, depression/anxiety, dementia, OA, umbilical and hiatal hernias, who presented to our ED for 1 day of body aches, malaise, frequent cough with green sputum production, 5 episodes of emesis (non-bloody/non-biliary): #HCAP #Sepsis -code sepsis protocol called in ER -hospitalization in 10/2018 -cxr shows left-sided infiltrates consistent with pneumonia -ABG showed pH 7.39 - metabolic acidosis with respiratory compensation with lactate of 3.2 -Tmax 103F, saturating at 94% on 5L NC, tachycardic, BP 97/49 -volume challenge with 1830L NS bolus and then maintenance fluids at 110 cc/hr of NS -vanco 1g ivpb q12h and zosyn 4.5g ivpb q8h (q8h instead of q6h to account for renal clearance) -duonebs q6h tung -f/u repeat lactate, repeat blood gas, procalcitonin, legionella, mycoplasma, strep pneumonia, blood cx, urine cx, sputum cx, mrsa screen -consulted infectious disease, Dr Boghossian #HTN -currently mildly hypotensive 2/2 to infection -hold home meds lisinopril 40mg qd, verapamil 180mg qd #DM2 -last hgba1c from 08/2018 was 7.1 -riss low dose protocol -f/u hgba1c #Depression #Anxiety -continue home med zoloft 50mg po qd -hold home med klonopin 0.5mg po hs and trazadon 100mg po hs #Anemia -hgb on admission: 11.1 -hx of sakshi ulcer -baseline hgb between -2 -continue home med protonix 40mg po qd -monitor for now #Dementia -continue home med namenda 10mg po qd #Hypomagnesemia -mag level on admission 1.5 -repleted -monitor #Diastolic Dysfunction -echo from 03/2017 showed grade I-abnormal relaxation pattern, moderate LVH, mild aortic regurgitation, normal EF (80%) -no signs of heart failure at this time, we'll monitor #Mild Aortic Regurgitation -echo from 03/2017 showed grade I-abnormal relaxation pattern, moderate LVH, mild aortic regurgitation, normal EF (80%) -no signs of heart failure at this time, we'll monitor #PPx -heparin 5000u sc q8h Seen and discussed with Dr Omalley Decision To Admit - Pt Status Changed To: Hospital Disposition Of: Inpatient Admission - Admit Certification Admit to Inpatient:: After my assessment, the patient will require hospitalization for at least two midnights. This is because of the severity of symptoms shown, intensity of services needed, and/or the medical risk in this patient being treated as an outpatient. - . Bed Request Type: Telemetry <Melania Omalley - Last Filed: 01/11/19 12:12> Results - Vital Signs Recent Vital Signs: Last Vital Signs Temp 99.2 F 01/11/19 06:57 Pulse 92 H 01/11/19 08:24 Resp 18 01/11/19 08:24 BP 97/49 L 01/11/19 08:24 Pulse Ox 96 01/11/19 08:24 - Labs Result Diagrams: 01/11/19 05:25 01/11/19 05:25 Labs: Laboratory Results - last 24 hr 01/11/19 01/11/19 01/11/19 05:25 05:25 05:25 WBC 7.5 D RBC 4.32 Hgb 11.1 L Hct 35.2 L MCV 81.5 D MCH 25.7 MCHC 31.5 RDW 16.0 H Plt Count 242 MPV 8.8 PT 11.4 INR 1.01 APTT 24.7 L pO2 VBG pH VBG pCO2 VBG HCO3 VBG Total CO2 VBG O2 Sat (Calc) VBG Base Excess VBG Potassium Glucose Lactate FiO2 Crit Value Called To Crit Value Called By Blood Gas Notified Time Sodium 131 L Potassium 4.7 Chloride 97 L Carbon Dioxide 22 Anion Gap 17 BUN 22 H Creatinine 1.0 Est GFR ( Amer) > 60 Est GFR (Non-Af Amer) 53 Random Glucose 206 H Lactic Acid Calcium 9.0 Phosphorus Magnesium Total Bilirubin 0.8 AST 31 ALT 14 Alkaline Phosphatase 71 Lactate Dehydrogenase 421 Total Creatine Kinase 118 Troponin I < 0.01 Total Protein 7.7 Albumin 4.1 Globulin 3.6 Albumin/Globulin Ratio 1.1 Venous Blood Potassium Urine Color Urine Appearance Urine pH Ur Specific [place] Urine Protein Urine Glucose (UA) Urine Ketones Urine Blood Urine Nitrate Urine Bilirubin Urine Urobilinogen Ur Leukocyte Esterase Influenza Typ A,B (EIA) 01/11/19 01/11/19 01/11/19 05:25 05:30 05:32 WBC RBC Hgb Hct MCV MCH MCHC RDW Plt Count MPV PT INR APTT pO2 34 VBG pH 7.39 VBG pCO2 39.0 L VBG HCO3 23.6 VBG Total CO2 24.8 VBG O2 Sat (Calc) 75.5 H VBG Base Excess -1.2 L VBG Potassium 7.8 H* Glucose 229 H Lactate 3.2 H FiO2 21.0 Crit Value Called To [place] [id number] Blood Gas Notified Time 540 Sodium 128.0 L Potassium Chloride 98.0 Carbon Dioxide Anion Gap BUN Creatinine Est GFR ( Amer) Est GFR (Non-Af Amer) Random Glucose Lactic Acid Calcium Phosphorus 3.6 Magnesium 1.5 L Total Bilirubin AST ALT Alkaline Phosphatase Lactate Dehydrogenase Total Creatine Kinase Troponin I Total Protein Albumin Globulin Albumin/Globulin Ratio Venous Blood Potassium 7.8 H* Urine Color Urine Appearance Urine pH Ur Specific [place] Urine Protein Urine Glucose (UA) Urine Ketones Urine Blood Urine Nitrate Urine Bilirubin Urine Urobilinogen Ur Leukocyte Esterase Influenza Typ A,B (EIA) Negative for flu a/b 01/11/19 01/11/19 01/11/19 05:34 09:10 09:10 WBC RBC Hgb Hct MCV MCH MCHC RDW Plt Count MPV PT INR APTT pO2 44 VBG pH 7.34 VBG pCO2 41.0 VBG HCO3 22.1 VBG Total CO2 23.4 VBG O2 Sat (Calc) 83.7 H VBG Base Excess -3.5 L VBG Potassium 3.7 Glucose 146 H Lactate 1.2 FiO2 21.0 Crit Value Called To Crit Value Called By Blood Gas Notified Time Sodium 133.0 Potassium Chloride 104.0 Carbon Dioxide Anion Gap BUN Creatinine Est GFR ( Amer) Est GFR (Non-Af Amer) Random Glucose Lactic Acid 1.1 Calcium Phosphorus Magnesium Total Bilirubin AST ALT Alkaline Phosphatase Lactate Dehydrogenase Total Creatine Kinase Troponin I Total Protein Albumin Globulin Albumin/Globulin Ratio Venous Blood Potassium 3.7 Urine Color Yellow Urine Appearance Clear Urine pH 6.0 Ur Specific [place] 1.015 Urine Protein Negative Urine Glucose (UA) Negative Urine Ketones Negative Urine Blood Negative Urine Nitrate Negative Urine Bilirubin Negative Urine Urobilinogen 0.2 Ur Leukocyte Esterase Negative Influenza Typ A,B (EIA) Attending/Attestation - Attestation I have personally seen and examined this patient.: Yes I have fully participated in the care of the patient.: Yes I have reviewed all pertinent clinical information: Yes Notes (Text): 01/11/19 12:04 83 year old female with past medical history of diabetes, hypertension, depression, dementia and arthritis who presents with complaint of generalized weakness and cough. Found to have sepsis with fever 103, elevated lactate and left lung infiltrate on CXR. Continue with iv antibiotics. Will follow up on cultures. ID evaluation is requested. Hold BP medications for now while patient is on fluids. Continue with insulin ss for diabetes. Will replete and repeat magnesium. Melania Omalley MD Hospitalist.
[2019-01-11 09:16] LABS: VENOUS BLOOD GAS BASE EXCESS -3.5 mmol/L (0.0-2.0); VENOUS BLOOD GAS PO2 44 mm/Hg (30-55); VENOUS BLOOD PH 7.34 (7.32-7.43)
--- NOTE | 2019-01-11 09:24 | RAD ---
Date of service: 01/11/2019 HISTORY: chest pain COMPARISON: 10/22/2018 TECHNIQUE: 1 view obtained. FINDINGS: LUNGS: There is a diffuse alveolar infiltrate in the left lung consistent with pneumonia. The right lung is clear. PLEURA: No significant pleural effusion identified, no pneumothorax apparent. CARDIOVASCULAR: Aortic calcification Normal cardiac size. No pulmonary vascular congestion. OSSEOUS STRUCTURES: No significant abnormalities. VISUALIZED UPPER ABDOMEN: Normal. OTHER FINDINGS: None. IMPRESSION: There is a diffuse alveolar infiltrate in the left lung consistent with pneumonia. The right lung is clear.
--- NOTE | 2019-01-11 11:07 | CARD ---
APPROVED REPORT Date of service: 01/11/2019 EKG Measurement Heart [id number] <Conclusion> Sinus tachycardia Possible Left atrial enlargement Borderline ECG
[2019-01-11] MEDS: Pantoprazole 40 mg EC Tab PO SCH (12:21)
[2019-01-11] MEDS: Piperacill/Tazo 4.5gm in NS 4.5 GM/100 ML BAG IVPB SCH ×2 (12:21→20:44)
[2019-01-11] MEDS: Insulin Regular 1 UNITS/0.01 ML ML SC SCH ×3 (12:22→21:35)
[2019-01-11] MEDS: Sodium Chloride 0.9% 1,000 ML IV SCH (12:25)
--- NOTE | 2019-01-11 12:55 | CON ---
DATE OF CONSULTATION: 01/11/2019 The patient is seen this morning in 267, bed 2. CHIEF COMPLAINT: Weakness. HISTORY OF PRESENT ILLNESS: This is an 83-year-old female with dementia, diabetes, hypertension, depression and admitted with weakness, cough and brownish sputum, productive cough, and the patient's two sons are at the bedside, who may help with the history, and no abdominal pain, diarrhea or constipation. REVIEW OF SYSTEMS: Twelve-point review of systems is performed. PAST MEDICAL HISTORY: Significant for hypertension, diabetes, depression, dementia, high cholesterol, hypothyroidism, cataract, kidney stones, osteoarthritis, osteoporosis, and anxiety. PAST SURGICAL HISTORY: Significant for hysterectomy. ALLERGIES: THE PATIENT HAS NO KNOWN ALLERGIES. MEDICATIONS: Medications at home revealed the patient to be on metformin, Namenda, inhalers, verapamil. PHYSICAL EXAMINATION: GENERAL: The patient is in bed. VITAL SIGNS: Temperature of 99, T max was 103 earlier; blood pressure is 100/50; respiratory rate of 18, it was up to 24; and heart rate 100m it was up to 123. HEENT: Examination of HEENT is unremarkable. NECK: Supple. LUNGS: Have decreased breath sounds. HEART: Normal S1, S2. ABDOMEN: [place] is soft, nontender. LABORATORY DATA: Laboratory examination reveals a white count of 7.5 and hemoglobin of 11. Coagulation is noted. Chemistries revealed a BUN of 22, creatinine of 1, procalcitonin of 0.46. Troponins are normal. LFTs are normal. Urinalysis is completely normal and serology, influenza is negative. Dr. Omalley's history and physical examination is reviewed. The patient had a chest x-ray, which reveals an infiltrate. The patient did have recent hospitalization in October and was in the ER in 09/2018 and was in the hospital in August. ASSESSMENT AND PLAN: An 83-year-old female with sepsis with healthcare-associated pneumonia, currently on vanco, Zosyn. We will add p.o. doxy for atypical coverage and pending blood culture, urine cultures, sputum culture, and initial workup results. We will follow with you. Maximo Jin MD
[2019-01-11] MEDS: Albuterol-Ipratrop 3 mg / 0.5 (3 ml) UD IH SCH ×2 (14:28→20:39)
[2019-01-11] MEDS: Vancomycin 1gm in NS 250ml 1 GM/250 ML BAG IVPB SCH (17:12)
[2019-01-12] MEDS: Albuterol-Ipratrop 3 mg / 0.5 (3 ml) UD IH SCH ×3 (01:50→20:10)
[2019-01-12] MEDS: Piperacill/Tazo 4.5gm in NS 4.5 GM/100 ML BAG IVPB SCH ×3 (03:08→20:22)
[2019-01-12] MEDS: Vancomycin 1gm in NS 250ml 1 GM/250 ML BAG IVPB SCH ×2 (06:33→18:16)
[2019-01-12] MEDS: Sodium Chloride 0.9% 1,000 ML IV SCH ×2 (06:36→06:37)
[2019-01-12 06:42] LABS: BASO # 0.02 K/mm3 (0.0-2.0); BASO % 0.1 % (0.0-3.0); EOS % 0.1 % (1.5-5.0); LYMPH # 1.1 (1.2-3.4); LYMPH % 7.4 % (22.0-35.0); MEAN CELL VOLUME 79.6 fl (80.0-105.0); MEAN CORPUSCULAR HEMOGLOBIN 25.4 pg (25.0-35.0); MEAN CORPUSCULAR HGB CONC 31.9 g/dl (31.0-37.0); MEAN PLATELET VOLUME 9.2 fl (7.0-11.0); MONO # 0.5 (0.1-0.6); MONO % 3.4 % (1.0-6.0); RBC 3.23 10^6/uL (3.5-6.1); RED CELL DISTRIBUTION WIDTH 16.6 % (11.5-14.5); WHITE BLOOD COUNT 14.2 10^3/uL (4.5-11.0)
[2019-01-12 07:10] LABS: ALB/GLOB RATIO 0.8 (1.1-1.8); ALBUMIN 2.5 g/dL (3.0-4.8); ALT/SGPT 16 U/L (7-56); AST/SGOT 28 U/L (14-36); BLOOD UREA NITROGEN 15 mg/dL (7-21); CALCIUM 7.8 mg/dL (8.4-10.5); GFR NON-AFRICAN AMERICAN > 60
[2019-01-12 07:11] LABS: HEMOGLOBIN 8.2 g/dL (12.0-16.0)
[2019-01-12] MEDS: Pantoprazole 40 mg EC Tab PO SCH (09:29)
[2019-01-12] MEDS: Insulin Regular 1 UNITS/0.01 ML ML SC SCH ×4 (09:31→22:23)
--- NOTE | 2019-01-12 09:38 | CP.PCM.PN ---
<Edgar Hernandez - Last Filed: 01/12/19 14:51> Subjective - Date & Time of Evaluation Date of Evaluation: 01/12/19 Time of Evaluation: 08:00 - Subjective Subjective: Edgar Hernandez PGY1 Medicine Progress Note for Dr. Omalley Patient seen and examined at bedside this morning. She still has cough and is bringing up phlegm. She denies chest pain, shortness of breath, nausea, vomiting, diarrhea, fever, chills. Afebrile overnight. VSS. No adverse overnight events. A full 12 point ROS was conducted and unremarkable except as stated above. Objective - Vital Signs/Intake and Output Vital Signs (last 24 hours): Temp Pulse Resp BP Pulse Ox 98.4 F 76 18 110/65 98 01/12/19 06:00 01/12/19 06:00 01/12/19 06:00 01/12/19 06:00 01/12/19 06:00 Intake and Output: 01/12/19 01/12/19 06:59 18:59 Intake Total 1254 Output Total 700 Balance 554 - Medications Medications: Current Medications Acetaminophen (Tylenol 325mg Tab) 650 mg PO Q6H PRN PRN Reason: Fever >100.4 F Albuterol/Ipratropium (Duoneb 3 Mg/0.5 Mg (3 Ml) Ud) 3 ml IH [id number] TUNG Last Admin: 01/12/19 08:06 Dose: 3 ml Camphor/Menthol (Bengay) 1 gm TOP BID PRN PRN Reason: Pain, moderate (4-7) Dextrose (Dextrose 50% Inj) 0 ml IV ONCE PRN PRN Reason: Hypoglycemia Doxycycline Hyclate (Doryx) 100 mg PO Q12 [facility]; Protocol Stop: 01/18/19 12:46 Last Admin: 01/12/19 09:28 Dose: 100 mg Guaifenesin (Robitussin) 100 mg PO Q4H PRN PRN Reason: Cough Heparin Sodium (Porcine) (Heparin) 5,000 units SC Q8 [facility]; Protocol Last Admin: 01/12/19 06:33 Dose: 5,000 units Dextrose (Dextrose 5% In Water 1000 Ml) 1,000 mls @ 0 mls/hr IV .Q0M PRN; Protocol PRN Reason: Hypoglycemia Protocol Vancomycin HCl (Vancomycin 1gm) 1 gm in 250 mls @ 167 mls/hr IVPB Q12H [facility]; Protocol Last Admin: 01/12/19 06:33 Dose: 167 mls/hr Piperacillin Sod/Tazobactam Sod (Zosyn 4.5 Gm In Ns 100ml) 4.5 gm in 100 mls @ 25 mls/hr IVPB Q8H [facility]; Protocol Last Admin: 01/12/19 03:08 Dose: 25 mls/hr Insulin Human Regular (Humulin R) 0 units SC ACHS [facility]; Protocol Last Admin: 01/12/19 09:31 Dose: 1 units Memantine (Namenda) 10 mg PO DAILY [facility] Last Admin: 01/12/19 09:28 Dose: 10 mg Montelukast Sodium (Singulair) 10 mg PO DAILY [facility] Last Admin: 01/12/19 09:28 Dose: 10 mg Pantoprazole Sodium (Protonix Ec Tab) 40 mg PO DAILY [facility] Last Admin: 01/12/19 09:29 Dose: 40 mg Pantoprazole Sodium (Protonix Inj) 40 mg IVP DAILY [facility] Last Admin: 01/12/19 09:28 Dose: 40 mg Sertraline HCl (Zoloft) 50 mg PO DAILY [facility] Last Admin: 01/12/19 09:28 Dose: 50 mg - Labs Labs: 01/12/19 06:00 01/12/19 06:00 PT 11.4 SECONDS (9.4-12.5) 01/11/19 05:25 INR 1.01 01/11/19 05:25 APTT 24.7 Seconds (26.9-38.3) L 01/11/19 05:25 - Constitutional Appears: No Acute Distress - Head Exam Head Exam: ATRAUMATIC, NORMAL INSPECTION, NORMOCEPHALIC - Eye Exam Eye Exam: EOMI, Normal appearance Pupil Exam: NORMAL ACCOMODATION - Respiratory Exam Respiratory Exam: Clear to Ausculation Bilateral, Rhonchi (left lung rhonci ). absent: Accessory Muscle Use, Chest Wall Tenderness, Rales, Wheezes - Cardiovascular Exam Cardiovascular Exam: RRR, +S1, +S2 - GI/Abdominal Exam GI & Abdominal Exam: Soft, Normal Bowel Sounds. absent: Tenderness - Extremities Exam Extremities Exam: Full ROM, Normal Capillary Refill, Normal Inspection. absent: Joint Swelling, Pedal Edema - Back Exam Back Exam: NORMAL INSPECTION - Neurological Exam Neurological Exam: Alert, Awake, CN II-XII Intact, Oriented x3 - Psychiatric Exam Psychiatric exam: Normal Affect, Normal Mood - Skin Skin Exam: Dry, Intact, Normal Color, Warm Assessment and Plan - Assessment and Plan (Free Text) Assessment: Patient is a 83 year old female with a PMHx of DM2 (last known a1c 7.1), HTN, depression/anxiety, dementia, OA, umbilical and hiatal hernias, who presented to the ED for 1 day of body aches, malaise, frequent cough with green sputum production, and 5 episodes of non-bilious and non-bloody emesis. Patient ad mitted for sepsis 2/2 HCAP. Plan: Sepsis 2/2 HCAP - Leukocytosis is uptrending; wbc 14.2. Will continue to monitor - Fevers resolving; afebrile at this time - Lactate downtrending from 3.2 to 1.2 - c/w vanco, zosyn, and PO doxy as per ID recs - c/w duonebs q6h tung - robitussin for cough - aspiration precautions and keep head of bed elevated - procalcitonin level negative, flu negative, mycoplasma negative - UCx negative - Blood Cx negative x2 (prelim) - f/u sputum cx - ID on consult (Dr. Jin). Recs appreciated. - CXR in ED: left-sided infiltrates consistent with pneumonia Anemia - May be 2/2 dilutional effect from volume challenge and maintenance fluids from code sepsis - Hgb 8.2 downtrending from 11.1 on admission (baseline Hgb 10) - Repeat Hgb level at 2 pm - Discontinued fluids - Transfuse for Hgb < 7.0 or any signs of overt bleeding - continue to monitor Hypomagnesemia - mag level on admission 1.5; repeat was 1.6 - replete as needed - monitor HTN - normotensive at this time - home meds lisinopril 40mg qd and verapamil 180mg held at this time DM2 - Hgb A1c 7.5 - ISS low dose protocol Depression and Anxiety - continue home med zoloft 50mg po qd - hold home med klonopin 0.5mg po hs and trazadon 100mg po hs Dementia - continue home med namenda 10mg po qd GI ppx: ptx DVT ppx: heparin 5000u sc q8h Diet: HHD PT is on board for deconditioning. Dispo: Continue to monitor patient on telemetry. Will follow up repeat Hgb in afternoon given anemia. Case was discussed and reviewed with Attending Physician, Dr. Omalley. <Melania Omalley - Last Filed: 01/12/19 15:09> Objective - Vital Signs/Intake and Output Vital Signs (last 24 hours): Temp Pulse Resp BP Pulse Ox 98.3 F 105 H 18 133/69 98 01/12/19 12:00 01/12/19 12:00 01/12/19 12:00 01/12/19 12:00 01/12/19 06:00 Intake and Output: 01/12/19 01/12/19 06:59 18:59 Intake Total 1254 Output Total 700 Balance 554 - Medications Medications: Current Medications Acetaminophen (Tylenol 325mg Tab) 650 mg PO Q6H PRN PRN Reason: Fever >100.4 F Albuterol/Ipratropium (Duoneb 3 Mg/0.5 Mg (3 Ml) Ud) 3 ml IH [id number] TUNG Last Admin: 01/12/19 08:06 Dose: 3 ml Camphor/Menthol (Bengay) 1 gm TOP BID PRN PRN Reason: Pain, moderate (4-7) Dextrose (Dextrose 50% Inj) 0 ml IV ONCE PRN PRN Reason: Hypoglycemia Doxycycline Hyclate (Doryx) 100 mg PO Q12 [facility]; Protocol Stop: 01/18/19 12:46 Last Admin: 01/12/19 09:28 Dose: 100 mg Guaifenesin (Robitussin) 100 mg PO Q6H [facility] Last Admin: 01/12/19 12:36 Dose: 100 mg Heparin Sodium (Porcine) (Heparin) 5,000 units SC Q8 [facility]; Protocol Last Admin: 01/12/19 13:30 Dose: 5,000 units Dextrose (Dextrose 5% In Water 1000 Ml) 1,000 mls @ 0 mls/hr IV .Q0M PRN; Protocol PRN Reason: Hypoglycemia Protocol Vancomycin HCl (Vancomycin 1gm) 1 gm in 250 mls @ 167 mls/hr IVPB Q12H [facility]; Protocol Last Admin: 01/12/19 06:33 Dose: 167 mls/hr Piperacillin Sod/Tazobactam Sod (Zosyn 4.5 Gm In Ns 100ml) 4.5 gm in 100 mls @ 25 mls/hr IVPB Q8H [facility]; Protocol Last Admin: 01/12/19 12:36 Dose: 25 mls/hr Insulin Human Regular (Humulin R) 0 units SC ACHS [facility]; Protocol Last Admin: 01/12/19 12:37 Dose: 3 units Memantine (Namenda) 10 mg PO DAILY [facility] Last Admin: 01/12/19 09:28 Dose: 10 mg Montelukast Sodium (Singulair) 10 mg PO DAILY [facility] Last Admin: 01/12/19 09:28 Dose: 10 mg Pantoprazole Sodium (Protonix Ec Tab) 40 mg PO DAILY [facility] Last Admin: 01/12/19 09:29 Dose: 40 mg Sertraline HCl (Zoloft) 50 mg PO DAILY [facility] Last Admin: 01/12/19 09:28 Dose: 50 mg - Labs Labs: 01/12/19 06:00 01/12/19 06:00 PT 11.4 SECONDS (9.4-12.5) 01/11/19 05:25 INR 1.01 01/11/19 05:25 APTT 24.7 Seconds (26.9-38.3) L 01/11/19 05:25 Attending/Attestation - Attestation I have personally seen and examined this patient.: Yes I have fully participated in the care of the patient.: Yes I have reviewed all pertinent clinical information, including history, physical exam and plan: Yes Notes (Text): 01/12/19 15:06 83 year old female with past medical history of diabetes, hypertension, depression, dementia and arthritis who presented with complaint of generalized weakness and cough. Found to have sepsis with fever 103, elevated lactate and left lung infiltrate on CXR. Continue with iv antibiotics. Will follow up on cultures which are negative to date. Leukocytosis noted today. ID is following. Anemia is likely dilutional; will hold ivf and repeat h/h. BP meds were initially held; will resume if patient is hypertensive. Continue with insulin ss for diabetes. Will replete and repeat magnesium. Family is at bedside and questions were answered. Melania Omalley MD Hospitalist.
[2019-01-12 11:36] LABS: TOTAL IRON BINDING CAPACITY 276 ug/dL (265-497)
[2019-01-12 11:37] LABS: IRON 10 ug/dL (45-180)
[2019-01-12 11:38] LABS: % IRON SATURATION 4 % (20-55)
[2019-01-12] MEDS: guaiFENesin 100 mg/5 ml Syrup UD PO SCH ×2 (12:36→17:05)
--- NOTE | 2019-01-12 13:07 | PN ---
DATE: 01/12/2019 SUBJECTIVE: The patient is in bed in no acute distress, nontoxic. She is doing much better. No fevers, no chills. PHYSICAL EXAMINATION: VITAL SIGNS: Temperature is 98, blood pressure is 110/60, respiratory rate of 18, heart rate of 76. HEENT: Unremarkable. NECK: Supple. LUNGS: Have decreased breath sounds. HEART: Normal S1, S2. ABDOMEN: Soft. LABORATORY EXAMINATION: Reveals a white count of 14,200, hemoglobin of 8, and platelets are noted. BUN of 15, creatinine of 0.8. Urinalysis is noted. Serology is reviewed. Microbiology reveals the blood cultures are negative. Urine cultures are negative and review of orders reveals the patient to be on p.o. doxycycline and vancomycin and Zosyn. Blood and urine cultures are negative. ASSESSMENT AND PLAN: This is an 83-year-old female with dementia, diabetes, hypertension, depression, admitted with weakness and cough and with sepsis with healthcare-associated pneumonia on vancomycin, Zosyn, doxycycline. Would complete 4 to 7 days of antibiotics. Methicillin-resistant Staphylococcus aureus screen is pending. Sputum cultures pending. Urine Legionella is pending. We will follow with you. Maximo Jin MD
[2019-01-12] MEDS ORDERED: Magnesium Sulfate 1 gm in D5W 1 GM/100 ML BAG IVPB ONE (14:00)
[2019-01-12 16:21] LABS: HEMOGLOBIN 8.5 g/dL (12.0-16.0)
[2019-01-13] MEDS: guaiFENesin 100 mg/5 ml Syrup UD PO SCH ×2 (00:15→05:46)
[2019-01-13] MEDS: Albuterol-Ipratrop 3 mg / 0.5 (3 ml) UD IH SCH ×4 (02:21→19:17)
[2019-01-13 07:10] LABS: BASO # 0.01 K/mm3 (0.0-2.0); BASO % 0.1 % (0.0-3.0); EOS % 0.1 % (1.5-5.0); HEMOGLOBIN 9.2 g/dL (12.0-16.0); LYMPH # 0.8 (1.2-3.4); LYMPH % 5.8 % (22.0-35.0); MEAN CELL VOLUME 77.4 fl (80.0-105.0); MEAN CORPUSCULAR HEMOGLOBIN 25.3 pg (25.0-35.0); MEAN CORPUSCULAR HGB CONC 32.7 g/dl (31.0-37.0); MEAN PLATELET VOLUME 8.9 fl (7.0-11.0); MONO # 0.4 (0.1-0.6); MONO % 2.8 % (1.0-6.0); PLATELET COUNT 238 10^3/uL (120.0-450.0); RBC 3.63 10^6/uL (3.5-6.1); RED CELL DISTRIBUTION WIDTH 16.8 % (11.5-14.5); WHITE BLOOD COUNT 14.2 10^3/uL (4.5-11.0)
[2019-01-13 07:43] LABS: ALB/GLOB RATIO 0.9 (1.1-1.8); ALBUMIN 3.3 g/dL (3.0-4.8); ALT/SGPT 11 U/L (7-56); AST/SGOT 32 U/L (14-36); BLOOD UREA NITROGEN 8 mg/dL (7-21); CALCIUM 8.6 mg/dL (8.4-10.5); GFR NON-AFRICAN AMERICAN > 60
[2019-01-13] MEDS ORDERED: Potassium Chloride 20 mEq ER Tab PO STA (07:46)
[2019-01-13 08:05] LABS: BASOPHIL 1 % (0.0-1.0); LYMPHOCYTE 6 % (22.0-35.0); NEUTROPHIL 93 % (50.0-70.0)
[2019-01-13 08:06] LABS: MICROCYTOSIS 1+; PLATELET ESTIMATE NORMAL (NORMAL)
[2019-01-13] MEDS: Pantoprazole 40 mg EC Tab PO SCH (10:23)
[2019-01-13] MEDS: Insulin Regular 1 UNITS/0.01 ML ML SC SCH ×3 (12:59→18:28)
--- NOTE | 2019-01-13 14:53 | CP.PCM.PN ---
<Edgar Hernandez - Last Filed: 01/13/19 14:50> Subjective - Date & Time of Evaluation Date of Evaluation: 01/13/19 Time of Evaluation: 08:00 - Subjective Subjective: Edgar Hernandez, PGY1 Medicine Progress Note for Dr. Omalley Patient seen and examined at bedside this morning. Cough has improved since yesterday. She denies chest pain, shortness of breath, nausea, vomiting, diarrhea, fever, chills. Afebrile overnight. VSS. Occasionally she has left sided thoracic pain from her coughing and pneumonia. No adverse overnight events. A full 12 point ROS was conducted and unremarkable except as stated above. Objective - Vital Signs/Intake and Output Vital Signs (last 24 hours): Temp Pulse Resp BP Pulse Ox 99.8 F H 105 H 20 162/79 H 94 L 01/13/19 06:00 01/13/19 06:00 01/13/19 06:00 01/13/19 06:00 01/13/19 06:00 Intake and Output: 01/13/19 01/13/19 06:59 18:59 Intake Total 240 Output Total 600 Balance -360 - Medications Medications: Current Medications Acetaminophen (Tylenol 325mg Tab) 650 mg PO Q6H PRN PRN Reason: Fever >100.4 F Last Admin: 01/12/19 16:46 Dose: 650 mg Albuterol/Ipratropium (Duoneb 3 Mg/0.5 Mg (3 Ml) Ud) 3 ml IH [id number] [facility] Last Admin: 01/13/19 13:44 Dose: 3 ml Camphor/Menthol (Bengay) 0 gm TOP BID [facility] Dextrose (Dextrose 50% Inj) 0 ml IV ONCE PRN PRN Reason: Hypoglycemia Ferrous Sulfate (Feosol) 324 mg PO TID [facility] Last Admin: 01/13/19 13:02 Dose: 324 mg Guaifenesin (Robitussin) 100 mg PO Q6H [facility] Last Admin: 01/13/19 05:46 Dose: 100 mg Heparin Sodium (Porcine) (Heparin) 5,000 units SC Q8 [facility]; Protocol Last Admin: 01/13/19 13:01 Dose: 5,000 units Dextrose (Dextrose 5% In Water 1000 Ml) 1,000 mls @ 0 mls/hr IV .Q0M PRN; Protocol PRN Reason: Hypoglycemia Protocol Insulin Human Regular (Humulin R) 0 units SC ACHS [facility]; Protocol Last Admin: 01/13/19 13:00 Dose: 2 units Levofloxacin (Levaquin) 750 mg PO DAILY [facility]; Protocol Memantine (Namenda) 10 mg PO DAILY [facility] Last Admin: 01/13/19 10:23 Dose: 10 mg Montelukast Sodium (Singulair) 10 mg PO DAILY [facility] Last Admin: 01/13/19 10:23 Dose: 10 mg Pantoprazole Sodium (Protonix Ec Tab) 40 mg PO DAILY [facility] Last Admin: 01/13/19 10:23 Dose: 40 mg Sertraline HCl (Zoloft) 50 mg PO DAILY [facility] Last Admin: 01/13/19 10:24 Dose: 50 mg - Labs Labs: 01/13/19 06:45 01/13/19 06:45 PT 11.4 SECONDS (9.4-12.5) 01/11/19 05:25 INR 1.01 01/11/19 05:25 APTT 24.7 Seconds (26.9-38.3) L 01/11/19 05:25 - Constitutional Appears: No Acute Distress - Head Exam Head Exam: ATRAUMATIC, NORMAL INSPECTION, NORMOCEPHALIC - Eye Exam Eye Exam: EOMI, Normal appearance Pupil Exam: NORMAL ACCOMODATION - Respiratory Exam Respiratory Exam: Clear to Ausculation Bilateral, Rhonchi (left lung rhonci ). absent: Accessory Muscle Use, Chest Wall Tenderness, Rales, Wheezes - Cardiovascular Exam Cardiovascular Exam: RRR, +S1, +S2 - GI/Abdominal Exam GI & Abdominal Exam: Soft, Normal Bowel Sounds. absent: Tenderness - Extremities Exam Extremities Exam: Full ROM, Normal Capillary Refill, Normal Inspection. absent: Joint Swelling, Pedal Edema - Back Exam Back Exam: NORMAL INSPECTION - Neurological Exam Neurological Exam: Alert, Awake, CN II-XII Intact, Oriented x3 - Psychiatric Exam Psychiatric exam: Normal Affect, Normal Mood - Skin Skin Exam: Dry, Intact, Normal Color, Warm Assessment and Plan - Assessment and Plan (Free Text) Assessment: Patient is a 83 year old female with a PMHx of DM2 (last known a1c 7.1), HTN, depression/anxiety, dementia, OA, umbilical and hiatal hernias, who presented to the ED for 1 day of body aches, malaise, frequent cough with green sputum production, and 5 episodes of non-bilious and non-bloody emesis. Patient admitted for sepsis 2/2 HCAP. Plan: Sepsis 2/2 HCAP - Leukocytosis still present, wbc 14.2. Patient clinically improving however leukocytosis still present. - Attempted to wean off nasal cannula earlier today however, patient was saturating at 87%, placed back on nasal cannula 2 L - Fevers resolved - As per ID recs, antibiotics switched to Levaquin PO 750mg x4 days. - c/w duonebs q6h tung - c/w robitussin for cough - c/w aspiration precautions - procalcitonin level negative, flu negative, mycoplasma negative - UCx negative - Blood Cx negative x2 (prelim) - MRSA negative - ID on consult (Dr. Jin). Recs appreciated. - CXR in ED: left-sided infiltrates consistent with pneumonia Iron Deficiency Anemia - May be 2/2 dilutional effect; patient also has history of iron deficiency anemia given iron studies - started on Feosol 324mg PO TID - Hgb stable at this time (Baseline Hgb 10-11) Poor PO Intake - nutrition/audit consultant consult HTN - normotensive at this time - home meds lisinopril 40mg qd and verapamil 180mg held at this time DM2 - Hgb A1c 7.5 - ISS low dose protocol Depression and Anxiety - continue home med zoloft 50mg po qd - hold home med klonopin 0.5mg po hs and trazadon 100mg po hs Dementia - continue home med namenda 10mg po qd GI ppx: ptx DVT ppx: heparin 5000u sc q8h Diet: HHD PT recommends GREGORY. Dispo: Continue to monitor patient on telemetry. Patient clinically improving but still needs nasal cannula at this time. Leukocytosis still present, will continue to monitor at this time. Case was discussed and reviewed with Attending Physician, Dr. Omalley. <Melania Omalley - Last Filed: 01/13/19 17:44> Objective - Vital Signs/Intake and Output Vital Signs (last 24 hours): Temp Pulse Resp BP Pulse Ox 99.8 F H 105 H 20 162/79 H 94 L 01/13/19 06:00 01/13/19 06:00 01/13/19 06:00 01/13/19 06:00 01/13/19 06:00 Intake and Output: 01/13/19 01/13/19 06:59 18:59 Intake Total 240 Output Total 600 Balance -360 - Medications Medications: Current Medications Acetaminophen (Tylenol 325mg Tab) 650 mg PO Q6H PRN PRN Reason: Fever >100.4 F Last Admin: 01/12/19 16:46 Dose: 650 mg Albuterol/Ipratropium (Duoneb 3 Mg/0.5 Mg (3 Ml) Ud) 3 ml IH [id number] [facility] Last Admin: 01/13/19 13:44 Dose: 3 ml Camphor/Menthol (Bengay) 0 gm TOP BID [facility] Dextrose (Dextrose 50% Inj) 0 ml IV ONCE PRN PRN Reason: Hypoglycemia Ferrous Sulfate (Feosol) 324 mg PO TID [facility] Last Admin: 01/13/19 13:02 Dose: 324 mg Guaifenesin (Robitussin) 100 mg PO Q6H [facility] Last Admin: 01/13/19 05:46 Dose: 100 mg Heparin Sodium (Porcine) (Heparin) 5,000 units SC Q8 [facility]; Protocol Last Admin: 01/13/19 13:01 Dose: 5,000 units Dextrose (Dextrose 5% In Water 1000 Ml) 1,000 mls @ 0 mls/hr IV .Q0M PRN; Protocol PRN Reason: Hypoglycemia Protocol Vancomycin HCl (Vancomycin 1gm) 1 gm in 250 mls @ 167 mls/hr IVPB Q12H [facility]; Protocol Piperacillin Sod/Tazobactam Sod (Zosyn 3.375 In Ns 100ml) 100 mls @ 25 mls/hr IVPB Q8 [facility]; Protocol Stop: 01/14/19 09:59 Insulin Human Regular (Humulin R) 0 units SC ACHS [facility]; Protocol Last Admin: 01/13/19 13:00 Dose: 2 units Lisinopril (Zestril) 40 mg PO DAILY [facility] Memantine (Namenda) 10 mg PO DAILY [facility] Last Admin: 01/13/19 10:23 Dose: 10 mg Montelukast Sodium (Singulair) 10 mg PO DAILY [facility] Last Admin: 01/13/19 10:23 Dose: 10 mg Pantoprazole Sodium (Protonix Ec Tab) 40 mg PO DAILY [facility] Last Admin: 01/13/19 10:23 Dose: 40 mg Sertraline HCl (Zoloft) 50 mg PO DAILY [facility] Last Admin: 01/13/19 10:24 Dose: 50 mg - Labs Labs: 01/13/19 06:45 01/13/19 06:45 PT 11.4 SECONDS (9.4-12.5) 01/11/19 05:25 INR 1.01 01/11/19 05:25 APTT 24.7 Seconds (26.9-38.3) L 01/11/19 05:25 Attending/Attestation - Attestation I have personally seen and examined this patient.: Yes I have fully participated in the care of the patient.: Yes I have reviewed all pertinent clinical information, including history, physical exam and plan: Yes Notes (Text): 01/13/19 17:42 83 year old female with past medical history of diabetes, hypertension, depression, dementia and arthritis who presented with complaint of generalized weakness and cough. Found to have sepsis with fever 103, elevated lactate and left lung infiltrate on CXR. Continue with iv antibiotics. Can possibly switch to po tomorrow. ID is following. Continue to monitor anemia, likely iron deficiency with diluational component as well. Started on po iron. BP meds were initially held but can slowly begin to resume as patient is now hypertensive. Continue with insulin ss for diabetes. PT evaluation was appreciated who recommended GREGORY. Will discuss with family and CMx/Sw. Melania Omalley MD Hospitalist.
[2019-01-13] MEDS: Vancomycin 1gm in NS 250ml 1 GM/250 ML BAG IVPB SCH (18:30)
[2019-01-13] MEDS: Menthol/Methyl Salicylate Ointment(1 oz) TOP SCH (18:33)
--- NOTE | 2019-01-13 21:18 | CP.PCM.PN ---
Subjective - Date & Time of Evaluation Date of Evaluation: 01/13/19 Time of Evaluation: 07:25 - Subjective Subjective: Cough is somewhat better, no fevers overnight, not in distress. Objective - Vital Signs/Intake and Output Vital Signs (last 24 hours): Temp Pulse Resp BP Pulse Ox 99 F 98 H 20 165/74 H 98 01/12/19 18:00 01/12/19 18:00 01/12/19 18:00 01/12/19 18:00 01/12/19 06:00 Intake and Output: 01/12/19 01/13/19 18:59 06:59 Intake Total 790 Balance 790 - Medications Medications: Current Medications Acetaminophen (Tylenol 325mg Tab) 650 mg PO Q6H PRN PRN Reason: Fever >100.4 F Last Admin: 01/12/19 16:46 Dose: 650 mg Albuterol/Ipratropium (Duoneb 3 Mg/0.5 Mg (3 Ml) Ud) 3 ml IH [id number] [facility] Last Admin: 01/12/19 20:10 Dose: 3 ml Camphor/Menthol (Bengay) 1 gm TOP BID PRN PRN Reason: Pain, moderate (4-7) Dextrose (Dextrose 50% Inj) 0 ml IV ONCE PRN PRN Reason: Hypoglycemia Doxycycline Hyclate (Doryx) 100 mg PO Q12 [facility]; Protocol Stop: 01/18/19 12:46 Last Admin: 01/12/19 22:21 Dose: 100 mg Guaifenesin (Robitussin) 100 mg PO Q6H [facility] Last Admin: 01/12/19 17:05 Dose: 100 mg Heparin Sodium (Porcine) (Heparin) 5,000 units SC Q8 [facility]; Protocol Last Admin: 01/12/19 22:21 Dose: 5,000 units Dextrose (Dextrose 5% In Water 1000 Ml) 1,000 mls @ 0 mls/hr IV .Q0M PRN; Protocol PRN Reason: Hypoglycemia Protocol Vancomycin HCl (Vancomycin 1gm) 1 gm in 250 mls @ 167 mls/hr IVPB Q12H [facility]; Protocol Last Admin: 01/12/19 18:16 Dose: 167 mls/hr Piperacillin Sod/Tazobactam Sod (Zosyn 4.5 Gm In Ns 100ml) 4.5 gm in 100 mls @ 25 mls/hr IVPB Q8H [facility]; Protocol Last Admin: 01/12/19 20:22 Dose: 25 mls/hr Insulin Human Regular (Humulin R) 0 units SC ACHS [facility]; Protocol Last Admin: 01/12/19 22:23 Dose: Not Given Memantine (Namenda) 10 mg PO DAILY [facility] Last Admin: 01/12/19 09:28 Dose: 10 mg Montelukast Sodium (Singulair) 10 mg PO DAILY [facility] Last Admin: 01/12/19 09:28 Dose: 10 mg Pantoprazole Sodium (Protonix Ec Tab) 40 mg PO DAILY [facility] Last Admin: 01/12/19 09:29 Dose: 40 mg Sertraline HCl (Zoloft) 50 mg PO DAILY [facility] Last Admin: 01/12/19 09:28 Dose: 50 mg - Labs Labs: 01/12/19 16:14 01/12/19 06:00 PT 11.4 SECONDS (9.4-12.5) 01/11/19 05:25 INR 1.01 01/11/19 05:25 APTT 24.7 Seconds (26.9-38.3) L 01/11/19 05:25 - Constitutional Appears: Chronically Ill - Head Exam Head Exam: NORMAL INSPECTION - Respiratory Exam Respiratory Exam: Decreased Breath Sounds - Cardiovascular Exam Cardiovascular Exam: +S1, +S2 - GI/Abdominal Exam GI & Abdominal Exam: Soft. absent: Tenderness Assessment and Plan - Assessment and Plan (Free Text) Plan: Assessment sepsis with left sided HCAP dementia DM HTN depression arthritis Plan continue Vancomycin, Zosyn and Doxycycline day 3 to complete 4-7 days of therapy - if cultures continue to be negative and with negative nasal MRSA screen, may switch to PO antibiotics by tomorrow if patient continues to improve will continue to monitor clinically
[2019-01-13] MEDS: Piperacillin/Tazobact 3.375 gm 100 ML IVPB SCH (21:28)
[2019-01-14] MEDS: Insulin Regular 1 UNITS/0.01 ML ML SC SCH ×5 (01:15→21:57)
[2019-01-14] MEDS: guaiFENesin 100 mg/5 ml Syrup UD PO SCH ×4 (01:16→17:22)
[2019-01-14] MEDS: Albuterol-Ipratrop 3 mg / 0.5 (3 ml) UD IH SCH ×4 (05:05→19:40)
[2019-01-14] MEDS: Vancomycin 1gm in NS 250ml 1 GM/250 ML BAG IVPB SCH ×2 (05:48→17:24)
[2019-01-14] MEDS: Piperacillin/Tazobact 3.375 gm 100 ML IVPB SCH ×4 (05:49→22:20)
[2019-01-14 07:10] LABS: ALB/GLOB RATIO 0.8 (1.1-1.8); ALBUMIN 2.9 g/dL (3.0-4.8); ALT/SGPT 21 U/L (7-56); AST/SGOT 34 U/L (14-36); BLOOD UREA NITROGEN 8 mg/dL (7-21); CALCIUM 8.2 mg/dL (8.4-10.5); GFR NON-AFRICAN AMERICAN > 60
[2019-01-14 08:17] LABS: BASO # 0.02 K/mm3 (0.0-2.0); BASO % 0.2 % (0.0-3.0); EOS # 0.1 (0.0-0.7); EOS % 1.1 % (1.5-5.0); HEMOGLOBIN 8.3 g/dL (12.0-16.0); LYMPH # 0.9 (1.2-3.4); LYMPH % 10.1 % (22.0-35.0); MEAN CELL VOLUME 77.8 fl (80.0-105.0); MEAN CORPUSCULAR HEMOGLOBIN 25.2 pg (25.0-35.0); MEAN CORPUSCULAR HGB CONC 32.4 g/dl (31.0-37.0); MONO # 0.4 (0.1-0.6); RBC 3.29 10^6/uL (3.5-6.1); WHITE BLOOD COUNT 8.4 10^3/uL (4.5-11.0)
--- NOTE | 2019-01-14 09:02 | CP.PCM.PN ---
<Edgar Hernandez - Last Filed: 01/14/19 13:32> Subjective - Date & Time of Evaluation Date of Evaluation: 01/14/19 Time of Evaluation: 08:00 - Subjective Subjective: Edgar Hernandez PGY1 Medicine Progress Note for Dr. Omalley Patient seen and examined at bedside this morning. Febrile overnight - 101 rectal temperature with x1 episode of vomiting. Denies cp, sob, abdominal pain, headache, n/v/d currently. A full 12 point ROS was conducted and unremarkable except as stated above. Objective - Vital Signs/Intake and Output Vital Signs (last 24 hours): Temp Pulse Resp BP Pulse Ox 99 F 99 H 20 122/73 94 L 01/14/19 06:00 01/13/19 18:32 01/13/19 06:00 01/13/19 18:32 01/13/19 06:00 Intake and Output: 01/14/19 01/14/19 06:59 18:59 Intake Total 960 Balance 960 - Medications Medications: Current Medications Acetaminophen (Tylenol 325mg Tab) 650 mg PO Q6H PRN PRN Reason: Fever >100.4 F Last Admin: 01/14/19 06:19 Dose: 650 mg Albuterol/Ipratropium (Duoneb 3 Mg/0.5 Mg (3 Ml) Ud) 3 ml IH [id number] [facility] Last Admin: 01/14/19 07:46 Dose: 3 ml Camphor/Menthol (Bengay) 0 gm TOP BID [facility] Last Admin: 01/13/19 18:33 Dose: 1 applic Dextrose (Dextrose 50% Inj) 0 ml IV ONCE PRN PRN Reason: Hypoglycemia Ferrous Sulfate (Feosol) 324 mg PO TID [facility] Last Admin: 01/13/19 18:28 Dose: 324 mg Guaifenesin (Robitussin) 100 mg PO Q6H [facility] Last Admin: 01/14/19 05:48 Dose: 100 mg Heparin Sodium (Porcine) (Heparin) 5,000 units SC Q8 [facility]; Protocol Last Admin: 01/14/19 05:48 Dose: 5,000 units Dextrose (Dextrose 5% In Water 1000 Ml) 1,000 mls @ 0 mls/hr IV .Q0M PRN; Protocol PRN Reason: Hypoglycemia Protocol Vancomycin HCl (Vancomycin 1gm) 1 gm in 250 mls @ 167 mls/hr IVPB Q12H [facility]; Protocol Last Admin: 01/14/19 05:48 Dose: 167 mls/hr Piperacillin Sod/Tazobactam Sod (Zosyn 3.375 In Ns 100ml) 100 mls @ 25 mls/hr IVPB Q8 [facility]; Protocol Stop: 01/20/19 22:01 Last Admin: 01/14/19 05:49 Dose: 25 mls/hr Doxycycline Hyclate 100 mg/ (Sodium Chloride) 100 mls @ 100 mls/hr IVPB Q12 [facility]; Protocol Insulin Human Regular (Humulin R) 0 units SC ACHS [facility]; Protocol Last Admin: 01/14/19 01:15 Dose: Not Given Lisinopril (Zestril) 40 mg PO DAILY [facility] Last Admin: 01/13/19 18:32 Dose: 40 mg Memantine (Namenda) 10 mg PO DAILY [facility] Last Admin: 01/13/19 10:23 Dose: 10 mg Montelukast Sodium (Singulair) 10 mg PO DAILY [facility] Last Admin: 01/13/19 10:23 Dose: 10 mg Pantoprazole Sodium (Protonix Ec Tab) 40 mg PO DAILY [facility] Last Admin: 01/13/19 10:23 Dose: 40 mg Sertraline HCl (Zoloft) 50 mg PO DAILY [facility] Last Admin: 01/13/19 10:24 Dose: 50 mg - Labs Labs: 01/14/19 06:00 01/14/19 06:00 PT 11.4 SECONDS (9.4-12.5) 01/11/19 05:25 INR 1.01 01/11/19 05:25 APTT 24.7 Seconds (26.9-38.3) L 01/11/19 05:25 - Constitutional Appears: No Acute Distress - Head Exam Head Exam: ATRAUMATIC, NORMAL INSPECTION, NORMOCEPHALIC - Eye Exam Eye Exam: EOMI, Normal appearance Pupil Exam: NORMAL ACCOMODATION - Respiratory Exam Respiratory Exam: Clear to Ausculation Bilateral, Rhonchi (left lung rhonci - improved since previous ). absent: Accessory Muscle Use, Chest Wall Tenderness, Rales, Wheezes - Cardiovascular Exam Cardiovascular Exam: RRR, +S1, +S2 - GI/Abdominal Exam GI & Abdominal Exam: Soft, Normal Bowel Sounds. absent: Tenderness - Extremities Exam Extremities Exam: Full ROM, Normal Capillary Refill, Normal Inspection. absent: Joint Swelling, Pedal Edema - Back Exam Back Exam: NORMAL INSPECTION - Neurological Exam Neurological Exam: Alert, Awake, CN II-XII Intact, Oriented x3 - Psychiatric Exam Psychiatric exam: Normal Affect, Normal Mood - Skin Skin Exam: Dry, Intact, Normal Color, Warm Assessment and Plan - Assessment and Plan (Free Text) Assessment: Patient is a 83 year old female with a PMHx of DM2 (last known a1c 7.1), HTN, depression/anxiety, dementia, OA, umbilical and hiatal hernias, who presented to the ED for 1 day of body aches, malaise, frequent cough with green sputum pr oduction, and 5 episodes of non-bilious and non-bloody emesis. Patient admitted for sepsis 2/2 HCAP. Plan: Sepsis 2/2 HCAP - Leukocytosis - resolved - Febrile overnight, temp 101 rectal. Will continue to monitor for fevers. - tylenol 650mg PO q6 prn for fevers - saturating well, low 90s, on room air. Currently remains off nasal cannula. - Will obtain CT Chest to monitor status of pneumonia - c/w vanco, zosyn, and dozy for antibiotic coverage - As per ID recs, antibiotics may be switched to Levaquin PO on discharge - c/w duonebs q6h tung - c/w robitussin for cough - c/w aspiration precautions - UCx negative - Blood Cx negative x2 (prelim) - MRSA negative - ID on consult (Dr. Jin). Recs appreciated. - CXR in ED: left-sided infiltrates consistent with pneumonia Episode of vomiting with Poor PO Intake - Episode of vomiting overnight - currently resolved; consider aspiration pneumonia as possibility - nutrition/asphalt paving machine operator on consult Iron Deficiency Anemia - Hgb stable at this time (Baseline Hgb 10-11) - c/w Feosol 324mg PO TID - Hx Iron Deficiency Anemia HTN - normotensive at this time - restarted home meds Lisinopril 40mg qd DM2 - Hgb A1c 7.5 - ISS low dose protocol Depression and Anxiety - continue home med zoloft 50mg po qd - hold home med klonopin 0.5mg po hs and trazadon 100mg po hs Dementia - continue home med namenda 10mg po qd GI ppx: ptx DVT ppx: heparin 5000u sc q8h Diet: HHD PT recommends GREGORY. Dispo: Continue to monitor patient on telemetry. Patient spiked fever overnight. Will continue to monitor. Leukocytosis resolved and clinically doing better. Possible discharge tomorrow. Case was discussed and reviewed with Attending Physician, Dr. Omalley. <Melania Omalley - Last Filed: 01/14/19 14:43> Objective - Vital Signs/Intake and Output Vital Signs (last 24 hours): Temp Pulse Resp BP Pulse Ox 99 F 89 20 137/75 94 L 01/14/19 06:00 01/14/19 09:22 01/13/19 06:00 01/14/19 09:22 01/13/19 06:00 Intake and Output: 01/14/19 01/14/19 06:59 18:59 Intake Total 960 Balance 960 - Medications Medications: Current Medications Acetaminophen (Tylenol 325mg Tab) 650 mg PO Q6H PRN PRN Reason: Fever >100.4 F Last Admin: 01/14/19 06:19 Dose: 650 mg Albuterol/Ipratropium (Duoneb 3 Mg/0.5 Mg (3 Ml) Ud) 3 ml IH [id number] [facility] Last Admin: 01/14/19 13:32 Dose: 3 ml Camphor/Menthol (Bengay) 0 gm TOP BID [facility] Last Admin: 01/14/19 09:19 Dose: 1 applic Dextrose (Dextrose 50% Inj) 0 ml IV ONCE PRN PRN Reason: Hypoglycemia Ferrous Sulfate (Feosol) 324 mg PO TID [facility] Last Admin: 01/14/19 09:19 Dose: 324 mg Guaifenesin (Robitussin) 100 mg PO Q6H [facility] Last Admin: 01/14/19 12:09 Dose: 100 mg Heparin Sodium (Porcine) (Heparin) 5,000 units SC Q8 [facility]; Protocol Last Admin: 01/14/19 05:48 Dose: 5,000 units Dextrose (Dextrose 5% In Water 1000 Ml) 1,000 mls @ 0 mls/hr IV .Q0M PRN; Protocol PRN Reason: Hypoglycemia Protocol Vancomycin HCl (Vancomycin 1gm) 1 gm in 250 mls @ 167 mls/hr IVPB Q12H [facility]; Protocol Last Admin: 01/14/19 05:48 Dose: 167 mls/hr Doxycycline Hyclate 100 mg/ (Sodium Chloride) 100 mls @ 100 mls/hr IVPB Q12 [facility]; Protocol Last Admin: 01/14/19 09:28 Dose: 100 mls/hr Piperacillin Sod/Tazobactam Sod (Zosyn 3.375 In Ns 100ml) 100 mls @ 200 mls/hr IVPB Q6H [facility]; Protocol Stop: 01/21/19 11:01 Insulin Human Regular (Humulin R) 0 units SC ACHS [facility]; Protocol Last Admin: 01/14/19 12:05 Dose: 2 units Lisinopril (Zestril) 40 mg PO DAILY [facility] Last Admin: 01/14/19 09:22 Dose: 40 mg Memantine (Namenda) 10 mg PO DAILY [facility] Last Admin: 01/14/19 09:21 Dose: 10 mg Montelukast Sodium (Singulair) 10 mg PO DAILY [facility] Last Admin: 01/14/19 09:21 Dose: 10 mg Pantoprazole Sodium (Protonix Ec Tab) 40 mg PO DAILY [facility] Last Admin: 01/14/19 09:21 Dose: 40 mg Sertraline HCl (Zoloft) 50 mg PO DAILY [facility] Last Admin: 01/14/19 09:23 Dose: 50 mg - Labs Labs: 01/14/19 06:00 01/14/19 06:00 PT 11.4 SECONDS (9.4-12.5) 01/11/19 05:25 INR 1.01 01/11/19 05:25 APTT 24.7 Seconds (26.9-38.3) L 01/11/19 05:25 Attending/Attestation - Attestation I have personally seen and examined this patient.: Yes I have fully participated in the care of the patient.: Yes I have reviewed all pertinent clinical information, including history, physical exam and plan: Yes Notes (Text): 01/14/19 14:41 83 year old female with past medical history of diabetes, hypertension, depression, dementia and arthritis who presented with complaint of generalized weakness and cough. Found to have sepsis with fever 103, elevated lactate and left lung infiltrate on CXR. She was started on iv antibiotics for pneumonia. Overnight patient had reported fever of 101.2 and one episode of vomiting. Today she reports she is feeling better. Cough is improved and leukocytosis resolved. Will obtain CT chest. Continue with antibiotics as per ID. Continue to monitor anemia, likely iron deficiency with diluational component as well. Started on po iron. She is on lisinopril for hypertension and insulin ss for diabetes. PT evaluation was appreciated who recommended GREGORY. Will discuss with family and CMx/Sw. Melania Omalley MD Hospitalist.
[2019-01-14] MEDS: Menthol/Methyl Salicylate Ointment(1 oz) TOP SCH ×2 (09:19→17:20)
[2019-01-14] MEDS: Pantoprazole 40 mg EC Tab PO SCH (09:21)
[2019-01-14] MEDS ORDERED: levoFLOXacin 750 MG TAB PO SCH (10:00)
--- NOTE | 2019-01-14 15:41 | CT ---
Date of service: 01/14/2019 PROCEDURE: CT Chest without contrast HISTORY: left-sided pneumonia worsening? COMPARISON: None available. TECHNIQUE: Contiguous axial images were obtained through the chest without intravenous contrast enhancement. Sagittal and coronal reconstructions were performed. Radiation dose (DLP): 173.73 mGy-cm. This CT exam was performed using one or more of the following dose reduction techniques: Automated exposure control, adjustment of the mA and/or kV according to patient size, and/or use of iterative reconstruction technique. FINDINGS: LUNGS: Extensive infiltrate in the left lung. This involves the entire left lower lobe and a substantial portion of the left upper lobe including the anterior, apical posterior and lingular segments. MEDIASTINUM: Unremarkable thoracic aorta. No aneurysm. Mild cardiomegaly. Main pulmonary artery unremarkable. No vascular congestion. No lymphadenopathy. Moderate hiatal hernia. The herniated stomach is fluid-filled. The patient appears to be status post right hemithyroidectomy. There are multiple nodules in the left lobe of the thyroid the largest of which measures approximately 1.5 cm. Correlation with thyroid ultrasound examination is advised. There is atherosclerotic calcification of the thoracic aorta. PLEURA: Small left pleural effusion. No right pleural effusion. No pneumothorax. BONES: No fracture. No destructive lesion. UPPER ABDOMEN: Status post cholecystectomy OTHER FINDINGS: None. IMPRESSION: Extensive infiltrate throughout most of left lung. Small left pleural effusion. No right-sided infiltrate. Hiatal hernia. Additional nonacute findings as above.
--- NOTE | 2019-01-14 21:59 | CP.PCM.PN ---
Subjective - Date & Time of Evaluation Date of Evaluation: 01/14/19 Time of Evaluation: 07:00 - Subjective Subjective: Patient still had fever overnight 101.2 F, but not in distress. Objective - Vital Signs/Intake and Output Vital Signs (last 24 hours): Temp Pulse Resp BP Pulse Ox 99.8 F H 99 H 20 122/73 94 L 01/13/19 06:00 01/13/19 18:32 01/13/19 06:00 01/13/19 18:32 01/13/19 06:00 - Medications Medications: Current Medications Acetaminophen (Tylenol 325mg Tab) 650 mg PO Q6H PRN PRN Reason: Fever >100.4 F Last Admin: 01/13/19 18:55 Dose: 650 mg Albuterol/Ipratropium (Duoneb 3 Mg/0.5 Mg (3 Ml) Ud) 3 ml IH [id number] [facility] Last Admin: 01/13/19 19:17 Dose: 3 ml Camphor/Menthol (Bengay) 0 gm TOP BID [facility] Last Admin: 01/13/19 18:33 Dose: 1 applic Dextrose (Dextrose 50% Inj) 0 ml IV ONCE PRN PRN Reason: Hypoglycemia Ferrous Sulfate (Feosol) 324 mg PO TID [facility] Last Admin: 01/13/19 18:28 Dose: 324 mg Guaifenesin (Robitussin) 100 mg PO Q6H [facility] Last Admin: 01/13/19 05:46 Dose: 100 mg Heparin Sodium (Porcine) (Heparin) 5,000 units SC Q8 [facility]; Protocol Last Admin: 01/13/19 13:01 Dose: 5,000 units Dextrose (Dextrose 5% In Water 1000 Ml) 1,000 mls @ 0 mls/hr IV .Q0M [facility]; Protocol PRN Reason: Hypoglycemia Protocol Vancomycin HCl (Vancomycin 1gm) 1 gm in 250 mls @ 167 mls/hr IVPB Q12H [facility]; Protocol Last Admin: 01/13/19 18:30 Dose: 167 mls/hr Piperacillin Sod/Tazobactam Sod (Zosyn 3.375 In Ns 100ml) 100 mls @ 25 mls/hr IVPB Q8 [facility]; Protocol Stop: 01/20/19 22:01 Insulin Human Regular (Humulin R) 0 units SC ACHS [facility]; Protocol Last Admin: 01/13/19 18:28 Dose: Not Given Lisinopril (Zestril) 40 mg PO DAILY [facility] Last Admin: 01/13/19 18:32 Dose: 40 mg Memantine (Namenda) 10 mg PO DAILY [facility] Last Admin: 01/13/19 10:23 Dose: 10 mg Montelukast Sodium (Singulair) 10 mg PO DAILY [facility] Last Admin: 01/13/19 10:23 Dose: 10 mg Pantoprazole Sodium (Protonix Ec Tab) 40 mg PO DAILY [facility] Last Admin: 01/13/19 10:23 Dose: 40 mg Sertraline HCl (Zoloft) 50 mg PO DAILY [facility] Last Admin: 01/13/19 10:24 Dose: 50 mg - Labs Labs: 01/13/19 06:45 01/13/19 06:45 PT 11.4 SECONDS (9.4-12.5) 01/11/19 05:25 INR 1.01 01/11/19 05:25 APTT 24.7 Seconds (26.9-38.3) L 01/11/19 05:25 - Constitutional Appears: Non-toxic, Chronically Ill - Head Exam Head Exam: NORMAL INSPECTION - Respiratory Exam Respiratory Exam: Decreased Breath Sounds - Cardiovascular Exam Cardiovascular Exam: +S1, +S2 - GI/Abdominal Exam GI & Abdominal Exam: Soft. absent: Tenderness Assessment and Plan - Assessment and Plan (Free Text) Plan: Assessment sepsis with left sided HCAP dementia DM HTN depression arthritis Plan continue Zosyn and Doxycycline day 4 to complete 4-7 days of therapy - with negative nasal MRSA screen, will d/c Vancomycin patient still having fevers and will continue to monitor and trend fever curve
[2019-01-15] MEDS: guaiFENesin 100 mg/5 ml Syrup UD PO SCH ×5 (00:38→17:23)
[2019-01-15] MEDS: Albuterol-Ipratrop 3 mg / 0.5 (3 ml) UD IH SCH ×4 (01:38→19:48)
[2019-01-15] MEDS: Piperacillin/Tazobact 3.375 gm 100 ML IVPB SCH ×3 (05:24→17:23)
[2019-01-15 07:20] LABS: BASO # 0.04 K/mm3 (0.0-2.0); BASO % 0.4 % (0.0-3.0); EOS # 0.1 (0.0-0.7); EOS % 1.6 % (1.5-5.0); LYMPH # 1.5 (1.2-3.4); LYMPH % 16.7 % (22.0-35.0); MEAN CELL VOLUME 77.8 fl (80.0-105.0); MEAN CORPUSCULAR HEMOGLOBIN 25.3 pg (25.0-35.0); MEAN CORPUSCULAR HGB CONC 32.5 g/dl (31.0-37.0); MEAN PLATELET VOLUME 8.9 fl (7.0-11.0); MONO # 0.9 (0.1-0.6); MONO % 9.7 % (1.0-6.0); RBC 3.56 10^6/uL (3.5-6.1); RED CELL DISTRIBUTION WIDTH 16.7 % (11.5-14.5)
[2019-01-15 07:33] LABS: ALB/GLOB RATIO 0.9 (1.1-1.8); ALBUMIN 3.4 g/dL (3.0-4.8); ALT/SGPT 22 U/L (7-56); AST/SGOT 31 U/L (14-36); BLOOD UREA NITROGEN 9 mg/dL (7-21); CALCIUM 8.5 mg/dL (8.4-10.5); GFR NON-AFRICAN AMERICAN > 60
[2019-01-15 09:07] VITALS: O2SAT 92
--- NOTE | 2019-01-15 09:51 | PN ---
DATE: 01/15/2019 SUBJECTIVE: The patient is in bed in no acute distress. Low grade fevers. PHYSICAL EXAMINATION VITAL SIGNS: On exam, temperature is 100.1, blood pressure is 149/70 and respiratory rate of 18. HEENT: Unremarkable. NECK: Supple. LUNGS: Have decreased breath sounds. HEART: Normal S1 and S2. ABDOMEN: Soft and nontender. LABORATORY EXAMINATION: Reveals a white count of 9000 and hemoglobin of 9. Chemistries are noted. BUN of 9 and creatinine of 0.7. Urinalysis is noted and microbiology reveals the blood cultures are negative. Urine cultures are negative.. Review of orders reveals the patient is on IV doxycycline and Zosyn. The patient had a CAT scan of the chest; extensive infiltrate in the left and the entire left lobe and some portion of left upper lobe and left lower lobe.. ASSESSMENT AND PLAN: This is an 83-year-old female who was admitted with sepsis with left-sided healthcare-associated pneumonia, dementia, diabetes, hypertension, depression, arthritis, on Zosyn and doxycycline day #5 with negative mycoplasma, negative influenza, negative methicillin-resistant Staphylococcus aureus screen, negative urine cultures, negative blood cultures in a patient who is doing better. We will change the doxycycline to p.o. We will follow with you. We will order a urine for Legionella antigen. Review of the EKG reveals the patient's QTC is 449. Maximo Jin MD
[2019-01-15] MEDS: Menthol/Methyl Salicylate Ointment(1 oz) TOP SCH ×2 (10:23→17:17)
[2019-01-15] MEDS: Insulin Regular 1 UNITS/0.01 ML ML SC SCH ×3 (10:25→17:18)
[2019-01-15] MEDS: Pantoprazole 40 mg EC Tab PO SCH (10:28)
[2019-01-15 16:59] VITALS: BP 162/82; PULSE 101; RESP 19; TEMP 99.5
--- NOTE | 2019-01-15 18:08 | CP.PCM.DIS ---
<Pal,Edgar - Last Filed: 01/15/19 17:59> Provider - Provider Date of Admission: 01/11/19 05:57 Attending physician: Melania Omalley MD Primary care physician: Maritza Woods DO Consults: 01/11/19 07:30 Infectious Disease Consult Routine Comment: Consulting Provider: Sb Dougherty Consulting Physician: Sb Dougherty Reason for Consult: HCAP; sepsis 01/12/19 16:37 Diabetic Education Referral Routine Comment: Physician Instructions: Reason For Exam: [id number] 7.5 01/13/19 13:49 Nursing Referral for Wound Care Routine Comment: Physician Instructions: Reason For Exam: routine Time Spent in preparation of Discharge (in minutes): 35 Hospital Course - Lab Results Lab Results: Micro Results 01/11/19 05:25 Blood Blood Culture - Preliminary NO GROWTH AFTER 4 DAYS 01/11/19 05:05 Blood Blood Culture - Preliminary NO GROWTH AFTER 4 DAYS 01/12/19 06:30 Naris MRSA Culture (Admit) - Final MRSA NOT DETECTED 01/11/19 05:34 Urine Random Urine Culture - Final No Growth (<1,000 CFU/ML) Most Recent Lab Values WBC 9.0 10^3/uL (4.5-11.0) 01/15/19 06:30 RBC 3.56 10^6/uL (3.5-6.1) 01/15/19 06:30 Hgb 9.0 g/dL (12.0-16.0) L 01/15/19 06:30 Hct 27.7 % (36.0-48.0) L 01/15/19 06:30 MCV 77.8 fl (80.0-105.0) L 01/15/19 06:30 MCH 25.3 pg (25.0-35.0) 01/15/19 06:30 MCHC 32.5 g/dl (31.0-37.0) 01/15/19 06:30 RDW 16.7 % (11.5-14.5) H 01/15/19 06:30 Plt Count 280 10^3/uL (120.0-450.0) 01/15/19 06:30 MPV 8.9 fl (7.0-11.0) 01/15/19 06:30 Neut % (Auto) 71.6 % (50.0-68.0) H 01/15/19 06:30 Lymph % (Auto) 16.7 % (22.0-35.0) L 01/15/19 06:30 Sierra % (Auto) 9.7 % (1.0-6.0) H 01/15/19 06:30 Eos % (Auto) 1.6 % (1.5-5.0) 01/15/19 06:30 Baso % (Auto) 0.4 % (0.0-3.0) 01/15/19 06:30 Lymph # (Auto) 1.5 (1.2-3.4) 01/15/19 06:30 [place] # (Auto) 0.9 (0.1-0.6) H 01/15/19 06:30 Eos # (Auto) 0.1 (0.0-0.7) 01/15/19 06:30 Baso # (Auto) 0.04 K/mm3 (0.0-2.0) 01/15/19 06:30 Absolute Neuts (auto) 6.43 (1.4-6.5) 01/15/19 06:30 Neutrophils % (Manual) 93 % (50.0-70.0) H 01/13/19 06:45 Lymphocytes % (Manual) 6 % (22.0-35.0) L 01/13/19 06:45 Monocytes % (Manual) TEST NOT PERFORMED 01/13/19 06:45 Basophils % (Manual) 1 % (0.0-1.0) 01/13/19 06:45 Platelet Evaluation Normal (NORMAL) 01/13/19 06:45 Microcytosis (manual) 1+ 01/13/19 06:45 Retic Count 1.11 % (0.5-1.5) 01/12/19 09:21 PT 11.4 SECONDS (9.4-12.5) 01/11/19 05:25 INR 1.01 01/11/19 05:25 APTT 24.7 Seconds (26.9-38.3) L 01/11/19 05:25 pO2 44 mm/Hg (30-55) 01/11/19 09:10 VBG pH 7.34 (7.32-7.43) 01/11/19 09:10 VBG pCO2 41.0 (40-60) 01/11/19 09:10 VBG HCO3 22.1 mmol/l (21-28) 01/11/19 09:10 VBG Total CO2 23.4 mmol.L (22-28) 01/11/19 09:10 VBG O2 Sat (Calc) 83.7 % (40-65) H 01/11/19 09:10 VBG Base Excess -3.5 mmol/L (0.0-2.0) L 01/11/19 09:10 VBG Potassium 3.7 mmol/L (3.6-5.2) 01/11/19 09:10 Sodium 133.0 mmol/L (132-148) 01/11/19 09:10 Chloride 104.0 mmol/L (98-107) 01/11/19 09:10 Glucose 146 mg/dl (65-105) H 01/11/19 09:10 Lactate 1.2 mmol/L (0.7-2.1) 01/11/19 09:10 FiO2 21.0 % 01/11/19 09:10 Crit Value Called To Kristen fletcher 01/11/19 05:32 [place] [id number] 01/11/19 05:32 Blood Gas Notified Time 540 01/11/19 05:32 Sodium 130 mmol/L (132-148) L 01/15/19 06:30 Potassium 4.0 mmol/L (3.6-5.0) 01/15/19 06:30 Chloride 96 mmol/L (98-107) L 01/15/19 06:30 Carbon Dioxide 25 mmol/L (21-33) 01/15/19 06:30 Anion Gap 13 (10-20) 01/15/19 06:30 BUN 9 mg/dL (7-21) 01/15/19 06:30 Creatinine 0.7 mg/dl (0.7-1.2) 01/15/19 06:30 Est GFR ( Amer) > 60 01/15/19 06:30 Est GFR (Non-Af Amer) > 60 01/15/19 06:30 POC Glucose (mg/dL) 172 mg/dL (65-110) H 01/15/19 16:00 Random Glucose 158 mg/dL (70-110) H 01/15/19 06:30 Hemoglobin A1c 7.5 % (4.2-6.5) H 01/12/19 06:00 Lactic Acid 1.1 mmol/L (0.7-2.1) 01/11/19 09:10 Calcium 8.5 mg/dL (8.4-10.5) 01/15/19 06:30 Phosphorus 3.6 mg/dL (2.5-4.5) 01/11/19 05:25 Magnesium 1.6 mg/dL (1.7-2.2) L 01/12/19 06:00 Iron 10 ug/dL (45-180) L 01/12/19 07:00 TIBC 276 ug/dL (265-497) 01/12/19 07:00 % Saturation 4 % (20-55) L 01/12/19 07:00 Ferritin 34.1 ng/mL 01/12/19 07:00 Total Bilirubin 0.5 mg/dL (0.2-1.3) 01/15/19 06:30 AST 31 U/L (14-36) 01/15/19 06:30 ALT 22 U/L (7-56) 01/15/19 06:30 Alkaline Phosphatase 62 U/L (38-126) 01/15/19 06:30 Lactate Dehydrogenase 421 U/L (333-699) 01/11/19 05:25 Total Creatine Kinase 118 U/L (35-230) 01/11/19 05:25 Troponin I < 0.01 ng/mL 01/11/19 05:25 Total Protein 7.0 g/dL (5.8-8.3) 01/15/19 06:30 Albumin 3.4 g/dL (3.0-4.8) 01/15/19 06:30 Globulin 3.7 gm/dL 01/15/19 06:30 Albumin/Globulin Ratio 0.9 (1.1-1.8) L 01/15/19 06:30 Procalcitonin 0.46 NG/ML (0.19-0.49) 01/11/19 05:25 Venous Blood Potassium 3.7 mmol/L (3.6-5.2) 01/11/19 09:10 Urine Color Yellow (YELLOW) 01/11/19 05:34 Urine Appearance Clear (CLEAR) 01/11/19 05:34 Urine pH 6.0 (4.7-8.0) 01/11/19 05:34 Ur Specific [place] 1.015 (1.005-1.035) 01/11/19 05:34 Urine Protein Negative mg/dL (<30 mg/dL) 01/11/19 05:34 Urine Glucose (UA) Negative mg/dL (NEGATIVE) 01/11/19 05:34 Urine Ketones Negative mg/dL (NEGATIVE) 01/11/19 05:34 Urine Blood Negative (NEGATIVE) 01/11/19 05:34 Urine Nitrate Negative (NEGATIVE) 01/11/19 05:34 Urine Bilirubin Negative (NEGATIVE) 01/11/19 05:34 Urine Urobilinogen 0.2 E.U./dL (<1 E.U./dL) 01/11/19 05:34 Ur Leukocyte Esterase Negative [place]/uL (NEGATIVE) 01/11/19 05:34 Influenza Typ A,B (EIA) Negative for flu a/b (NEGATIVE) 01/11/19 05:30 Mycoplasma pneumon IgM Negative (NEGATIVE) 01/11/19 06:15 - Hospital Course Hospital Course: Edgar Hernandez, PGY1 Discharge Summary for Dr. Omalley Patient is a 83 year old [place]ian Speaking female with a PMHx of DM2, HTN, depression/anxiety, dementia, OA, umbilical and hiatal hernias, who presented to the ED for 1 day of body aches, malaise, frequent cough with green sputum production, 5 episodes of emesis (non-bloody/non-biliary). Patient presented with sepsis on admission - with high fever, leukocytosis, and elevated lactate. She was a code sepsis. On CXR patient found to have diffuse alveolar infiltrate in the left lung. Patient admitted for sepsis 2/2 HCAP. She had a recent hospitalization in 10/2018 for abdominal pain in which she had a hiatal hernia. ID was placed on consult for the patient. She was on vanco, zosyn, and doxy IV antibiotics during hospital course. She had anemia during hospital course likely dilutional effect due to fluid administration but also she told medical team about history of iron deficiency. During her stay, her clinical status improved. Hemoglobin initially trended down but went back up with discontinuation of fluids. She had another fever during hospital course with vomiting episode. Blood Cx were negative x3, urine cx negative, procal negative, MRSA negative. PT evaluated patient since she had weakness and believed she would benefit from [facility]. Clinically she appears better and her leukocytosis resolved. She has been afebrile for the past 24 hours. Given these findings, patient is hemodynamically stable for discharge to [facility] on PO antibiotics - levaquin 500mg x4 days, and feosol for her iron deficiency. She will follow up with PMD as outpatient. Discharge Exam - Head Exam Head Exam: NORMAL INSPECTION - Eye Exam Eye Exam: EOMI, Normal appearance Pupil Exam: NORMAL ACCOMODATION - ENT Exam ENT Exam: Mucous Membranes Moist - Respiratory Exam Respiratory Exam: Clear to PA & Lateral. absent: Rales, Rhonchi, Wheezes, Respiratory Distress, Stridor - Cardiovascular Exam Cardiovascular Exam: RRR, +S1, +S2 - GI/Abdominal Exam GI & Abdominal Exam: Normal Bowel Sounds. absent: Firm, Guarding, Rigid, Soft - Extremities Exam Extremities exam: normal capillary refill, normal inspection, pedal pulses present - Neurological Exam Neurological exam: Alert, CN II-XII Intact, Normal Gait, Oriented x3, Reflexes Normal - Psychiatric Exam Psychiatric exam: Normal Affect, Normal Mood - Skin Skin Exam: Dry, Intact, Normal Color, Warm Discharge Plan - Discharge Medications Prescriptions: Ferrous Sulfate [Feosol] 324 mg PO TID #42 ect levoFLOXacin [Levaquin] 500 mg PO DAILY #4 tab - Follow Up Plan Condition: STABLE Disposition: REHAB FACILITY/REHAB UNIT Instructions: Anemia Caused by Low Iron, Adult (DC), Pneumonia, Adult (DC), Dementia (DC) Additional Instructions: Please follow up with your Primary Care Doctor (Dr. Woods) within 3-4 days of discharge. - Your hemoglobin level is low (microcytic anemia), please follow up with your Primary Care Doctor for it. You are being discharged to Subacute Rehab facility as recommended by Physical Therapy. You are being discharged these new medications: - Levaquin 500mg once a day for the next 4 days - Feosol 324mg three times a day Please resume your home medications as prescribed. Please return to the nearest emergency department if your symptoms worsen or reoccur. Referrals: Maritza Woods DO [Primary Care Provider] - <Lyssa,Anwar A - Last Filed: 01/15/19 18:44> Provider - Provider Date of Admission: 01/11/19 05:57 Attending physician: Melania Omalley MD Primary care physician: Maritza Woods DO Consults: 01/11/19 07:30 Infectious Disease Consult Routine Comment: Consulting Provider: Sb Dougherty Consulting Physician: Sb Dougherty Reason for Consult: HCAP; sepsis 01/12/19 16:37 Diabetic Education Referral Routine Comment: Physician Instructions: Reason For Exam: hgba1c 7.5 01/13/19 13:49 Nursing Referral for Wound Care Routine Comment: Physician Instructions: Reason For Exam: routine Hospital Course - Lab Results Lab Results: Micro Results 01/11/19 05:25 Blood Blood Culture - Preliminary NO GROWTH AFTER 4 DAYS 01/11/19 05:05 Blood Blood Culture - Preliminary NO GROWTH AFTER 4 DAYS 01/12/19 06:30 Naris MRSA Culture (Admit) - Final MRSA NOT DETECTED 01/11/19 05:34 Urine Random Urine Culture - Final No Growth (<1,000 CFU/ML) Most Recent Lab Values WBC 9.0 10^3/uL (4.5-11.0) 01/15/19 06:30 RBC 3.56 10^6/uL (3.5-6.1) 01/15/19 06:30 Hgb 9.0 g/dL (12.0-16.0) L 01/15/19 06:30 Hct 27.7 % (36.0-48.0) L 01/15/19 06:30 MCV 77.8 fl (80.0-105.0) L 01/15/19 06:30 MCH 25.3 pg (25.0-35.0) 01/15/19 06:30 MCHC 32.5 g/dl (31.0-37.0) 01/15/19 06:30 RDW 16.7 % (11.5-14.5) H 01/15/19 06:30 Plt Count 280 10^3/uL (120.0-450.0) 01/15/19 06:30 MPV 8.9 fl (7.0-11.0) 01/15/19 06:30 Neut % (Auto) 71.6 % (50.0-68.0) H 01/15/19 06:30 Lymph % (Auto) 16.7 % (22.0-35.0) L 01/15/19 06:30 Sierra % (Auto) 9.7 % (1.0-6.0) H 01/15/19 06:30 Eos % (Auto) 1.6 % (1.5-5.0) 01/15/19 06:30 Baso % (Auto) 0.4 % (0.0-3.0) 01/15/19 06:30 Lymph # (Auto) 1.5 (1.2-3.4) 01/15/19 06:30 Sierra # (Auto) 0.9 (0.1-0.6) H 01/15/19 06:30 Eos # (Auto) 0.1 (0.0-0.7) 01/15/19 06:30 Baso # (Auto) 0.04 K/mm3 (0.0-2.0) 01/15/19 06:30 Absolute Neuts (auto) 6.43 (1.4-6.5) 01/15/19 06:30 Neutrophils % (Manual) 93 % (50.0-70.0) H 01/13/19 06:45 Lymphocytes % (Manual) 6 % (22.0-35.0) L 01/13/19 06:45 Monocytes % (Manual) TEST NOT PERFORMED 01/13/19 06:45 Basophils % (Manual) 1 % (0.0-1.0) 01/13/19 06:45 Platelet Evaluation Normal (NORMAL) 01/13/19 06:45 Microcytosis (manual) 1+ 01/13/19 06:45 Retic Count 1.11 % (0.5-1.5) 01/12/19 09:21 PT 11.4 SECONDS (9.4-12.5) 01/11/19 05:25 INR 1.01 01/11/19 05:25 APTT 24.7 Seconds (26.9-38.3) L 01/11/19 05:25 pO2 44 mm/Hg (30-55) 01/11/19 09:10 VBG pH 7.34 (7.32-7.43) 01/11/19 09:10 VBG pCO2 41.0 (40-60) 01/11/19 09:10 VBG HCO3 22.1 mmol/l (21-28) 01/11/19 09:10 VBG Total CO2 23.4 mmol.L (22-28) 01/11/19 09:10 VBG O2 Sat (Calc) 83.7 % (40-65) H 01/11/19 09:10 VBG Base Excess -3.5 mmol/L (0.0-2.0) L 01/11/19 09:10 VBG Potassium 3.7 mmol/L (3.6-5.2) 01/11/19 09:10 Sodium 133.0 mmol/L (132-148) 01/11/19 09:10 Chloride 104.0 mmol/L (98-107) 01/11/19 09:10 Glucose 146 mg/dl (65-105) H 01/11/19 09:10 Lactate 1.2 mmol/L (0.7-2.1) 01/11/19 09:10 FiO2 21.0 % 01/11/19 09:10 Crit Value Called To Kristen fletcher 01/11/19 05:32 [place] [id number] 01/11/19 05:32 Blood Gas Notified Time 540 01/11/19 05:32 Sodium 130 mmol/L (132-148) L 01/15/19 06:30 Potassium 4.0 mmol/L (3.6-5.0) 01/15/19 06:30 Chloride 96 mmol/L (98-107) L 01/15/19 06:30 Carbon Dioxide 25 mmol/L (21-33) 01/15/19 06:30 Anion Gap 13 (10-20) 01/15/19 06:30 BUN 9 mg/dL (7-21) 01/15/19 06:30 Creatinine 0.7 mg/dl (0.7-1.2) 01/15/19 06:30 Est GFR ( Amer) > 60 01/15/19 06:30 Est GFR (Non-Af Amer) > 60 01/15/19 06:30 POC Glucose (mg/dL) 172 mg/dL (65-110) H 01/15/19 16:00 Random Glucose 158 mg/dL (70-110) H 01/15/19 06:30 Hemoglobin A1c 7.5 % (4.2-6.5) H 01/12/19 06:00 Lactic Acid 1.1 mmol/L (0.7-2.1) 01/11/19 09:10 Calcium 8.5 mg/dL (8.4-10.5) 01/15/19 06:30 Phosphorus 3.6 mg/dL (2.5-4.5) 01/11/19 05:25 Magnesium 1.6 mg/dL (1.7-2.2) L 01/12/19 06:00 Iron 10 ug/dL (45-180) L 01/12/19 07:00 TIBC 276 ug/dL (265-497) 01/12/19 07:00 % Saturation 4 % (20-55) L 01/12/19 07:00 Ferritin 34.1 ng/mL 01/12/19 07:00 Total Bilirubin 0.5 mg/dL (0.2-1.3) 01/15/19 06:30 AST 31 U/L (14-36) 01/15/19 06:30 ALT 22 U/L (7-56) 01/15/19 06:30 Alkaline Phosphatase 62 U/L (38-126) 01/15/19 06:30 Lactate Dehydrogenase 421 U/L (333-699) 01/11/19 05:25 Total Creatine Kinase 118 U/L (35-230) 01/11/19 05:25 Troponin I < 0.01 ng/mL 01/11/19 05:25 Total Protein 7.0 g/dL (5.8-8.3) 01/15/19 06:30 Albumin 3.4 g/dL (3.0-4.8) 01/15/19 06:30 Globulin 3.7 gm/dL 01/15/19 06:30 Albumin/Globulin Ratio 0.9 (1.1-1.8) L 01/15/19 06:30 Procalcitonin 0.46 NG/ML (0.19-0.49) 01/11/19 05:25 Venous Blood Potassium 3.7 mmol/L (3.6-5.2) 01/11/19 09:10 Urine Color Yellow (YELLOW) 01/11/19 05:34 Urine Appearance Clear (CLEAR) 01/11/19 05:34 Urine pH 6.0 (4.7-8.0) 01/11/19 05:34 Ur Specific [place] 1.015 (1.005-1.035) 01/11/19 05:34 Urine Protein Negative mg/dL (<30 mg/dL) 01/11/19 05:34 Urine Glucose (UA) Negative mg/dL (NEGATIVE) 01/11/19 05:34 Urine Ketones Negative mg/dL (NEGATIVE) 01/11/19 05:34 Urine Blood Negative (NEGATIVE) 01/11/19 05:34 Urine Nitrate Negative (NEGATIVE) 01/11/19 05:34 Urine Bilirubin Negative (NEGATIVE) 01/11/19 05:34 Urine Urobilinogen 0.2 E.U./dL (<1 E.U./dL) 01/11/19 05:34 Ur Leukocyte Esterase Negative Scott/uL (NEGATIVE) 01/11/19 05:34 Influenza Typ A,B (EIA) Negative for flu a/b (NEGATIVE) 01/11/19 05:30 Mycoplasma pneumon IgM Negative (NEGATIVE) 01/11/19 06:15 Attending/Attestation - Attestation I have personally seen and examined this patient.: Yes I have fully participated in the care of the patient.: Yes I have reviewed all pertinent clinical information, including history, physical exam and plan: Yes Notes (Text): 01/15/19 18:41 83 year old female with past medical history of diabetes, hypertension, depression, dementia and arthritis who presented with complaint of generalized weakness and cough. Found to have sepsis with fever 103, elevated lactate and left lung infiltrate on CXR. She was started on iv antibiotics for pneumonia. Due to leukocytosis and another fever patient had CT chest which showed extensive left sided pneumonia. Patient's symptoms began to improve with iv antibiotics. Leukocytosis improved as well. Patient is discharged to [facility]. Follow up with pmd. Continue with po levaquin. Started on po iron for anemia. Recommended close outpatient follow up / work up as per pmd. Melania Omalley MD Hospitalist.
== END 2019-01-15 21:57 | DRG 584 ==
LOC: ED 05:03 → ERH 05:57 → 2RNO 09:03 → 3RSO 01-12 20:54
PROVIDERS: ADMIT Internal Medicine; ATTEND Internal Medicine
PROC: 3E0F7GC Introduction of Other Therapeutic Substance into Respiratory Tract, Via Natural or Artificial Opening (ICD-10-PCS; principal; 2019-01-11)
DX: A41.9 Sepsis, unspecified organism (principal); J18.9 Pneumonia, unspecified organism; F03.90 Unspecified dementia, unspecified severity, without behavioral disturbance, psychotic disturbance, mood disturbance, and anxiety; E11.9 Type 2 diabetes mellitus without complications; I10 Essential (primary) hypertension; M81.0 Age-related osteoporosis without current pathological fracture; D50.9 Iron deficiency anemia, unspecified; F32.9 Major depressive disorder, single episode, unspecified; F41.9 Anxiety disorder, unspecified; Y95 Nosocomial condition; H91.92 Unspecified hearing loss, left ear; M19.90 Unspecified osteoarthritis, unspecified site; E78.00 Pure hypercholesterolemia, unspecified; K21.9 Gastro-esophageal reflux disease without esophagitis; Z87.01 Personal history of pneumonia (recurrent); Z87.442 Personal history of urinary calculi